=== PATIENT | female | born 1980 | race Caucasian/White ===

== ENCOUNTER 2018-08-31 19:36 | Emergency (ER) | payer SELFPAY ==
[~2018-08-31] VITALS: Ht 165.1 cm; Wt 93.9 kg
[~2018-08-31 19:36] MED LIST: DICY20TA57 PO; ESOM20CA PO; PANT20TA2 PO; SCR1T1 PO
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
--- OUTSIDE RECORDS SUMMARY | 2018-08-31 19:58 | XMS REPORT ---
Author Author BELLE JAFFE [facility] Address [address] [place] [address] Care Team Providers Care Supervisor Painting Name Role Phone BELLE JAFFE Unavailable PROBLEMS Type Condition ICD9-CM Code UMW14-NP Code Onset Dates Condition Status SNOMED Code Problem Mixed hyperlipidemia E78.2 Active 524362941 Problem Pre-diabetes R73.09 Active 326171945 Problem Other chronic pain G89.29 Active 48691324 Problem Lumbago with sciatica, right side M54.41 Active 855720556473652 Problem Spondylolisthesis of lumbosacral region M43.17 Active 692288257 Problem Seasonal allergic rhinitis due to pollen J30.1 Active 22850432 Problem Lumbago with sciatica, left side M54.42 Active 204022372 Problem Dysfunctional uterine bleeding N93.8 Active 87595389 ALLERGIES No Information ENCOUNTERS Encounter Location Date Diagnosis [place] [address] [address] Jan, Acute non-recurrent frontal sinusitis J01.10 ; Bronchitis J40 ; Tobacco use Z72.0 and Tobacco abuse counseling Z71.6 [place] [address] [place] [id number] [place] [address] 95265- 4117 Jan, [place] [address] [address] Jan, Bronchitis J40 and Viral upper respiratory tract infection J06.9 [place] [address] 91830- 5642 October, Spondylolisthesis of lumbosacral region M43.17 [place] [address] [address]- [address] October, [place] [address] [place] [id number] [place] [address] 08992- 9835 October, Acute suppurative otitis media of left ear without spontaneous rupture of tympanic membrane, recurrence not specified H66.002 ; Spondylolisthesis of lumbosacral region M43.17 ; Lumbago with sciatica, left side M54.42 ; Lumbago with sciatica, right side M54.41 ; Other chronic pain G89.29 ; Dysfunctional uterine bleeding N93.8 ; Screening for lipoid disorders Z13.220 and Pre-diabetes R73.09 [place] [address] [address]- [address] Sep, Anxiety F41.9 [place] [address] 83289- 8719 Aug, [place] [address] 75782- 7548 Aug, Dysfunction of both 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 [place] [address] [place] [id number] [place] [address] 90534- 9751 Apr, Anxiety F41.9 [place] [address] 48640- 2136 Feb, Anxiety F41.9 [facility] [address] [place] [id number] [place] [address] 24831- 2000 Feb, [facility] [address] [place] [id number] [place] [address] 54062- 8385 Feb, [facility] [address] [place] [id number] [place] [address] 67984- 5809 Feb, [facility] [address] [place] [id number] [place] [address] 22538- 1440 Jan, Anxiety F41.9 [facility] [address] [place] [id number] [place] [address] 77813- 1981 Jan, Anxiety F41.9 and Spondylolisthesis of lumbosacral region M43.17 [facility] [address] [place] [id number] [place] [address] 36568- 4514 17 Dec, 2016 Anxiety F41.9 [facility] [address] 88558- 8648 Nov, Anxiety F41.9 [facility] [address] 34948- 4411 October, Anxiety F41.9 and Seasonal allergic rhinitis due to pollen J30.1 [facility] [address] [place] [id number] [place] [address] 90227- 1537 Sep, Anxiety F41.9 [place] [address] 98865- 9477 16 Aug, 2016 Pre-diabetes R73.09 and Anxiety F41.9 [place] [address] 9[address]00- 2507 Jul, [facility] [address] 28974- 2116 Mar, [facility] [address] 75779- 0615 Mar, DUB (dysfunctional uterine bleeding) N93.8 and Menorrhagia with irregular cycle N92.1 [place] [address] [place] [id number] [place] [address] 32210- 4825 Feb, [facility] [address] [place] [id number] [place] [address] 54352- 3667 08 Feb, 2016 Encounter for dental examination Z01.20 [facility] [address] [place] [id number] [place] [address] 70825- 4918 Feb, Herniated nucleus pulposus M51.9 [facility] [address] [place] [id number] [place] [address] [id number] Feb, Dental examination Z01.20 [facility] [address] [place] [id number] [place] [address] 54847- 6844 Jan, Dental examination Z01.20 and Dental caries K02.9 [facility] [address] [address] 85[address] 10 Jan, 2016 Encounter for dental examination and cleaning without abnormal findings Z01.20 [facility] [address] [address]- 5[address] Jan, [facility] [address] [place] [id number] [place] [address] 45314- 7968 Jan, [facility] [address] [place] [address] 61201- 3690 Jan, Pre-diabetes R73.09 ; Chronic nonintractable headache, unspecified headache type R51 and Vaginal yeast infection B37.3 [facility] [address] [place] [id number] [address]- 7158 Jan, [facility] [address] [place] [id number] [place] [address] 58978- 2257 Dec, Herniated nucleus pulposus M51.9 [facility] [address] [address]- 8629 Dec, [facility] [address] [place] [id number] [place] [address] 62068- 7620 Nov, [facility] [address] [address]- 0191 Nov, [facility] [address] [place] [id number] [address]- 6847 Nov, [facility] [address], [place] [address]- 2884 Nov, [facility] [address] [place] [id number] [place] [address] 02826- 3622 Nov, Right hip pain M25.551 ; Pre-diabetes R73.09 ; Mixed hyperlipidemia E78.2 ; Chronic nonintractable headache, unspecified headache type R51 ; Right foot pain M79.671 and Right hand pain M79.641 [facility] [address] [address]- 5657 17 Nov, 2015 [facility] [address] [place] [id number] [place] [address] 14849- 3331 15 Nov, 2015 Right hip pain M25.551 ; Pre-diabetes R73.09 ; Mixed hyperlipidemia E78.2 and Chronic nonintractable headache, unspecified headache type R51 [facility] [address] [place] [id number] [place] [address] 00113- 3311 October, [facility] [address] [place] [id number] [place] [address] 53508- 5446 October, Right hip pain M25.551 ; Pre-diabetes R73.09 ; Mixed hyperlipidemia E78.2 and Frequent headaches R51 [facility] [address] [address]- 3862 October, Menorrhagia with regular cycle N92.0 [facility] [address] [address] October, [facility] [address] [place] [id number] [place] [address] 97233- 2237 October, Menorrhagia with regular cycle N92.0 [facility] [address], [place] [address]- 0909 Sep, Lump of right breast N63 ; Menorrhagia with regular cycle N92.0 and BMI 30.0-30.9,adult Z68.30 [facility] [address] [address]- 5555 Sep, [facility] [address] [place] [id number] [place] [address] 79715- 7408 Aug, [facility] [address] [place] [address] 34554- 5292 Aug, Well woman exam Z01.419 ; Encounter [...] Z87.898 and Trichomonas vaginalis (TV) infection A59.01 [place] [address] [place] [id number] [place] [address] 80567- 1922 October, Abdominal pain, unspecified site 789.00 ; GERD ( gastroesophageal reflux disease) 530.81 and Chest pain 786.50 [place] [address] [place] [id number] [place] [address] 83920- 6883 Sep, [place] [address] [place] [id number] [place] [address] 25118- 0327 Sep, [place] [address] [place] [id number] [place] [address] 45364- 6308 Jul, [place] [address] [place] [id number] [place] [address] 14379- 1025 Jul, [place] [address] [place] [id number] [place] [address] 64482- 6658 Jun, [place] [address] [place] [id number] [place] [address] 17884- 6335 Jun, [place] [address] [place] [id number] [place] [address] 97343- 5587 Jun, [place] [address] [place] [id number] [place] [address] 37647- 9846 Jun, [place] [address] [place] [id number] [place] [address] [id number]- 1890 Jun, [place] [address] [place] [id number] [place] [address] 59202- 1122 Jun, [place] [address] [facility] [id number] [place] [address]- 1818 14 Jun, 2014 [facility] [address] [id number] [place] [address]- 8342 Jun, [facility] [place] [facility] [address] [id number] [place] [address]- 3485 Jun, [facility] [place] [facility] [address] [id number] [place] [address]- 2394 Jun, [facility] [place] [facility] [address] [id number] [place] [address]- 6351 Jun, [facility] [place] [facility] [address] [id number] [place] [address]- 4160 Jun, [facility] [place] [facility] [address] [id number] [place] [address]- 0389 Jun, [facility] [place] [facility] [address] [id number] [place] [address]- 1855 Jun, [facility] [place] [facility] [address] [id number] [place] [address]- 1970 Jun, [facility] [place] [facility] [address] [id number] [place] [address]- 4395 May, [facility] [place] [facility] [address] [id number] [place] [address]- 8364 May, [facility] [place] [facility] [address] [id number] [place] [address]- 5833 30 Feb, 2014 [facility] [place] [facility] [address] [id number] [place] [address]- 2541 30 Feb, 2014 [facility] [place] [facility] [address] [id number] [place] [address]- 0379 29 Feb, 2014 [facility] [place] [facility] [address] [id number] [place] [address]- 2594 25 Feb, 2014 [facility] [place] [facility] [address] [id number] [place] [address]- 4134 Feb, [facility] [place] [facility] [address] [id number] [place] [address]- 5272 17 Feb, 2013 [facility] [place] [facility] [address] [id number] [place] [address]- 5564 17 Feb, 2013 [facility] [place] [facility] [address] [id number] [place] [address]- 5109 11 Feb, 2013 [facility] [place] [facility] [address] [id number] [place] [address]- 6585 11 Feb, 2013 [facility] [place] [facility] [address] [id number] [place] [address]- 7699 10 Feb, 2014 [facility] [place] [facility] [address] [id number] [place] [address]- 0319 10 Feb, 2014 [facility] [place] [facility] [address] [id number] [place] [address]- 6503 Feb, [facility] [place] [facility] [address] [id number] [place] [address]- 1948 09 Feb, 2014 [facility] [place] [facility] [address] [id number] [place] [address]- 0498 09 Feb, 2014 [facility] [place] [facility] [address] [id number] [place] [address]- 0377 15 Jan, 2014 [facility] [place] [facility] [address] [id number] [place] [address]- 1607 Jan, [facility] [place] [facility] [address] [id number] [address]- 0192 Dec, [facility] [place] [facility] [address] [id number] [place] [address]- 4634 Dec, [facility] [place] [facility] [address] [id number] [place] [address]- 6385 Dec, [facility] [place] [facility] [address] [id number] [place] [address]- 9445 Dec, [facility] [place] [facility] [address] [id number] [place] [address] 2546 Dec, [facility] [address] [id number] [place] [address]- 1991 Dec, [facility] [place] [facility] [address] [id number] [place] [address]- 7680 Nov, [facility] [place] [facility] [address] [id number] [place] [address]- 6546 Nov, [facility] [place] [facility] [address] [id number] [place] [address]- 2255 Sep, [facility] [place] [facility] [address] [id number] [place] [address]- 4903 May, [facility] [place] [facility] [address] [id number] [place] [address]- 2556 May, [facility] [address] [id number] [place] [address]- 3819 Nov, [facility] [place] [facility] [address] [id number] [place] [address]- 1108 Sep, [facility] [place] [facility] [address] [id number] [place] [address]- 3319 Aug, [facility] [place] [facility] [address] [facility] [id number] [place] [address]- 0276 Jun, [facility] [place] [facility] [address] [id number] [place] [address]- 7142 Jun, [facility] [place] [facility] [address] [id number] [place] [address]- 2546 Jun, [facility] [place] [facility] [address] [id number] [place] [address]- 1766 May, [facility] [place] [facility] [address] [id number] [place] [address]- 6919 May, [facility] [place] [facility] [address] [facility] [id number] [place] [address]- 9476 May, [facility] [place] [facility] [address] [facility] [id number] [address]- 1366 May, [facility] [address] [facility] [id number], [place] [address]- 2017 Apr, [facility] [address] [facility] [id number], [place] [address]- 0849 Apr, [facility] [address] [facility] [id number] [address]- 9880 Apr, [facility] [address] [facility] [id number] [address]- 1354 Apr, IMMUNIZATIONS No Known Immunizations SOCIAL HISTORY Never Assessed REASON FOR VISIT Controlled Med Refill PLAN OF CARE VITAL SIGNS MEDICATIONS Medication Instructions Dosage Frequency Start Date End Date Duration Status Tramadol HCl 50 mg Orally TID PRN 1 tablet as needed October, 14 days Active RESULTS No Results PROCEDURES No [...]
--- OUTSIDE RECORDS SUMMARY | 2018-08-31 19:59 | XMS REPORT ---
Author Author MARLENA WATERS [facility] Address [address] [place] [address] Care Team Providers Care Fire Alarm Dispatcher Name Role Phone MARLENA WATERS Unavailable PROBLEMS Type Condition ICD9-CM Code [id number] Code Onset Dates Condition Status SNOMED Code Problem Mixed hyperlipidemia E78.2 Active 703248822 Problem Pre-diabetes R73.09 Active 916773778 Problem Other chronic pain G89.29 Active 34337315 Problem Lumbago with sciatica, right side M54.41 Active 717446825294811 Problem Spondylolisthesis of lumbosacral region M43.17 Active 024149850 Problem Seasonal allergic rhinitis due to pollen J30.1 Active 99472567 Problem Lumbago with sciatica, left side M54.42 Active 593823069 Problem Dysfunctional uterine bleeding N93.8 Active 52948154 ALLERGIES No Information ENCOUNTERS Encounter Location Date Diagnosis [place] [address] [address] Jan, Acute non-recurrent frontal sinusitis J01.10 ; Bronchitis J40 ; Tobacco use Z72.0 and Tobacco abuse counseling Z71.6 [place] [address] [address] Jan, [place] [address] [address] Jan, Bronchitis J40 and Viral upper respiratory tract infection J06.9 [place] [address] [address]- [address] October, Spondylolisthesis of lumbosacral region M43.17 [place] [address] [address]- [address] October, [place] [address] [place] [id number] [place] [address]- [address] October, Acute suppurative otitis media of left ear without spontaneous rupture of tympanic membrane, recurrence not specified H66.002 ; Spondylolisthesis of lumbosacral region M43.17 ; Lumbago with sciatica, left side M54.42 ; Lumbago with sciatica, right side M54.41 ; Other chronic pain G89.29 ; Dysfunctional uterine bleeding N93.8 ; Screening for lipoid disorders Z13.220 and Pre-diabetes R73.09 [place] [address] [place] [id number] [place] [address]- 8333 Sep, Anxiety F41.9 [place] [address] [address]- [address] Aug, [place] [address] [address]- 260[address] Aug, Dysfunction of both 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 [place] [address] [place] [id number] [place] [address] 21474- 1852 Apr, Anxiety F41.9 [place] [address] [address]- 6[address] Feb, Anxiety F41.9 [place] [address] [place] [id number] [place] [address] 26186- 1670 Feb, [place] [address] [place] [id number] [place] [address] 75747- 2606 Feb, [place] [address] [place] [id number] [place] [address] 11922- 6519 Feb, [place] [address] [place] [id number] [place] [address] 87061- 4122 Jan, Anxiety F41.9 [place] [address] [place] [id number] [place] [address] 30028- 3288 Jan, Anxiety F41.9 and Spondylolisthesis of lumbosacral region M43.17 [facility] [address] [place] [id number] [place] [address] 88804- 4608 17 Dec, 2016 Anxiety F41.9 [facility] [address] [place] [id number] [place] [address] 39410- 4747 Nov, Anxiety F41.9 [facility] [address] [place] [id number] [place] [address] 17983- 7806 October, Anxiety F41.9 and Seasonal allergic rhinitis due to pollen J30.1 [facility] [address] [place] [id number] [place] [address] 66356- 1877 Sep, Anxiety F41.9 [place] [address] 14662- 4510 16 Aug, 2016 Pre-diabetes R73.09 and Anxiety F41.9 [place] [address] [place] [id number] [place] [address] 79298- 0552 Jul, [facility] [address] [place] [id number] [place] [address] 23425- 4606 Mar, [facility] [address] [address]- [address] Mar, DUB (dysfunctional uterine bleeding) N93.8 and Menorrhagia with irregular cycle N92.1 [place] [address] [place] [id number] [place] [address] 23352- 5157 Feb, [facility] [address] [place] [id number] [place] [address] 39863- 6335 08 Feb, 2016 Encounter for dental examination Z01.20 [facility] [address] [place] [id number] [place] [address] 84470- 5297 Feb, Herniated nucleus pulposus M51.9 [facility] [address] [place] [id number] [place] [address] [id number] Feb, Dental examination Z01.20 [facility] [address] [place] [id number] [place] [address] 69564- 4052 Jan, Dental examination Z01.20 and Dental caries K02.9 [facility] [address] [address] 10 Jan, 2016 Encounter for dental examination and cleaning without abnormal findings Z01.20 [facility] [address] [address] 48[address] Jan, [facility] [address] [place] [id number] [place] [address] 63162- 2711 Jan, [facility] [address] [place] [id number] [place] [address] 17287- 8814 Jan, Pre-diabetes R73.09 ; Chronic nonintractable headache, unspecified headache type R51 and Vaginal yeast infection B37.3 [place] [address] [place] [id number] [place] [address] 13627- 4456 Jan, [facility] [address] [place] [id number] [place] [address] 26112- 5354 Dec, Herniated nucleus pulposus M51.9 [facility] [address] [place] [id number] [place] [address] 92873- 6060 Dec, [facility] [address] [place] [id number] [place] [address] 03560- 3912 Nov, [facility] [address] [address]- 6519 Nov, [facility] [address] [place] [id number] [place] [address] 98185- 5648 Nov, [facility] [address] [address]- 8302 Nov, [facility] [address] [place] [id number] [place] [address] 35450- 2403 Nov, Right hip pain M25.551 ; Pre-diabetes R73.09 ; Mixed hyperlipidemia E78.2 ; Chronic nonintractable headache, unspecified headache type R51 ; Right foot pain M79.671 and Right hand pain M79.641 [facility] [address] [address]- 4021 17 Nov, 2015 [facility] [address] [place] [id number] [place] [address] 19872- 3491 15 Nov, 2015 Right hip pain M25.551 ; Pre-diabetes R73.09 ; Mixed hyperlipidemia E78.2 and Chronic nonintractable headache, unspecified headache type R51 [facility] [address] [place] [id number] [place] [address] 69246- 6592 October, [facility] [address] [place] [id number] [place] [address] 26442- 4813 October, Right hip pain M25.551 ; Pre-diabetes R73.09 ; Mixed hyperlipidemia E78.2 and Frequent headaches R51 [facility] [address] [address]- 0296 October, Menorrhagia with regular cycle N92.0 [facility] [address] [address] October, [facility] [address] [place] [id number] [place] [address] 77614- 1680 October, Menorrhagia with regular cycle N92.0 [facility] [address] [address]- 5158 Sep, Lump of right breast N63 ; Menorrhagia with regular cycle N92.0 and BMI 30.0-30.9,adult Z68.30 [facility] [address] [address]- 5250 Sep, [facility] [address] [place] [id number] [place] [address] 34090- 7020 Aug, [facility] [id number] [place] [address] 20460- 8756 Aug, Well woman exam Z01.419 ; Encounter [...] Z87.898 and Trichomonas vaginalis (TV) infection A59.01 [place] [address] [address]- 4304 October, Abdominal pain, unspecified site 789.00 ; GERD ( gastroesophageal reflux disease) 530.81 and Chest pain 786.50 [place] [address] 58[address]- 2944 Sep, [place] [address] [address]60- 5866 Sep, [place] [address] 70964- 0059 Jul, [place] [address] 02772- 7452 Jul, [facility] [address] [place] [id number] [place] [address] 87927- 2415 Jun, [place] [address] [place] [id number] [place] [address] 45719- 7024 Jun, [facility] [address] [place] [id number] [place] [address] 33820- 8513 Jun, [place] [address] 93353- 8151 Jun, [place] [address] 12079- 8092 Jun, [place] [address] [place] [id number] [place] [address] 82497- 4827 Jun, [place] [address] [id number] [place] [address]- 7686 14 Jun, 2014 [facility] [place] [facility] [address] [id number] [place] [address]- 0054 Jun, [facility] [place] [facility] [address] [id number] [place] [address]- 3115 Jun, [facility] [place] [facility] [address] [id number] [place] [address]- 0855 Jun, [facility] [place] [facility] [address] [id number] [place] [address]- 5761 Jun, [facility] [place] [facility] [address] [id number] [place] [address]- 5527 Jun, [facility] [place] [facility] [address] [id number] [place] [address]- 5595 Jun, [facility] [place] [facility] [address] [id number] [place] [address]- 7357 Jun, [facility] [place] [facility] [address] [id number] [place] [address]- 8210 Jun, [facility] [place] [facility] [address] [id number] [place] [address]- 3420 May, [facility] [place] [facility] [address] [id number] [place] [address]- 9643 May, [facility] [place] [facility] [address] [id number] [place] [address]- 6124 30 Feb, 2014 [facility] [place] [facility] [address] [id number] [place] [address]- 2548 30 Feb, 2014 [facility] [place] [facility] [address] [id number] [place] [address]- 1584 29 Feb, 2014 [facility] [place] [facility] [address] [id number] [place] [address]- 0659 25 Feb, 2014 [facility] [place] [facility] [address] [id number] [place] [address]- 0817 Feb, 2013 [facility] [place] [facility] [address] [id number] [place] [address]- 7428 17 Feb, 2013 [facility] [place] [facility] [address] [id number] [place] [address]- 7806 17 Feb, 2013 [facility] [place] [facility] [address] [id number] [place] [address]- 9365 11 Feb, 2013 [facility] [place] [facility] [address] [id number] [place] [address]- 8454 11 Feb, 2013 [facility] [place] [facility] [address] [id number] [place] [address]- 1042 10 Feb, 2014 [facility] [place] [facility] [address] [id number] [place] [address]- 4927 10 Feb, 2014 [facility] [place] [facility] [address] [id number] [place] [address]- 5333 Feb, [facility] [place] [facility] [address] [id number] [place] [address]- 1041 09 Feb, 2014 [facility] [place] [facility] [address] [id number] [place] [address]- 8867 09 Feb, 2014 [facility] [place] [facility] [address] [id number] [place] [address]- 6042 15 Jan, 2014 [facility] [place] [facility] [address] [id number] [place] [address]- 0066 Jan, [facility] [place] [facility] [address] [id number] [address]- 2956 Dec, [facility] [place] [facility] [address] [id number] [place] [address]- 1463 Dec, [facility] [place] [facility] [address] [id number] [place] [address]- 3649 Dec, [facility] [place] [facility] [address] [id number] [place] [address]- 7765 Dec, [facility] [place] [facility] [address] [id number] [place] [address] 2549 Dec, [facility] [address] [id number] [place] [address]- 4007 Dec, [facility] [place] [facility] [address] [id number] [place] [address]- 6666 Nov, [facility] [address] [id number] [place] [address]- 3364 Nov, [facility] [place] [facility] [address] [id number] [place] [address]- 6469 Sep, [facility] [address] [id number] [place] [address]- 7429 May, [facility] [place] [facility] [address] [id number] [place] [address]- 0796 May, [facility] [address] [id number] [place] [address]- 2016 Nov, [facility] [place] [facility] [address] [id number] [place] [address]- 6845 Sep, [facility] [place] [facility] [address] [id number] [place] [address]- 0390 Aug, [facility] [place] [facility] [address] [id number] [place] [address]- 6787 Jun, [facility] [place] [facility] [address] [id number] [place] [address]- 0986 Jun, [facility] [place] [facility] [address] [id number] [place] [address]- 2544 Jun, [facility] [place] [facility] [address] [id number] [place] [address]- 5905 May, [facility] [place] [facility] [address] [id number] [place] [address]- 4272 May, [facility] [place] [facility] [address] [id number] [place] [address]- 6160 May, [facility] [address] [facility] [id number] [address]- 9769 May, [facility] [address] [place] [id number] [address]- 2753 Apr, [facility] [address] [facility] [id number] [address]- 1808 Apr, [facility] [address] [facility] [id number] [address]- 8369 Apr, [facility] [address] [facility] [id number] [place] [address]- 3872 Apr, IMMUNIZATIONS No Known Immunizations SOCIAL HISTORY [...]
--- OUTSIDE RECORDS SUMMARY | 2018-08-31 19:59 | XMS REPORT ---
Author Author BELLE JAFFE Organization [facility] Address [address] [place] [address] Care Team Providers Care [employer] Dispatcher Name Role Phone BELLE JAFFE Unavailable PROBLEMS Type Condition ICD9-CM Code QGY76-CB Code Onset Dates Condition Status SNOMED Code Problem Mixed hyperlipidemia E78.2 Active 343575463 Problem Pre-diabetes R73.09 Active 412490841 Problem Other chronic pain G89.29 Active 21973466 Problem Lumbago with sciatica, right side M54.41 Active 599384981981714 Problem Spondylolisthesis of lumbosacral region M43.17 Active 620311240 Problem Seasonal allergic rhinitis due to pollen J30.1 Active 31929420 Problem Lumbago with sciatica, left side M54.42 Active 516326558 Problem Dysfunctional uterine bleeding N93.8 Active 59623226 ALLERGIES Substance Reaction Event Type Date Status Augmentin Unknown Drug Allergy Aug, Active ENCOUNTERS Encounter Location Date Diagnosis [place] [id number] [place] [address] 71065- 7513 October, Spondylolisthesis of lumbosacral region M43.17 [place] [id number] [place] [address] 36955- 6567 October, [place] [id number] [place] [address] 12835- 7653 October, Acute suppurative otitis media of left ear without spontaneous rupture of tympanic membrane, recurrence not specified H66.002 ; Spondylolisthesis of lumbosacral region M43.17 ; Lumbago with sciatica, left side M54.42 ; Lumbago with sciatica, right side M54.41 ; Other chronic pain G89.29 ; Dysfunctional uterine bleeding N93.8 ; Screening for lipoid disorders Z13.220 and Pre-diabetes R73.09 [facility] [id number] [place] [address] 27141- 9107 Sep, Anxiety F41.9 [facility] [id number] [place] [address] 80821- 4026 Aug, [facility] [id number] [place] [address] 56887- 6657 Aug, Dysfunction of both 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 [facility] [id number] [place] [address] 57169- 5453 Apr, Anxiety F41.9 [facility] [id number] [place] [address] 53180- 7936 Feb, Anxiety F41.9 [facility] [id number] [place] [address] 64440- 7400 Feb, [facility] [id number] [place] [address] 86849- 7165 Feb, [facility] [id number] [place] [address] 94891- 8610 Feb, [facility] [id number] [place] [address] 50891- 8428 Jan, Anxiety F41.9 [facility] [id number] [place] [address] 38824- 0113 Jan, Anxiety F41.9 and Spondylolisthesis of lumbosacral region M43.17 [facility] [id number] [place] [address] 24843- 4363 Dec, Anxiety F41.9 [facility] [id number] [place] [address] 44282- 3451 Nov, Anxiety F41.9 [facility] [id number] [place] [address] 99740- 0627 October, Anxiety F41.9 and Seasonal allergic rhinitis due to pollen J30.1 [facility] [id number] [place] [address] 81857- 6338 17 Sep, 2016 Anxiety F41.9 [facility] [address] 10353- 5097 Aug, Pre-diabetes R73.09 and Anxiety F41.9 [facility] [address] 90158- 0153 Jul, [facility] [address] 48368- 4338 Mar, [place] [address] 81968- 5753 Mar, DUB (dysfunctional uterine bleeding) N93.8 and Menorrhagia with irregular cycle N92.1 [place] [address] 36534- 9935 Feb, [facility] [address] 88337- 7138 Feb, Encounter for dental examination Z01.20 [facility] [address] 92782- 6526 Feb, Herniated nucleus pulposus M51.9 [facility] [id number] [place] [address] [id number] Feb, Dental examination Z01.20 [facility] [id number] [place] [address] 40939- 8585 Jan, Dental examination Z01.20 and Dental caries K02.9 [facility] [id number] [place] [address] 21526- 4844 Jan, Encounter for dental examination and cleaning without abnormal findings Z01.20 [facility] [id number] [place] [address] 40325- 5101 Jan, [facility] [id number] [place] [address] 91308- 9548 Jan, [facility] [address] [address]- 6420 Jan, Pre-diabetes R73.09 ; Chronic nonintractable headache, unspecified headache type R51 and Vaginal yeast infection B37.3 [facility] [address] [place] [address]- 8990 Jan, [facility] [id number] [place] [address] 75578- 8202 Dec, Herniated nucleus pulposus M51.9 [facility] [id number] [place] [address] 65694- 1234 Dec, [facility] [id number] [place] [address] 68608- 9941 Nov, [facility] [id number] [place] [address] 81955- 9695 Nov, [facility] [id number] [place] [address] 89516- 6743 Nov, [facility] [address] [address]- 0595 Nov, [facility] [address] [place] [address] 96522- 4521 Nov, Right hip pain M25.551 ; Pre-diabetes R73.09 ; Mixed hyperlipidemia E78.2 ; Chronic nonintractable headache, unspecified headache type R51 ; Right foot pain M79.671 and Right hand pain M79.641 [facility] [address] [address]- 8698 Nov, [facility] [id number] [place] [address] 12140- 7049 Nov, Right hip pain M25.551 ; Pre-diabetes R73.09 ; Mixed hyperlipidemia E78.2 and Chronic nonintractable headache, unspecified headache type R51 [facility] [address] [place] [address]- 7192 October, [facility] [address] [place] [address]- 5849 October, Right hip pain M25.551 ; Pre-diabetes R73.09 ; Mixed hyperlipidemia E78.2 and Frequent headaches R51 [facility] [address] [place] [address]- 0851 October, Menorrhagia with regular cycle N92.0 [facility] [address] [address] October, [facility] [id number] [place] [address] 99990- 0006 October, Menorrhagia with regular cycle N92.0 [facility] [address], [place] [address]- 4331 Sep, Lump of right breast N63 ; Menorrhagia with regular cycle N92.0 and BMI 30.0-30.9,adult Z68.30 [place] [address] [place] [address]- 9996 Sep, [place] [address] [id number] [place] [address] 52556- 5467 Aug, [facility] [address] [address]- 9683 Aug, Well woman exam Z01.419 ; Encounter [...] Z87.898 and Trichomonas vaginalis (TV) infection A59.01 [place] [address] [address]- 1454 October, Abdominal pain, unspecified site 789.00 ; GERD ( gastroesophageal reflux disease) 530.81 and Chest pain 786.50 [facility] [address] [address]- 1001 Sep, [facility] [address], [place] [address]- 9052 Sep, [facility] [id number] [place] [address] 08550- 3282 Jul, [facility] [id number] [place] [address] 62226- 8376 Jul, [facility] [id number] [address]- 9095 Jun, [facility] [id number] [place] [address] 84210- 6070 Jun, [facility] [address], [place] [address]- 4557 Jun, [facility] [address], [place] [address]- 9899 Jun, [facility] [address], [place] [address]- 3192 Jun, [facility] [address], [place] [address]- 8330 Jun, [facility] [address], [place] [address]- 4697 Jun, [facility] [address], [place] [address]- 0033 Jun, [facility] [address], [place] [address]- 3758 Jun, [facility] [address], [place] [address]- 8522 Jun, [facility] [place] [facility] [address] [id number] [place] [address]- 9220 Jun, [facility] [place] [facility] [address] [id number] [place] [address]- 0128 Jun, [facility] [place] [facility] [address] [id number] [place] [address]- 8253 Jun, [facility] [place] [facility] [address] [id number] [place] [address]- 1791 Jun, [facility] [place] [facility] [address] [id number] [place] [address]- 0209 Jun, [facility] [place] [facility] [address] [id number] [place] [address]- 9864 May, [facility] [place] [facility] [address] [id number] [place] [address]- 1411 May, [facility] [place] [facility] [address] [id number] [place] [address]- 5501 30 Feb, 2013 [facility] [place] [facility] [address] [id number] [place] [address] 2544 30 Feb, 2013 [facility] [place] [facility] [address] [id number] [place] [address]- 2543 29 Feb, 2013 [facility] [place] [facility] [address] [id number] [place] [address] 2547 25 Feb, 2013 [facility] [place] [facility] [address] [id number] [place] [address]- 2540 25 Feb, 2013 [facility] [place] [facility] [address] [id number] [place] [address] 2546 17 Feb, 2013 [facility] [place] [facility] [address] [id number] [place] [address] 2546 17 Feb, 2013 [facility] [place] [facility] [address] [id number] [place] [address] 2545 11 Feb, 2013 [facility] [place] [facility] [address] [id number] [place] [address]- 0662 11 Feb, 2014 [facility] [place] [facility] [address] [id number] [place] [address]- 1914 10 Feb, 2014 [facility] [place] [facility] [address] [id number] [place] [address]- 3273 Feb, [facility] [place] [facility] [address] [id number] [place] [address]- 5846 Feb, [facility] [place] [facility] [address] [id number] [place] [address]- 2582 Feb, [facility] [place] [facility] [address] [id number] [place] [address]- 7104 Feb, [facility] [place] [facility] [address] [id number] [place] [address]- 3702 Jan, [facility] [place] [facility] [address] [id number] [place] [address]- 2231 Jan, [facility] [place] [facility] [address] [id number] [place] [address]- 0764 Dec, [facility] [place] [facility] [address] [id number] [place] [address]- 2297 Dec, [facility] [place] [facility] [address] [id number] [place] [address]- 5078 Dec, [facility] [place] [facility] [address] [id number], [place] [address]- 8300 Dec, [facility] [place] [facility] [address] [id number], [place] [address]- 0662 Dec, [facility] [place] [facility] [address] [id number] [place] [address]- 5961 Dec, [facility] [place] [facility] [address] [id number] [place] [address]- 4688 Nov, [facility] [place] [facility] [address] [id number] [place] [address]- 8430 Nov, [facility] [place] [facility] [address] [id number] [place] [address]- 7067 05 Sep, 2012 [facility] [place] [facility] [address] [id number] [place] [address]- 8045 May, [facility] [place] [facility] [address] [id number] [place] [address]- 2136 May, [facility] [place] [facility] [address] [id number] [place] [address]- 0612 Nov, [facility] [place] [facility] [address] [id number] [place] [address] 2546 Sep, [facility] [place] [facility] [address] [id number] [place] [address]- 5545 Aug, [facility] [place] [facility] [address] [id number] [place] [address]- 6486 16 Jun, 2011 [facility] [address] [id number] [place] [address]- 4633 Jun, [facility] [place] [facility] [address] [id number] [place] [address]- 8504 Jun, [facility] [place] [facility] [address] [id number] [place] [address]- 4668 May, [facility] [address] [id number] [place] [address]- 6533 May, [facility] [place] [facility] [address] [id number] [place] [address]- 3174 May, [facility] [place] [facility] [address] [id number] [place] [address]- 2549 May, [facility] [place] [facility] [address] [id number] [place] [address]- 1143 Apr, [facility] [place] [facility] [address] [id number] [place] [address]- 2546 Apr, [facility] [place] [facility] [address] [id number] [place] [address]- 1485 Apr, [facility] [address] [facility] [id number] [place] [address]- 1578 Apr, IMMUNIZATIONS No Known Immunizations SOCIAL HISTORY Never Assessed REASON FOR VISIT Earache--tjanssenMA, --1 week ago was sick with ear infection and sinus infection. Everything but the ear pain has healed. , --ear drainage and itching , --having severe burning and pains in chest after she eats, thinks its heart burn. Prev stomach ulcers PLAN OF CARE Activity Details Follow Up if not improving with PCP or reg follow up Reason: VITAL SIGNS Height 65 in 2017-08-30 Weight 224.7 lbs 2017-08-30 Temperature 98.1 degrees Fahrenheit 2017-08-30 Heart Rate 84 bpm 2017-08-30 Respiratory Rate 20 2017-08-30 BMI 37.39 kg/m2 2017-08-30 Blood pressure systolic 118 mmHg 2017-08-30 Blood pressure diastolic 78 mmHg 2017-08-30 MEDICATIONS Medication Instructions Dosage Frequency Start Date End Date Duration Status Flonase 50 MCG/ACT Nasally Once a day 1 spray in each nostril 24h Aug, 30 day(s) Active Ortho-Cyclen (28) 0.25-35 MG-MCG TAKE ONE TABLET BY MOUTH ONCE DAILY 28 Not-Taking Paxil 20 mg Orally Once a day 1 tablet 24h 30 days Active Scglylpmyv-MMKQ-Xhsvfysn 50-325-40 MG TAKE ONE TABLET BY MOUTH EVERY 4 HOURS NEEDED FOR MIGRAINE 3 Not-Taking RESULTS No Results PROCEDURES No Known procedures [...]
--- OUTSIDE RECORDS SUMMARY | 2018-08-31 19:59 | XMS REPORT ---
Author Author BELLE JAFFE Organization [facility] Address [address] [place] [address] Care Team Providers Care Sander Machine Name Role Phone BELLE JAFFE Unavailable PROBLEMS Type Condition ICD9-CM Code [id number] Code Onset Dates Condition Status SNOMED Code Problem Mixed hyperlipidemia E78.2 Active 346336620 Problem Pre-diabetes R73.09 Active 723003698 Problem Other chronic pain G89.29 Active 80108889 Problem Lumbago with sciatica, right side M54.41 Active 283652986205212 Problem Spondylolisthesis of lumbosacral region M43.17 Active 362034698 Problem Seasonal allergic rhinitis due to pollen J30.1 Active 06579414 Problem Lumbago with sciatica, left side M54.42 Active 181388708 Problem Dysfunctional uterine bleeding N93.8 Active 48258291 ALLERGIES No Information ENCOUNTERS Encounter Location Date Diagnosis [place] [address] [address] Jan, Bronchitis J40 and Viral upper respiratory tract infection J06.9 [place] [address] [address] October, Spondylolisthesis of lumbosacral region M43.17 [place] [address] [place] [id number] [place] [address]- [address] October, [place] [address] [address] October, Acute suppurative otitis media of left ear without spontaneous rupture of tympanic membrane, recurrence not specified H66.002 ; Spondylolisthesis of lumbosacral region M43.17 ; Lumbago with sciatica, left side M54.42 ; Lumbago with sciatica, right side M54.41 ; Other chronic pain G89.29 ; Dysfunctional uterine bleeding N93.8 ; Screening for lipoid disorders Z13.220 and Pre-diabetes R73.09 [facility] [address] [address] Sep, Anxiety F41.9 [facility] [address] [address]- [address] Aug, [facility] [address] [address]- [address] Aug, Dysfunction of both 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 [facility] [address] [address]- [address] Apr, Anxiety F41.9 [facility] [address] [address]- [address] Feb, Anxiety F41.9 [facility] [address] [address]- [address] Feb, [facility] [address] [address]- [address] Feb, [facility] [address] [address]- [address] Feb, [facility] [address] [address] Jan, Anxiety F41.9 [facility] [address] [address]- 8969 Jan, Anxiety F41.9 and Spondylolisthesis of lumbosacral region M43.17 [facility] [address] [address] Dec, Anxiety F41.9 [facility] [address] [address]- [address] Nov, Anxiety F41.9 [facility] [address] [address]- [address] October, Anxiety F41.9 and Seasonal allergic rhinitis due to pollen J30.1 [place] [address] [address] Sep, Anxiety F41.9 [place] [address] [address]- [address] Aug, Pre-diabetes R73.09 and Anxiety F41.9 [place] [address] [address]- [address] Jul, [place] [address] 868367- [address] Mar, [place] [address] [address]- [address] Mar, DUB (dysfunctional uterine bleeding) N93.8 and Menorrhagia with irregular cycle N92.1 [place] [address] [address]- 9660 Feb, [place] [address] [address]- [address] Feb, Encounter for dental examination Z01.20 [place] [address] [address]- [address] Feb, Herniated nucleus pulposus M51.9 [facility] [address] [id number] Feb, Dental examination Z01.20 [place] [address] [place] [id number] [place] [address]- 2662 Jan, Dental examination Z01.20 and Dental caries K02.9 [place] [address] [address]- 0[address] Jan, Encounter for dental examination and cleaning without abnormal findings Z01.20 [place] [address] [address]- [address] Jan, [facility] [address] [address] Jan, [facility] [address] [place] [id number] [place] [address]003- 8422 Jan, Pre-diabetes R73.09 ; Chronic nonintractable headache, unspecified headache type R51 and Vaginal yeast infection B37.3 [facility] [id number] [place] [address]64- 7655 Jan, [facility] [address] [place] [id number] [place] [address] 9[address]84- 5825 Dec, Herniated nucleus pulposus M51.9 [facility] [address] [place] [id number] [place] [address] 90256- 4007 Dec, [facility] [address] [place] [id number] [address] Nov, [facility] [address] [place] [id number] [place] [address]25- [address] Nov, [facility] [address] [address] Nov, [facility] [address] [address] Nov, [facility] [address] [address] 120[address] Nov, Right hip pain M25.551 ; Pre-diabetes R73.09 ; Mixed hyperlipidemia E78.2 ; Chronic nonintractable headache, unspecified headache type R51 ; Right foot pain M79.671 and Right hand pain M79.641 [facility] [address] [address] Nov, [facility] [address] [address] Nov, Right hip pain M25.551 ; Pre-diabetes R73.09 ; Mixed hyperlipidemia E78.2 and Chronic nonintractable headache, unspecified headache type R51 [place] [address] [place] [id number] [place] [address]461- 3972 October, [place] [address] [place] [id number] [place] [address] 30377- 2949 October, Right hip pain M25.551 ; Pre-diabetes R73.09 ; Mixed hyperlipidemia E78.2 and Frequent headaches R51 [place] [address] [place] [id number] [place] [address] 38696- 7103 October, Menorrhagia with regular cycle N92.0 [facility] [address] [place] [id number] [place] [address] -7672 October, [place] [address] [place] [id number] [place] [address] 18965- 3162 October, Menorrhagia with regular cycle N92.0 [place] [address] [place] [id number] [place] [address]29- 2753 Sep, Lump of right breast N63 ; Menorrhagia with regular cycle N92.0 and BMI 30.0-30.9,adult Z68.30 [place] [address] [place] [id number] [place] [address]82- 8593 Sep, [place] [address] [place] [id number] [place] [address] 57514- 1199 Aug, [place] [address] [place] [id number] [place] [address] 04973- 3568 Aug, Well woman exam Z01.419 ; Encounter [...] Z87.898 and Trichomonas vaginalis (TV) infection A59.01 [facility] [address] [address]- [address] October, Abdominal pain, unspecified site 789.00 ; GERD ( gastroesophageal reflux disease) 530.81 and Chest pain 786.50 [facility] [address] [address]- 3[address] Sep, [facility] [address] [place] [id number] [place] [address] 96924- 9046 Sep, [facility] [address] [place] [id number] [place] [address] 70489- 2989 Jul, [facility] [address] [place] [id number] [place] [address] 66425- 1916 Jul, [facility] [address] [place] [id number] [place] [address] 89858- 8154 Jun, [facility] [id number] [place] [address] 95063- 8761 Jun, [facility] [address] [place] [id number] [place] [address] 68389- 0567 Jun, [facility] [address] [place] [id number] [address]- 5[address] Jun, [facility] [address] [address]- 4010 Jun, [facility] [address] [address]- 7340 Jun, [facility] [id number] [place] [address] 82138- 3983 Jun, [facility] [address] [place] [id number] [place] [address] 38786- 2581 Jun, [facility] [address] [address]- 8612 Jun, [facility] [place] [facility] [address] [id number] [place] [address]- 7174 Jun, [facility] [place] [facility] [address] [id number] [place] [address]- 0373 Jun, [facility] [place] [facility] [address] [id number] [place] [address]- 7565 Jun, [facility] [place] [facility] [address] [id number] [place] [address]- 9595 Jun, [facility] [place] [facility] [address] [id number] [place] [address]- 5009 Jun, [facility] [place] [facility] [address] [id number] [place] [address]- 4952 Jun, [facility] [place] [facility] [address] [id number] [place] [address]- 5958 May, [facility] [place] [facility] [address] [id number] [place] [address]- 9057 May, [facility] [place] [facility] [address] [id number] [place] [address]- 4843 30 Feb, 2014 [facility] [place] [facility] [address] [id number] [place] [address]- 7914 30 Feb, 2014 [facility] [place] [facility] [address] [id number] [place] [address]- 2547 29 Feb, 2014 [facility] [place] [facility] [address] [id number] [place] [address]- 2549 25 Feb, 2013 [facility] [place] [facility] [address] [id number] [place] [address] 2540 25 Feb, 2014 [facility] [place] [facility] [address] [id number] [place] [address] 2546 17 Feb, 2013 [facility] [place] [facility] [address] [id number] [place] [address]- 2546 17 Feb, 2013 [facility] [place] [facility] [address] [id number] [place] [address]- 5737 Feb, [facility] [place] [facility] [address] [id number] [place] [address]- 0949 11 Feb, 2014 [facility] [place] [facility] [address] [id number] [place] [address]- 1122 Feb, [facility] [place] [facility] [address] [id number] [place] [address]- 8927 Feb, [facility] [place] [facility] [address] [id number] [place] [address]- 2799 Feb, [facility] [place] [facility] [address] [id number] [place] [address]- 1025 Feb, [facility] [place] [facility] [address] [id number] [place] [address]- 3908 Feb, [facility] [place] [facility] [address] [id number] [place] [address]- 2213 Jan, [facility] [place] [facility] [address] [id number] [place] [address]- 8994 Jan, [facility] [place] [facility] [address] [id number] [place] [address]- 9255 Dec, [facility] [place] [facility] [address] [id number] [place] [address]- 1839 Dec, [facility] [place] [facility] [address] [id number] [address]- 8239 Dec, [facility] [place] [facility] [address] [id number] [address]- 8390 Dec, [facility] [place] [facility] [address] [id number] [place] [address]- 7716 Dec, [facility] [place] [facility] [address] [id number] [place] [address]- 6275 Dec, [facility] [place] [facility] [address] [id number] [place] [address]- 4952 Nov, [facility] [place] [facility] [address] [id number] [place] [address]- 4452 Nov, [facility] [address] [id number] [place] [address]- 3514 Sep, [facility] [place] [facility] [address] [id number] [place] [address]- 5966 May, [facility] [address] [id number] [place] [address]- 6166 May, [facility] [place] [facility] [address] [id number] [place] [address]- 9253 Nov, [facility] [address] [id number] [place] [address]- 0609 Sep, [facility] [place] [facility] [address] [id number] [place] [address]- 2546 Aug, [facility] [address] [id number] [place] [address]- 2453 Jun, [facility] [address] [id number] [place] [address]- 5024 Jun, [facility] [place] [facility] [address] [id number] [place] [address]- 5792 Jun, [facility] [address] [facility] [id number] [place] [address]- 7597 May, [facility] [place] [facility] [address] [id number] [place] [address]- 4796 May, [facility] [place] [facility] [address] [id number] [place] [address]- 2543 May, [facility] [place] [facility] [address] [id number] [place] [address]- 4909 May, [facility] [place] [facility] [address] [id number] [place] [address]- 5766 Apr, [facility] [place] [facility] [address] [id number] [place] [address]- 1776 Apr, [facility] [address] [facility] [id number] [place] [address]- 9263 Apr, [facility] [address] [facility] [id number] [address]- 5281 Apr, IMMUNIZATIONS No Known Immunizations SOCIAL HISTORY Never Assessed REASON FOR VISIT Requests return call PLAN OF CARE VITAL SIGNS MEDICATIONS Medication Instructions Dosage Frequency Start Date End Date Duration Status Paxil 20 mg Orally Once a day 1 tablet 24h 30 days Active RESULTS No Results PROCEDURES [...]
--- OUTSIDE RECORDS SUMMARY | 2018-08-31 19:59 | XMS REPORT ---
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 Name Role Phone MARLENA WATERS Unavailable PROBLEMS Type Condition ICD9-CM Code [id number] Code Onset Dates Condition Status SNOMED Code Problem Mixed hyperlipidemia E78.2 Active 957687634 Problem Pre-diabetes R73.09 Active 988511793 Problem Other chronic pain G89.29 Active 64412426 Problem Lumbago with sciatica, right side M54.41 Active 775647370099549 Problem Spondylolisthesis of lumbosacral region M43.17 Active 820864770 Problem Seasonal allergic rhinitis due to pollen J30.1 Active 25076114 Problem Lumbago with sciatica, left side M54.42 Active 005736058 Problem Dysfunctional uterine bleeding N93.8 Active 68356299 ALLERGIES Substance Reaction Event Type Date Status Augmentin Unknown Drug Allergy October, Active ENCOUNTERS Encounter Location Date Diagnosis [facility] [facility] [id number] [place] [address] 91626- 4584 Jan, [facility] [id number] [place] [address] 61249- 2381 Jan, [facility] [id number] [place] [address] 05705- 9839 Jan, Bronchitis J40 and Viral upper respiratory tract infection J06.9 [facility] [id number] [place] [address] 61731- 1785 October, Spondylolisthesis of lumbosacral region M43.17 [facility] [id number] [place] [address] 12084- 0078 October, [facility] [address] [address]- [address] October, Acute suppurative otitis media of left ear without spontaneous rupture of tympanic membrane, recurrence not specified H66.002 ; Spondylolisthesis of lumbosacral region M43.17 ; Lumbago with sciatica, left side M54.42 ; Lumbago with sciatica, right side M54.41 ; Other chronic pain G89.29 ; Dysfunctional uterine bleeding N93.8 ; Screening for lipoid disorders Z13.220 and Pre-diabetes R73.09 [place] [facility] [address] [address]- 1580 Sep, Anxiety F41.9 [place] [facility] [address] 25357- 3806 Aug, [place] [facility] [address] 67625- 0202 Aug, Dysfunction of both 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 [place] [facility] [address] 68714- 8136 Apr, Anxiety F41.9 [facility] [facility] [address] 94794- 7198 Feb, Anxiety F41.9 [place] [address] 69590- 7383 Feb, [place] [facility] [address] 99246- 3170 Feb, [place] [address] 18392- 5407 Feb, [place] [address] 37941- 9636 Jan, Anxiety F41.9 [place] [facility] [address] 10077- 7376 Jan, Anxiety F41.9 and Spondylolisthesis of lumbosacral region M43.17 [facility] [address] [place] [address]- 6644 17 Dec, 2016 Anxiety F41.9 [facility] [address] 49985- 4277 14 Nov, 2016 Anxiety F41.9 [facility] [id number] [place] [address] 83733- 8714 10 Oct, 2016 Anxiety F41.9 and Seasonal allergic rhinitis due to pollen J30.1 [facility] [address] 45578- 8429 17 Sep, 2016 Anxiety F41.9 [place] [address] 42860- 9477 Aug, Pre-diabetes R73.09 and Anxiety F41.9 [facility] [facility] [address] 14421- 6243 16 Jul, 2016 [place] [address] 99956- 5893 Mar, [facility] [address] 34819- 9522 13 Mar, 2016 DUB (dysfunctional uterine bleeding) N93.8 and Menorrhagia with irregular cycle N92.1 [place] [id number] [place] [address] 67003- 1007 19 Feb, 2016 [place] [facility] [address] 98724- 8957 08 Feb, 2016 Encounter for dental examination Z01.20 [facility] [id number] [place] [address] 19619- 6041 Feb, Herniated nucleus pulposus M51.9 [facility] [id number] [place] [address] [id number] Feb, Dental examination Z01.20 [facility] [id number] [place] [address] 20737- 6858 Jan, Dental examination Z01.20 and Dental caries K02.9 [facility] [address] [address] 6615 Jan, Encounter for dental examination and cleaning without abnormal findings Z01.20 [facility] [id number] [place] [address] 14927- 2247 Jan, [facility] [id number] [place] [address] 25375- 0334 Jan, [facility] [id number] [place] [address] 55744- 4123 Jan, Pre-diabetes R73.09 ; Chronic nonintractable headache, unspecified headache type R51 and Vaginal yeast infection B37.3 [place] [id number] [place] [address] 11305- 1777 Jan, [place] [id number] [place] [address] 81043- 5881 Dec, Herniated nucleus pulposus M51.9 [place] [id number] [place] [address] 01352- 0264 Dec, [place] [id number] [place] [address] 66913- 0880 Nov, [facility] [id number] [place] [address] 89631- 9597 Nov, [facility] [id number] [place] [address] 51917- 5032 Nov, [facility] [id number] [place] [address] 25117- 8676 Nov, [facility] [id number] [place] [address] 83941- 8696 Nov, Right hip pain M25.551 ; Pre-diabetes R73.09 ; Mixed hyperlipidemia E78.2 ; Chronic nonintractable headache, unspecified headache type R51 ; Right foot pain M79.671 and Right hand pain M79.641 [place] [id number] [address]- 7393 17 Nov, 2015 [facility] [id number] [place] [address] 02831- 9393 Nov, Right hip pain M25.551 ; Pre-diabetes R73.09 ; Mixed hyperlipidemia E78.2 and Chronic nonintractable headache, unspecified headache type R51 [facility] [id number] [place] [address] 93244- 9699 October, [facility] [address] [address]- 8963 October, Right hip pain M25.551 ; Pre-diabetes R73.09 ; Mixed hyperlipidemia E78.2 and Frequent headaches R51 [facility] [address], [place] [address]- 7390 October, Menorrhagia with regular cycle N92.0 [facility] [address] [address]8694 October, [facility] [address] [address]- 7414 October, Menorrhagia with regular cycle N92.0 [facility] [address] [address]- 0304 Sep, Lump of right breast N63 ; Menorrhagia with regular cycle N92.0 and BMI 30.0-30.9,adult Z68.30 [facility] [address] [address]- 1250 Sep, [facility] [id number] [address]- 6199 Aug, [facility] [address] [place] [address]- 3679 Aug, Well woman exam Z01.419 ; Encounter [...] Z87.898 and Trichomonas vaginalis (TV) infection A59.01 [facility] [address] [id number]- 3082 October, Abdominal pain, unspecified site 789.00 ; GERD ( gastroesophageal reflux disease) 530.81 and Chest pain 786.50 [place] [address] 12405- 2924 Sep, [place] [address] 85167- 3764 Sep, [facility] [address] 16944- 6657 Jul, [facility] [id number] [place] [address] 53916- 5513 Jul, [facility] [id number] [place] [address] 35585- 7869 Jun, [facility] [id number] [place] [address] 50639- 7770 Jun, [facility] [id number] [place] [address] 30112- 4709 Jun, [facility] [id number] [place] [address] 25076- 5575 Jun, [facility] [address] 82774- 8127 Jun, [facility] [id number] [place] [address] 02410- 9137 Jun, [facility] [address] 59761- 7084 14 Jun, 2014 [facility] [place] [facility] [address] [id number] [place] [address]- 6895 Jun, [facility] [place] [facility] [address] [id number] [place] [address]- 8498 Jun, [facility] [place] [facility] [address] [id number] [place] [address]- 5378 Jun, [facility] [place] [facility] [address] [id number] [place] [address]- 6670 Jun, [facility] [place] [facility] [address] [id number] [place] [address]- 3098 Jun, [facility] [place] [facility] [address] [id number] [place] [address]- 8542 Jun, [facility] [place] [facility] [address] [id number] [place] [address]- 6588 Jun, [facility] [place] [facility] [address] [id number] [place] [address]- 2799 Jun, [facility] [place] [facility] [address] [id number] [place] [address]- 0752 May, [facility] [place] [facility] [address] [id number] [place] [address]- 6829 May, [facility] [place] [facility] [address] [id number], [place] [address]- 6105 30 Feb, 2014 [facility] [place] [facility] [address] [id number] [place] [address]- 9060 30 Feb, 2014 [facility] [place] [facility] [address] [id number] [place] [address]- 3214 29 Feb, 2014 [facility] [place] [facility] [address] [id number] [place] [address]- 9224 25 Feb, 2014 [facility] [place] [facility] [address] [id number] [place] [address]- 6811 Feb, [facility] [place] [facility] [address] [id number] [place] [address]- 8602 17 Feb, 2013 [facility] [place] [facility] [address] [id number] [place] [address]- 4598 17 Feb, 2013 [facility] [place] [facility] [address] [id number] [place] [address]- 2666 11 Feb, 2013 [facility] [place] [facility] [address] [id number] [place] [address]- 9236 11 Feb, 2013 [facility] [place] [facility] [address] [id number] [place] [address]- 7488 10 Feb, 2013 [facility] [place] [facility] [address] [id number] [place] [address]- 3706 10 Feb, 2013 [facility] [place] [facility] [address] [id number] [place] [address]- 0811 10 Feb, 2013 [facility] [place] [facility] [address] [id number] [place] [address]- 9079 09 Feb, 2013 [facility] [place] [facility] [address] [id number] [place] [address]- 8937 09 Feb, 2014 [facility] [place] [facility] [address] [id number] [place] [address]- 2402 15 Jan, 2014 [facility] [place] [facility] [address] [id number] [place] [address]- 2450 15 Jan, 2014 [facility] [place] [facility] [address] [id number] [place] [address]- 8098 Dec, [facility] [place] [facility] [address] [id number] [place] [address]- 5941 Dec, [facility] [place] [facility] [address] [id number] [place] [address]- 5293 Dec, [facility] [place] [facility] [address] [id number] [place] [address]- 6179 Dec, [facility] [place] [facility] [address] [id number] [place] [address]- 0353 Dec, [facility] [address] [id number] [place] [address]- 8428 Dec, [facility] [place] [facility] [address] [id number] [place] [address]- 0319 Nov, [facility] [place] [facility] [address] [id number] [place] [address]- 7436 Nov, [facility] [place] [facility] [address] [id number] [place] [address]- 1016 Sep, [facility] [place] [facility] [address] [id number] [place] [address]- 1780 May, [facility] [place] [facility] [address] [id number] [place] [address]- 3006 May, [facility] [place] [facility] [address] [id number] [place] [address]- 3896 Nov, [facility] [place] [facility] [address] [id number] [place] [address]- 6330 Sep, [facility] [place] [facility] [address] [id number] [place] [address]- 9455 Aug, [facility] [place] [facility] [address] [id number] [place] [address]- 6326 Jun, [facility] [place] [facility] [address] [id number] [place] [address]- 5614 Jun, [facility] [place] [facility] [address] [id number], [place] [address]- 3006 Jun, [facility] [place] [facility] [address] [id number] [place] [address]- 1463 May, [facility] [place] [facility] [address] [id number] [place] [address]- 5646 May, [facility] [place] [facility] [address] [facility] [id number] [address]- 4006 May, [facility] [place] [facility] [address] [id number], [place] [address] 2546 May, [facility] [address] [facility] [address] [id number], [place] [address]- 8956 Apr, [facility] [address] [facility] [address] [id number], [place] [address] 2546 Apr, [facility] [address] [facility] [address] [id number], [place] [address]- 4726 Apr, [facility] [address] [facility] [address] [id number] [address]- 6236 Apr, IMMUNIZATIONS No Known Immunizations SOCIAL HISTORY Never Assessed REASON FOR VISIT Establish Care-----DBennettRN, headaches, low back pain PLAN OF CARE Activity Details Follow Up 2 Months, prn Reason:chronic pain Pending Test LIPID PANEL Pending Test CMP Pending Test CBC Pending Test TSH VITAL SIGNS Height 65 in 2017-10-11 Weight 224 lbs 2017-10-11 Temperature 98.8 degrees Fahrenheit 2017-10-11 Heart Rate 90 bpm 2017-10-11 Respiratory Rate 20 2017-10-11 BMI 37.27 kg/m2 2017-10-11 Blood pressure systolic 118 mmHg 2017-10-11 Blood pressure diastolic 70 mmHg 2017-10-11 MEDICATIONS Medication Instructions Dosage Frequency Start Date End Date Duration Status Tramadol HCl 50 mg Orally TID PRN 1 tablet as needed October,October 14 days Active Metaxalone 800 MG Orally Three times a day 1 tablet 8h October,October 14 days Active Flonase 50 MCG/ACT Nasally Once a day 1 spray in each nostril 24h Aug, 30 day(s) Active Doxycycline Hyclate 100 mg Orally twice a day 1 capsule 12h October, October, 10 day(s) Active Paxil 20 mg Orally Once a day 1 tablet 24h 30 days Active RESULTS No Results PROCEDURES Procedure Date Ordered Result Body Site URINALYSIS, AUTO, W/O SCOPE October 11, 2017 COMPLETE CBC W/AUTO DIFF WBC October 11, 2017 LIPID PANEL October 11, 2017 ASSAY THYROID STIM HORMONE October 11, 2017 COMPREHEN METABOLIC PANEL October 11, 2017 INSTRUCTIONS MEDICATIONS ADMINISTERED No Known Medications MEDICAL [...]
--- OUTSIDE RECORDS SUMMARY | 2018-08-31 20:00 | XMS REPORT ---
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 Name Role Phone BELLE JAFFE Unavailable PROBLEMS Type Condition ICD9-CM Code [id number] Code Onset Dates Condition Status SNOMED Code Problem Mixed hyperlipidemia E78.2 Active 265063721 Problem Pre-diabetes R73.09 Active 341869040 Problem Other chronic pain G89.29 Active 12799595 Problem Lumbago with sciatica, right side M54.41 Active 965728128575504 Problem Spondylolisthesis of lumbosacral region M43.17 Active 194216634 Problem Seasonal allergic rhinitis due to pollen J30.1 Active 45203074 Problem Lumbago with sciatica, left side M54.42 Active 279263481 Problem Dysfunctional uterine bleeding N93.8 Active 01572237 ALLERGIES No Information ENCOUNTERS Encounter Location Date Diagnosis [place] [address] [address] October, Spondylolisthesis of lumbosacral region M43.17 [place] [address] [place] [id number] [place] [address] October, [place] [address] [address] October, Acute suppurative otitis media of left ear without spontaneous rupture of tympanic membrane, recurrence not specified H66.002 ; Spondylolisthesis of lumbosacral region M43.17 ; Lumbago with sciatica, left side M54.42 ; Lumbago with sciatica, right side M54.41 ; Other chronic pain G89.29 ; Dysfunctional uterine bleeding N93.8 ; Screening for lipoid disorders Z13.220 and Pre-diabetes R73.09 [place] [address] [place] [id number] [place] [address]- [address]114 Sep, Anxiety F41.9 [facility] [address] [place] [id number] [place] [address] 11561- 9192 Aug, [facility] [address] [place] [id number] [place] [address] 41322- 3780 Aug, Dysfunction of both 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 [facility] [address] [place] [id number] [place] [address] 70915- 9683 Apr, Anxiety F41.9 [facility] [address] [place] [id number] [place] [address] 31535- 4922 Feb, Anxiety F41.9 [facility] [address] [address]- [address] Feb, [facility] [address] [place] [id number] [place] [address] 09029- 7527 08 Feb, 2017 [facility] [address] [place] [id number] [place] [address] 35705- 7647 Feb, [facility] [address] [place] [id number] [place] [address] 10528- 7018 Jan, Anxiety F41.9 [facility] [address] [place] [id number] [place] [address] 87722- 6593 Jan, Anxiety F41.9 and Spondylolisthesis of lumbosacral region M43.17 [facility] [address] [place] [id number] [place] [address] 50242- 6567 Dec, Anxiety F41.9 [facility] [address] [place] [id number] [place] [address] 73786- 9374 Nov, Anxiety F41.9 [facility] [address] [place] [id number] [place] [address] 17384- 2481 October, Anxiety F41.9 and Seasonal allergic rhinitis due to pollen J30.1 [facility] [address] [place] [id number] [place] [address] 18410- 2934 Sep, Anxiety F41.9 [facility] [address] [place] [id number] [place] [address] 62719- 4870 Aug, Pre-diabetes R73.09 and Anxiety F41.9 [facility] [address] [place] [id number] [place] [address] 68176- 9163 16 Jul, 2016 [facility] [address] [address]- [address] Mar, [facility] [address] [address]- [address] Mar, DUB (dysfunctional uterine bleeding) N93.8 and Menorrhagia with irregular cycle N92.1 [facility] [address] [place] [id number] [place] [address] 23529- 2847 Feb, [facility] [address] [address]- 42[address] Feb, Encounter for dental examination Z01.20 [facility] [address] 11594- 4752 Feb, Herniated nucleus pulposus M51.9 [facility] [address] [id number] Feb, Dental examination Z01.20 [facility] [address] [place] [id number] [place] [address] 91695- 0746 Jan, Dental examination Z01.20 and Dental caries K02.9 [facility] [address] [place] [id number] [place] [address] 67185- 7231 Jan, Encounter for dental examination and cleaning without abnormal findings Z01.20 [facility] [address] [place] [id number] [place] [address] 02987- 1241 Jan, [facility] [address] [place] [id number] [place] [address] 84301- 2699 Jan, [facility] [address] [place] [address]- 6[address] Jan, Pre-diabetes R73.09 ; Chronic nonintractable headache, unspecified headache type R51 and Vaginal yeast infection B37.3 [facility] [address] [address] Jan, [facility] [address] [place] [id number] [address] 0270 Dec, Herniated nucleus pulposus M51.9 [facility] [address] [place] [id number] [place] [address] 36450- 5344 Dec, [facility] [address] [place] [id number] [place] [address] 55042- 9864 Nov, [facility] [address] [place] [id number] [place] [address] 52286- 4272 Nov, [facility] [address] [place] [id number] [place] [address] 31569- 1164 Nov, [facility] [address] [address] 2852 Nov, [facility] [address] [place] [id number] [place] [address] 26969- 5504 Nov, Right hip pain M25.551 ; Pre-diabetes R73.09 ; Mixed hyperlipidemia E78.2 ; Chronic nonintractable headache, unspecified headache type R51 ; Right foot pain M79.671 and Right hand pain M79.641 [facility] [address], [place] [address] 37[address] Nov, [facility] [address] [place] [id number] [place] [address] 25933- 3830 Nov, Right hip pain M25.551 ; Pre-diabetes R73.09 ; Mixed hyperlipidemia E78.2 and Chronic nonintractable headache, unspecified headache type R51 [facility] [address] [place] [address] 48120- 3988 October, [facility] [address], [place] [address] 86[address] October, Right hip pain M25.551 ; Pre-diabetes R73.09 ; Mixed hyperlipidemia E78.2 and Frequent headaches R51 [place] [address] [address] 98[address] October, Menorrhagia with regular cycle N92.0 [facility] [address] [address] October, [place] [address] [place] [id number] [place] [address] 87057- 1616 October, Menorrhagia with regular cycle N92.0 [place] [address] [place] [id number] [place] [address] 70579- 0889 Sep, Lump of right breast N63 ; Menorrhagia with regular cycle N92.0 and BMI 30.0-30.9,adult Z68.30 [place] [address], [place] [address]- 8652 Sep, [place] [address] [place] [id number] [place] [address] 23074- 8455 Aug, [place] [address] [place] [address] 97363- 8301 Aug, Well woman exam Z01.419 ; Encounter [...] Z87.898 and Trichomonas vaginalis (TV) infection A59.01 [place] [address], [place] [address] October, Abdominal pain, unspecified site 789.00 ; GERD ( gastroesophageal reflux disease) 530.81 and Chest pain 786.50 [facility] [address], [place] [address]- 1252 14 Sep, 2014 [facility] [place] [address], [place] [address]- 9259 Sep, [facility] [place] [address] [place] [id number] [place] [address] 88098- 2522 Jul, [facility] [address] [place] [address] 04084- 2453 Jul, [facility] [address] [place] [id number] [place] [address] 23415- 4528 Jun, [facility] [address] [place] [id number] [place] [address] 43434- 8378 Jun, [facility] [address] [place] [address] 87744- 8935 Jun, [facility] [address], [place] [address]- 0901 Jun, [facility] [address], [place] [address]- 3499 Jun, [facility] [address], [place] [address]- 6542 Jun, [facility] [address], [place] [address]- 9951 Jun, [facility] [place] [address], [place] [address]- 6007 Jun, [facility] [address], [place] [address]- 0233 Jun, [facility] [place] [address], [place] [address]- 2362 Jun, [facility] [address], [place] [address]- 3944 Jun, [facility] [place] [facility] [address] [id number] [place] [address]- 1985 Jun, [facility] [place] [facility] [address] [id number] [place] [address]- 2224 Jun, [facility] [place] [facility] [address] [id number] [place] [address]- 4763 Jun, [facility] [place] [facility] [address] [id number] [place] [address]- 3395 Jun, [facility] [place] [facility] [address] [id number] [place] [address]- 0072 May, [facility] [place] [facility] [address] [id number] [place] [address]- 7899 May, [facility] [place] [facility] [address] [id number] [place] [address]- 3145 30 Feb, 2013 [facility] [place] [facility] [address] [id number] [place] [address]- 6614 30 Feb, 2013 [facility] [place] [facility] [address] [id number] [place] [address]- 8263 29 Feb, 2013 [facility] [place] [facility] [address] [id number] [place] [address]- 3882 25 Feb, 2013 [facility] [place] [facility] [address] [id number] [place] [address]- 2547 25 Feb, 2013 [facility] [place] [facility] [address] [id number] [place] [address]- 254 17 Feb, 2013 [facility] [place] [facility] [address] [id number] [place] [address]- 2541 17 Feb, 2013 [facility] [place] [facility] [address] [id number] [place] [address]- 2545 11 Feb, 2013 [facility] [place] [facility] [address] [id number] [place] [address]- 7676 11 Feb, 2013 [facility] [place] [facility] [address] [id number] [place] [address]- 4582 10 Feb, 2013 [facility] [place] [facility] [address] [id number] [place] [address]- 3721 Feb, [facility] [place] [facility] [address] [id number] [place] [address]- 9477 Feb, [facility] [place] [facility] [address] [id number] [place] [address]- 0045 Feb, [facility] [place] [facility] [address] [id number] [place] [address]- 1415 Feb, [facility] [place] [facility] [address] [id number] [place] [address]- 4346 Jan, [facility] [place] [facility] [address] [id number] [place] [address]- 8313 Jan, [facility] [place] [facility] [address] [id number] [place] [address]- 0389 Dec, [facility] [place] [facility] [address] [id number] [place] [address]- 2109 Dec, [facility] [place] [facility] [address] [id number] [place] [address]- 2982 Dec, [facility] [place] [facility] [address] [id number] [place] [address]- 6161 Dec, [facility] [place] [facility] [address] [id number] [place] [address]- 9802 Dec, [facility] [place] [facility] [address] [id number] [place] [address]- 3273 Dec, [facility] [place] [facility] [address] [id number] [place] [address]- 9049 Nov, [facility] [place] [facility] [address] [id number] [place] [address]- 6892 Nov, [facility] [place] [facility] [address] [id number] [place] [address]- 8254 Sep, [facility] [place] [facility] [address] [id number] [place] [address]- 8331 May, [facility] [place] [facility] [address] [id number] [place] [address]- 6104 May, [facility] [place] [facility] [address] [id number] [place] [address]- 8312 Nov, [facility] [place] [facility] [address] [id number] [place] [address]- 4891 Sep, [facility] [place] [facility] [address] [id number] [place] [address]- 1907 Aug, [facility] [place] [facility] [address] [id number] [place] [address]- 2211 Jun, [facility] [place] [facility] [address] [id number] [place] [address]- 0826 Jun, [facility] [place] [facility] [address] [id number] [place] [address]- 0456 Jun, [facility] [place] [facility] [address] [id number] [place] [address]- 4009 May, [facility] [place] [facility] [address] [id number] [place] [address]- 1455 May, [facility] [place] [facility] [address] [id number], [place] [address]- 7879 May, [facility] [place] [facility] [address] [id number], [place] [address]- 9035 May, [facility] [place] [facility] [address] [id number] [place] [address]- 6136 Apr, [facility] [place] [facility] [address] [id number], [place] [address]- 5038 Apr, [facility] [place] [facility] [address] [facility] [id number] [place] [address]- 1495 Apr, [facility] [place] [facility] [address] [facility] [id number] [place] [address]- 0785 Apr, IMMUNIZATIONS No Known Immunizations SOCIAL HISTORY Never Assessed REASON FOR VISIT Requests return call PLAN OF CARE VITAL SIGNS MEDICATIONS Unknown Medications RESULTS No Results PROCEDURES No Known [...]
--- OUTSIDE RECORDS SUMMARY | 2018-08-31 20:00 | XMS REPORT ---
Author ADRIANNA Landaverde [facility] eClinicalWorks Address Unknown Phone Unavailable Care Team Providers Care Rehabilitation Caseworker Name Role Phone ADRIANNA PACHECO CP Unavailable Allergies, Adverse Reactions, Alerts Substance Reaction Event Type Augmentin Info Not Available Drug Allergy Problems Problem Type Condition Code Onset Dates Condition Status Problem Menorrhagia with regular cycle N92.0 Active Problem Hematuria, unspecified R31.9 Active Problem BMI 30.0-30.9,adult Z68.30 Active Problem Right foot pain M79.671 Active Problem Right hand pain M79.641 Active Problem Vaginal yeast infection B37.3 Active Problem Right hip pain M25.551 Active Problem Pre-diabetes R73.09 Active Problem Chronic nonintractable headache, unspecified headache type R51 Active Problem Mixed hyperlipidemia E78.2 Active Assessment Encounter for dental examination and cleaning without abnormal findings Z01.20 Active Problem Fibrocystic breast, left N60.12 Active Problem Fibrocystic breast, right N60.11 Active Problem History of heartburn Z87.898 Active Problem Depression, unspecified depression type F32.9 Active Problem Lump of right breast N63 Active Problem Anxiety F41.9 Active Medications Medication Code System Code Instructions Start Date End Date Status Dosage Ibuprofen [facility] [address]-18 800 MG Orally Three times a day [address] [facility] [address]-52 824431 UNIT/GM Externally 4 times a day prn Jan 12, 2016 1 application to affected area Midol [facility] [address]59 200 MG Orally every 6 hrs 1 capsule as needed Albuterol Sulfate [facility] [address]-74 90 mcg/actuation December 04, 2013 inhale 2 puffs by inhalation route every 4-6 hours as needed Bactrim [facility] [address]-81 not defined Fioricet [facility] [address]-49 50-325-40 MG Orally every 4 hrs with migraine Jan 12, 2016 1 capsule as needed Ortho-Cyclen (28) [facility] [address]-47 0.25-35 MG-MCG Orally Once a day October 1 tablet Procedures Procedure Coding System Code Date PROPHYLAXIS - ADULT CPT-4 D1110 Jan 20, 2016 Results No Known Results Summary Purpose eClinicalWorks Submission
--- OUTSIDE RECORDS SUMMARY | 2018-08-31 20:00 | XMS REPORT ---
Author SURI Allen [facility] eClinicalWorks Address Unknown Phone Unavailable Care Team Providers Care Exhibit Preparator Name Role Phone SURI RUBI CP Unavailable Allergies No Known Allergies Problems Problem Type Condition Code Onset Dates [...] R51 Active Problem Mixed hyperlipidemia E78.2 Active Problem Fibrocystic breast, left N60.12 Active Problem Fibrocystic breast, right N60.11 Active Problem History of heartburn Z87.898 Active Problem Depression, unspecified depression type F32.9 Active Problem Lump of right breast N63 Active Problem Anxiety F41.9 Active Medications No Known Medications Results No Known Results Summary Purpose eClinicalWorks Submission
--- OUTSIDE RECORDS SUMMARY | 2018-08-31 20:00 | XMS REPORT ---
Author ODETTE Paz [facility] eClinicalWorks Address Unknown Phone Unavailable Care Team Providers Care Plant Attendant Or Assistant Operator Name Role Phone ODETTE REYES CP Unavailable Allergies No Known Allergies Problems Problem Type Condition Code Onset Dates Condition Status Problem Anxiety F41.9 Active Problem BMI 30.0-30.9,adult Z68.30 Active Problem Menorrhagia with regular cycle N92.0 Active Problem Right hand pain M79.641 Active Problem Chronic nonintractable headache, unspecified headache type R51 Active Problem Right foot pain M79.671 Active Problem Pre-diabetes R73.09 Active Problem Hematuria, unspecified R31.9 Active Problem Mixed hyperlipidemia E78.2 Active Problem Right hip pain M25.551 Active Problem Lump of right breast N63 Active Problem Fibrocystic breast, left N60.12 Active Assessment Herniated nucleus pulposus M51.9 Active Problem Fibrocystic breast, right N60.11 Active Problem History of heartburn Z87.898 Active Problem Depression, unspecified depression type F32.9 Active Medications No Known Medications Procedures Procedure Coding System Code Date Office Visit, Est Pt., Level 3 CPT-4 21021 January 07, 2016 Vital Signs Date/Time: January 07, 2016 Blood Pressure Diastolic 66 mmHg Blood Pressure Systolic 112 mmHg Height 65 in Results No Known Results Summary Purpose eClinicalWorks Submission
--- OUTSIDE RECORDS SUMMARY | 2018-08-31 20:00 | XMS REPORT ---
Author Author UNRULY HOGUE Organization [facility] Address [address] [place] [address] Care Team Providers Care Computer Equipment Repairer Name Role Phone UNRULY HOGUE Unavailable PROBLEMS Type Condition ICD9-CM Code [id number] Code Onset Dates Condition Status SNOMED Code Problem BMI 30.0-30.9,adult Z68.30 Active 397165047 Problem Pre-diabetes R73.09 Active 025597051 Problem Hematuria, unspecified R31.9 Active 17298801 Problem Vaginal yeast infection B37.3 Active 46064947 Problem Right foot pain M79.671 Active 92086807 Problem Mixed hyperlipidemia E78.2 Active 415558618 Problem Right hip pain M25.551 Active 38395110 Problem Right hand pain M79.641 Active 92176196 Problem Chronic nonintractable headache, unspecified headache type R51 Active 64409415 Assessment Encounter for dental examination Z01.20 08 Feb, 2016 Active 429682858 Problem History of heartburn Z87.898 Active 07720685683710 Problem Fibrocystic breast, right N60.11 Active 14311794 Problem Depression, unspecified depression type F32.9 Active 02231342 Problem Lump of right breast N63 Active 19414962 Problem Anxiety F41.9 Active 49983536 Problem Fibrocystic breast, left N60.12 Active 70453947 Problem Menorrhagia with regular cycle N92.0 Active 828038510 ALLERGIES No Known Allergies SOCIAL HISTORY No smoking Hx information available PLAN OF CARE VITAL SIGNS MEDICATIONS Medication Instructions Dosage Frequency Start Date End Date Duration Status Clindamycin HCl 150 MG Orally every 6 hrs 1 capsule 6h Feb,Feb 10 days Active RESULTS No Results PROCEDURES Procedure Date Ordered Related Diagnosis Body Site Dental no charge Feb 18, 2016 IMMUNIZATIONS No Known Immunizations
--- OUTSIDE RECORDS SUMMARY | 2018-08-31 20:00 | XMS REPORT ---
Author Author EZRA YUN [facility] Address Unknown Care Team Providers Care Department Assistant Name Role Phone EZRA YUN Unavailable PROBLEMS Type Condition ICD9-CM Code TXG34-JP Code Onset Dates Condition Status SNOMED Code Problem BMI 30.0-30.9,adult Z68.30 Active 862046436 Problem Pre-diabetes R73.09 Active 000228320 Problem Hematuria, unspecified R31.9 Active 79808106 Problem Vaginal yeast infection B37.3 Active 71631610 Problem Right foot pain M79.671 Active 00851022 Problem Mixed hyperlipidemia E78.2 Active 419004199 Problem Right hip pain M25.551 Active 93479224 Problem Right hand pain M79.641 Active 20241505 Problem Chronic nonintractable headache, unspecified headache type R51 Active 16912955 Assessment Dental examination Z01.20 Feb, Active 903707426 Problem History of heartburn Z87.898 Active 42830395207634 Problem Fibrocystic breast, right N60.11 Active 67738443 Problem Depression, unspecified depression type F32.9 Active 67482490 Problem Lump of right breast N63 Active 89560467 Problem Anxiety F41.9 Active 86421517 Problem Fibrocystic breast, left N60.12 Active 98622675 Problem Menorrhagia with regular cycle N92.0 Active 353085023 ALLERGIES No Known Allergies SOCIAL HISTORY No smoking Hx information available PLAN OF CARE VITAL SIGNS MEDICATIONS Medication Instructions Dosage Frequency Start Date End Date Duration Status Strathmere 5-325 MG Orally every 6 hrs 1 tablet as needed 6h 5 days Active RESULTS No Results PROCEDURES Procedure Date Ordered Related Diagnosis Body Site TX COMPS - UNUSUL CIRCUMSTANCES RPT Feb 11, 2016 IMMUNIZATIONS No Known Immunizations
--- OUTSIDE RECORDS SUMMARY | 2018-08-31 20:00 | XMS REPORT ---
Author BELLE Terry [facility] eClinicalWorks Address Unknown Phone Unavailable Care Team Providers Care Support Merchandiser Name Role Phone BELLE JAFFE Unavailable Allergies, Adverse Reactions, Alerts Substance Reaction [...] Active Problem Mixed hyperlipidemia E78.2 Active Assessment Chronic nonintractable headache, unspecified headache type R51 Active Assessment Pre-diabetes R73.09 Active Assessment Vaginal yeast infection B37.3 Active Problem Fibrocystic breast, left N60.12 Active Problem Fibrocystic breast, right N60.11 Active Problem History of heartburn Z87.898 Active Problem Depression, unspecified depression type F32.9 Active Problem Lump of right breast N63 Active Problem Anxiety F41.9 Active Medications Medication Code System Code Instructions Start Date End Date Status Dosage Ibuprofen [facility] [address]-00 800 MG Orally Three times a day 1 tablet Midol [facility] [address]65 200 MG Orally every 6 hrs 1 capsule as needed Bactrim [facility] [address]-90 not defined Albuterol Sulfate [facility] [address]-40 90 mcg/actuation December 04, 2013 inhale 2 puffs by inhalation route every 4-6 hours as needed Fioricet [facility] [address]-02 50-325-40 MG Orally every 4 hrs with migraine Jan 12, 2016 1 capsule as needed Ortho-Cyclen (28) [facility] [address]-64 0.25-35 MG-MCG Orally Once a day October 1 tablet Nystatin [facility] [address]-98 928628 UNIT/GM Externally 4 times a day prn Jan 12, 2016 1 application to affected area Procedures Procedure Coding System Code Date MICROALBUMIN, SEMIQUANT CPT-4 41338 Jan 12, 2016 ASSAY OF URINE CREATININE CPT-4 07815 Jan 12, 2016 GLYCATED HEMOGLOBIN TEST CPT-4 90363 Jan 12, 2016 Office Visit, Est Pt., Level 4 CPT-4 36335 Jan 12, 2016 MICROALBUMIN, QUANTITATIVE CPT-4 19570 Jan 12, 2016 Vital Signs Date/Time: Jan 12, 2016 Cardiac Monitoring Heart Rate 70 bpm Weight 192.7 lbs Height 65 in BMI 32.06 Index Blood Pressure Diastolic 74 mmHg Blood Pressure Systolic 120 mmHg Results No Known Results Summary Purpose eClinicalWorks Submission
--- OUTSIDE RECORDS SUMMARY | 2018-08-31 20:00 | XMS REPORT ---
Author Author BELLE JAFFE Organization [facility] Address [address] [place] [address] Care Team Providers Care Spindle Carver Name Role Phone BELLE JAFFE Unavailable PROBLEMS Type Condition ICD9-CM Code [id number] Code Onset Dates Condition Status SNOMED Code Problem History of heartburn Z87.898 Active 25275868786812 Problem Spondylolisthesis of lumbosacral region M43.17 Active 903974459 Problem Seasonal allergic rhinitis due to pollen J30.1 Active 02015441 Problem Right hip pain M25.551 Active 89038022 Problem Lump of right breast N63 Active 07315225 Problem Mixed hyperlipidemia E78.2 Active 299022199 Problem Pre-diabetes R73.09 Active 412425649 ALLERGIES No Information SOCIAL HISTORY Never Assessed PLAN OF CARE VITAL SIGNS MEDICATIONS Unknown Medications RESULTS No Results PROCEDURES No Known procedures IMMUNIZATIONS No Known Immunizations MEDICAL (GENERAL) HISTORY Type Description Date Medical [...]
--- OUTSIDE RECORDS SUMMARY | 2018-08-31 20:00 | XMS REPORT ---
Author Author BELLE JAFFE [facility] Address [address] [place] [address] Care Team Providers Care Veterinary Pathologist Name Role Phone BELLE JAFFE Unavailable PROBLEMS Type Condition ICD9-CM Code [id number] Code Onset Dates Condition Status SNOMED Code Problem Spondylolisthesis of lumbosacral region M43.17 Active 099062990 Problem Seasonal allergic rhinitis due to pollen J30.1 Active 83355927 Problem Mixed hyperlipidemia E78.2 Active 094595177 Problem Pre-diabetes R73.09 Active 131330104 ALLERGIES No Information ENCOUNTERS Encounter Location Date Diagnosis [place] [address] [address] Aug, [place] [address] [address] Aug, Dysfunction of both 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 [place] [address] [place] [id number] [place] [address] 73726- 6624 Apr, Anxiety F41.9 [place] [address] [place] [id number] [place] [address] 59805- 5356 Feb, Anxiety F41.9 [place] [address] [address]- 5967 Feb, [place] [address] 19[address]- 5584 Feb, [place] [address] 11468- 8330 Feb, [place] [address] [place] [id number] [place] [address] 04387- 5823 Jan, Anxiety F41.9 [place] [address] [place] [id number] [place] [address] 66619- 8461 16 Jan, 2017 Anxiety F41.9 and Spondylolisthesis of lumbosacral region M43.17 [facility] [address] [address]- [address]90 17 Dec, 2016 Anxiety F41.9 [place] [address] 90164- 1675 14 Nov, 2016 Anxiety F41.9 [place] [address] 44987- 7920 October, Anxiety F41.9 and Seasonal allergic rhinitis due to pollen J30.1 [place] [address] 05722- 5095 17 Sep, 2016 Anxiety F41.9 [place] [address] 90779- 0430 Aug, Pre-diabetes R73.09 and Anxiety F41.9 [facility] [address] 23811- 0691 16 Jul, 2016 [place] [address] 51585- 7081 Mar, [place] [address] 96[address]- 6284 Mar, DUB (dysfunctional uterine bleeding) N93.8 and Menorrhagia with irregular cycle N92.1 [place] [address] [place] [id number] [place] [address] 93213- 1011 19 Feb, 2016 [place] [address] 73491- 4427 08 Feb, 2016 Encounter for dental examination Z01.20 [facility] [address] [place] [id number] [place] [address] 47483- 8862 01 Feb, 2016 Herniated nucleus pulposus M51.9 [facility] [address] [id number] Feb, Dental examination Z01.20 [facility] [address] [address] Jan, Dental examination Z01.20 and Dental caries K02.9 [facility] [address] [place] [id number] [address] Jan, Encounter for dental examination and cleaning without abnormal findings Z01.20 [facility] [id number] [place] [address] 08531- 7099 Jan, [facility] [address] [place] [id number] [place] [address] 57500- 0742 Jan, [facility] [address] [place] [id number] [place] [address] 94319- 1526 Jan, Pre-diabetes R73.09 ; Chronic nonintractable headache, unspecified headache type R51 and Vaginal yeast infection B37.3 [facility] [address] [place] [address] 84615- 2092 Jan, [facility] [address] [place] [id number] [place] [address] 89608- 8889 Dec, Herniated nucleus pulposus M51.9 [facility] [address] [place] [address] 02097- 5523 Dec, [facility] [address] [address] 2669 Nov, [facility] [address] [place] [address] 50947- 4860 Nov, [facility] [address] [place] [id number] [place] [address] 35696- 8526 Nov, [facility] [address] [address] 8056 Nov, [facility] [address] [place] [address] 50198- 5069 Nov, Right hip pain M25.551 ; Pre-diabetes R73.09 ; Mixed hyperlipidemia E78.2 ; Chronic nonintractable headache, unspecified headache type R51 ; Right foot pain M79.671 and Right hand pain M79.641 [facility] [address] [place] [id number] [place] [address] 83394- 5853 Nov, [facility] [address] 36034- 7236 Nov, Right hip pain M25.551 ; Pre-diabetes R73.09 ; Mixed hyperlipidemia E78.2 and Chronic nonintractable headache, unspecified headache type R51 [place] [address] [place] [id number] [place] [address] 48558- 2690 October, [place] [address] [place] [id number] [place] [address] 59201- 7269 October, Right hip pain M25.551 ; Pre-diabetes R73.09 ; Mixed hyperlipidemia E78.2 and Frequent headaches R51 [place] [address] [place] [id number] [place] [address] 64925- 7619 October, Menorrhagia with regular cycle N92.0 [facility] [address] [place] [id number] [place] [address] 29346 -2501 October, [facility] [address] [place] [id number] [place] [address] 62042- 3961 October, Menorrhagia with regular cycle N92.0 [facility] [address] [place] [id number] [place] [address] 11102- 4128 Sep, Lump of right breast N63 ; Menorrhagia with regular cycle N92.0 and BMI 30.0-30.9,adult Z68.30 [facility] [address] [place] [id number] [place] [address] 20437- 8100 Sep, [facility] [address] [place] [id number] [place] [address] 07608- 1006 Aug, [facility] [address] [place] [id number] [place] [address] 08725- 2145 22 Aug, 2016 Well woman exam Z01.419 ; Encounter for [...] Z87.898 and Trichomonas vaginalis (TV) infection A59.01 [place] [address] 33197- 1673 October, Abdominal pain, unspecified site 789.00 ; GERD ( gastroesophageal reflux disease) 530.81 and Chest pain 786.50 [place] [address] 55894- 4355 Sep, [place] [address] 22330- 6852 Sep, [place] [address] [place] [id number] [place] [address] 87107- 2362 Jul, [place] [address] [place] [id number] [place] [address] 67501- 9405 Jul, [place] [address] [place] [id number] [place] [address] 78418- 5542 Jun, [place] [address] [place] [id number] [place] [address] 82143- 3995 Jun, [place] [address] 18342- 9855 Jun, [place] [address] [place] [id number] [place] [address] 62308- 2580 Jun, [place] [address] 80748- 0926 16 Jun, 2014 [facility] [place] [facility] [address] [id number] [place] [address]- 8770 14 Jun, 2014 [facility] [place] [facility] [address] [id number] [place] [address]- 6021 Jun, [facility] [place] [facility] [address] [id number] [place] [address]- 3062 Jun, [facility] [place] [facility] [address] [id number] [place] [address]- 8815 Jun, [facility] [place] [facility] [address] [id number] [place] [address]- 0754 Jun, [facility] [place] [facility] [address] [id number] [place] [address]- 3936 Jun, [facility] [place] [facility] [address] [id number] [place] [address]- 4479 Jun, [facility] [place] [facility] [address] [id number] [place] [address]- 6280 Jun, [facility] [place] [facility] [address] [id number] [place] [address]- 4599 Jun, [facility] [place] [facility] [address] [id number] [place] [address]- 3412 Jun, [facility] [place] [facility] [address] [id number], [place] [address]- 7185 May, [facility] [place] [facility] [address] [id number] [place] [address]- 3842 May, [facility] [place] [facility] [address] [id number] [place] [address]- 2827 30 Feb, 2014 [facility] [place] [facility] [address] [id number] [place] [address]- 4565 30 Feb, 2014 [facility] [place] [facility] [address] [id number] [place] [address]- 6622 29 Feb, 2014 [facility] [place] [facility] [address] [id number] [place] [address]- 3823 25 Feb, 2013 [facility] [place] [facility] [address] [id number] [place] [address] 2546 25 Feb, 2013 [facility] [place] [facility] [address] [id number] [place] [address] 2546 17 Feb, 2013 [facility] [place] [facility] [address] [id number] [place] [address]- 6246 17 Feb, 2013 [facility] [place] [facility] [address] [id number] [place] [address] 2542 11 Feb, 2013 [facility] [place] [facility] [address] [id number] [place] [address]- 0446 11 Feb, 2013 [facility] [place] [facility] [address] [id number] [place] [address]- 1102 10 Feb, 2013 [facility] [place] [facility] [address] [id number] [place] [address]- 9322 10 Feb, 2013 [facility] [place] [facility] [address] [id number] [place] [address]- 3203 10 Feb, 2014 [facility] [place] [facility] [address] [id number] [place] [address]- 3000 09 Feb, 2014 [facility] [place] [facility] [address] [id number] [place] [address]- 3846 09 Feb, 2014 [facility] [place] [facility] [address] [id number] [place] [address]- 2403 15 Jan, 2014 [facility] [place] [facility] [address] [id number] [place] [address]- 9791 Jan, [facility] [place] [facility] [address] [id number] [place] [address]- 1052 14 Dec, 2013 [facility] [place] [facility] [address] [id number] [place] [address]- 4994 14 Dec, 2013 [facility] [place] [facility] [address] [id number] [place] [address]- 1398 Dec, [facility] [address] [id number] [place] [address]- 6872 Dec, [facility] [place] [facility] [address] [id number] [place] [address]- 7306 Dec, [facility] [place] [facility] [address] [id number] [place] [address]- 6401 Dec, [facility] [place] [facility] [address] [id number] [place] [address]- 3457 Nov, [facility] [place] [facility] [address] [id number] [place] [address]- 1678 Nov, [facility] [place] [facility] [address] [id number] [place] [address]- 0076 Sep, [facility] [place] [facility] [address] [id number] [place] [address]- 9368 May, [facility] [place] [facility] [address] [id number] [place] [address]- 0374 May, [facility] [place] [facility] [address] [id number] [place] [address]- 9588 Nov, [facility] [place] [facility] [address] [id number] [place] [address]- 2176 Sep, [facility] [place] [facility] [address] [id number] [place] [address]- 5226 Aug, [facility] [place] [facility] [address] [id number], [place] [address]- 5546 Jun, [facility] [place] [facility] [address] [id number] [place] [address]- 8918 Jun, [facility] [place] [facility] [address] [id number] [place] [address]- 3206 Jun, [facility] [place] [facility] [address] [id number], [place] [address]- 1266 May, [facility] [place] [facility] [address] [id number], [place] [address]- 4843 May, [facility] [address] [place] [id number] [address]- 6775 May, [facility] [address] [place] [id number] [address]- 5024 May, [facility] [address] [facility] [id number] 3446 Apr, [facility] [address] [place] [id number] [address]- 7221 Apr, [facility] [address] [place] [id number] [address]- 3386 Apr, [facility] [address] [place] [id number] [address]- 8396 Apr, IMMUNIZATIONS No Known Immunizations SOCIAL HISTORY Never Assessed REASON FOR VISIT Refill request PLAN OF CARE VITAL SIGNS MEDICATIONS Medication Instructions Dosage Frequency Start Date End Date Duration Status Paxil 10 mg Orally twice a day 1 tablet 12h 30 days Active RESULTS No Results PROCEDURES [...]
--- OUTSIDE RECORDS SUMMARY | 2018-08-31 20:00 | XMS REPORT ---
Author Author BELLE JAFFE Organization [employer] Address Unknown Phone Unavailable Care Team Providers Care Physician General Practice Name Role Phone BELLE JAFFE CP Unavailable Allergies No Known Allergies Problems [...] type F32.9 Active Medications No Known Medications Results No Known Results Summary Purpose [employer] Submission
--- OUTSIDE RECORDS SUMMARY | 2018-08-31 20:01 | XMS REPORT ---
Author Author BELLE JAFFE [facility] Address [address] [place] [address] Care Team Providers Care Practical Nurse Name Role Phone BELLE JAFFE Unavailable PROBLEMS Type Condition ICD9-CM Code AWY67-AT Code Onset Dates Condition Status SNOMED Code Problem Spondylolisthesis of lumbosacral region M43.17 Active 155086987 Problem Seasonal allergic rhinitis due to pollen J30.1 Active 62754264 Problem Mixed hyperlipidemia E78.2 Active 989410675 Problem Pre-diabetes R73.09 Active 047989478 ALLERGIES No Information ENCOUNTERS Encounter Location Date Diagnosis [place] [address] [address] Sep, [facility] [address] [place] [id number] [place] [address]341- 7501 Aug, [place] [address] 18[address]- 3091 Aug, Dysfunction of both 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 [place] [address] [place] [id number] [place] [address] 24617- 0751 Apr, Anxiety F41.9 [facility] [address] [id number] [place] [address] 56258- 5428 Feb, Anxiety F41.9 [facility] [address] [id number] [place] [address] 65010- 3923 Feb, [facility] [address] 478[address]- 3227 Feb, [facility] [address] [id number] [place] [address] 27278- 1251 Feb, [place] [address] [id number] [place] [address] 55564- 0001 Jan, Anxiety F41.9 [place] [address] 24800- 8428 Jan, Anxiety F41.9 and Spondylolisthesis of lumbosacral region M43.17 [place] [address] 89012- 9937 Dec, Anxiety F41.9 [place] [address] 17250- 9592 Nov, Anxiety F41.9 [place] [address] 18164- 5993 October, Anxiety F41.9 and Seasonal allergic rhinitis due to pollen J30.1 [place] [address] 39513- 2792 Sep, Anxiety F41.9 [place] [address] 05116- 9036 Aug, Pre-diabetes R73.09 and Anxiety F41.9 [place] [address] 95904- 4580 Jul, [place] [address] [place] [id number] [place] [address] 15390- 1048 Mar, [place] [address] 98786- 8547 13 Mar, 2016 DUB (dysfunctional uterine bleeding) N93.8 and Menorrhagia with irregular cycle N92.1 [place] [address] 62093- 2225 Feb, [place] [address] 97306- 6656 08 Feb, 2016 Encounter for dental examination Z01.20 [place] [address] 19772- 7470 Feb, Herniated nucleus pulposus M51.9 [facility] [address] [facility] [id number] [id number] Feb, Dental examination Z01.20 [facility] [address] [place] [id number], [place] [address] Jan, Dental examination Z01.20 and Dental caries K02.9 [facility] [address] [place] [address] 88560- 8199 Jan, Encounter for dental examination and cleaning without abnormal findings Z01.20 [facility] [address], [place] [address] 6153 Jan, [facility] [id number] [place] [address] 14999- 2383 Jan, [facility] [address] [place] [address] 17970- 3467 Jan, Pre-diabetes R73.09 ; Chronic nonintractable headache, unspecified headache type R51 and Vaginal yeast infection B37.3 [facility] [address], [place] [address]- 7065 Jan, [facility] [address], [place] [address]- 6400 Dec, Herniated nucleus pulposus M51.9 [facility] [address], [place] [address] 2140 Dec, [facility] [address], [place] [address]- 7234 Nov, [facility] [address] [place] [address] 74987- 5834 Nov, [facility] [address], [place] [address] Nov, [facility] [address], [place] [address]- 6037 Nov, [place] [address] [place] [id number] [place] [address] 72560- 8545 Nov, Right hip pain M25.551 ; Pre-diabetes R73.09 ; Mixed hyperlipidemia E78.2 ; Chronic nonintractable headache, unspecified headache type R51 ; Right foot pain M79.671 and Right hand pain M79.641 [place] [address] [place] [id number] [place] [address] 95693- 2325 Nov, [facility] [address] [address] [id number] [place] [address] 95114- 4897 Nov, Right hip pain M25.551 ; Pre-diabetes R73.09 ; Mixed hyperlipidemia E78.2 and Chronic nonintractable headache, unspecified headache type R51 [place] [address] [place] [id number] [place] [address] 97920- 2852 October, [place] [address] 44565- 7267 October, Right hip pain M25.551 ; Pre-diabetes R73.09 ; Mixed hyperlipidemia E78.2 and Frequent headaches R51 [place] [address] [place] [id number] [place] [address] 97188- 5077 October, Menorrhagia with regular cycle N92.0 [facility] [id number] [place] [address] 50251 -0103 October, [place] [address] [place] [id number] [place] [address] 72388- 8022 October, Menorrhagia with regular cycle N92.0 [place] [address] [place] [id number] [place] [address] 77829- 5259 Sep, Lump of right breast N63 ; Menorrhagia with regular cycle N92.0 and BMI 30.0-30.9,adult Z68.30 [place] [address] [place] [id number] [place] [address] 94837- 2197 Sep, [facility] [address] [place] [id number] [place] [address] 78613- 1266 Aug, [place] [address] 40950- 5524 Aug, Well woman exam Z01.419 ; Encounter [...] Z87.898 and Trichomonas vaginalis (TV) infection A59.01 [place] [address] 96677- 0102 October, Abdominal pain, unspecified site 789.00 ; GERD ( gastroesophageal reflux disease) 530.81 and Chest pain 786.50 [place] [address] [place] [id number] [place] [address] 61750- 6022 Sep, [place] [address] 52618- 5607 Sep, [place] [address] [place] [id number] [place] [address] 95256- 8930 Jul, [place] [address] [place] [id number] [place] [address] 71092- 7140 Jul, [place] [address] [place] [id number] [place] [address] 53035- 4293 Jun, [place] [address] 12769- 5349 Jun, [place] [address] [place] [id number] [place] [address] 16882- 7810 Jun, [place] [address] 33075- 6506 16 Jun, 2014 [facility] [place] [facility] [address] [id number] [place] [address]- 6252 16 Jun, 2014 [facility] [place] [facility] [address] [id number] [place] [address]- 7832 Jun, [facility] [place] [facility] [address] [id number] [place] [address]- 5450 Jun, [facility] [place] [facility] [address] [id number] [place] [address]- 0042 Jun, [facility] [place] [facility] [address] [id number] [place] [address]- 6191 Jun, [facility] [place] [facility] [address] [id number] [place] [address]- 1479 Jun, [facility] [place] [facility] [address] [id number] [place] [address]- 5293 Jun, [facility] [place] [facility] [address] [id number] [place] [address]- 0479 Jun, [facility] [place] [facility] [address] [id number] [place] [address]- 6078 Jun, [facility] [place] [facility] [address] [id number] [place] [address]- 6225 Jun, [facility] [place] [facility] [address] [id number], [place] [address]- 2974 Jun, [facility] [place] [facility] [address] [id number], [place] [address]- 0642 May, [facility] [place] [facility] [address] [id number] [place] [address]- 8858 May, [facility] [place] [facility] [address] [id number] [place] [address]- 1565 Feb, [facility] [place] [facility] [address] [id number] [place] [address]- 7679 Feb, [facility] [place] [facility] [address] [id number] [place] [address]- 2547 29 Feb, 2013 [facility] [place] [facility] [address] [id number] [place] [address] 2546 25 Feb, 2013 [facility] [place] [facility] [address] [id number] [place] [address] 2546 25 Feb, 2013 [facility] [place] [facility] [address] [id number] [place] [address] 2546 17 Feb, 2013 [facility] [place] [facility] [address] [id number] [place] [address] 2549 17 Feb, 2013 [facility] [place] [facility] [address] [id number] [place] [address]- 4624 11 Feb, 2013 [facility] [place] [facility] [address] [id number] [place] [address]- 5091 11 Feb, 2013 [facility] [place] [facility] [address] [id number] [place] [address]- 2549 10 Feb, 2013 [facility] [place] [facility] [address] [id number] [place] [address]- 2543 10 Feb, 2013 [facility] [place] [facility] [address] [id number] [place] [address]- 2540 10 Feb, 2013 [facility] [place] [facility] [address] [id number] [place] [address]- 2544 09 Feb, 2013 [facility] [place] [facility] [address] [id number] [place] [address]- 2544 09 Feb, 2013 [facility] [place] [facility] [address] [id number] [place] [address]- 2547 15 Jan, 2014 [facility] [place] [facility] [address] [id number] [place] [address]- 2787 15 Jan, 2014 [facility] [place] [facility] [address] [id number] [place] [address]- 8317 14 Dec, 2013 [facility] [place] [facility] [address] [id number] [place] [address]- 7186 Dec, [facility] [place] [facility] [address] [id number] [place] [address]- 7496 Dec, [facility] [place] [facility] [address] [id number] [place] [address]- 0366 Dec, [facility] [place] [facility] [address] [id number] [place] [address]- 8386 Dec, [facility] [place] [facility] [address] [id number] [place] [address]- 8046 Dec, [facility] [place] [facility] [address] [id number] [place] [address]- 6384 Nov, [facility] [place] [facility] [address] [id number] [place] [address]- 8896 Nov, [facility] [place] [facility] [address] [id number] [place] [address]- 6656 Sep, [facility] [place] [facility] [address] [id number] [place] [address]- 2549 May, [facility] [place] [facility] [address] [id number] [place] [address]- 2965 May, [facility] [place] [facility] [address] [id number], [place] [address]- 5736 Nov, [facility] [place] [facility] [address] [id number] [place] [address]- 4376 Sep, [facility] [place] [facility] [address] [id number], [place] [address]- 1466 Aug, [facility] [place] [facility] [address] [id number] [place] [address]- 4326 Jun, [facility] [place] [facility] [address] [id number] [place] [address]- 8836 Jun, [facility] [place] [facility] [address] [id number], [place] [address]- 8876 Jun, [facility] [place] [facility] [address] [id number], [place] [address]- 7868 May, [facility] [id number], [place] [address]- 4917 May, [facility] [id number], [place] [address]- 5546 May, [facility] [id number], [place] [address]- 3687 May, [facility] [id number], [place] [address]- 3926 Apr, [facility] [id number], [place] [address]- 5837 Apr, [facility] [id number], [place] [address]- 6368 Apr, [facility] [id number], [place] [address]- 7528 Apr, IMMUNIZATIONS No Known Immunizations SOCIAL HISTORY Never Assessed REASON FOR VISIT triage PLAN OF CARE VITAL SIGNS MEDICATIONS Unknown [...]
--- OUTSIDE RECORDS SUMMARY | 2018-08-31 20:01 | XMS REPORT ---
Author Author BELLE JAFFE [facility] Address [address] [place] [address] Care Team Providers Care Mortuary Operations Manager Name Role Phone BELLE JAFFE Unavailable PROBLEMS Type Condition ICD9-CM Code RIH32-HK Code Onset Dates Condition Status SNOMED Code Problem BMI 30.0-30.9,adult Z68.30 Active 323117660 Problem Pre-diabetes R73.09 Active 709888330 Problem Hematuria, unspecified R31.9 Active 24469726 Problem Vaginal yeast infection B37.3 Active 08260516 Problem Right foot pain M79.671 Active 17530649 Problem Mixed hyperlipidemia E78.2 Active 476929063 Problem Right hip pain M25.551 Active 42780503 Problem Right hand pain M79.641 Active 04058691 Problem Chronic nonintractable headache, unspecified headache type R51 Active 83802615 Problem History of heartburn Z87.898 Active 64102835696865 Problem Fibrocystic breast, right N60.11 Active 26495446 Problem Depression, unspecified depression type F32.9 Active 01996035 Problem Lump of right breast N63 Active 06947294 Problem Anxiety F41.9 Active 85035916 Problem Fibrocystic breast, left N60.12 Active 37874538 Problem Menorrhagia with regular cycle N92.0 Active 104400543 ALLERGIES No Known Allergies SOCIAL HISTORY No smoking Hx information available PLAN OF CARE VITAL SIGNS MEDICATIONS No Known Medications RESULTS No Results PROCEDURES No Known procedures IMMUNIZATIONS No Known Immunizations
--- OUTSIDE RECORDS SUMMARY | 2018-08-31 20:01 | XMS REPORT ---
Author Author JYOTSNA GARIBAY [employer] Address Unknown Phone Unavailable Care Team Providers Care Roller Staker Name Role Phone JYOTSNA GARIBAY CP Unavailable Allergies, Adverse Reactions, Alerts Substance Reaction Event Type Augmentin Info Not Available Drug Allergy Problems Problem Type Condition Code Onset Dates Condition Status Assessment Lump of right breast N63 Active Problem Lump of right breast N63 Active Problem History of heartburn Z87.898 Active Assessment BMI 30.0-30.9,adult Z68.30 Active Assessment Menorrhagia with regular cycle N92.0 Active Problem BMI 30.0-30.9,adult Z68.30 Active Problem Menorrhagia with regular cycle N92.0 Active Problem Hematuria, unspecified R31.9 Active Problem Fibrocystic breast, right N60.11 Active Problem Fibrocystic breast, left N60.12 Active Problem Anxiety F41.9 Active Problem Depression, unspecified depression type F32.9 Active Medications Medication Code System Code Instructions Start Date End Date Status Dosage Aleve [facility] [address]-22 220 MG Orally not defined Midol [facility] 285[address]-28153 200 MG Orally every 6 hrs 1 capsule as needed Procedures Procedure Coding System Code Date GLYCATED HEMOGLOBIN TEST CPT-4 41012 October 02, 2015 COMPLETE CBC W/AUTO DIFF WBC CPT-4 60115 October 02, 2015 Office Visit, Est Pt., Level 3 CPT-4 46219 October 02, 2015 COMPREHEN METABOLIC PANEL CPT-4 90132 October 02, 2015 LIPID PANEL CPT-4 20008 October 02, 2015 VENIPUNCT, ROUTINE* CPT-4 25491 October 02, 2015 Vital Signs Date/Time: October 02, 2015 Temperature 97.4 F Weight 185.3 lbs Height 65 in BMI 30.83 Index Blood Pressure Diastolic 78 mmHg Blood Pressure Systolic 112 mmHg Cardiac Monitoring Heart Rate 80 bpm Results Name Result Date Reference Range Unit Abnormality Flag ROUTINE VENIPUNCTURE Summary Purpose [employer] Submission
--- OUTSIDE RECORDS SUMMARY | 2018-08-31 20:01 | XMS REPORT ---
Author Author BELLE JAFFE Organization [facility] Address [address] [place] [address] Care Team Providers Care Exchange Underwriting Consultant Name Role Phone BELLE JAFFE Unavailable PROBLEMS Type Condition ICD9-CM Code VBB91-MN Code Onset Dates Condition Status SNOMED Code Problem History of heartburn Z87.898 Active 07642879444118 Problem Spondylolisthesis of lumbosacral region M43.17 Active 244711323 Problem Seasonal allergic rhinitis due to pollen J30.1 Active 84041143 Problem Right hip pain M25.551 Active 46775375 Problem Lump of right breast N63 Active 62661903 Problem Mixed hyperlipidemia E78.2 Active 646649191 Problem Pre-diabetes R73.09 Active 778483305 ALLERGIES Substance Reaction Event Type Date Status Augmentin Unknown Drug Allergy October, Active SOCIAL HISTORY Never Assessed PLAN OF CARE Activity Details Follow Up 2 Months Reason: Med VITAL SIGNS Height 65 in 2016-10-19 Weight 213 lbs 2016-10-19 Temperature 99.2 degrees Fahrenheit 2016-10-19 Heart Rate 90 bpm 2016-10-19 Respiratory Rate 20 2016-10-19 BMI 35.44 kg/m2 2016-10-19 Blood pressure systolic 130 mmHg 2016-10-19 Blood pressure diastolic 82 mmHg 2016-10-19 MEDICATIONS Medication Instructions Dosage Frequency Start Date End Date Duration Status Claritin 5 MG/5ML Orally Once a day 1-2 tsp daily 24h October, Nov, 30 day(s) Active Paxil 10 mg Orally twice a day [...]
--- OUTSIDE RECORDS SUMMARY | 2018-08-31 20:01 | XMS REPORT ---
Author Author BELLE JAFFE [facility] Address [address] [place] [address] Care Team Providers Care Multiskill Operator Name Role Phone BELLE JAFFE Unavailable PROBLEMS Type Condition ICD9-CM Code [id number] Code Onset Dates Condition Status SNOMED Code Problem Spondylolisthesis of lumbosacral region M43.17 Active 622002822 Problem Seasonal allergic rhinitis due to pollen J30.1 Active 73424111 Problem Mixed hyperlipidemia E78.2 Active 163923131 Problem Pre-diabetes R73.09 Active [id number] ALLERGIES No Information ENCOUNTERS Encounter Location Date Diagnosis [place] [id number] [address]- [address] Sep, [facility] [address] [id number] [place] [address]50- 1753 Aug, [facility] [address] [address]- 9002 Aug, Dysfunction of both 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 [place] [address] [id number] [place] [address] 71012- 5947 Apr, Anxiety F41.9 [facility] [address] [id number] [place] [address] 65640- 2527 Feb, Anxiety F41.9 [facility] [address] [id number] [place] [address] 44122- 4664 Feb, [facility] [address] [place] [id number] [place] [address] 07748- 0955 Feb, [facility] [address] [address] [id number] [place] [address] 21952- 5671 Feb, [place] [address] [place] [id number] [place] [address] 66588- 6748 Jan, Anxiety F41.9 [place] [address] 38001- 8563 Jan, Anxiety F41.9 and Spondylolisthesis of lumbosacral region M43.17 [place] [address] 04345- 1554 Dec, Anxiety F41.9 [place] [address] 16601- 6833 Nov, Anxiety F41.9 [place] [address] 15905- 8906 October, Anxiety F41.9 and Seasonal allergic rhinitis due to pollen J30.1 [place] [address] 38150- 1769 Sep, Anxiety F41.9 [place] [address] 81327- 5098 Aug, Pre-diabetes R73.09 and Anxiety F41.9 [place] [address] 19958- 2843 Jul, [place] [address] [id number] [place] [address] 19376- 7890 Mar, [place] [address] 85031- 5824 13 Mar, 2016 DUB (dysfunctional uterine bleeding) N93.8 and Menorrhagia with irregular cycle N92.1 [place] [address] 05131- 6705 Feb, [place] [address] 53786- 5960 08 Feb, 2016 Encounter for dental examination Z01.20 [place] [address] 11808- 8508 Feb, Herniated nucleus pulposus M51.9 [facility] [address] [facility] [id number] [id number] Feb, Dental examination Z01.20 [facility] [address] [place] [address] [id number] [address] 7026 Jan, Dental examination Z01.20 and Dental caries K02.9 [facility] [id number] [place] [address] 63738- 2963 Jan, Encounter for dental examination and cleaning without abnormal findings Z01.20 [facility] [address] [address] 3857 Jan, [facility] [address] [id number] [place] [address] 61471- 8673 Jan, [facility] [address] [place] [address] 47929- 7596 Jan, Pre-diabetes R73.09 ; Chronic nonintractable headache, unspecified headache type R51 and Vaginal yeast infection B37.3 [facility] [address] [address] 2851 Jan, [facility] [address] [address] 8117 Dec, Herniated nucleus pulposus M51.9 [facility] [address] [address] 1339 Dec, [facility] [address] [address]- 2558 Nov, [facility] [address] [place] [address] 33292- 4260 Nov, [facility] [address] [address] 5720 Nov, [facility] [address] [address] 9231 Nov, [place] [address] [id number] [place] [address] 44482- 7532 Nov, Right hip pain M25.551 ; Pre-diabetes R73.09 ; Mixed hyperlipidemia E78.2 ; Chronic nonintractable headache, unspecified headache type R51 ; Right foot pain M79.671 and Right hand pain M79.641 [place] [address] [place] [id number] [place] [address] 34280- 9390 Nov, [facility] [address] [address] [id number] [place] [address] 65135- 7131 Nov, Right hip pain M25.551 ; Pre-diabetes R73.09 ; Mixed hyperlipidemia E78.2 and Chronic nonintractable headache, unspecified headache type R51 [place] [address] [id number] [place] [address] 87682- 3414 October, [place] [address] 20357- 7620 October, Right hip pain M25.551 ; Pre-diabetes R73.09 ; Mixed hyperlipidemia E78.2 and Frequent headaches R51 [place] [address] [address] [id number] [place] [address] 30266- 0429 October, Menorrhagia with regular cycle N92.0 [facility] [address] [id number] [place] [address] 54825 -8517 October, [place] [address] [place] [address] [id number] [place] [address] 19556- 9262 October, Menorrhagia with regular cycle N92.0 [place] [address] [id number] [place] [address] 05634- 3719 Sep, Lump of right breast N63 ; Menorrhagia with regular cycle N92.0 and BMI 30.0-30.9,adult Z68.30 [place] [address] [address] [id number] [place] [address] 61037- 1821 Sep, [facility] [address] [id number] [place] [address] 17280- 6639 Aug, [place] [address] 15724- 0064 Aug, Well woman exam Z01.419 ; Encounter [...] Z87.898 and Trichomonas vaginalis (TV) infection A59.01 [place] [address] 99854- 2502 October, Abdominal pain, unspecified site 789.00 ; GERD ( gastroesophageal reflux disease) 530.81 and Chest pain 786.50 [place] [address] [place] [id number] [place] [address] 85562- 2045 Sep, [place] [address] 57095- 1573 Sep, [place] [address] [place] [id number] [place] [address] 37008- 8374 Jul, [place] [address] [id number] [place] [address] 69782- 6347 Jul, [place] [address] [place] [id number] [place] [address] 36531- 7925 Jun, [place] [address] 59106- 1293 Jun, [place] [address] [place] [id number] [place] [address] 81799- 0494 Jun, [place] [address] 93917- 1186 16 Jun, 2014 [facility] [place] [facility] [address] [id number] [place] [address]- 8427 16 Jun, 2014 [facility] [place] [facility] [address] [id number] [place] [address]- 4100 Jun, [facility] [place] [facility] [address] [id number] [place] [address]- 7170 Jun, [facility] [place] [facility] [address] [id number] [place] [address]- 7738 Jun, [facility] [place] [facility] [address] [id number] [place] [address]- 3097 Jun, [facility] [place] [facility] [address] [id number] [place] [address]- 3716 Jun, [facility] [place] [facility] [address] [id number] [place] [address]- 9816 Jun, [facility] [place] [facility] [address] [id number] [place] [address]- 9681 Jun, [facility] [place] [facility] [address] [id number] [place] [address]- 6838 Jun, [facility] [place] [facility] [address] [id number] [place] [address]- 1444 Jun, [facility] [place] [facility] [address] [id number], [place] [address]- 0883 Jun, [facility] [place] [facility] [address] [id number], [place] [address]- 2299 May, [facility] [place] [facility] [address] [id number] [place] [address]- 5863 May, [facility] [place] [facility] [address] [id number] [place] [address]- 2641 Feb, [facility] [place] [facility] [address] [id number] [place] [address]- 8638 Feb, [facility] [place] [facility] [address] [id number] [place] [address]- 2541 29 Feb, 2013 [facility] [place] [facility] [address] [id number] [place] [address] 2546 25 Feb, 2013 [facility] [place] [facility] [address] [id number] [place] [address] 2546 25 Feb, 2013 [facility] [place] [facility] [address] [id number] [place] [address] 2546 17 Feb, 2013 [facility] [place] [facility] [address] [id number] [place] [address] 2542 17 Feb, 2013 [facility] [place] [facility] [address] [id number] [place] [address]- 0458 11 Feb, 2013 [facility] [place] [facility] [address] [id number] [place] [address]- 7043 11 Feb, 2013 [facility] [place] [facility] [address] [id number] [place] [address]- 2543 10 Feb, 2013 [facility] [place] [facility] [address] [id number] [place] [address]- 2541 10 Feb, 2013 [facility] [place] [facility] [address] [id number] [place] [address]- 254 10 Feb, 2013 [facility] [place] [facility] [address] [id number] [place] [address]- 2543 09 Feb, 2013 [facility] [place] [facility] [address] [id number] [place] [address]- 2547 09 Feb, 2013 [facility] [place] [facility] [address] [id number] [place] [address]- 2545 15 Jan, 2014 [facility] [place] [facility] [address] [id number] [place] [address]- 0147 15 Jan, 2014 [facility] [place] [facility] [address] [id number] [place] [address]- 8937 14 Dec, 2013 [facility] [place] [facility] [address] [id number] [place] [address]- 6347 Dec, [facility] [place] [facility] [address] [id number] [place] [address]- 6044 Dec, [facility] [place] [facility] [address] [id number] [place] [address]- 1156 Dec, [facility] [place] [facility] [address] [id number] [place] [address]- 6116 Dec, [facility] [place] [facility] [address] [id number] [place] [address]- 0356 Dec, [facility] [place] [facility] [address] [id number] [place] [address]- 5221 Nov, [facility] [place] [facility] [address] [id number] [place] [address]- 3686 Nov, [facility] [place] [facility] [address] [id number] [place] [address]- 4686 Sep, [facility] [place] [facility] [address] [id number] [place] [address]- 6789 May, [facility] [place] [facility] [address] [id number] [place] [address]- 9967 May, [facility] [place] [facility] [address] [id number], [place] [address]- 5516 Nov, [facility] [place] [facility] [address] [id number] [place] [address]- 8496 Sep, [facility] [place] [facility] [address] [id number], [place] [address]- 9486 Aug, [facility] [place] [facility] [address] [id number] [place] [address]- 2326 Jun, [facility] [place] [facility] [address] [id number] [place] [address]- 2646 Jun, [facility] [place] [facility] [address] [id number], [place] [address]- 9466 Jun, [facility] [place] [facility] [address] [id number], [place] [address]- 3407 May, [facility] [address] [id number] [address]- 7375 May, [facility] [id number] [address]- 3222 May, [facility] [id number] [address]- 3002 May, [facility] [id number] [address]- 3290 Apr, [facility] [id number] [address]- 6472 Apr, [facility] [id number] [address]- 1590 Apr, [facility] [id number], [place] [address]- 7033 Apr, IMMUNIZATIONS No Known Immunizations SOCIAL HISTORY Never Assessed REASON FOR VISIT Requests return call PLAN OF CARE VITAL SIGNS MEDICATIONS Medication Instructions Dosage Frequency Start Date End Date Duration Status Paxil 20 MG Orally Once a day 1 tablet 24h [...]
--- OUTSIDE RECORDS SUMMARY | 2018-08-31 20:01 | XMS REPORT ---
Author Author BELLE JAFFE [facility] Address [address] [place] [address] Care Team Providers Care Assembler Camper Name Role Phone BELLE JAFFE Unavailable PROBLEMS Type Condition ICD9-CM Code BAF32-SK Code Onset Dates Condition Status SNOMED Code Problem Spondylolisthesis of lumbosacral region M43.17 Active 136442127 Problem Seasonal allergic rhinitis due to pollen J30.1 Active 80009050 Problem Mixed hyperlipidemia E78.2 Active 089561965 Problem Pre-diabetes R73.09 Active [id number] ALLERGIES No Information ENCOUNTERS Encounter Location Date Diagnosis [place] [address] [address] October, [place] [address] [place] [id number] [place] [address] 85942- 3826 Sep, Anxiety F41.9 [place] [address] [place] [id number] [place] [address] 86586- 7163 Aug, [place] [address] [place] [id number] [place] [address] 05132- 8392 Aug, Dysfunction of both 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 [place] [address] [place] [id number] [place] [address] 53915- 3143 Apr, Anxiety F41.9 [place] [address] [place] [id number] [place] [address] 39771- 7793 Feb, Anxiety F41.9 [place] [address] [place] [id number] [place] [address] 34900- 2551 Feb, [place] [address] [place] [id number] [place] [address] 00949- 9178 Feb, [place] [address] [place] [id number] [place] [address] 55715- 6054 Feb, [place] [address] [place] [id number] [place] [address] 09116- 4127 Jan, Anxiety F41.9 [place] [address] [place] [id number] [place] [address] 90641- 8643 Jan, Anxiety F41.9 and Spondylolisthesis of lumbosacral region M43.17 [place] [address] [place] [id number] [place] [address] 75255- 3700 17 Dec, 2016 Anxiety F41.9 [place] [address] [address]- 4935 Nov, Anxiety F41.9 [place] [address] [place] [id number] [place] [address] 72801- 0139 October, Anxiety F41.9 and Seasonal allergic rhinitis due to pollen J30.1 [place] [address] [place] [id number] [place] [address] 08958- 1637 Sep, Anxiety F41.9 [place] [address] [place] [id number] [place] [address] 91269- 4763 Aug, Pre-diabetes R73.09 and Anxiety F41.9 [place] [address] [place] [id number] [place] [address] 97306- 9394 16 Jul, 2016 [place] [address] [place] [id number] [place] [address] 29138- 3284 Mar, [place] [address] [place] [id number] [place] [address] 81474- 8551 13 Mar, 2016 DUB (dysfunctional uterine bleeding) N93.8 and Menorrhagia with irregular cycle N92.1 [place] [address] [place] [id number] [place] [address] 04240- 8866 19 Feb, 2016 [place] [address] [address]- 2359 Feb, Encounter for dental examination Z01.20 [facility] [address] [facility] [id number] [address] Feb, Herniated nucleus pulposus M51.9 [facility] [address] [id number] [id number] Feb, Dental examination Z01.20 [facility] [id number], [place] [address] Jan, Dental examination Z01.20 and Dental caries K02.9 [facility] [address] [place] [address] 97342- 6382 Jan, Encounter for dental examination and cleaning without abnormal findings Z01.20 [facility] [id number], [place] [address] 6076 Jan, [facility] [address] [place] [id number] [place] [address] 31861- 1682 Jan, [facility] [address] [place] [address] 72868- 8883 Jan, Pre-diabetes R73.09 ; Chronic nonintractable headache, unspecified headache type R51 and Vaginal yeast infection B37.3 [facility] [id number], [place] [address] 487[address] Jan, [facility] [id number], [place] [address] 3960 Dec, Herniated nucleus pulposus M51.9 [facility] [id number], [place] [address] 7719 Dec, [facility] [address] [place] [id number] [place] [address] 12046- 5247 Nov, [facility] [id number] [address] 2781 Nov, [facility] [address] [place] [id number] [place] [address] 22421- 5632 Nov, [facility] [id number] [address] 8258 Nov, [facility] [address] [place] [id number] [place] [address] 12378- 8214 Nov, Right hip pain M25.551 ; Pre-diabetes R73.09 ; Mixed hyperlipidemia E78.2 ; Chronic nonintractable headache, unspecified headache type R51 ; Right foot pain M79.671 and Right hand pain M79.641 [place] [address] [place] [id number] [place] [address] 79729- 4180 17 Nov, 2015 [place] [address] [place] [id number] [place] [address] 52091- 6742 Nov, Right hip pain M25.551 ; Pre-diabetes R73.09 ; Mixed hyperlipidemia E78.2 and Chronic nonintractable headache, unspecified headache type R51 [place] [address] [place] [id number] [place] [address] 99371- 4711 October, [facility] [address] [place] [id number] [place] [address] 51164- 1823 October, Right hip pain M25.551 ; Pre-diabetes R73.09 ; Mixed hyperlipidemia E78.2 and Frequent headaches R51 [facility] [address] [place] [address] 45167- 3888 October, Menorrhagia with regular cycle N92.0 [facility] [address] [address] October, [facility] [address] [place] [id number] [place] [address] 67255- 4383 October, Menorrhagia with regular cycle N92.0 [facility] [address] [place] [address] 00611- 2452 Sep, Lump of right breast N63 ; Menorrhagia with regular cycle N92.0 and BMI 30.0-30.9,adult Z68.30 [place] [address] [address]- 5510 05 Sep, 2015 [place] [address] [place] [id number] [place] [address] 66667- 0452 Aug, [place] [address] [place] [id number] [place] [address] 81839- 7434 Aug, Well woman exam Z01.419 ; Encounter [...] Z87.898 and Trichomonas vaginalis (TV) infection A59.01 [place] [address] [place] [id number] [place] [address] 13196- 0206 October, Abdominal pain, unspecified site 789.00 ; GERD ( gastroesophageal reflux disease) 530.81 and Chest pain 786.50 [place] [address] [place] [address] 17701- 9968 Sep, [place] [address] [place] [id number] [place] [address] 16609- 4839 Sep, [place] [address] [place] [id number] [place] [address] 97500- 4198 Jul, [place] [address] [place] [id number] [place] [address] 95415- 1387 Jul, [place] [address] [place] [id number] [place] [address] 75092- 0930 Jun, [place] [address] [place] [address] 37994- 1128 Jun, [place] [address] [place] [id number] [place] [address] 34397- 0184 Jun, [facility] [address] [id number] [place] [address]- 2283 Jun, [facility] [place] [facility] [address] [id number] [place] [address]- 0573 Jun, [facility] [place] [facility] [address] [id number] [place] [address]- 5854 Jun, [facility] [place] [facility] [address] [id number] [place] [address]- 4641 Jun, [facility] [place] [facility] [address] [id number] [place] [address]- 5492 Jun, [facility] [place] [facility] [address] [id number] [place] [address]- 5985 Jun, [facility] [address] [id number] [place] [address]- 1081 Jun, [facility] [place] [facility] [address] [id number] [place] [address]- 2845 Jun, [facility] [place] [facility] [address] [id number] [place] [address]- 8367 Jun, [facility] [place] [facility] [address] [id number] [place] [address]- 0963 Jun, [facility] [place] [facility] [address] [id number] [place] [address]- 3588 Jun, [facility] [place] [facility] [address] [id number], [place] [address]- 4214 Jun, [facility] [place] [facility] [address] [id number] [place] [address]- 0532 May, [facility] [place] [facility] [address] [id number] [place] [address]- 2668 May, [facility] [place] [facility] [address] [id number] [place] [address]- 9758 Feb, [facility] [place] [facility] [address] [id number] [place] [address]- 3511 30 Sep, 2013 [facility] [place] [facility] [address] [id number] [place] [address] 2546 29 Sep, 2013 [facility] [place] [facility] [address] [id number] [place] [address] 2546 25 Feb, 2013 [facility] [place] [facility] [address] [id number] [place] [address] 2546 25 Feb, 2013 [facility] [place] [facility] [address] [id number] [place] [address] 2542 17 Feb, 2013 [facility] [place] [facility] [address] [id number] [place] [address] 254 17 Feb, 2013 [facility] [place] [facility] [address] [id number] [place] [address]- 2428 11 Feb, 2013 [facility] [place] [facility] [address] [id number] [place] [address]- 1255 11 Feb, 2013 [facility] [place] [facility] [address] [id number] [place] [address] 2542 10 Feb, 2013 [facility] [place] [facility] [address] [id number] [place] [address] 2543 10 Feb, 2013 [facility] [place] [facility] [address] [id number] [place] [address] 2548 10 Feb, 2013 [facility] [place] [facility] [address] [id number] [place] [address] 254 09 Feb, 2013 [facility] [place] [facility] [address] [id number] [place] [address] 2549 09 Feb, 2013 [facility] [place] [facility] [address] [id number] [place] [address]- 2545 15 Jan, 2014 [facility] [place] [facility] [address] [id number] [place] [address]- 2542 15 Jan, 2014 [facility] [place] [facility] [address] [id number] [place] [address]- 2549 Dec, [facility] [place] [facility] [address] [id number] [place] [address]- 0468 Dec, [facility] [place] [facility] [address] [id number] [place] [address]- 8493 Dec, [facility] [place] [facility] [address] [id number] [place] [address]- 6315 Dec, [facility] [place] [facility] [address] [id number] [place] [address]- 2301 Dec, [facility] [place] [facility] [address] [id number] [place] [address]- 8282 Dec, [facility] [place] [facility] [address] [id number] [place] [address]- 3027 Nov, [facility] [place] [facility] [address] [id number] [place] [address]- 6499 Nov, [facility] [place] [facility] [address] [id number] [place] [address]- 2957 Sep, [facility] [place] [facility] [address] [id number] [place] [address]- 5559 May, [facility] [place] [facility] [address] [id number] [place] [address]- 9064 May, [facility] [place] [facility] [address] [id number], [place] [address]- 4482 Nov, [facility] [place] [facility] [address] [id number], [place] [address]- 2771 Sep, [facility] [place] [facility] [address] [id number] [place] [address]- 8968 Aug, [facility] [place] [facility] [address] [id number] [place] [address]- 3206 16 Jun, 2011 [facility] [place] [facility] [address] [id number] [place] [address]- 2546 Jun, [facility] [place] [facility] [address] [facility] [id number], [place] [address]- 3376 Jun, [facility] [id number], [place] [address]- 8564 May, [facility] [address] [id number], [place] [address]- 2461 May, [facility] [id number], [place] [address]- 3483 May, [facility] [id number], [place] [address]- 7224 May, [facility] [id number], [place] [address]- 1207 Apr, [facility] [id number], [place] [address]- 6173 Apr, [facility] [id number], [place] [address]- 2227 Apr, [facility] [address] [id number] [address]- 2011 Apr, IMMUNIZATIONS No Known Immunizations SOCIAL HISTORY Never Assessed REASON FOR VISIT 6 mo DM ed f/u PLAN OF CARE VITAL SIGNS MEDICATIONS Unknown [...]
--- OUTSIDE RECORDS SUMMARY | 2018-08-31 20:02 | XMS REPORT ---
Author Author BELLE JAFFE [facility] Address [address] [place] [address] Care Team Providers Care Economic Geographer Name Role Phone BELLE JAFFE Unavailable PROBLEMS Type Condition ICD9-CM Code NKF11-TV Code Onset Dates Condition Status SNOMED Code Problem Spondylolisthesis of lumbosacral region M43.17 Active 124333744 Problem Seasonal allergic rhinitis due to pollen J30.1 Active 39812533 Problem Mixed hyperlipidemia E78.2 Active 619827774 Problem Pre-diabetes R73.09 Active 948692683 ALLERGIES No Information ENCOUNTERS Encounter Location Date Diagnosis [place] [id number] [address]- [address] Sep, [facility] [address] [place] [id number] [place] [address] 00625- 2974 Aug, [place] [address] [address]15- 1175 Aug, Dysfunction of both 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 [place] [address] [place] [id number] [place] [address] 65816- 8476 Apr, Anxiety F41.9 [facility] [address] [id number] [place] [address] 53580- 3499 Feb, Anxiety F41.9 [facility] [address] [id number] [place] [address] 78780- 7816 Feb, [facility] [address] 83570- 1026 Feb, [facility] [address] [id number] [place] [address] 46653- 3655 Feb, [place] [address] [place] [id number] [place] [address] 65934- 1194 Jan, Anxiety F41.9 [place] [address] 82390- 2812 Jan, Anxiety F41.9 and Spondylolisthesis of lumbosacral region M43.17 [place] [address] 78522- 6246 Dec, Anxiety F41.9 [place] [address] 74943- 8270 Nov, Anxiety F41.9 [place] [address] 02052- 6899 October, Anxiety F41.9 and Seasonal allergic rhinitis due to pollen J30.1 [place] [address] 59027- 0288 Sep, Anxiety F41.9 [place] [address] 66832- 5920 Aug, Pre-diabetes R73.09 and Anxiety F41.9 [place] [address] 31306- 8069 Jul, [place] [address] [place] [id number] [place] [address] 52697- 1672 Mar, [place] [address] 19258- 0620 13 Mar, 2016 DUB (dysfunctional uterine bleeding) N93.8 and Menorrhagia with irregular cycle N92.1 [place] [address] 57363- 5186 Feb, [place] [address] 08874- 8059 08 Feb, 2016 Encounter for dental examination Z01.20 [place] [address] 78124- 8672 Feb, Herniated nucleus pulposus M51.9 [facility] [address] [facility] [id number] [id number] Feb, Dental examination Z01.20 [facility] [address] [id number] [address] 3212 Jan, Dental examination Z01.20 and Dental caries K02.9 [facility] [id number] [place] [address] 59499- 6273 Jan, Encounter for dental examination and cleaning without abnormal findings Z01.20 [facility] [address] [address]- 6612 Jan, [facility] [id number] [place] [address] 74906- 3801 Jan, [facility] [id number] [place] [address] 92939- 2067 Jan, Pre-diabetes R73.09 ; Chronic nonintractable headache, unspecified headache type R51 and Vaginal yeast infection B37.3 [facility] [address] [address]- 6[address] Jan, [facility] [address] [address]- 6715 Dec, Herniated nucleus pulposus M51.9 [facility] [address] [address]- 9608 Dec, [facility] [address] [address]- 2932 Nov, [facility] [id number] [place] [address] 87264- 9104 Nov, [facility] [address] [address]- 5878 Nov, [facility] [address] [address]- 6838 Nov, [place] [address] [place] [id number] [place] [address] 76119- 5018 Nov, Right hip pain M25.551 ; Pre-diabetes R73.09 ; Mixed hyperlipidemia E78.2 ; Chronic nonintractable headache, unspecified headache type R51 ; Right foot pain M79.671 and Right hand pain M79.641 [place] [address] [place] [id number] [place] [address] 76598- 5418 Nov, [facility] [address] [place] [id number] [place] [address] 63897- 4553 Nov, Right hip pain M25.551 ; Pre-diabetes R73.09 ; Mixed hyperlipidemia E78.2 and Chronic nonintractable headache, unspecified headache type R51 [place] [address] [place] [id number] [place] [address] 77422- 2344 October, [place] [address] 48089- 7189 October, Right hip pain M25.551 ; Pre-diabetes R73.09 ; Mixed hyperlipidemia E78.2 and Frequent headaches R51 [place] [address] [place] [id number] [place] [address] 70501- 2470 October, Menorrhagia with regular cycle N92.0 [facility] [address] [id number] [place] [address] 71756 -2192 October, [place] [address] [place] [id number] [place] [address] 67635- 1524 October, Menorrhagia with regular cycle N92.0 [place] [address] [place] [id number] [place] [address] 56275- 0729 Sep, Lump of right breast N63 ; Menorrhagia with regular cycle N92.0 and BMI 30.0-30.9,adult Z68.30 [place] [address] [place] [id number] [place] [address] 36555- 0242 Sep, [facility] [address] [place] [id number] [place] [address] 30593- 2993 Aug, [place] [address] 84709- 7547 Aug, Well woman exam Z01.419 ; Encounter [...] Z87.898 and Trichomonas vaginalis (TV) infection A59.01 [place] [address] 97445- 1678 October, Abdominal pain, unspecified site 789.00 ; GERD ( gastroesophageal reflux disease) 530.81 and Chest pain 786.50 [place] [address] [place] [id number] [place] [address] 84501- 7305 Sep, [place] [address] 90683- 2804 Sep, [place] [address] [place] [id number] [place] [address] 91499- 3448 Jul, [place] [address] [place] [id number] [place] [address] 40049- 4895 Jul, [place] [address] [place] [id number] [place] [address] 06164- 8835 Jun, [place] [address] 36921- 5639 Jun, [place] [address] [place] [id number] [place] [address] 96578- 6235 Jun, [place] [address] 38355- 5106 16 Jun, 2014 [facility] [place] [facility] [address] [id number] [place] [address]- 4958 16 Jun, 2014 [facility] [place] [facility] [address] [id number] [place] [address]- 2327 Jun, [facility] [place] [facility] [address] [id number] [place] [address]- 2852 Jun, [facility] [place] [facility] [address] [id number] [place] [address]- 0644 Jun, [facility] [place] [facility] [address] [id number] [place] [address]- 3559 Jun, [facility] [place] [facility] [address] [id number] [place] [address]- 8680 Jun, [facility] [place] [facility] [address] [id number] [place] [address]- 1383 Jun, [facility] [place] [facility] [address] [id number] [place] [address]- 9076 Jun, [facility] [place] [facility] [address] [id number] [place] [address]- 4150 Jun, [facility] [place] [facility] [address] [id number] [place] [address]- 6722 Jun, [facility] [place] [facility] [address] [id number], [place] [address]- 7456 Jun, [facility] [place] [facility] [address] [id number], [place] [address]- 5151 May, [facility] [place] [facility] [address] [id number] [place] [address]- 0775 May, [facility] [place] [facility] [address] [id number] [place] [address]- 4362 Feb, [facility] [place] [facility] [address] [id number] [place] [address]- 2903 Feb, [facility] [place] [facility] [address] [id number] [place] [address]- 2544 29 Feb, 2013 [facility] [place] [facility] [address] [id number] [place] [address] 2546 25 Feb, 2013 [facility] [place] [facility] [address] [id number] [place] [address] 2546 25 Feb, 2013 [facility] [place] [facility] [address] [id number] [place] [address] 2546 17 Feb, 2013 [facility] [place] [facility] [address] [id number] [place] [address] 2540 17 Feb, 2013 [facility] [place] [facility] [address] [id number] [place] [address]- 7223 11 Feb, 2013 [facility] [place] [facility] [address] [id number] [place] [address]- 9724 11 Feb, 2013 [facility] [place] [facility] [address] [id number] [place] [address]- 2548 10 Feb, 2013 [facility] [place] [facility] [address] [id number] [place] [address]- 2545 10 Feb, 2013 [facility] [place] [facility] [address] [id number] [place] [address]- 2548 10 Feb, 2013 [facility] [place] [facility] [address] [id number] [place] [address]- 2542 09 Feb, 2013 [facility] [place] [facility] [address] [id number] [place] [address]- 2540 09 Feb, 2013 [facility] [place] [facility] [address] [id number] [place] [address]- 2548 15 Jan, 2014 [facility] [place] [facility] [address] [id number] [place] [address]- 5968 15 Jan, 2014 [facility] [place] [facility] [address] [id number] [place] [address]- 0947 14 Dec, 2013 [facility] [place] [facility] [address] [id number] [place] [address]- 0103 Dec, [facility] [place] [facility] [address] [id number] [place] [address]- 1569 Dec, [facility] [place] [facility] [address] [id number] [place] [address]- 6646 Dec, [facility] [place] [facility] [address] [id number] [place] [address]- 4186 Dec, [facility] [place] [facility] [address] [id number] [place] [address]- 7176 Dec, [facility] [place] [facility] [address] [id number] [place] [address]- 0435 Nov, [facility] [place] [facility] [address] [id number] [place] [address]- 6446 Nov, [facility] [place] [facility] [address] [id number] [place] [address]- 6376 Sep, [facility] [place] [facility] [address] [id number] [place] [address]- 6121 May, [facility] [place] [facility] [address] [id number] [place] [address]- 6177 May, [facility] [place] [facility] [address] [id number] [address]- 8036 Nov, [facility] [place] [facility] [address] [id number] [place] [address]- 3726 Sep, [facility] [place] [facility] [address] [id number], [place] [address]- 9376 Aug, [facility] [place] [facility] [address] [id number] [place] [address]- 9276 Jun, [facility] [place] [facility] [address] [id number] [place] [address]- 0036 Jun, [facility] [place] [facility] [address] [id number], [place] [address]- 9516 Jun, [facility] [place] [facility] [address] [id number], [place] [address]- 2134 May, [facility] [id number] [address]- 1048 May, [facility] [id number] [address]- 4253 May, [facility] [id number] [address]- 8283 May, [facility] [id number] [address]- 7139 Apr, [facility] [id number] [address]- 6299 Apr, [facility] [id number] [address]- 7007 Apr, [facility] [id number] [address]- 7160 Apr, IMMUNIZATIONS No Known Immunizations SOCIAL HISTORY Never Assessed REASON FOR VISIT Triage PLAN OF CARE VITAL SIGNS MEDICATIONS Unknown [...]
--- OUTSIDE RECORDS SUMMARY | 2018-08-31 20:02 | XMS REPORT | Continuity of Care Document ---
Author Author Formerly [facility] Address Unknown Phone Unavailable Allergies Active Description Code Type Severity Reaction Onset Reported/Identified Relationship to Patient Clinical Status Yes Augmentin Drug Allergy N/A N/A 06/17/2014 Yes No Allergy Information Available [id number] Drug Allergy Unknown N/A 2014 Medications There is no data. Problems Date Dx Coded Attending Type Code Diagnosis Diagnosed By 04/12/2011 DOINY MEDEL MD 382.9 Unspecified Otitis Media 04/12/2011 DIONY MEDEL MD 461.9 Sinusitis Acute 04/12/2011 DIONY MEDEL MD 620.2 OTHER AND UNSPECIFIED OVARIAN CYST 04/12/2011 DIONY MEDEL MD 787.02 Nausea Alone 04/12/2011 DIONY MEDEL MD 789.00 Abdominal Pain Unspecified Site 04/12/2011 SAMIR LEADLIGHTER, MANNY R 382.9 Unspecified Otitis Media 04/12/2011 SAMIR MURILLO, MANNY R 461.9 Sinusitis Acute 04/12/2011 ALLISON DAWSON APRNINA R 620.2 OTHER AND UNSPECIFIED OVARIAN CYST 04/12/2011 SAMIR LEADLIGHTER, MANNY R 787.02 Nausea Alone 04/12/2011 SAMIR MURILLO, MANNY R 789.00 Abdominal Pain Unspecified Site 04/12/2011 SAMIR LEADLIGHTER, MANNY R 382.9 Unspecified Otitis Media 04/12/2011 SAMIR LEADLIGHTER, MANNY R 461.9 Sinusitis Acute 04/12/2011 SAMIR MURILLO MANNY R 620.2 OTHER AND UNSPECIFIED OVARIAN CYST 04/12/2011 SAMIR LEADLIGHTER, MANNY R 787.02 Nausea Alone 04/12/2011 SAMIR ELIN, MANNY R 789.00 Abdominal Pain Unspecified Site 04/12/2011 GUILLERMOChaitanya MURILLO LON A 382.9 Unspecified Otitis Media 04/12/2011 GUILLERMOChaitanya MURILLO LON A 461.9 Sinusitis Acute 04/12/2011 GUILLERMO LEADLIGHTER, LON A 620.2 OTHER AND UNSPECIFIED OVARIAN CYST 04/12/2011 GUILLERMO LEADLIGHTER, LON A 787.02 Nausea Alone 04/12/2011 GUILLERMO LEADLIGHTER, LON A 789.00 Abdominal Pain Unspecified Site 04/12/2011 RUBI DO, SURI K 382.9 Unspecified Otitis Media 04/12/2011 RUBI DO, SURI K 461.9 Sinusitis Acute 04/12/2011 RUBI DO, SURI K 620.2 OTHER AND UNSPECIFIED OVARIAN CYST 04/12/2011 RUBI DO, SURI K 787.02 Nausea Alone 04/12/2011 RUBI DO, SURI K 789.00 Abdominal Pain Unspecified Site 04/12/2011 AMBER SCHAEFFER MD 382.9 Unspecified Otitis Media 04/12/2011 AMBER SCHAEFFER MD 461.9 Sinusitis Acute 04/12/2011 AMBER SCHAEFFER MD 620.2 OTHER AND UNSPECIFIED OVARIAN CYST 04/12/2011 AMBER SCHAEFFER MD 787.02 Nausea Alone 04/12/2011 AMBER SCHAEFFER MD 789.00 Abdominal Pain Unspecified Site 04/12/2011 AMBER SCHAEFFER MD 382.9 Unspecified Otitis Media 04/12/2011 AMBER SCHAEFFER MD 461.9 Sinusitis Acute 04/12/2011 AMBER SCHAEFFER MD 620.2 OTHER AND UNSPECIFIED OVARIAN CYST 04/12/2011 AMBER SCHAEFFER MD 787.02 Nausea Alone 04/12/2011 AMBER SCHAEFFER MD 789.00 Abdominal Pain Unspecified Site 04/12/2011 SAMIR LEADLIGHTER, MANNY R 382.9 Unspecified Otitis Media 04/12/2011 SAMIR LEADLIGHTER, MANNY R 461.9 Sinusitis Acute 04/12/2011 SAMIR LEADLIGHTER, MANNY R 620.2 OTHER AND UNSPECIFIED OVARIAN CYST 04/12/2011 SAMIR LEADLIGHTER, MANNY R 787.02 Nausea Alone 04/12/2011 SAMIR LEADLIGHTER, MANNY R 789.00 Abdominal Pain Unspecified Site 04/20/2011 GIANFRANCO GIBSON, DIONY 296.90 MOOD DISORDER 04/20/2011 GIANFRANCO GIBSON, DIONY 625.0 Dyspareunia 04/20/2011 BRUEGGEDIONY HOWARD MD 799.81 DECREASED LIBIDO 04/20/2011 DIONY MEDEL MD V76.2 CERVICAL CANCER SCREENING (PAP SMEAR) 04/20/2011 SAMIR LEADLIGHTER, MANNY R 296.90 MOOD DISORDER 04/20/2011 SAMIR LEADLIGHTER, MANNY R 625.0 Dyspareunia 04/20/2011 SAMIR LEADLIGHTER, MANNY R 799.81 DECREASED LIBIDO 04/20/2011 SAMIR LEADLIGHTER, MANNY R V76.2 CERVICAL CANCER SCREENING (PAP SMEAR) 04/20/2011 SAMIR LEADLIGHTER, MANNY R 296.90 MOOD DISORDER 04/20/2011 SAMIR LEADLIGHTER, MANNY R 625.0 Dyspareunia 04/20/2011 SAMIR LEADLIGHTER, MANNY R 799.81 DECREASED LIBIDO 04/20/2011 SAMIR LEADLIGHTER, MANNY R V76.2 CERVICAL CANCER SCREENING (PAP SMEAR) 04/20/2011 GUILLERMO LEADLIGHTER, LON A 296.90 MOOD DISORDER 04/20/2011 GUILLERMO LEADLIGHTER, LON A 625.0 Dyspareunia 04/20/2011 GUILLERMO LEADLIGHTER, LON A 799.81 DECREASED LIBIDO 04/20/2011 GUILLERMO LEADLIGHTER, LON A V76.2 CERVICAL CANCER SCREENING (PAP SMEAR) 04/20/2011 RUBI DO, SURI K 296.90 MOOD DISORDER 04/20/2011 RUBI DO, SURI K 625.0 Dyspareunia 04/20/2011 RUBI DO SURI K 799.81 DECREASED LIBIDO 04/20/2011 RUBI DO SURI K V76.2 CERVICAL CANCER SCREENING (PAP SMEAR) 04/20/2011 AMBER SCHAEFFER MD 296.90 MOOD DISORDER 04/20/2011 AMBER SCHAEFFER MD 625.0 Dyspareunia 04/20/2011 AMBER SCHAEFFER MD 799.81 DECREASED LIBIDO 04/20/2011 AMBER SCHAEFFER MD V76.2 CERVICAL CANCER SCREENING (PAP SMEAR) 04/20/2011 AMBER SCHAEFFER MD 296.90 MOOD DISORDER 04/20/2011 AMBER SCHAEFFER MD 625.0 Dyspareunia 04/20/2011 AMBER SCHAEFFER MD 799.81 DECREASED LIBIDO 04/20/2011 AMBER SCHAEFFER MD V76.2 CERVICAL CANCER SCREENING (PAP SMEAR) 04/20/2011 MANNY DAWSON APRN 296.90 MOOD DISORDER 04/20/2011 MANNY DAWSON APRN R 625.0 Dyspareunia 04/20/2011 MANNY DAWSON APRN R 799.81 DECREASED LIBIDO 04/20/2011 MANNY DAWSON APRN V76.2 CERVICAL CANCER SCREENING (PAP SMEAR) 05/24/2011 DIONY MEDEL MD V58.69 LONG-TERM (CURRENT) USE OF OTHER MEDICATIONS 05/24/2011 MANNY DAWSON APRN V58.69 LONG-TERM (CURRENT) USE OF OTHER MEDICATIONS 05/24/2011 MANNY DAWSON APRN V58.69 LONG-TERM (CURRENT) USE OF OTHER MEDICATIONS 05/24/2011 LON LI APRN V58.69 LONG-TERM (CURRENT) USE OF OTHER MEDICATIONS 05/24/2011 SURI RUBI DO V58.69 LONG-TERM (CURRENT) USE OF OTHER MEDICATIONS 05/24/2011 AMBER SCHAEFFER MD V58.69 LONG-TERM (CURRENT) USE OF OTHER MEDICATIONS 05/24/2011 AMBER SCHAEFFER MD V58.69 LONG-TERM (CURRENT) USE OF OTHER MEDICATIONS 05/24/2011 MANNY DAWSON APRN V58.69 LONG-TERM (CURRENT) USE OF OTHER MEDICATIONS 12/04/2013 MANNY DAWSON APRN 724.2 LUMBAGO 12/04/2013 MANNY DAWSON APRN 724.2 LUMBAGO 12/04/2013 LON LI APRN 724.2 LUMBAGO 12/04/2013 SURI RUBI DO 724.2 LUMBAGO 12/04/2013 AMBER SCHAEFFER MD 724.2 LUMBAGO 12/04/2013 AMBER SCHAEFFER MD 724.2 LUMBAGO 12/04/2013 MANNY DAWSON APRN 724.2 LUMBAGO 02/06/2014 MANNY DAWSON APRN Ot 724.2 02/06/2014 MANNY DAWSON APRN Ot V57.1 02/18/2014 MANNY DAWSON APRN 599.70 HEMATURIA 02/18/2014 MANNY DAWSON APRN [facility] MEDICAL RECORDS 02/18/2014 LON LI APRN 599.70 HEMATURIA 02/18/2014 LON LI APRN [facility] MEDICAL RECORDS 02/18/2014 SURI RUBI DO 599.70 HEMATURIA 02/18/2014 SURI RUBI DO K [facility] MEDICAL RECORDS 02/18/2014 AMBER SCHAEFFER MD 599.70 HEMATURIA 02/18/2014 AMBER SCHAEFFER MD [facility] MEDICAL RECORDS 02/18/2014 AMBER SCHAEFFER MD 599.70 HEMATURIA 02/18/2014 AMBER SCHAEFFER MD [facility] MEDICAL RECORDS 02/18/2014 MANNY DAWSON APRN 599.70 HEMATURIA 02/18/2014 SAMIR MURILLO MANNY R [facility] MEDICAL RECORDS 03/06/2014 LON LI APRN 625.3 DYSMENORRHEA 03/06/2014 LON LI APRN V65.42 COUNSELING - SMOKING CESSATION 03/06/2014 LON LI APRN V72.31 AUTOMOTIVE TIRE TECHNICIAN EXAM, ROUTINE 03/06/2014 LON LI APRN V73.81 HPV SCREENING 03/06/2014 LON LI APRN V76.10 BREAST CANCER SCREENING 03/06/2014 SURI RUBI DO 625.3 DYSMENORRHEA 03/06/2014 SURI RUBI DO V65.42 COUNSELING - SMOKING CESSATION 03/06/2014 SURI RUBI DO V72.31 AUTOMOTIVE TIRE TECHNICIAN EXAM, ROUTINE 03/06/2014 SURI RUBI DO V73.81 HPV SCREENING 03/06/2014 SURI RUBI DO V76.10 BREAST CANCER SCREENING 03/06/2014 AMBER SCHAEFFER MD 625.3 DYSMENORRHEA 03/06/2014 AMBER SCHAEFFER MD V65.42 COUNSELING - SMOKING CESSATION 03/06/2014 AMBER SCHAEFFER MD V72.31 AUTOMOTIVE TIRE TECHNICIAN EXAM, ROUTINE 03/06/2014 AMBER SCHAEFFER MD V73.81 HPV SCREENING 03/06/2014 AMBER SCHAEFFER MD V76.10 BREAST CANCER SCREENING 03/06/2014 AMBER SCHAEFFER MD 625.3 DYSMENORRHEA 03/06/2014 AMBER SCHAEFFER MD V65.42 COUNSELING - SMOKING CESSATION 03/06/2014 AMBER SCHAEFFER MD V72.31 AUTOMOTIVE TIRE TECHNICIAN EXAM, ROUTINE 03/06/2014 AMBER SCHAEFFER MD V73.81 HPV SCREENING 03/06/2014 MAKSIM GIBSON, AMBER V76.10 BREAST CANCER SCREENING 03/06/2014 SAMIR MURILLO, MANNY R 625.3 DYSMENORRHEA 03/06/2014 SAMIR MURILLO, MANNY Lewis V65.42 COUNSELING - SMOKING CESSATION 03/06/2014 SAMIR MURILLO, MANNY Lewis V72.31 AUTOMOTIVE TIRE TECHNICIAN EXAM, ROUTINE 03/06/2014 SAMIR MURILLO, MANNY Lewis V73.81 HPV SCREENING 03/06/2014 SAMIR MURILLO, MANNY Lewis V76.10 BREAST CANCER SCREENING 06/02/2014 RUBI DO, SURI Neetu 461.9 SINUSITIS ACUTE 06/02/2014 RUBI DO, SURI K 564.00 UNSPECIFIED CONSTIPATION 06/02/2014 AMBER SCHAEFFER MD 461.9 SINUSITIS ACUTE 06/02/2014 MAKSIM GIBSON, AMBER 564.00 UNSPECIFIED CONSTIPATION 06/02/2014 AMBER SCHAEFFER MD 461.9 SINUSITIS ACUTE 06/02/2014 AMBER SCHAEFFER MD 564.00 UNSPECIFIED CONSTIPATION 06/02/2014 SAMIR MURILLO, MANNY R 461.9 SINUSITIS ACUTE 06/02/2014 SAMIR MURILLO, MANNY R 564.00 UNSPECIFIED CONSTIPATION 06/17/2014 MAKSIM GIBSON, AMBER 789.00 ABDOMINAL PAIN UNSPECIFIED SITE 06/17/2014 AMBER SCHAEFFER MD 789.00 ABDOMINAL PAIN UNSPECIFIED SITE 06/17/2014 MANNY DAWSON APRN 789.00 ABDOMINAL PAIN UNSPECIFIED SITE 06/20/2014 Ot 625.9 06/20/2014 ALLISON DAWSONINA R LEADLIGHTER Ot 789.09 06/20/2014 ALLISON DAWSONINA R LEADLIGHTER Ot 790.99 06/23/2014 Ot 625.9 06/23/2014 ALLISON DAWSONINA R LEADLIGHTER Ot 789.09 06/23/2014 ALLISON DAWSONINA R LEADLIGHTER Ot 790.99 09/17/2014 MANNY DAWSON APRN R 530.81 GERD 11/10/2014 Ot 625.9 11/10/2014 SAMIR MANNY R LEADLIGHTER Ot 789.09 11/10/2014 SAMIR MANNY R LEADLIGHTER Ot 790.99 11/10/2014 AMBER SCHAEFFER MD Ot 789.09 11/10/2014 AMBER SCHAEFFER MD Ot 787.02 11/10/2014 MAKSIM GIBSON, AMBER F Ot 789.01 11/12/2014 Ot 625.9 11/12/2014 SAMIR, MANNY R LEADLIGHTER Ot 789.09 11/12/2014 SAMIR, MANNY R LEADLIGHTER Ot 790.99 11/12/2014 MAKSIM GIBSON, AMBER Guillen Ot 789.09 11/12/2014 MAKSIM GIBSON, AMBER Guillen Ot 787.02 11/12/2014 MAKSIM GIBSON, AMBER F Ot 789.01 12/02/2014 Ot 625.9 12/02/2014 SAMIR, MANNY R LEADLIGHTER Ot 789.09 12/02/2014 SAMIR, MANNY R LEADLIGHTER Ot 790.99 12/02/2014 MAKSIM GIBSON, AMBER Guillen Ot 789.09 12/02/2014 MAKSIM GIBSON, AMBER Guillen Ot 787.02 12/02/2014 MAKSIM GIBSON, MABER Guillen Ot 789.01 12/02/2014 [facility] Ot V72.84 12/02/2014 [facility] 530.81 12/02/2014 [facility] Ot 531.90 12/02/2014 [facility] Ot 553.3 01/06/2015 Ot 625.9 01/06/2015 SAMIR, MANNY R LEADLIGHTER Ot 789.09 01/06/2015 SAMIR, MANNY R LEADLIGHTER Ot 790.99 01/06/2015 MAKSIM GIBSON, AMBER Guillen Ot 789.09 01/06/2015 MAKSIM GIBSON, AMBER Guillen Ot 787.02 01/06/2015 MAKSIM GIBSON, AMBER Guillen Ot 789.01 01/06/2015 [facility] Ot V72.84 01/06/2015 MAKSIM GIBSON, AMBER Guillen Ot 789.09 01/06/2015 MAKSIM GIBSON, AMBER Guillen Ot 787.02 01/06/2015 MAKSIM GIBSON, AMBER Guillen Ot 789.01 01/06/2015 SAMIR, MANNY R LEADLIGHTER Ot 789.09 01/06/2015 SAMIR, MANNY R LEADLIGHTER Ot 790.99 01/09/2015 SAMIR, MANNY R LEADLIGHTER Ot 789.09 01/09/2015 SAMIR, MANNY R LEADLIGHTER Ot 790.99 01/09/2015 MAKSIM GIBSON, AMBER Guillen Ot 789.09 01/09/2015 MAKSIM GIBSON, AMBER Guillen Ot 787.02 01/09/2015 MAKSIM GIBSON, AMBER Guillen Ot 789.01 10/09/2015 LANI GIBSON, JYOTSNA Tavares Ot N63 UNSPECIFIED LUMP IN BREAST 01/21/2016 ODETTE REYES JOB RECRUITER Ot M47.896 OTHER SPONDYLOSIS, LUMBAR REGION 01/21/2016 ODETTE REYES JOB RECRUITER Ot M51.86 OTHER INTERVERTEBRAL DISC DISORDERS, LUM 01/26/2016 ODETTE REYES JOB RECRUITER Ot M47.896 OTHER SPONDYLOSIS, LUMBAR REGION 01/26/2016 ODETTE REYES JOB RECRUITER Ot M51.86 OTHER INTERVERTEBRAL DISC DISORDERS, LUM 03/31/2016 BELLE JAFFE JOB RECRUITER Ot N92.1 EXCESSIVE AND FREQUENT MENSTRUATION WITH 03/31/2016 BELLE JAFFE JOB RECRUITER Ot N93.8 OTHER SPECIFIED ABNORMAL UTERINE AND VAG Procedures Code Description [place] [address] XRAY LUMBAR SPINE 2 OR 3 VIEWS 12/04/2013 96004 [employer] 12/04/2013 Physical Physical Therapy 12/04/2013 28826 ROUTINE VENIPUNCTURE 02/18/2014 50849 US RENAL ULTRASOUND, COMP 02/18/2014 65711 UA W/ CULTURE IF INDICATED 02/18/2014 51384 CBC 02/19/2014 4795733 GFR CALC (RESULT ONLY) 02/19/2014 88854 CMP 02/19/2014 Q0091 PAP SMEAR OBTAIN SMEAR 03/06/2014 82237 PAP SMEAR 03/10/2014 48524 ROUTINE VENIPUNCTURE 06/17/[address] ABDOMEN & PELVIS W/ & W/ O CONTRAST 06/17/2014 69805 US GALLBLADDER ULTRASOUND 06/17/2014 16342 UA LONG DIP 06/17/2014 80342 CBC 06/17/2014 [id number] GFR CALC (RESULT ONLY) 06/17/2014 41852 CMP 06/17/2014 44518 H PYLORI (IN-HOUSE) 09/17/2014 Results Test Result Range Genital Culture, Routine - 03/24/16 12:15 Genital Culture, Routine Note Encounters ACCT No. Visit Date/Time Discharge Status Pt. Type Provider Facility Loc./Unit Complaint [id number] 09/17/2014 13:45:00 09/17/2014 23:59:59 CLS Outpatient MANNY DAWSON APRN R [id number] 06/27/2014 09:45:00 06/27/2014 23:59:59 CLS Outpatient AMBER SCHAEFFER MD [id number] 06/17/2014 09:54:00 06/17/2014 23:59:59 CLS Outpatient AMBER SCHAEFFER MD [id number] 06/02/2014 17:39:00 06/02/2014 23:59:59 CLS Outpatient SURI RUBI DO [id number] 03/06/2014 14:05:00 03/06/2014 23:59:59 CLS Outpatient GUILLERMOLON SAAB APRN [id number] 02/18/2014 15:25:00 02/18/2014 23:59:59 CLS Outpatient MANNY DAWSON APRN [id number] 12/04/2013 14:18:00 12/04/2013 23:59:59 CLS Outpatient MANNY DAWSON APRN [id number] 05/24/2011 09:24:00 05/24/2011 23:59:59 CLS Outpatient GIANFRANCO GIBSON, DIONY [id number] 08/28/2018 10:00:00 08/28/2018 23:59:59 CLS Outpatient MARLENA WATERS [facility] [id number] 03/27/2016 13:05:00 Document Registration [id number] 03/29/2016 12:06:00 03/29/2016 23:59:59 CLS Outpatient BELLE JAFFE JOB RECRUITER [facility] RAD N93.8,N92.1 [id number] 01/20/2016 10:56:00 01/20/2016 23:59:59 CLS Outpatient ODETTE REYES JOB RECRUITER [facility] RAD HERNIATED NUCLEUS PULOSUS [id number] 10/08/2015 10:32:00 10/08/2015 23:59:59 CLS Outpatient JYOTSNA GARIBAY MD [facility] RAD [id number] 12/02/2014 14:36:00 12/02/2014 16:35:00 DIS Outpatient NAREN HORVATH DO [facility] [id number] 11/27/2014 06:04:00 11/27/2014 23:59:59 CLS Outpatient NAREN HORVATH DO [facility] PREOP [id number] 06/27/2014 08:58:00 06/27/2014 23:59:59 CLS Outpatient AMBER SCHAEFFER MD [facility] RAD [id number] 06/23/2014 13:37:00 06/23/2014 23:59:59 CLS Outpatient AMBER SCHAEFFER MD [facility] RAD [id number] 02/24/2014 15:35:00 02/24/2014 23:59:59 CLS Outpatient MANNY DAWSON APRN [facility] RAD [id number] 02/06/2014 13:00:00 02/06/2014 14:04:00 DIS Outpatient MANNY DAWSON APRN [facility] REHAB [id number] 04/25/2011 10:05:00 Document Registration
--- OUTSIDE RECORDS SUMMARY | 2018-08-31 20:02 | XMS REPORT ---
Author Author BELLE JAFFE [facility] Address [address] [place] [address] Care Team Providers Care Hand Button Splitter Name Role Phone BELLE JAFFE Unavailable PROBLEMS Type Condition ICD9-CM Code [id number] Code Onset Dates Condition Status SNOMED Code Problem History of heartburn Z87.898 Active 48335058457792 Problem Spondylolisthesis of lumbosacral region M43.17 Active 775304395 Problem Seasonal allergic rhinitis due to pollen J30.1 Active 54012962 Problem Right hip pain M25.551 Active 49870887 Problem Lump of right breast N63 Active 79235628 Problem Mixed hyperlipidemia E78.2 Active 149822061 Problem Pre-diabetes R73.09 Active 026974989 ALLERGIES Substance Reaction Event Type Date Status Augmentin Unknown Drug Allergy Aug, Active SOCIAL HISTORY Never Assessed PLAN OF CARE Activity Details Follow Up 4 WEEKS Reason:BH VITAL SIGNS Height 65 in 2016-08-25 Weight 209.8 lbs 2016-08-25 Temperature 98.5 degrees Fahrenheit 2016-08-25 Heart Rate 80 bpm 2016-08-25 Respiratory Rate 18 2016-08-25 BMI 34.91 kg/m2 2016-08-25 Blood pressure systolic 116 mmHg 2016-08-25 Blood pressure diastolic 83 mmHg 2016-08-25 MEDICATIONS Medication Instructions Dosage Frequency Start Date End Date Duration Status Paxil 10 mg Orally Once a day 1 tablet in the morning 24h Aug, 30 day(s) Active RESULTS Name Result Date Reference Range A1C (IN HOUSE) 2016-08-25 A1C IN HOUSE 5.4 4.3 - 5.6 % Previous A1c 5.2 Lot [id number] Exp date MICROALBUMIN, URINE (IN HOUSE) 2016-08-25 MICROALBUMIN Normal Lot # [id number] Exp date Clarity Clear Color Dark Yellow ALB 10mg/L CRE 200mg/dL A:C (IN HOUSE) <30mg/g Control Control Lot # Exp date PROCEDURES Procedure Date Ordered Result Body Site GLYCATED HEMOGLOBIN TEST August 25, 2016 MICROALBUMIN, SEMIQUANT August 25, 2016 IMMUNIZATIONS No Known Immunizations MEDICAL (GENERAL) HISTORY [...]
--- OUTSIDE RECORDS SUMMARY | 2018-08-31 20:02 | XMS REPORT ---
Author Author BELLE JAFFE Organization [employer] Address Unknown Phone Unavailable Care Team Providers Care Recreation Therapy Aide Name Role Phone BELLE JAFFE CP Unavailable Allergies No Known Allergies Problems Problem Type Condition Code Onset Dates Condition Status Problem Hematuria, unspecified R31.9 Active Problem Right hip pain M25.551 Active Problem Pre-diabetes R73.09 Active Problem Menorrhagia with irregular cycle N92.1 Active Problem Vaginal yeast infection B37.3 Active Problem DUB (dysfunctional uterine bleeding) N93.8 Active Problem Chronic nonintractable headache, unspecified headache type R51 Active Problem Mixed hyperlipidemia E78.2 Active Problem Right foot pain M79.671 Active Problem Right hand pain M79.641 Active Problem History of heartburn Z87.898 Active Problem Lump of right breast N63 Active Problem Depression, unspecified depression type F32.9 Active Problem Anxiety F41.9 Active Problem Fibrocystic breast, left N60.12 Active Problem Menorrhagia with regular cycle N92.0 Active Problem Fibrocystic breast, right N60.11 Active Problem BMI 30.0-30.9,adult Z68.30 Active Medications Medication Code System Code Instructions Start Date End Date Status Dosage Keflex [facility] [address]-81 500 MG Orally 3 times a day Mar 31, 2016 Apr 07, 2016 1 capsule Results No Known Results Summary Purpose [employer] Submission
--- OUTSIDE RECORDS SUMMARY | 2018-08-31 20:02 | XMS REPORT ---
Author Author UNRULY HOGUE Organization [facility] Address [address] [place] [address] Care Team Providers Care Casing Operator Name Role Phone UNRULY HOGUE Unavailable PROBLEMS Type Condition ICD9-CM Code [id number] Code Onset Dates Condition Status SNOMED Code Problem BMI 30.0-30.9,adult Z68.30 Active 787298940 Problem Pre-diabetes R73.09 Active 323458608 Problem Hematuria, unspecified R31.9 Active 00463739 Problem Vaginal yeast infection B37.3 Active 65658520 Problem Right foot pain M79.671 Active 87086471 Problem Mixed hyperlipidemia E78.2 Active 147451385 Problem Right hip pain M25.551 Active 85196258 Problem Right hand pain M79.641 Active 97032551 Problem Chronic nonintractable headache, unspecified headache type R51 Active 48357216 Assessment Dental examination Z01.20 Jan, Active 02663625 Problem History of heartburn Z87.898 Active 14384934592311 Assessment Dental caries K02.9 Jan, Active 71404830 Problem Fibrocystic breast, right N60.11 Active 41348141 Problem Depression, unspecified depression type F32.9 Active 74290756 Problem Lump of right breast N63 Active 17568771 Problem Anxiety F41.9 Active 54297066 Problem Fibrocystic breast, left N60.12 Active 12903795 Problem Menorrhagia with regular cycle N92.0 Active 735707182 ALLERGIES Substance Reaction Event Type Date Status Augmentin Unknown Drug Allergy Jan, Active SOCIAL HISTORY No smoking Hx information available PLAN OF CARE VITAL SIGNS Height 65 in 2016-02-04 Blood pressure systolic 112 mmHg 2016-02-04 Blood pressure diastolic 67 mmHg 2016-02-04 MEDICATIONS Medication Instructions Dosage Frequency Start Date End Date Duration Status Nystatin 335159 UNIT/GM Externally 4 times a day prn 1 application to affected area Jan, Active Fioricet 50-325-40 MG Orally every 4 hrs with migraine 1 capsule as needed Jan, Active Jesup 5-325 MG Orally every 6 hrs 1 tablet as needed 6h Jan, Jan, 4 days Active Ibuprofen 800 MG Orally Three times a day 1 tablet 8h Active Ortho-Cyclen (28) 0.25-35 MG-MCG Orally Once a day 1 tablet 24h October, 28 day(s) Active Albuterol Sulfate 90 mcg/actuation inhale 2 puffs by inhalation route every 4-6 hours as needed Nov, Active Bactrim Active Midol 200 MG Orally every 6 hrs 1 capsule as needed 6h Active RESULTS No Results PROCEDURES Procedure Date Ordered Related Diagnosis Body Site COMP ORAL EVALUATION - NEW/EST PT Feb 04, 2016 SURG REMOVAL ERUPTED TOOTH Feb 04, 2016 IMMUNIZATIONS No Known Immunizations
--- OUTSIDE RECORDS SUMMARY | 2018-08-31 20:02 | XMS REPORT ---
Author Author ODETTE REYES [facility] Address [address] [place] [address] Care Team Providers Care Outside Deliverer Name Role Phone ODETTE REYES Unavailable PROBLEMS Type Condition ICD9-CM Code ALP68-ME Code Onset Dates Condition Status SNOMED Code Problem BMI 30.0-30.9,adult Z68.30 Active 578105617 Problem Pre-diabetes R73.09 Active 591023660 Problem Hematuria, unspecified R31.9 Active 39009656 Problem Vaginal yeast infection B37.3 Active 05005984 Problem Right foot pain M79.671 Active 21944925 Problem Mixed hyperlipidemia E78.2 Active 593678492 Problem Right hip pain M25.551 Active 28172046 Problem Right hand pain M79.641 Active 70627508 Problem Chronic nonintractable headache, unspecified headache type R51 Active 47039484 Assessment Herniated nucleus pulposus M51.9 Feb, Active 82527005 Problem History of heartburn Z87.898 Active 69115341666801 Problem Fibrocystic breast, right N60.11 Active 37892174 Problem Depression, unspecified depression type F32.9 Active 94669729 Problem Lump of right breast N63 Active 87037187 Problem Anxiety F41.9 Active 39787444 Problem Fibrocystic breast, left N60.12 Active 58707746 Problem Menorrhagia with regular cycle N92.0 Active 812680767 ALLERGIES No Known Allergies SOCIAL HISTORY No smoking Hx information available PLAN OF CARE VITAL SIGNS Height 65 in 2016-02-11 Blood pressure systolic 124 mmHg 2016-02-11 Blood pressure diastolic 74 mmHg 2016-02-11 MEDICATIONS No Known Medications RESULTS No Results PROCEDURES Procedure Date Ordered Related Diagnosis Body Site Office Visit, Est Pt., Level 3 Feb 11, 2016 IMMUNIZATIONS No Known Immunizations
--- NOTE | 2018-08-31 22:15 | NUR ---
PT. REPDORTED SHE TOOK 2 TYLENOL ES AT 1830. SHE HAS BEEN LIGHT HEADED HER HANDS AND FACE TINGLING CANT STAND UP WITH OUT FEELING LIGHT HEADED SEEING SPOTS.
--- NOTE | 2018-08-31 23:49 | ED Headache ---
General Chief Complaint: Head/Cervical Problems Stated Complaint: LIGHT HEADED, BODY GOING NUMB, MIGRAINE Nursing Sepsis Screen: No Definite Risk Source: patient History of Present Illness Date Seen by Provider: Aug 31, 2018 Time Seen by Provider: 23:22 Initial Comments 38 yo F presenting with headache and light headed sensation since around 1830. She reports having similar symptoms in the past with migraine headaches. She tried taking 2 Extra Strength Tylenol but it was not helping. She was concerned about the headache not improving despite treatment at home. She was worried after taking her chronic pain medicine for her back and did not want to take a lot of extra medicine and overdose or cause an interaction between medicines. She has had some numbness in her arms and legs as well as her face with this migraine. She has had similar symptoms before that again was worried because the medicines weren't helping. Normally she would take naproxen or Aleve then that would help with her headache as well as drinking a lot of fluids. But again she was concerned about possibly overdosing or causing interaction with her medicine since she had already taken her chronic pain medicines. Allergies and Home Medications Allergies Coded Allergies: amoxicillin (Verified Allergy, Unknown, 08/31/18) Home Medications Dicyclomine Hcl 20 Mg Tablet, 1 EACH PO QID, (Reported) Pantoprazole Sodium 20 Mg Tablet.dr, 40 MG PO DAILY Prescribed by: NAREN HORVATH on 12/02/14 152 Sucralfate 1 Gm Tab, 1 GM PO ACHS Prescribed by: NAREN HORVATH on 12/02/14 1529 Patient Home Medication List Home Medication List Reviewed: Yes Review of Systems Review of Systems Constitutional: see HPI, dizziness, malaise Eyes: Blurred Vision (right eye), Photophobia Ears, Nose, Mouth, Throat: denies ear pain, denies ear discharge, denies nose discharge, denies epistaxis Respiratory: No cough, No short of breath Cardiovascular: No chest pain Gastrointestinal: No nausea, No vomiting Genitourinary: No decreased output, No dysuria, No frequency Musculoskeletal: No back pain Skin: No rash Psychiatric/Neurological: Headache, Numbness (intermittent numbness in her arms and legs and face with this headache) Past Ekvopci-Gyznhk-Qbsjkb Hx Past Med/Social Hx: Reviewed Nursing Past Med/Soc Hx Patient Social History Recent Foreign Travel: No Contact w/Someone Who Travel: No Recent Infectious Disease Expo: No Physical Abuse: No Sexual Abuse: No Mistreated: No Fear: No Physical Exam Vital Signs Vital Signs - First Documented 08/31/18 22:15 Temp 98.6 Pulse 59 Resp 12 B/P (MAP) 122/73 (89) Pulse Ox 100 O2 Delivery Room Air Capillary Refill : Less Than 3 Seconds Height, Weight, BMI Height: 5'5.00" Weight: 207lbs. oz. 93.282999za; BMI Method:Stated General Appearance: WD/WN, no apparent distress HEENT: PERRL/EOMI, normal ENT inspection, TMs normal, pharynx normal Neck: non-tender, full range of motion, supple, normal inspection Cardiovascular: normal peripheral pulses, regular rate, rhythm, no edema Respiratory: chest non-tender, lungs clear, normal breath sounds, no respiratory distress, no accessory muscle use Gastrointestinal: normal bowel sounds, non tender, soft, no pulsatile mass Extremities: normal range of motion, non-tender, normal inspection, no pedal edema Psychiatric: alert, oriented x 3 Crainal Nerves: normal speech, PERRL Motor/Sensory: no motor deficit, no sensory deficit Skin: normal color, warm/dry; No rash Progress/Results/Core Measures Results/Orders Vital Signs/I&O 08/31/18 08/31/18 22:15 23:57 Temp 98.6 97.1 Pulse 59 60 Resp 12 12 B/P (MAP) 122/73 (89) 120/76 (91) Pulse Ox 100 100 O2 Delivery Room Air Room Air Blood Pressure Mean: 89 Progress Progress Note : Progress Note No focal deficit on her physical exam and neurologic exam. Reassured patient and offered to place an IV and give IV fluids as well as the typical cocktail of medicines to treat for her migraine. However the patient refused stating that she would rather try taking oral fluids at home and use oral medications. She was reassured that no significant abnormality was seen on exam. I did advise her that I could do a CT scan that it also may not find any acute findings right now. She again was sent agreement with holding off on deferring until she could follow up with clinic if symptoms persisted. Counseled that if she had worsening symptoms over the weekend she could certainly return for further testing. Departure Impression Primary Impression: Migraine Qualified Codes: G43.109 - Migraine with aura, not intractable, without status migrainosus Disposition: HOME, SELF-CARE Condition: Stable Departure-Patient Inst. Decision time for Depature: 23:52 Referrals: NO,LOCAL PHYSICIAN (PCP/Family) Primary Care Physician Patient Instructions: Migraine Headache (DC) Add. Discharge Instructions: Stay well hydrated and drink more fluids. Check with clinic for continued problems/concerns Take Aleve (Naproxen) when you get home and try resting in a cool dark room All discharge instructions reviewed with patient and/or family. Voiced understanding. YENY RICHEY MD Aug 31, 2018 23:49
[2018-08-31 23:57] VITALS: BP 120/76
== END 2018-08-31 23:57 | disposition home or self-care (01) ==
LOC: EDUNIT# 19:36 → ER FS 19:39
DX: G43.909 Migraine, unspecified, not intractable, without status migrainosus (principal); Z88.0 Allergy status to penicillin
CPT/HCPCS: 99282

== ENCOUNTER 2019-03-04 17:27 | Emergency (ER) | payer OTHER ==
[~2019-03-04] VITALS: Ht 165 cm; Wt 91.8 kg
[2019-03-04] MEDS ORDERED: KETOROLAC 60 MG/2 ML VIAL IM ONE (18:15)
[2019-03-04] MEDS ORDERED: ORPHENADRINE 60 MG/2 ML (NORFLEX) AMP IM ONE (18:15)
[2019-03-04] MEDS ORDERED: ACETAMINOPHEN 500 MG TAB (TYLENOL) PO ONE (18:15)
[2019-03-04] MEDS ORDERED: NAPR-1071 PO (18:29)
--- NOTE | 2019-03-04 18:30 | ED Back Pain ---
General Chief Complaint: Back Problems Stated Complaint: BACK INJ, LIGHT HEADED Nursing Triage Note: PT REPORTS AROUND 1645 SHE LIFTED A RESIDENT AND TURNED FROM THE COMMODE TO WHEELCHAIR AND ABOUT 20 MIN LATER SHE BECAME LIGHTHEADED AND LOW BACK PAIN. PT WORKS AT [employer] AND THIS OCCURED WHILE AT WORK. Nursing Sepsis Screen: No Definite Risk Source of Information: Patient, Spouse Exam Limitations: No Limitations History of Present Illness Date Seen by Provider: Mar 04, 2019 Time Seen by Provider: 17:55 Initial Comments Patient presents to ER by private conveyance from work with chief complaint that she was lifting a large lady and had to twist while lifting her because she became weight and almost fell. She immediately felt pain across her low back. She has not had a chance to take any Tylenol ibuprofen topical creams. She does not own a back brace. She has not had a history of other trauma to her back. She's having no saddle anesthesia, incontinence of bowel or bladder, numbness tingling or weakness but is having moderate pain in her low back radiating down to both buttocks. Allergies and Home Medications Allergies Coded Allergies: amoxicillin (Verified Allergy, Unknown, 08/31/18) Home Medications Dicyclomine Hcl 20 Mg Tablet, 1 EACH PO QID, (Reported) Naproxen 500 Mg Tablet, 500 MG PO BID Prescribed by: RANGEL WINSTON on 03/04/191828 Pantoprazole Sodium 20 Mg Tablet.dr, 40 MG PO DAILY Prescribed by: NAREN HORVATH on 12/02/14 152 Sucralfate 1 Gm Tab, 1 GM PO ACHS Prescribed by: NAREN HORVATH on 12/02/14 1529 Patient Home Medication List Home Medication List Reviewed: Yes Review of Systems Constitutional: No chills, No diaphoresis EENTM: No hearing loss, No ear pain Respiratory: No cough, No short of breath, No wheezing Cardiovascular: No chest pain, No edema, No Hx of Intervention Gastrointestinal: No abdominal pain, No nausea Genitourinary: No discharge, No dysuria : No Control/STD Prophylaxis: Other (tubal ligation) Past Iawevgr-Kwewgk-Jltikw Hx Patient Social History Alcohol Use: Denies Use Recreational Drug Use: No Smoking Status: Current Everyday Smoker Type Used: Cigarettes 2nd Hand Smoke Exposure: No Recent Foreign Travel: No Contact w/Someone Who Travel: No Recent Infectious Disease Expo: No Recent Hopitalizations: No Physical Abuse: No Sexual Abuse: No Mistreated: No Fear: No Seasonal Allergies Seasonal Allergies: No Past Medical History Surgeries: Yes Section, Tonsillectomy, Tubal Ligation Respiratory: Yes Asthma Cardiac: No Neurological: No Genitourinary: No Gastrointestinal: Yes Gastroesophageal Reflux Musculoskeletal: Yes Chronic Back Pain Endocrine: No HEENT: No Cancer: No Psychosocial: Yes Anxiety, Depression Integumentary: No Blood Disorders: No Physical Exam Vital Signs Vital Signs - First Documented 03/04/19 03/04/19 18:04 18:40 Temp 36.9 Pulse 74 Resp 18 B/P (MAP) 137/82 (100) Pulse Ox 100 O2 Delivery Room Air Capillary Refill : Less Than 3 Seconds Height, Weight, BMI Height: 5'5.00" Weight: 207lbs. oz. 93.996445ug; 33.00 BMI Method:Stated General Appearance: WD/WN, Mild Distress HEENT: Pharynx Normal, Moist Mucous Membranes Neck: Full Range of Motion, Normal Inspection, Non Tender, Supple Cardiovascular: Regular Rate, Rhythm, No Edema, Normal Peripheral Pulses Respiratory: No Accessory Muscle Use, No Respiratory Distress Back: Normal Inspection, Vertebral Tenderness (lumbar and bilateral paraspinous muscle tenderness and spasm) Extremity: Normal Capillary Refill, Normal Inspection, No Pedal Edema Neurologic/Psychiatric: Alert, Oriented x3, No Motor/Sensory Deficits, Normal Mood/Affect, Other (deep tendon patellar reflexes bilateral symmetric 2 out of 4 ) Skin: Normal Color, Warm/Dry Progress/Results/Core Measures Results/Orders My Orders Orders - RAGNEL WINSTON Ketorolac Injection (Toradol Injection) (03/04/19 18:15) Acetaminophen Tablet (Tylenol Tablet) (03/04/19 18:15) Orphenadrine Injection (Norflex Injectio (03/04/19 18:15) Vital Signs/I&O 03/04/19 03/04/19 18:04 18:40 Temp 36.9 36.3 Pulse 74 82 Resp 18 18 B/P (MAP) 137/82 (100) 122/68 Pulse Ox 100 O2 Delivery Room Air Blood Pressure Mean: 100 Progress Progress Note : Time: 18:30 Progress Note Toradol, Norflex. She has tizanidine at home as well as tramadol. We'll put her on a course of naproxen and follow-up in 2 weeks with primary care. Weight restrictions, back brace topicals ice and heat. Departure Impression Primary Impression: Lumbar sprain Qualified Codes: S33.5XXA - Sprain of ligaments of lumbar spine, initial encounter Disposition: 01 HOME, SELF-CARE Condition: Stable Departure-Patient Inst. Decision time for Depature: 18:27 Referrals: NO,LOCAL PHYSICIAN (PCP/Family) Primary Care Physician Patient Instructions: Lumbar Muscle Strain (DC) Add. Discharge Instructions: Expect some significant improvement over the next 2-4 weeks. Start taking the naproxen [id number] 2 tablets or prescription strength 500 mg 1 tablet twice daily on schedule for the next 2 weeks. You can use Tylenol 1000 g every 8 hours as necessary for breakthrough pain. Use your tizanidine and tramadol as prescribed. Ice your back down for the next couple days. Heating pads and topical creams such as icy hot or Biofreeze. Do not lift push or pull more than 40 pounds for the next 2 weeks. Wear a back brace on the days that helps. Follow-up with your primary care doctor in the next 2 weeks if not seeing significant improvement. All discharge instructions reviewed with patient and/or family. Voiced understanding. Scripts Naproxen (Naprosyn) 500 Mg Tablet 500 MG PO BID, #30 TAB 0 Refills Prov: RANGEL WINSTON 03/04/19 Work/School Note: Work Release Form Date Seen in the Emergency Department: Mar 04, 2019 Return to Work: Mar 06, 2019 Restrictions: Need Release from Doctor Other Restrictions Listed Below: No lift, push or dust puller 40# until 03/18/19. RANGEL WINSTON Mar 04, 2019 18:30
[2019-03-04 18:40] VITALS: BP 122/68
== END 2019-03-04 18:40 | disposition home or self-care (01) ==
LOC: EDUNIT# 17:27 → ER FS 17:28
DX: S33.5XXA Sprain of ligaments of lumbar spine, initial encounter (principal); J45.909 Unspecified asthma, uncomplicated; F41.9 Anxiety disorder, unspecified; F32.9 Major depressive disorder, single episode, unspecified; K21.9 Gastro-esophageal reflux disease without esophagitis; F17.210 Nicotine dependence, cigarettes, uncomplicated; Z90.89 Acquired absence of other organs; Z98.51 Tubal ligation status; Z88.0 Allergy status to penicillin; X50.0XXA Overexertion from strenuous movement or load, initial encounter; Y92.59 Other trade areas as the place of occurrence of the external cause; Y99.0 Civilian activity done for income or pay

== ENCOUNTER 2019-12-03 20:43 | Emergency (ER) | payer OTHER ==
[~2019-12-03] VITALS: Ht 165.1 cm; Wt 94.0 kg
[~2019-12-03 20:43] MED LIST changes: +NAPR-1071 PO
[2019-12-03 20:50] VITALS: BP 133/79
--- NOTE | 2019-12-03 20:54 | ED General ---
General Stated Complaint: NAUSEA,DIARRHEA,LIGHTHEADED Source of Information: Patient, RN/MD, RN Notes Reviewed Exam Limitations: No Limitations History of Present Illness Date Seen by Provider: Dec 03, 2019 Time Seen by Provider: 20:50 Initial Comments This patient is a 39-year-old female presents to the emerge department complaining of lower abdominal cramping and diarrhea for the past 2-3 days. Patient states usually passes after day or so but still seemed to be watery stool day. Patient decided to come to the emergency department because she has to work tomorrow thought she might need a work note. Patient does not appear to be acutely sick. Timing/Duration: 2-3 Days Severity: Mild Allergies and Home Medications Allergies Coded Allergies: amoxicillin (Verified Allergy, Unknown, 08/31/18) Home Medications Dicyclomine Hcl 20 Mg Tablet, 1 EACH PO QID, (Reported) Naproxen 500 Mg Tablet, 500 MG PO BID Prescribed by: RANGEL WINSTON on 03/04/191828 Pantoprazole Sodium 20 Mg Tablet.dr, 40 MG PO DAILY Prescribed by: NAREN HORVATH on 12/02/14 152 Sucralfate 1 Gm Tab, 1 GM PO ACHS Prescribed by: NAREN HORVATH on 12/02/14 1529 Patient Home Medication List Home Medication List Reviewed: Yes Review of Systems Review of Systems Constitutional: No no symptoms reported, No see HPI, No chills, No diaphoresis, No dizziness, No fever, No malaise, No weakness, No weight gain, No weight loss, No other EENTM: No see HPI, No no symptoms reported, No ear discharge, No hearing loss, No ear pain, No blurred vision, No double vision, No eye pain, No tearing, No vision loss, No dental problems, No hoarseness, No mouth pain, No mouth swelling, No epistaxis, No nose congestion, No nose pain, No throat pain, No throat swelling, No other Respiratory: No no symptoms reported, No see HPI, No cough, No dyspnea on exertion, No hemoptysis, No orthopnea, No phlegm, No short of breath, No stridor, No wheezing, No other Cardiovascular: No no symptoms reported, No see HPI, No chest pain, No edema, No Hx of Intervention, No palpitations, No syncope, No vascular heart diseas, No other Gastrointestinal: No RUQ, No LUQ, No RLQ, No LLQ, No no symptoms reported; see HPI, abdominal pain; No constipation; diarrhea; No dysphagia, No hematemesis, No heartburn, No jaundice, No loss of appetite, No melena, No nausea, No vomiting, No other All Other Systems Reviewed Negative Unless Noted: Yes Past Giymyrb-Hlimqi-Ybzisi Hx Patient Social History Type Used: Cigarettes 2nd Hand Smoke Exposure: No Recent Foreign Travel: No Contact w/Someone Who Travel: No Recent Hopitalizations: No Seasonal Allergies Seasonal Allergies: No Past Medical History Surgeries: Yes Section, Tonsillectomy, Tubal Ligation Respiratory: Yes Asthma Cardiac: No Neurological: No Genitourinary: No Gastrointestinal: Yes Gastroesophageal Reflux Musculoskeletal: Yes Chronic Back Pain Endocrine: No HEENT: No Cancer: No Psychosocial: Yes Anxiety, Depression Integumentary: No Blood Disorders: No Physical Exam Vital Signs Vital Signs - First Documented 12/03/19 20:50 Temp 36.4 Pulse 88 Resp 16 B/P (MAP) 133/79 (97) Pulse Ox 98 O2 Delivery Room Air Capillary Refill : Height, Weight, BMI Height: 5'5.00" Weight: 207lbs. oz. 93.174845qr; 33.00 BMI Method:Stated General Appearance: No Apparent Distress, WD/WN Respiratory: Chest Non Tender, Lungs Clear, Normal Breath Sounds, No Accessory Muscle Use, No Respiratory Distress Cardiovascular: Regular Rate, Rhythm, No Edema, No Gallop, No JVD, No Murmur, Normal Peripheral Pulses Gastrointestinal: Normal Bowel Sounds, No Organomegaly, No Pulsatile Mass, Non Tender, Soft Progress/Results/Core Measures Suspected Sepsis SIRS Temperature: Pulse: Respiratory Rate: Blood Pressure / Mean: Results/Orders Lab Results Laboratory Tests Test 12/03/19 20:58 Range/Units Urine Color YELLOW Urine Clarity SLT CLOUDY Urine pH 6.0 5-9 Urine Specific [place] 1.025 H 1.016-1.022 Urine Protein NEGATIVE NEGATIVE Urine Glucose (UA) NEGATIVE NEGATIVE Urine Ketones NEGATIVE NEGATIVE Urine Nitrite NEGATIVE NEGATIVE Urine Bilirubin NEGATIVE NEGATIVE Urine Urobilinogen 0.2 < = 1.0 MG/DL Urine Leukocyte Esterase NEGATIVE NEGATIVE Urine RBC (Auto) NEGATIVE NEGATIVE Urine RBC NONE /HPF Urine WBC 0-2 /HPF Urine Squamous Epithelial Cells 5-10 /HPF Urine Crystals NONE /LPF Urine Bacteria MODERATE H /HPF Urine Casts NONE /LPF Urine Mucus LARGE H /LPF Urine Culture Indicated YES My Orders Orders - LA GAMBLE MD Abdomen Flat & Upright/Decub (12/03/19 20:52) Urinalysis (12/03/19 20:52) Urine Culture (12/03/19 20:58) Vital Signs/I&O 12/03/19 20:50 Temp 36.4 Pulse 88 Resp 16 B/P (MAP) 133/79 (97) Pulse Ox 98 O2 Delivery Room Air Capillary Refill : Progress Note : Time: 21:22 Progress Note Negative evaluation in the emergency department. Patient is an encourage by mouth fluids and advance diet as tolerated. Bentyl as prescribed to help with abdominal cramping. Nothing stronger than Pepto-Bismol to help with diarrhea. Follow-up with PCP in 2-3 days. Departure Impression Primary Impression: Diarrhea Disposition: HOME, SELF-CARE Condition: Stable Departure-Patient Inst. Decision time for Depature: 21:23 Referrals: LATONIA GREGORY MD NO,LOCAL PHYSICIAN (PCP) Primary Care Physician Patient Instructions: Diarrhea in Adolescents and Adults, Gas and Bloating Add. Discharge Instructions: Patient is an encourage by mouth fluids and advance diet as tolerated. Bentyl as prescribed to help with abdominal cramping. Nothing stronger than Pepto-Bismol to help with diarrhea. Follow-up with PCP in 2-3 days. Scripts Dicyclomine HCl (Dicyclomine HCl) 20 Mg Tablet 20 MG PO TID, #20 TAB 0 Refills Prov: LA GAMBLE MD 12/03/19 LA GAMBLE MD Dec 03, 2019 20:54
[2019-12-03 21:11] LABS: CLARITY,URINE SLT CLOUDY; COLOR,URINE YELLOW; GLUCOSE, URINE (UA) NEGATIVE (NEGATIVE); PROTEIN,URINE NEGATIVE (NEGATIVE)
[2019-12-03 21:12] LABS: BACTERIA,URINE MODERATE /HPF; BILIRUBIN,URINE NEGATIVE (NEGATIVE); KETONES,URINE NEGATIVE (NEGATIVE); LEUKOCYTE ESTERASE ,URINE NEGATIVE (NEGATIVE); NITRITE,URINE NEGATIVE (NEGATIVE); WBC,URINE 0-2 /HPF
[2019-12-03] MEDS ORDERED: DICY20TA10 PO (21:25)
--- NOTE | 2019-12-03 21:38 | Diagnostic Imaging Report ---
INDICATION: Diarrhea for 4 days. Abdominal pain. EXAMINATION: Abdomen dated 12/03/2019 FINDINGS: Two views of the abdomen Scattered air and stool seen throughout the colon to the rectosigmoid with no dilated loops of bowel. No free air. IMPRESSION: 1. Nonobstructive bowel gas pattern. Dictated by: Dictated on workstation # [id number]
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
--- OUTSIDE RECORDS SUMMARY | 2019-12-03 22:21 | XMS REPORT ---
Author Author Chikka energy economist [facility] Address [address] [address] Care Team Providers Care [place] Supervisor Name Role Phone ADRIANNA PACHECO Unavailable Unavailable SURI RUBI Unavailable Unavailable MADL, BELLE Unavailable Unavailable ODETTE REYES Unavailable Unavailable UNRULY HOGUE Unavailable EZRA YUN Unavailable MADL, BELLE Unavailable JYOTSNA GARIBAY Unavailable Unavailable MANNY DAWSON APRN Unavailable SURI RUBI Unavailable MADL, BELLE Unavailable MADL, BELLE Unavailable MADL, BELLE Unavailable MADL, BELLE Unavailable MADL, BELLE Unavailable MADL, BELLE Unavailable MADL, BELLE Unavailable MADL, BELLE Unavailable MADL, BELLE Unavailable MARLENA WATERS Unavailable JT, MARLENA Unavailable MADL, BELLE Unavailable JT, MARLENA Unavailable JT, MARLENA Unavailable NO, LOCAL PHYSICIAN PCP Unavailable Migration, Doctor Unavailable Unavailable Migration, Doctor Unavailable Unavailable MARLENA WATERS Unavailable Unavailable Migration, Doctor Unavailable Unavailable Migration, Doctor Unavailable Unavailable Migration, Doctor Unavailable Unavailable RACHEL FITCH Unavailable Unavailable Migration, Doctor Unavailable Unavailable AMBER SCHAEFFER Unavailable AMBER SCHAEFFER Unavailable AMBER SCHAEFFER Unavailable AMBER SCHAEFFER Unavailable AMBER SCHAEFFER Unavailable zzSANCHEZ, MANNY Unavailable zzSANCHEZ, MANNY Unavailable Migration, Doctor Unavailable Unavailable zzSANCHEZ, MANNY Unavailable zzSANCHEZ, MANNY Unavailable zzHEIMAN, LON Unavailable braxtonzMAXAN, LON Unavailable AMBER SCHAEFFER Unavailable BELLE JAFFE CAT OPERATOR Unavailable Unavailable NAREN HORVATH DO Unavailable Unavailable NO, LOCAL PHYSICIAN PCP Unavailable AMBER SCHAEFFER MD Unavailable Unavailable LANI GIBSON, JYOTSNA Tavares Unavailable Unavailable zzSANCHEZ, MANNY Unavailable ODETTE REYES CAT OPERATOR Unavailable Unavailable YENY RICHEY MD Unavailable Unavailable RANGEL WINSTON Unavailable Unavailable MEDHAT GIBSON, EUGENE Alexis Unavailable Unavailable zzSANCHEZ, MANNY Unavailable MANNY DAWSON METAL FABRICATING SUPERVISOR Unavailable Unavailable zzSANCHEZ, MANNY Unavailable zzSANCHEZ, MANNY Unavailable AMBER SCHAEFFER Unavailable Unavailable Unavailable Unavailable Unavailable Unavailable Unavailable Unavailable Unavailable Allergies Normalized Allergy Reported Date of Reaction(s) Care Provider Facility Allergy Type classification allergen Allergy Onset Drug Allergy Penicillins Amoxicillin 08-31-2018 - catrachito DAWSON Not Available (21 sources.) (antibiotic) Translations: ([id number]) (77824 ) [ amoxicillin] DA (1 source.) Unclassified No Allergy 06-23-2014 - no informati on YENY RICHEY , Not Available Information (95914) Available Medications Medication Ingredient Drug Dose Dates Status Sig Sig Care Class(es) (Normalized) (Original) Provid er amoxicillin Amoxicillin Penicillin- 06-02-20 Active take 1 Aug ntin no 875 mg / / class 14 tablet by 875-125 mg 1 name clavulanate Clavulanate Antibacteri mouth twice tablet by 125 mg oral Translation al daily Oral route 2 tablet (1 s: [ times per source.) Augmentin day for 7 875-125 mg] day(s) May, Active omeprazole Omeprazole Proton Pump 20 mg 06-24-19 Active take 1 Prilosec 20 no 20 mg oral Inhibitor 15 capsule by mg 1 capsule name tablet (1 mouth once by Oral source.) daily route 1 time per day Jun, Active predniSONE predniSONE Corticoster 40 mg 01-11-20 Active no PredniSONE no 20 mg oral Translation oid 18 - information 20 mg Orall y name tablet (1 s: [ 01-16-20 Once a day 2 source.) PredniSONE 18 tablet 24h 20 mg] Jan, Jan, 05 days Active Problems Active Problems Problem Normalized Date Last Normalized Normalized Provider Fa cility Classification Problem(s) Recorded Problem Problem Sta tus Duration Other female Abnormal Chronic Active MANNY Community genital uterine [facility] disorders (3 bleeding 18092 of [facility] sources.) Translations: [place] (99967) [ Dysfunctional uterine bleeding] Residual Chronic pain Episodic Active [facility] codes; Translations: [facility] unclassified [ Other [address] of [facility] (3 sources.) chronic pain] [place] (21084) Abdominal Diaphragmatic Episodic Active NAREN HORVATH , [facility] Via hernia (3 hernia without DO [place] sources.) mention of Hospital - obstruction or [place] gangrene (86144) Gastroduodenal Gastric ulcer, Chronic Active NAREN HORVATH , [facility] Via ulcer (except unspecified as DO [place] hemorrhage) (3 acute or Hospital - sources.) chronic, [place] without (90323) mention of hemorrhage or perforation, without mention of obstruction Headache; Migraine, Chronic Active YENY ENMYKE , [facility] Via including unspecified, MD [place] migraine (4 not Hospital - sources.) intractable, [place] without status (24369) migrainosus Substance-rela Nicotine Chronic Active RANGEL CATRACHITO [facility] V ia sandro disorders dependenceCarolin (3 sources.) cigarettes, Hospital - uncomplicated [place] (70097) Past or Other Problems Problem Normalized Date Last Normalized Normalized Provider Fa cility Classification Problem(s) Recorded Problem Problem Sta tus Duration Residual Acquired Episodic Completed RANGEL CATRACHITO [facility] Via codes; absence of [place] unclassified other organs Hospital - (3 sources.) [place] () Allergic Allergy status Episodic Completed YENY ENYART , [facility] Via reactions (6 to penicillin [place] sources.) Hospital [facility] (06960) Other Care involving Episodic Completed MANNY SAMIR [facility] Via aftercare (3 other physical [place] sources.) therapy [facility] () External cause Civilian no information no information RANGEL WEL LER [facility] Via codes: activity done [place] Unspecified (1 for income or Hospital - source.) pay [place] () External cause Civilian Episodic Completed RANGEL CATRACHITO [facility] V ia codes: activity done [place] Unspecified (2 for income or Hospital - sources.) pay [place] (12793) Conditions Dizziness and Episodic Completed YENY ENYART , [facility] Via associated giddiness [facility] [place] with dizziness Hospital - or vertigo (3 [place] sources.) (05913) Sprains and Lumbar sprain Episodic Completed RANGEL CATRACHITO [facility] Via strains (4 Translations: [place] sources.) [ SPRAIN OF Hospital - LIGAMENTS [facility] LUMBAR SPINE, (11324) INI] Nausea and Nausea alone Episodic Completed AMBER SCHAEFFER [facility] Via vomiting (3 , [place] sources.) [facility] () External cause Other trade Episodic Completed RANGEL CATRACHITO [facility] Via codes: Place areas as the [place] of occurrence place of Hospital - (2 sources.) occurrence of [place] the external (63834) cause External cause Other trade no information no information RANGEL CATRACHITO [facility] Via codes: Place areas as the [place] of occurrence place of Hospital - (1 source.) occurrence of [place] the external (47807) cause External cause Overexertion Episodic Completed RANGEL CATRACHITO [facility] Via codes: from strenuous [place] Natural/enviro movement or Hospital - nment (2 load, initial [place] sources.) encounter (58284) External cause Overexertion no information no information RANGEL CATRACHITO [facility] Via codes: from strenuous [place] Natural/enviro movement or Hospital - nment (1 load, initial [place] source.) encounter (26299) Contraceptive Tubal ligation Episodic Completed RANGEL CATRACHITO [facility] Via and status [place] procreative Hospital - management (3 [facility]) (65933) Procedures Procedure Normalized Procedure Procedure Result Performer Facility Date 06-27-2014 Blood count complete no information no name [facility] auto&auto difrntl wbc [facility] (41884) 02-18-2014 Blood count complete no information no name [facility] auto&auto difrntl wbc [facility] (20258) 06-27-2014 Collection venous no information no name [facility] blood venipuncture [facility] (25662) 02-18-2014 Collection venous no information no name [facility] blood venipuncture [facility] (09811) 02-18-2014 Comprehensive no information no name [facility] metabolic panel [facility] (31043) 06-19-2014 Ct abdomen & pelvis no information no name [facility] w/o contrst 1/> body [facility] (00366) 03-06-2014 Cytp c/v auto thin lyr no information no name [facility] prepj scr mnl rescr [facility] (66066) 03-06-2014 Obtaining screen pap no information no name [facility] smear [facility] (42785) 12-04-2013 Radex spine no information no name [facility] ealth lumbosacral 2/3 views [facility] (16580) 02-18-2014 Urnls dip stick/tablet no information no name [facility] rgnt auto w/o [facility] (75859) 06-24-2014 Us abdominal real time no information no name [facility] w/image limited [facility] (84838) Immunizations Normalized Immunization Date Notes Care Provider Facili ty Immunization vaccine no information LOCAL NO [facility] Via Translations: [ [facility] vaccine] (28583) Results Test Name Value Interpretation Reference Range Date Time Fa cility (Normalized) (Normalized) (Medline Reference) other on null BLO trace-lysed (no code) [facility] (18839) Control neg~valid (no code) [facility] (28553) Exp date 09/10/19 (no code) [facility] (58855) Exp date Neg~valid~B2415~ (no code) [facility] lt 03/2019 [facility] (21005) KET 03/11/19~slightly (no code) [facility] He[facility] lt cloudy~yellow~ye [facility] s~neg~neg~neg [facility] (82395) JASON neg~0.2 (no code) [facility] E.U./dL~neg~neg [facility] (04070) Lot # [id number] (no code) [facility] (72148) Lot # [id number] (no code) [facility] (08417) SG 1.015 (no code) [facility] (49673) hematology on null pH (Bld) 5.5 [pH] (no code) 7.38 - 7.42 [pH] [facility] (98111) not yet categorized on 2019-11-20 COMMENT no information (no code) [facility] (69686) Prescribed Drug Tramadol (no code) [facility] (31495) laboratory on 2019-11-20 Albumin 3.8 g/dL (N) 3.4 - 5.4 g/dL [facility] [Mass/Vol] [facility] (95699) Albumin/Globulin 1.6 {ratio} (N) 1 - 2.5 {ratio} [facility] [Mass ratio] [facility] (83021) ALP [Catalytic 70 U/L (N) 44 - 147 U/L [facility] activity/Vol] [facility] (24997) ALT [Catalytic 18 U/L (N) 4 - 40 U/L Community ealth activity/Vol] [facility] (72209) Amphetamines Ql Negative (N) [facility] (U) [facility] (62612) AST [Catalytic 14 U/L (N) 10 - 34 U/L [facility] Health activity/Vol] [facility] (06693) Barbiturates Ql Negative (N) [facility] (U) [facility] (12734) Benzodiazepines Negative (N) [facility] Ql (U) [facility] (87938) Benzoylecgonine Negative (N) [facility] Ql (U) [facility] (50602) Bilirubin 0.3 mg/dL (N) 0.1 - 1.2 mg/dL [facility] [Mass/Vol] [facility] (95000) Calcium 8.9 mg/dL (N) 8.5 - 10.2 mg/dL [facility] [Mass/Vol] [facility] (14311) Chloride 107 mmol/L (N) 95 - 106 mmol/L [facility] [Moles/Vol] [facility] () Cholesterol 194 mg/dL (N) 180 - 200 mg/dL [facility] [Mass/Vol] [facility] () Cholesterol in 32 mg/dL (L) [facility] HDL [Mass/Vol] [facility] () Cholesterol in 117 mg/dL (H) 0 - 100 mg/dL [facility] LDL [Mass/Vol] [facility] (10906) Cholesterol non 162 mg/dL (H) [facility] HDL [Mass/Vol] [facility] (83844) Cholesterol.tota 6.1 {ratio} (H) [facility] l/Cholesterol in [facility] HDL [Mass ratio] [facility] () CO2 [Moles/Vol] 23 mmol/L (N) 23 - 29 mmol/L [facility] (66398) Creatinine (U) 131.5 mg/dL (N) [facility] [Mass/Vol] [facility] () Creatinine 0.90 mg/dL (N) [facility] [Mass/Vol] [facility] (63163) Drug screen CONSISTENT (N) [facility] comment (U) [facility] [Interp] [facility] () GFR/1.73 sq M 93 (N) 90 - 120 [facility] alth predicted among mL/min/{1.73_m2} mL/min/{1.73_m2} Center o f [facility] blacks MDRD [facility] (S/P/Bld) [Vol (30480) rate/Area] GFR/1.73 sq 80 (N) 90 - 120 [facility] M.predicted MDRD mL/min/{1.73_m2} mL/min/{1.73_m2} [facility] (S/P/Bld) [Vol [facility] rate/Area] (99760) Globulin (S) 2.4 g/dL (N) 2 - 3.5 g/dL [facility] [Mass/Vol] [facility] (66034) Glucose 87 mg/dL (N) 60 - 125 mg/dL [facility] [Mass/Vol] [facility] (98444) HbA1c (Bld) 5.7 (H) [facility] [Mass fraction] [facility] (21391) Methadone Ql (U) Negative (N) [facility] (44250) Nortramadol (U) 146 (H) [facility] [Mass/Vol] [facility] (40344) Opiates Ql (U) Negative (N) [facility] (66295) Oxidants Ql (U) Negative (N) [facility] (77653) Oxycodone Ql (U) Negative (N) [facility] (28706) pH (U) 6.0 [pH] (N) 4.6 - 8 [pH] [facility] (51902) Phencyclidine Ql Negative (N) [facility] (U) [facility] (39873) Potassium 4.2 mmol/L (N) 3.7 - 5.2 mmol/L [facility] [Moles/Vol] [facility] (95292) Protein 6.2 g/dL (N) 6.4 - 8.3 g/dL [facility] [Mass/Vol] [facility] (92165) Sodium 139 mmol/L (N) 135 - 145 mmol/L [facility] [Moles/Vol] [facility] (48053) Tetrahydrocannab Negative (N) [facility] inol Ql (U) [facility] (18888) Tramadol (U) 197 (H) [facility] [Mass/Vol] [facility] (83551) Triglyceride 314 mg/dL (H) 0 - 150 mg/dL [facility] [Mass/Vol] [facility] (66945) Urea nitrogen 16 mg/dL (N) 7 - 20 mg/dL [facility] [Mass/Vol] [facility] (98440) Urea NOT APPLICABLE (no code) [facility] nitrogen/Creatin [facility] [Mass ratio] [facility] (69181) not yet categorized on 2019-02-06 COMMENT no information (no code) [facility] (50084) Prescribed Drug Tramadol (no code) [facility] (43582) laboratory on 2019-02-06 Amphetamines Ql Negative (no code) [facility] (U) [facility] (73389) Barbiturates Ql Negative (no code) [facility] (U) [facility] (66931) Benzodiazepines Negative (no code) [facility] Ql (U) [facility] (42640) Benzoylecgonine Negative (no code) [facility] Ql (U) [facility] (88964) Creatinine (U) 117.8 mg/dL (no code) [facility] [Mass/Vol] [facility] (70889) Drug screen CONSISTENT (no code) [facility] comment (U) [facility] [Interp] [facility] (24901) Methadone Ql (U) Negative (no code) [facility] (59695) Opiates Ql (U) Negative (no code) [facility] (50490) Oxidants Ql (U) Negative (no code) [facility] (55247) Oxycodone Ql (U) Negative (no code) [facility] (44015) pH (U) 7.06 [pH] (no code) 4.6 - 8 [pH] [facility] (82096) Phencyclidine Ql Negative (no code) [facility] l[facility] (U) [facility] (78902) Tetrahydrocannab Negative (no code) [facility] inol Ql (U) [facility] (86216) other on 2018-09-26 Albumin/Globulin 1.6 (N) [facility] [Mass ratio] [facility] (65765) Cholesterol in 167 (H) [facility] LDL [Mass/Vol] [facility] (95056) Cholesterol non 199 (H) [facility] HDL [Mass/Vol] [facility] (35967) Cholesterol.tota 6.5 (H) [facility] l/Cholesterol in [facility] HDL [Mass ratio] [facility] (08756) COMMENT no information (no code) [facility] (92019) GFR/1.73 sq 78 (N) 90 - 120 [facility] M.predicted MDRD mL/min/{1.73_m2} mL/min/{1.73_m2} [facility] (S/P/Bld) [Vol [facility] rate/Area] (69244) Globulin (S) 2.6 (N) [facility] [Mass/Vol] [facility] (72226) metabolic panel on 2018-09-26 Albumin 4.2 g/dL (N) 3.4 - 5.4 g/dL [facility] [Mass/Vol] [facility] (72413) ALP [Catalytic 66 U/L (N) 44 - 147 U/L [facility] Health activity/Vol] [facility] (71870) ALT [Catalytic 16 U/L (N) 4 - 40 U/L Community [facility] activity/Vol] [facility] (03431) AST [Catalytic 14 U/L (N) 10 - 34 U/L [facility] activity/Vol] [facility] (42376) Bilirubin 0.6 mg/dL (N) 0.1 - 1.2 mg/dL [facility] [Mass/Vol] [facility] (79064) Calcium 9.4 mg/dL (N) 8.5 - 10.2 mg/dL [facility] [Mass/Vol] [facility] (07751) Chloride 105 mmol/L (N) 95 - 106 mmol/L [facility] [Moles/Vol] [facility] (05518) CO2 [Moles/Vol] 27 mmol/L (N) 23 - 29 mmol/L [facility] (27064) Creatinine 0.92 mg/dL (N) [facility] [Mass/Vol] [facility] (58565) GFR/1.73 sq M 91 (N) 90 - 120 Community alth predicted among mL/min/{1.73_m2} mL/min/{1.73_m2} [facility] [place] MDRD [facility] (S/P/Bld) [Vol (86300) rate/Area] Glucose 89 mg/dL (N) 60 - 125 mg/dL [facility] [Mass/Vol] [facility] (84655) HbA1c (Bld) 5.4 (N) [facility] [Mass fraction] [facility] () Potassium 4.4 mmol/L (N) 3.7 - 5.2 mmol/L [facility] [Moles/Vol] [facility] (18581) Protein 6.8 g/dL (N) 6.4 - 8.3 g/dL [facility] [Mass/Vol] [facility] (78289) Sodium 139 mmol/L (N) 135 - 145 mmol/L [facility] [Moles/Vol] [facility] (83036) Urea nitrogen 15 mg/dL (N) 7 - 20 mg/dL [facility] [Mass/Vol] [facility] (54232) Urea NOT APPLICABLE (no code) [facility] h nitrogen/Creatin [facility] [Mass ratio] [facility] (97642) imm/path on 2018-09-26 C. trachomatis NOT DETECTED (N) [facility] h rRNA SHO+probe [facility] (Unsp spec) [facility] (54600) N. gonorrhoeae NOT DETECTED (N) [facility] h rRNA SHO+probe [facility] (Unsp spec) [facility] (72640) cardiac on 2018-09-26 Cholesterol 235 mg/dL (H) 180 - 200 mg/dL [facility] [Mass/Vol] [facility] (87500) Cholesterol in 36 mg/dL (L) [facility] Healt h HDL [Mass/Vol] [facility] (55042) Triglyceride 175 mg/dL (H) 0 - 150 mg/dL [facility] [Mass/Vol] [facility] (69597) Vital Signs Vital Sign Value Interpretation Reference Date Time Care Prov ider Facility (Normalized) (Normalized) Range BMI (Body Mass 35.27 kg/m2 (no code) 15 - 25 kg/m2 01-10-2018 EL CHRISTOFER Community Index) 14:40-[address] ([address]99) Body height 165.1 cm (no code) cm 12-04-2013 MANNY Com munity 16:18-[facility] [address] ([address]) Body 98 [degF] (no code) 97.8 - 99.0 01-10-2018 MARLENA Wilcox [facility] Temperature [degF] 14:40-[address] (79216) Body 98 [degF] (no code) 97.8 - 99.0 07-25-2014 AMBER Lewis Community Temperature [degF] 14:44-[address] [place] [address] (05419) Body 98.8 [degF] (no code) 97.8 - 99.0 06-02-2014 Doctor Community Temperature [degF] 17:39-0500 [facility] (18989) Body 97.5 [degF] (no code) 97.8 - 99.0 03-06-2014 LON SAAB Community Temperature [degF] 15:05-[address] [place] [address] (87076) Body 97.6 [degF] (no code) 97.8 - 99.0 02-18-2014 MANNY Community Temperature [degF] 16:[address] (64553) Body 97.5 [degF] (no code) 97.8 - 99.0 12-04-2013 MANNY Community temperature [degF] 16:[address] (26064) Body weight 98.88 kg (no code) kg 07-25-2014 AMBER SCHAEFFER [facility] 14:44-[address] [place] [address] (86990) Body weight 99.29 kg (no code) kg 06-02-2014 Doctor Com munity 17:390500 [facility] (43901) Body weight 98.48 kg (no code) kg 03-06-2014 LON [facility] 15:[address] [place] [address] (35283) Body weight 99.25 kg (no code) kg 02-18-2014 MANNY Com munity 16:[address] (74731) Body weight 97.71 kg (no code) kg 12-04-2013 MNANY Com munity 16:180400 [address] (13550) Height 165.1 cm (no code) cm 01-10-2018 MARLENA lazar 14:400400 [address] (20851) Height 165.1 cm (no code) cm 07-25-2014 AMBER Wilcox [facility] 14:44-[address] [place] [address] (71530) Height 165.1 cm (no code) cm 06-02-2014 Doctor Commun ity 17:390500 Migration [facility] (11489) Height 165.1 cm (no code) cm 03-06-2014 LON [facility] 15:050400 37448 [facility] (81982) Height 165.1 cm (no code) cm 02-18-2014 MANNY Noriega ity 16:250400 [address] (72905) Weight 96.16 kg (no code) kg 01-10-2018 MARLENA Faulkner nitterese 14:40-[address] [place] [address] (52007) Interventions No Information Plan of Treatment Normalized Care Care Detail Care Activity Date Care Provider F acility Activity Bacteria identified no information no information LOCAL NO [facility] Via Cx Nom (U) [facility] (16098) Patient Education no information no information LOCAL NO As cension Via [facility] (47492) Patient referral no information no information LOCAL NO Asc ension Via [facility] (90362) Goals Patient Goal Desired Goal no information no information Social History Normalized Code Original Code Date Value Tobacco smoking status Tobacco smoking status 03-04-2019 - Smokes tobacco daily NHIS NHIS (finding) no information no information 03-04-2019 Denies Use no information no information 12-02-2014 No no information no information 03-04-2019 Denies no information no information 03-04-2019 Current [facility] y Smoker no information no information 03-04-2019 Cigarettes Sex Assigned At Sex Assigned At 1980 - 01-10 Female Functional Status The data below is from unstructured sources Query Response Date Clinton rded Comprehension Ability Understands Co ncepts August 31, 2018 10:15pm No Functional Status information available Mental Status The data below is from unstructured sourcesNo Mental Status Information AvailableNo Mental Status Information AvailableNo Mental Status Information Available Encounters Encounter Normalized Encounter Encounter Diagnosis Care Provi mauricio Organization Date Type 07-09-2019 [facility] Acute upper RACHEL LITTLE (n o [facility] respiratory infection, phone) (no phone) unspecified 05-28-2019 [facility] Dysmenorrhea, [facility] (n o phone) [facility] unspecified (no phone) 05-20-2019 [facility] Acute maxillary RACHEL KENZIE S (no [facility] sinusitis, unspecified phone) (no phone) 05-01-2019 [facility] Lumbago with sciatica, PANKA J GUGNANI (no [facility] right side phone) (no phone[facility] 04-30-2019 [facility] Pelvic and perineal [facility] (no phone) [facility] pain (no phone) 04-19-2019 [facility] Irregular [facility] (no phone) [facility] menstruation, (no phone) unspecified 04[facility]16-2019 [facility] Irregular [facility] (no phone) [facility] menstruation, (no phone) unspecified 12-03-2019 Emergency department no information (no phone) [facility] patient visit [facility] (no phone) 12-04-2019 03-04-2019 Emergency department no information (no phone) [facility] (no phone) 03-04-2019 03-04-2019 Emergency department no information RANGEL WINSTON Work no organization name - patient visit Phone: 03-04-2019 03-04-2019 Emergency department no information no name no organization name - patient visit 03-04-2019 08-31-2018 Emergency department no information YENY villegas no organization name - patient visit Phone: 09-01-2018 08-31-2018 Emergency department no information no name no organization name - patient visit 08-31-2018 01-17-2018 Patient encounter no information no name no or ganization name 01-10-2018 Patient encounter no information no name no or ganization name 10-11-2017 Patient encounter no information no name no or ganization name 08-30-2017 Patient encounter no information no name no or ganization name 11-20-2019 Patient encounter no information (no phone) [facility] (no phone) 07-09-2019 Patient encounter no information no name no or ganization name procedure 05-28-2019 Patient encounter no information no name no or ganization name procedure 05-20-2019 Patient encounter no information no name no or ganization name procedure 04-30-2019 Patient encounter no information no name no or ganization name procedure 04-19-2019 Patient encounter no information no name no or ganization name procedure 03-18-2019 Patient encounter no information no name no or ganization name procedure 03-04-2019 Patient encounter no information no name no or ganization name procedure 03-04-2019 Patient encounter no information no name no or ganization name procedure 02-06-2019 Patient encounter no information no name no or ganization name procedure 12-04-2018 Patient encounter no information no name no or ganization name procedure 11-15-2018 Patient encounter no information no name no or ganization name procedure 11-15-2018 Patient encounter no information no name no or ganization name procedure 11-12-2018 Patient encounter no information no name no or ganization name procedure 11-12-2018 Patient encounter no information no name no or ganization name procedure 10-16-2018 Patient encounter no information no name no or ganization name procedure 09-26-2018 Patient encounter no information no name no or ganization name procedure 08-28-2018 Patient encounter no information no name no or ganization name procedure 07-31-2018 Patient encounter no information no name no or ganization name procedure 07-05-2018 Patient encounter no information no name no or ganization name procedure 03-29-2016 Patient encounter no information no name no or ganization name procedure 03-29-2016 Patient encounter no information no name no or ganization name procedure 01-20-2016 Patient encounter no information no name no or ganization name procedure 01-20-2016 Patient encounter no information no name no or ganization name procedure 10-08-2015 Patient encounter no information no name no or ganization name procedure 10-08-2015 Patient encounter no information no name no or ganization name procedure 12-02-2014 Patient encounter no information no name no or ganization name - procedure 12-02-2014 12-02-2014 Patient encounter no information no name no or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
--- OUTSIDE RECORDS SUMMARY | 2019-12-03 22:21 | XMS REPORT ---
Author Author Imani Peres Organization [facility] Address [address] [place] [address] Care Team Providers Care Brewery Representative Name Role Phone MANNY Peres Unavailable PROBLEMS Type Condition ICD9-CM Code JTN05-HY Code Onset Dates Condition S tatus SNOMED Code Problem Mixed hyperlipidemia E78.2 Active 157150776 Problem Pre-diabetes R73.09 Active 8484827 02 Problem Spondylolisthesis of lumbosacral region M43.17 Active 131880835 Problem Seasonal allergic rhinitis due to pollen J30.1 Active 46096427 Problem Lumbago with sciatica, right side M54.41 Active 193997523004171 Problem Lumbago with sciatica, left side M54.42 Active 578434778 Problem Moderate persistent asthma with exacerbation J45.4 1 Active 922037413 Problem Dysmenorrhea N94.6 Active 3505608 00 Problem Cervical motion tenderness N94.9 Act venice 649403502 Problem Irregular menses N92.6 Active 801 87617 Problem Dysfunctional uterine bleeding N93.8 Active 45688295707706 Problem Menorrhagia with irregular cycle N92.1 Active 585783006 Problem Other chronic pain G89.29 Active 8 1235074 Problem Allergic rhinitis, unspecified seasonality, unspecifie d trigger J30.9 Active 69244760 Problem Current moderate episode of major depressive disorder, unspecified whether recurrent F32.1 Active 87327413 Problem Menometrorrhagia N92.1 Active 314 723194 Problem Irregular menstrual cycle N92.6 Acti ve 55281433 ALLERGIES No Information ENCOUNTERS Encounter Location Date Diagnosis [address] [place] [address] Jun, Lumbago with sciatica, left side M54.42 [facility] [address] [id number] [place] [address] Jun, [facility] [address] [id number] [place] [address] Jun, [address] [place] [address] May, Lumbago with sciatica, left side M54.[address] [place] [address] May, Dysmenorrhea N94.6 ; Pelvic pain R10.2 and Menometrorrhagia N92.[address] [place] [address] May, [address] [place] [address] May, Acute non-recurrent maxillar y sinusitis J01.[address] [place] [address] Apr, Lumbago with sciatica, left side M54.[address] [place] [address] Apr, [address] [place] [address] Apr, Lumbago with sciatica, right side M54.41 [facility] [address] [id number] [place] [address] Apr, Current moderate episode of major depres sive disorder, unspecified whether recurrent F32.1 and Lumbago with sciatica, right side M54.[address] [place] [address] Apr, Pelvic pain R10.2 ; Dysmenor jeremias N94.6 ; Menometrorrhagia N92.1 and Irregular menses N92.[address] [place] [address] Apr, Irregular menstrual cycle N9 2.6 and Pelvic pain R10.[address] [place] [address] Apr, Irregular menstrual cycle N9 2.6 ; Pelvic pain R10.2 and Menometrorrhagia N92.1 [address] [place] [address] Mar, Lumbago with sciatica, left side M54.42 [address] [address] Mar, Acute bilateral low back blossom n without sciatica M54.5 and Current moderate episode of major depressive disorder, unspecified whether recurrent F32.1 [address] [address] Mar, Lumbago with sciatica, left side M54.42 [address] [place] [address] Mar, Lumbago with sciatica, left side M54.42 [address] [address] Feb, Acute bilateral low back blossom n without sciatica M54.5 [address] [place] [address] Feb, Lumbago with sciatica, left side M54.42 [address] [place] [address] Jan, High risk medications (not a nticoagulants) long-term use Z79.899 ; Lumbago with sciatica, right side M54.41 ; Lumbago with sciatica, left side M54.42 and Dyspepsia R10.13 [address] [place] [address] Jan, Lumbago with sciatica, left side M54.42 [address] [place] [address] Dec, Lumbago with sciatica, left side M54.42 [address] [place] [address] Nov, Allergic rhinitis, unspecifi ed seasonality, unspecified trigger J30.[address] [place] [address] Nov, Lumbago with sciatica, left side M54.42 [address] [place] [address] Nov, Dysfunctional uterine bleedi ng N93.8 [address] [place] [address] Nov, [address] [place] [address] Nov, Other chronic pain G89.29 an d Low back pain M54.5 [place] [address] [address] October, [place] [address] [address] October, Lumbago with sciatica, left side M54.42 [place] [address] [address] October, [address] [place] [address] October, [address] [place] [address] October, Lumbago with sciatica, left side M54.42 ; Mixed hyperlipidemia E78.2 ; Pre-diabetes R73.09 ; Lumbago with sciatica, right side M54.41 and Current moderate episode of major depressive disorder, unspecified whether recurrent F32.1 [address] [place] [address] Sep, Dysuria R30.0 ; Lumbago with sciatica, left side M54.42 ; Open wound of finger of left hand, initial encounter S61.209A ; Cervical motion tenderness N94.9 ; Dysmenorrhea N94.6 ; Allergic rhinitis, unspecified seasonality, unspecified trigger J30.9 and Mixed hyperlipidemia E78.2 [address] [place] [address] Aug, Moderate persistent asthma w ith exacerbation J45.41 and Other chronic pain G89.29 [address] [address] Aug, Moderate persistent asthma w ith exacerbation J45.41 ; Mixed hyperlipidemia E78.2 ; Other chronic pain G89.29 ; Major depressive disorder in remission, unspecified whether recurrent F32.5 and Spondylolisthesis of lumbosacral region M43.[address] [address] Jul, Dental examination Z01.20 and Caries K02.[address] [address] Jun, Dental examination Z01.20 and Caries K02.[address] [address] Jan, Acute non-recurrent frontal sinusitis J0 1.10 ; Bronchitis J40 ; Tobacco use Z72.0 and Tobacco abuse counseling Z71.[address] [address] Jan, [address] [address] Jan, Bronchitis J40 and Viral upper respirato ry tract infection J06.[address] [address] October, Spondylolisthesis of lumbosacral region M43.[address] [address] October, [address] [address] October, Acute suppurative otitis media of left e ar without spontaneous rupture of tympanic membrane, recurrence not specified H66.002 ; Spondylolisthesis of lumbosacral region M43.17 ; Lumbago with sciatica, left side M54.42 ; Lumbago with sciatica, right side M54.41 ; Other chronic pain G89.29 ; Dysfunctional uterine bleeding N93.8 ; Screening for lipoid disorders Z13.220 and Pre-diabetes R73.09 [place] [address] [address] Sep, Anxiety F41.9 [place] [address] [address] Aug, [place] [address] [address] Aug, Dysfunction of both eustachian tubes H69 .83 [place] [address] [address] Apr, Anxiety F41.9 [place] [address] [address] Feb, Anxiety F41.9 [place] [address] [address] Feb, [place] [address] [address] Feb, [place] [address] [address] Feb, [place] [address] [address] Jan, Anxiety F41.9 [place] [address] [address] Jan, Anxiety F41.9 and Spondylolisthesis of l umbosacral region M43.17 [place] [address] [address] Dec, Anxiety F41.9 [facility] [address] [address] Nov, Anxiety F41.9 [place] [address] [address] October, Anxiety F41.9 and Seasonal allergic rhin itis due to pollen J30.1 [place] [address] [address] Sep, Anxiety F41.9 [place] [address] [address] Aug, Pre-diabetes R73.09 and Anxiety F41.9 [place] [address] [address] Jul, [place] [address] [address] Mar, [place] [address] [address] Mar, DUB (dysfunctional uterine bleeding) N93 .8 and Menorrhagia with irregular cycle N92.1 [place] [address] [address] Feb, [place] [address] [address] 08 Feb, 2016 Encounter for dental examination Z01.20 [facility] [address] [address] Feb, Herniated nucleus pulposus M51.9 [facility] [id number] [place] [address] Feb, Dental examination Z01.20 [place] [address] [address] Jan, Dental examination Z01.20 and Dental car ies K02.9 [place] [address] [address] Jan, Encounter for dental examination and juice aning without abnormal findings Z01.20 [facility] [address] [address] Jan, [facility] [address] [address] Jan, [facility] [address] [address] Jan, Pre-diabetes R73.09 ; Chronic nonintract able headache, unspecified headache type R51 and Vaginal yeast infection B37.3 [facility] [address] [address] Jan, [facility] [address] [address] Dec, Herniated nucleus pulposus M51.9 [facility] [address] [address] Dec, [facility] [address] [address] Nov, [facility] [address] [address] Nov, [facility] [address] [address] Nov, [facility] [address] [address] Nov, [facility] [address] [address] Nov, Right hip pain M25.551 ; Pre-diabetes R7 3.09 ; Mixed hyperlipidemia E78.2 ; Chronic nonintractable headache, unspecified headache type R51 ; Right foot pain M79.671 and Right hand pain M79.641 [facility] [address] [address] Nov, [facility] [address] [address] Nov, Right hip pain M25.551 ; Pre-diabetes R7 3.09 ; Mixed hyperlipidemia E78.2 and Chronic nonintractable headache, unspecified headache type R51 [place] [address] [address] October, [facility] [address] [address] October, Right hip pain M25.551 ; Pre-diabetes R7 3.09 ; Mixed hyperlipidemia E78.2 and Frequent headaches R51 [place] [address] [address] October, Menorrhagia with regular cycle N92.0 [facility] [address] [facility] [id number] [place] [address] October, [place] [address] [address] October, Menorrhagia with regular cycle N92.0 [place] [address] [address] Sep, Lump of right breast N63 ; Menorrhagia w ith regular cycle N92.0 and BMI 30.0-30.9,adult Z68.30 [place] [address] [address] Sep, [place] [address] [address] Aug, [place] [address] [address] Aug, Well woman exam Z01.419 ; Encounter [...] Z87.898 and Trichomonas vaginalis (TV) infection A59.01 [facility] [id number] [place] [address] October, Abdominal pain, unspecified site 789.00 ; GERD (gastroesophageal reflux disease) 530.81 and Chest pain 786.50 [facility] [id number] [place] [address] Sep, [facility] [address] [address] Sep, [facility] [address] [address] Jul, [facility] [address] [address] Jul, [facility] [address] [address] Jun, [facility] [address] [address] Jun, [facility] [address] [address] Jun, [facility] [address] [address] Jun, [facility] [address] [address] Jun, [facility] [address] [address] Jun, [facility] [address] [address] Jun, [facility] [address] [address] Jun, [facility] [address] [address] Jun, [facility] [address] [address] Jun, [facility] [address] [id number] [place] [address] Jun, [facility] [address] [id number] [place] [address] Jun, [facility] [address] [id number] [place] [address] Jun, [facility] [address] [id number] [place] [address] Jun, [facility] [address] [id number] [place] [address] Jun, [facility] [address] [id number] [place] [address] May, [facility] [address] [id number] [place] [address] May, [facility] [address] [id number] [place] [address] 30 Feb, 2013 [facility] [address] [id number] [place] [address] 30 Sep, 2013 [facility] [address] [id number] [place] [address] 29 Sep, 2013 [facility] [address] [id number] [place] [address] 25 Sep, 2013 [facility] [address] [id number] [place] [address] 25 Sep, 2013 [facility] [address] [id number] [place] [address] 17 Sep, 2013 [facility] [address] [id number] [place] [address] 17 Sep, 2013 [facility] [address] [id number] [place] [address] 11 Feb, 2013 [facility] [address] [id number] [place] [address] 11 Feb, 2013 [facility] [address] [id number] [place] [address] 10 Feb, 2013 [facility] [address] [facility] [id number] [place] [address] Feb, 2013 [facility] [address] [facility] [id number] [facility] [address] Feb, [facility] [address] [id number] [place] [address] Feb, [facility] [address] [facility] [id number] [place] [address] Feb, [facility] [address] [facility] [id number] [place] [address] Jan, [facility] [address] [id number] [place] [address] Jan, [facility] [address] [id number] [place] [address] Dec, [facility] [address] [id number] [place] [address] Dec, [facility] [address] [id number] [place] [address] Dec, [facility] [address] [id number] [place] [address] Dec, [facility] [address] [id number] [place] [address] Dec, [facility] [address] [id number] [place] [address] Dec, [facility] [address] [id number] [place] [address] Nov, [facility] [address] [id number] [place] [address] Nov, [facility] [address] [id number] [place] [address] Sep, [facility] [address] [id number] [place] [address] May, [facility] [address] [id number] [place] [address] May, [facility] [id number] [place] [address] Nov, [facility] [id number] [place] [address] Sep, [facility] [id number] [place] [address] Aug, [facility] [id number] [place] [address] Jun, [facility] [id number] [place] [address] Jun, [facility] [id number] [place] [address] Jun, [facility] [id number] [place] [address] May, [facility] [id number] [place] [address] May, [facility] [id number] [place] [address] May, [facility] [id number] [place] [address] May, [facility] [id number] [place] [address] Apr, [facility] [id number] [place] [address] Apr, [facility] [id number] [place] [address] Apr, [facility] [id number] [place] [address] Apr, IMMUNIZATIONS No Known Immunizations SOCIAL HISTORY Never Assessed REASON FOR VISIT PLAN OF CARE VITAL SIGNS Height 65 in 2013-12-04 Weight 215.4 lbs 2013-12-04 Temperature 97.5 degrees Fahrenheit 2013-12-04 Heart Rate 80 bpm 2013-12-04 Respiratory Rate 18 2013-12-04 Blood pressure systolic 118 mmHg 2013-12-04 Blood pressure diastolic 80 mmHg 2013-12-04 MEDICATIONS Unknown Medications RESULTS No Results PROCEDURES Procedure Date Ordered Result Body Site X-RAY EXAM OF LOWER SPINE December 04, 2013 VISIT December 04, 2013 INSTRUCTIONS MEDICATIONS ADMINISTERED No Known Medications MEDICAL [...]
--- OUTSIDE RECORDS SUMMARY | 2019-12-03 22:22 | XMS REPORT ---
Author Author Imani Peres Organization [facility] Address [address] [place] [address] Care Team Providers Care Mail Order Clerk Name Role Phone MANNY Peres Unavailable PROBLEMS Type Condition ICD9-CM Code [id number] Code Onset Dates Condition S tatus SNOMED Code Problem Pre-diabetes R73.09 Active 1676401 02 Problem Mixed hyperlipidemia E78.2 Active 468231805 Problem Lumbago with sciatica, left side M54.42 Active 792722511 Problem Lumbago with sciatica, right side M54.41 Active 683961315051533 Problem Other chronic pain G89.29 Active 8 5122235 Problem Allergic rhinitis, unspecified seasonality, unspecifie d trigger J30.9 Active 03038189 Problem Spondylolisthesis of lumbosacral region M43.17 Active 751156263 Problem Current moderate episode of major depressive disorder, unspecified whether recurrent F32.1 Active 39789290 Problem Seasonal allergic rhinitis due to pollen J30.1 Active 47628408 Problem Dysfunctional uterine bleeding N93.8 Active 19701573 Problem Moderate persistent asthma with exacerbation J45.4 1 Active 679127520 Problem Cervical motion tenderness N94.9 Act [place] 437585939 Problem Dysmenorrhea N94.6 Active 1564672 00 ALLERGIES No Information ENCOUNTERS Encounter Location Date Diagnosis [address] [address] Mar, Lumbago with sciatica, left side M54.[address] [address] Feb, Acute bilateral low back pain without sc iatica M54.[address] [address] Feb, Lumbago with sciatica, left side M54.[address] [place] [address] Jan, High risk medications (not anticoagulant s) long-term use Z79.899 ; Lumbago with sciatica, right side M54.41 ; Lumbago with sciatica, left side M54.42 and Dyspepsia R10.13 [facility] [address] [address] Jan, Lumbago with sciatica, left side M54.[address] [address] Dec, Lumbago with sciatica, left side M54.[address] [address] Nov, Allergic rhinitis, unspecified seasonali ty, unspecified trigger J30.[address] [address] Nov, Lumbago with sciatica, left side M54.[address] [address] Nov, Dysfunctional uterine bleeding N93.[address] [address] Nov, [address] [address] Nov, Other chronic pain G89.29 and Low back p ain M54.5 [place] [address] [address] [place] [id number] [address] [place] [address] October, [place] [address] [address] [facility] [id number] [address] [place] [address] October, Lumbago with sciatica, left side M54.42 [place] [address] [address] [facility] [id number] [address] [place] [address] October, [address] [address] October, [address] [address] October, Lumbago with sciatica, left side M54.42 ; Mixed hyperlipidemia E78.2 ; Pre-diabetes R73.09 ; Lumbago with sciatica, right side M54.41 and Current moderate episode of major depressive disorder, unspecified whether recurrent F32.[address] [address] Sep, Dysuria R30.0 ; Lumbago with sciatica, l eft side M54.42 ; Open wound of finger of left hand, initial encounter S61.209A ; Cervical motion tenderness N94.9 ; Dysmenorrhea N94.6 ; Allergic rhinitis, unspecified seasonality, unspecified trigger J30.9 and Mixed hyperlipidemia E78.[address] [address] Aug, Moderate persistent asthma with exacerba tion J45.41 and Other chronic pain G89.[address] [address] Aug, Moderate persistent asthma with exacerba tion J45.41 ; Mixed hyperlipidemia E78.2 ; Other chronic pain G89.29 ; Major depressive disorder in remission, unspecified whether recurrent F32.5 and Spondylolisthesis of lumbosacral region M43.17 [facility] [address] [place] [address] Jul, 19 Dental examination Z01.20 and Caries K02.9 [facility] [address] [place] [address] Jun, Dental examination Z01.20 and Caries K02.[address] [address] Jan, Acute non-recurrent frontal sinusitis J01.10 ; Bronchitis J40 ; Tobacco use Z72.0 and Tobacco abuse counseling Z71.[address] [address] Jan, [address] [address] Jan, Bronchitis J40 and Viral upp er respiratory tract infection J06.9 [facility] [address] [id number] [address] [place] [address] October, Spondylolisthesis of lumbosa cral region M43.17 [facility] [address] [facility] [id number] [address] [place] [address] October, [facility] [address] [place] [id number] [address] [place] [address] October, Acute suppurative otitis med ia of left ear without spontaneous rupture of tympanic membrane, recurrence not specified H66.002 ; Spondylolisthesis of lumbosacral region M43.17 ; Lumbago with sciatica, left side M54.42 ; Lumbago with sciatica, right side M54.41 ; Other chronic pain G89.29 ; Dysfunctional uterine bleeding N93.8 ; Screening for lipoid disorders Z13.220 and Pre-diabetes R73.09 [facility] [address] [place] [id number] [address] [place] [address] Sep, Anxiety F41.9 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 [address] [facility] [id number] [address] [place] [address] Feb, Anxiety F41.9 [facility] [address] [facility] [id number] [address] [place] [address] Feb, [facility] [address] [facility] [id number] [address] [place] [address] Feb, [facility] [address] [place] [id number] [address] [place] [address] Feb, [place] [address] [place] [id number] [address] [place] [address] Jan, Anxiety F41.9 [place] [address] [address] Jan, Anxiety F41.9 and Spondyloli sthesis of lumbosacral region M43.17 [place] [address] [address] Dec, Anxiety F41.9 [place] [address] [address] Nov, Anxiety F41.9 [place] [address] [address] October, Anxiety F41.9 and Seasonal a llergic rhinitis due to pollen J30.1 [place] [address] [address] Sep, Anxiety F41.9 [place] [address] [address] Aug, Pre-diabetes R73.09 and Anxi ety F41.9 [place] [address] [address] 16 Jul, 2016 [place] [address] [address] Mar, [place] [address] [address] 13 Mar, 2016 DUB (dysfunctional uterine b leeding) N93.8 and Menorrhagia with irregular cycle N92.1 [place] [address] [address] 19 Feb, 2016 [place] [address] [address] 08 Feb, 2016 Encounter for dental examina tion Z01.20 [place] [address] [place] [id number] [address] [place] [address] Feb, Herniated nucleus pulposus M 51.9 [facility] [address] [id number] [address] [place] [id number] Feb, Dental examination Z01.20 [facility] [address] [id number] [address] [place] [address] Jan, Dental examination Z01.20 an d Dental caries K02.9 [facility] [address] [id number] [address] [place] [address] Jan, Encounter for dental examina tion and cleaning without abnormal findings Z01.20 [facility] [address] [id number] [address] [place] [address] Jan, [facility] [address] [id number] [address] [place] [address] Jan, [facility] [address] [id number] [address] [place] [address] Jan, Pre-diabetes R73.09 ; Chroni c nonintractable headache, unspecified headache type R51 and Vaginal yeast infection B37.3 [facility] [address] [id number] [address] [place] [phone] Jan, [facility] [address] [id number] [address] [place] [address] Dec, Herniated nucleus pulposus M 51.9 [facility] [address] [id number] [address] [place] [id number] Dec, [facility] [address] [id number] [address] [place] [phone] Nov, [facility] [address] [id number] [address] [place] [phone] Nov, [facility] [address] [id number] [address] [place] [address] Nov, [facility] [address] [address] Nov, [place] [address] [address] Nov, Right hip pain M25.551 ; Pre -diabetes R73.09 ; Mixed hyperlipidemia E78.2 ; Chronic nonintractable headache, unspecified headache type R51 ; Right foot pain M79.671 and Right hand pain M79.641 [place] [address] [address] 17 Nov, 2015 [place] [address] [address] 15 Nov, 2015 Right hip pain M25.551 ; Pre -diabetes R73.09 ; Mixed hyperlipidemia E78.2 and Chronic nonintractable headache, unspecified headache type R51 [place] [address] [address] October, [place] [address] [address] October, Right hip pain M25.551 ; Pre -diabetes R73.09 ; Mixed hyperlipidemia E78.2 and Frequent headaches R51 [place] [address] [address] [place] [id number] [address] [place] [address] October, Menorrhagia with regular cyc le N92.0 [facility] [address] [place] [id number] [address] [place] [address] October, [facility] [address] [place] [id number] [address] [place] [address] October, Menorrhagia with regular cyc le N92.0 [facility] [address] [address] Sep, Lump of right breast N63 ; M enorrhagia with regular cycle N92.0 and BMI 30.0-30.9,adult Z68.30 [place] [address] [place] [address] [place] [address] Sep, [facility] [address] [place] [id number] [address] [place] [address] Aug, [facility] [address] [place] [id number] [address] [place] [address] Aug, Well woman exam Z01.419 ; En [...] Z87.898 and Trichomonas vaginalis (TV) infection A59.01 [place] [address] [place] [address] October, Abdominal pain, unspecified site 789.00 ; GERD (gastroesophageal reflux disease) 530.81 and Chest pain 786.50 [place] [address] [place] [address] Sep, [place] [address] [place] [id number] [address] [place] [address] Sep, [place] [address] [place] [id number] [address] [place] [address] Jul, [place] [address] [place] [id number] [address] [place] [address] Jul, [place] [address] [place] [address] Jun, [place] [address] [place] [id number] [address] [place] [address] Jun, [place] [address] [place] [id number] [address] [place] [address] Jun, [facility] [address] [id number] [address] [place] [address], [place] [address] Jun, [facility] [address] [id number] [address] [place] [address], [place] [address] Jun, [facility] [address] [id number] [address] [place] [address], [place] [address] Jun, [facility] [address] [id number] [address] [place] [address], [place] [address] Jun, [facility] [address] [id number] [address] [place] [address], [place] [address] Jun, [facility] [address] [id number] [address] [place] [address], [place] [address] Jun, [facility] [address] [id number] [address] [place] [address], [place] [address] Jun, [facility] [address] [id number] [address] [place] [address], [place] [address] Jun, [facility] [address] [id number] [address] [place] [address], [place] [address] Jun, [facility] [address] [id number] [address] [place] [address], [place] [address] Jun, [facility] [address] [id number] [address] [place] [address], [place] [address] Jun, [facility] [address] [id number] [address] [place] [address], [place] [address] Jun, [facility] [address] [id number] [address] [place] [address], [place] [address] May, [facility] [address] [id number] [address] [place] [address], [place] [address] May, [facility] [address] [id number] [address] [place] [address], [place] [address] Feb, [facility] [address] [id number] [facility] [place] [address] 30 Sep, 2013 [facility] [address] [id number] [address] [place] [address], [place] [address] 29 Sep, 2013 [facility] [address] [id number] [address] [place] [address], [place] [address] 25 Sep, 2013 [facility] [address] [id number] [address] [place] [address], [place] [address] 25 Sep, 2013 [facility] [address] [id number] [address] [place] [address], [place] [address] 17 Sep, 2013 [facility] [address] [id number] [address] [place] [address], [place] [address] 17 Feb, 2013 [facility] [address] [id number] [address] [place] [address], [place] [address] 11 Feb, 2013 [facility] [address] [id number] [address] [place] [address], [place] [address] 11 Feb, 2013 [facility] [address] [id number] [address] [place] [address], [place] [address] 10 Feb, 2013 [facility] [address] [id number] [address] [place] [address], [place] [address] 10 Feb, 2013 [facility] [address] [id number] [address] [place] [address], [place] [address] 10 Feb, 2013 [facility] [address] [id number] [address] [place] [address], [place] [address] 09 Feb, 2013 [facility] [address] [id number] [address] [place] [address], [place] [address] 09 Feb, 2013 [facility] [address] [id number] [address] [place] [address], [place] [address] 15 Jan, 2014 [facility] [address] [id number] [address] [place] [address], [place] [address] 15 Jan, 2014 [facility] [address] [id number] [address] [place] [address], [place] [address] Dec, [facility] [address] [id number] [address] [place] [address], [place] [address] Dec, [facility] [address] [id number] [address] [place] [address], [place] [address] Dec, [facility] [address] [id number] [address] [place] [address], [place] [address] Dec, [facility] [address] [id number] [address] [place] [address], [place] [address] Dec, [facility] [address] [id number] [address] [place] [address], [place] [address] Dec, [facility] [address] [id number] [address] [place] [address], [place] [address] Nov, [facility] [address] [id number] [address] [place] [address], [place] [address] Nov, [facility] [address] [id number] [address] [place] [address], [place] [address] Sep, [facility] [address] [id number] [address] [place] [address], [place] [address] May, [facility] [address] [id number] [address] [place] [address], [place] [address] May, [facility] [address] [id number] [address] [place] [address], [place] [address] Nov, [facility] [address] [id number] [address] [place] [address], [place] [address] Sep, [facility] [address] [id number] [address] [place] [address], [place] [address] Aug, [facility] [address] [id number] [address] [place] [address], [place] [address] 16 Jun, 2011 [facility] [address] [id number] [address] [place] [address], [place] [address] Jun, [facility] [address] [id number] [address] [place] [id number] Jun, [facility] [address] [id number] [address] [place] [address] May, [facility] [address] [id number] [address] [place] [phone] May, [facility] [address] [id number] [address] [place] [phone] May, [facility] [address] [id number] [address] [place] [phone] May, [facility] [address] [id number] [address] [place] [phone] Apr, [facility] [address] [id number] [address] [place] [address] Apr, [facility] [address] [facility] [id number] [address] [place] [address] Apr, [facility] [address] [id number] [address] [place] [address] Apr, IMMUNIZATIONS No Known Immunizations SOCIAL HISTORY [...]
--- OUTSIDE RECORDS SUMMARY | 2019-12-03 22:22 | XMS REPORT ---
Author Author Imani Peres Organization [facility] Address [address] [place] [address] Care Team Providers Care Back Up Scan Coordinator Name Role Phone MANNY Peres Unavailable PROBLEMS Type Condition ICD9-CM Code TMA57-DE Code Onset Dates Condition S tatus SNOMED Code Problem Mixed hyperlipidemia E78.2 Active 630475515 Problem Pre-diabetes R73.09 Active 2934812 02 Problem Spondylolisthesis of lumbosacral region M43.17 Active 808953977 Problem Seasonal allergic rhinitis due to pollen J30.1 Active 24869103 Problem Lumbago with sciatica, right side M54.41 Active 437352708819156 Problem Lumbago with sciatica, left side M54.42 Active 613512130 Problem Moderate persistent asthma with exacerbation J45.4 1 Active 887479708 Problem Dysmenorrhea N94.6 Active 4043680 00 Problem Cervical motion tenderness N94.9 Act venice 434069581 Problem Irregular menses N92.6 Active 801 54927 Problem Dysfunctional uterine bleeding N93.8 Active 73553007443236 Problem Menorrhagia with irregular cycle N92.1 Active 169981051 Problem Other chronic pain G89.29 Active 8 8147370 Problem Allergic rhinitis, unspecified seasonality, unspecifie d trigger J30.9 Active 38474894 Problem Current moderate episode of major depressive disorder, unspecified whether recurrent F32.1 Active 90735002 Problem Menometrorrhagia N92.1 Active 314 142881 Problem Irregular menstrual cycle N92.6 Acti ve 13060429 ALLERGIES No Information ENCOUNTERS Encounter Location Date Diagnosis [address] [place] [address] May, Lumbago with sciatica, left side M54.42 [address] [place] [address] May, Dysmenorrhea N94.6 ; Pelvic pain R10.2 and Menometrorrhagia N92.[address] [place] [address] May, [address] [place] [address] May, Acute non-recurrent maxillar y sinusitis J01.[address] [place] [address] Apr, Lumbago with sciatica, left side M54.[address] [place] [address] Apr, [address] [place] [address] Apr, Lumbago with sciatica, right side M54.41 [facility] [address] [place] [id number] [place] [address] Apr, Current moderate episode of major depres sive disorder, unspecified whether recurrent F32.1 and Lumbago with sciatica, right side M54.[address] [place] [address] Apr, Pelvic pain R10.2 ; Dysmenor jeremias N94.6 ; Menometrorrhagia N92.1 and Irregular menses N92.[address] [place] [address] Apr, Irregular menstrual cycle N9 2.6 and Pelvic pain R10.[address] [place] [address] Apr, Irregular menstrual cycle N9 2.6 ; Pelvic pain R10.2 and Menometrorrhagia N92.[address] [place] [address] Mar, Lumbago with sciatica, left side M54.[address] [place] [address] Mar, Acute bilateral low back blossom n without sciatica M54.5 and Current moderate episode of major depressive disorder, unspecified whether recurrent F32.1 [address] [place] [address] Mar, Lumbago with sciatica, left side M54.42 [address] [address] Mar, Lumbago with sciatica, left side M54.42 [address] [place] [address] Feb, Acute bilateral low back blossom n without sciatica M54.5 [address] [place] [address] Feb, Lumbago with sciatica, left side M54.42 [address] [place] [address] Jan, High risk medications (not a nticoagulants) long-term use Z79.899 ; Lumbago with sciatica, right side M54.41 ; Lumbago with sciatica, left side M54.42 and Dyspepsia R10.13 [address] [place] [address] Jan, Lumbago with sciatica, left side M54.42 [address] [place] [address] Dec, Lumbago with sciatica, left side M54.42 [address] [place] [address] Nov, Allergic rhinitis, unspecifi ed seasonality, unspecified trigger J30.9 [address] [place] [address] Nov, Lumbago with sciatica, left side M54.42 [address] [place] [address] Nov, Dysfunctional uterine bleedi ng N93.8 [address] [place] [address] Nov, [address] [place] [address] Nov, Other chronic pain G89.29 an d Low back pain M54.5 [address] [address] October, [address] [address] October, Lumbago with sciatica, left side M54.42 [address] [address] October, [address] [place] [address] October, [address] [place] [address] October, Lumbago with sciatica, left side M54.42 ; Mixed hyperlipidemia E78.2 ; Pre-diabetes R73.09 ; Lumbago with sciatica, right side M54.41 and Current moderate episode of major depressive disorder, unspecified whether recurrent F32.1 [address] [place] [address] Sep, Dysuria R30.0 ; Lumbago with sciatica, left side M54.42 ; Open wound of finger of left hand, initial encounter S61.209A ; Cervical motion tenderness N94.9 ; Dysmenorrhea N94.6 ; Allergic rhinitis, unspecified seasonality, unspecified trigger J30.9 and Mixed hyperlipidemia E78.2 [address] [place] [address] Aug, Moderate persistent asthma w ith exacerbation J45.41 and Other chronic pain G89.[address] [place] [address] Aug, Moderate persistent asthma w ith exacerbation J45.41 ; Mixed hyperlipidemia E78.2 ; Other chronic pain G89.29 ; Major depressive disorder in remission, unspecified whether recurrent F32.5 and Spondylolisthesis of lumbosacral region M43.17 [facility] [address] [place] [id number] [place] [address] Jul, Dental examination Z01.[address] [facility] [address] [place] [id number] [address] Jun, Dental examination Z01.20 and Caries K02.9 [id number] [place] [address] Jan, Acute non-recurrent frontal sinusitis J0 1.10 ; Bronchitis J40 ; Tobacco use Z72.0 and Tobacco abuse counseling Z71.6 [id number] [place] [address] Jan, [address] [address] Jan, Bronchitis J40 and Viral upper respirato ry tract infection J06.9 [id number] [place] [address] October, Spondylolisthesis of lumbosacral region M43.[address] [address] October, [address] [address] October, Acute suppurative otitis media of left e ar without spontaneous rupture of tympanic membrane, recurrence not specified H66.002 ; Spondylolisthesis of lumbosacral region M43.17 ; Lumbago with sciatica, left side M54.42 ; Lumbago with sciatica, right side M54.41 ; Other chronic pain G89.29 ; Dysfunctional uterine bleeding N93.8 ; Screening for lipoid disorders Z13.220 and Pre-diabetes R73.09 [facility] [address] [address] Sep, Anxiety F41.9 [facility] [address] [address] Aug, [facility] [address] [address] Aug, Dysfunction of both eustachian tubes H69 .83 [address] [address] Apr, Anxiety F41.9 [address] [address] Feb, Anxiety F41.9 [address] [address] Feb, [address] [address] 08 Feb, 2017 [address] [address] Feb, [address] [address] Jan, Anxiety F41.9 [address] [address] Jan, Anxiety F41.9 and Spondylolisthesis of l umbosacral region M43.17 [address] [address] Dec, Anxiety F41.9 [address] [address] Nov, Anxiety F41.9 [address] [address] October, Anxiety F41.9 and Seasonal allergic rhin itis due to pollen J30.1 [address] [address] Sep, Anxiety F41.9 [facility] [address] [address] Aug, Pre-diabetes R73.[address] [facility] [address] [address] 16 Jul, 2016 [facility] [address] [address] Mar, [facility] [address] [address] 13 Mar, 2016 DUB (dysfunctional uterine bleeding) N93 .8 and Menorrhagia with irregular cycle N92.1 [address] [address] 19 Feb, 2016 [address] [address] 08 Feb, 2016 Encounter for dental examination Z01.20 [facility] [address] [address] Feb, Herniated nucleus pulposus M51.9 [facility] [address] [id number] Feb, Dental examination Z01.20 [facility] [address] [address] Jan, Dental examination Z01.20 and Dental car ies K02.9 [facility] [address] [address] Jan, Encounter for dental examination and juice aning without abnormal findings Z01.20 [facility] [address] [address] Jan, [facility] [address] [address] Jan, [facility] [address] [address] Jan, Pre-diabetes R73.09 ; Chronic nonintract able headache, unspecified headache type R51 and Vaginal yeast infection B37.3 [address] [address] Jan, [facility] [address] [address] Dec, Herniated nucleus pulposus M51.9 [address] [address] Dec, [facility] [address] [address] Nov, [address] [address] Nov, [address] [address] Nov, [address] [address] Nov, [address] [address] Nov, Right hip pain M25.551 ; Pre-diabetes R7 3.09 ; Mixed hyperlipidemia E78.2 ; Chronic nonintractable headache, unspecified headache type R51 ; Right foot pain M79.671 and Right hand pain M79.641 [address] [address] Nov, [address] [address] Nov, Right hip pain M25.551 ; Pre-diabetes R7 3.09 ; Mixed hyperlipidemia E78.2 and Chronic nonintractable headache, unspecified headache type R51 [address] [address] October, [address] [address] October, Right hip pain M25.551 ; Pre-diabetes R7 3.09 ; Mixed hyperlipidemia E78.2 [address] Frequent headaches R51 [facility] [address] [address] October, Menorrhagia with regular cycle N92.0 [facility] [address] [facility] [id number] [place] [address] October, [facility] [address] [address] October, Menorrhagia with regular cycle N92.0 [address] [address] Sep, Lump of right breast N63 ; Menorrhagia w ith regular cycle N92.0 and BMI 30.0-30.9,adult Z68.30 [address] [address] Sep, [address] [address] Aug, [address] [address] Aug, Well woman exam Z01.419 ; Encounter [...] Z87.898 and Trichomonas vaginalis (TV) infection A59.01 [address] [address] October, Abdominal pain, unspecified site 789.00 ; GERD (gastroesophageal reflux disease) 530.81 and Chest pain 786.50 [address] [address] Sep, [facility] [address] [id number] [place] [address] Sep, [facility] [address] [id number] [place] [address] Jul, [facility] [address] [id number] [place] [address] Jul, [facility] [address] [id number] [place] [address] Jun, [facility] [address] [facility] [id number] [place] [address] Jun, [facility] [address] [id number] [place] [address] Jun, [facility] [address] [id number] [place] [address] Jun, [facility] [address] [id number] [place] [address] Jun, [facility] [address] [id number] [place] [address] Jun, [facility] [address] [id number] [place] [address] Jun, [facility] [address] [id number] [place] [address] Jun, [facility] [address] [id number] [place] [address] Jun, [facility] [address] [id number] [place] [address] Jun, [facility] [address] [id number] [place] [address] Jun, [facility] [address] [id number] [place] [address] 08 Jun, 2014 [facility] [address] [id number] [place] [address] Jun, [facility] [address] [id number] [place] [address] Jun, [facility] [address] [facility] [id number] [facility] [place] [address] Jun, [facility] [address] [facility] [id number] [place] [address] May, [facility] [address] [id number] [place] [address] May, [facility] [address] [id number] [place] [address] 30 Feb, 2013 [facility] [address] [id number] [place] [address] 30 Feb, 2013 [facility] [address] [id number] [place] [address] 29 Feb, 2013 [facility] [address] [id number] [place] [address] 25 Feb, 2013 [facility] [address] [id number] [place] [address] 25 Feb, 2013 [facility] [address] [id number] [place] [address] 17 Feb, 2013 [facility] [address] [id number] [place] [address] 17 Feb, 2013 [facility] [address] [id number] [place] [address] 11 Feb, 2013 [facility] [address] [id number] [place] [address] 11 Feb, 2013 [facility] [address] [id number] [place] [address] 10 Sep, 2013 [facility] [address] [id number] [place] [address] 10 Feb, 2013 [facility] [address] [id number] [place] [address] 10 Feb, 2013 [facility] [address] [id number] [place] [address] 09 Sep, 2013 [facility] [address] [id number] [place] [address] Feb, [facility] [address] [id number] [place] [address] Jan, [facility] [address] [id number] [place] [address] Jan, [facility] [address] [id number] [place] [address] Dec, [facility] [address] [id number] [place] [address] Dec, [facility] [address] [id number] [place] [address] Dec, [facility] [address] [id number] [place] [address] Dec, [facility] [address] [id number] [place] [address] Dec, [facility] [address] [id number] [place] [address] Dec, [facility] [address] [id number] [place] [address] Nov, [facility] [address] [id number] [place] [address] Nov, [facility] [address] [id number] [place] [address] Sep, [facility] [address] [id number] [place] [address] May, [facility] [address] [id number] [place] [address] May, [facility] [address] [id number] [place] [address] Nov, [facility] [address] [id number] [place] [address] Sep, [facility] [address] [id number] [place] [address] Aug, [facility] [address] [id number] [place] [address] Jun, [facility] [address] [id number] [place] [address] Jun, [facility] [address] [id number] [place] [address] Jun, [facility] [id number] [place] [address] May, [facility] [address] [id number] [place] [address] May, [facility] [id number] [place] [address] May, [facility] [address] [id number] [place] [address] May, [facility] [id number] [place] [address] Apr, [facility] [address] [id number] [place] [address] Apr, [facility] [address] [id number] [place] [address] Apr, [facility] [address] [id number] [place] [address] Apr, IMMUNIZATIONS No Known Immunizations SOCIAL HISTORY [...]
--- OUTSIDE RECORDS SUMMARY | 2019-12-03 22:22 | XMS REPORT ---
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 Name Role Phone LON Ramírez Unavailable PROBLEMS Type Condition ICD9-CM Code BUH80-DE Code Onset Dates Condition S tatus SNOMED Code Problem Pre-diabetes R73.09 Active 8929108 02 Problem Mixed hyperlipidemia E78.2 Active 363971486 Problem Lumbago with sciatica, left side M54.42 Active 305994815 Problem Lumbago with sciatica, right side M54.41 Active [id number] Problem Other chronic pain G89.29 Active 8 3623633 Problem Allergic rhinitis, unspecified seasonality, unspecifie d trigger J30.9 Active 13905345 Problem Spondylolisthesis of lumbosacral region M43.17 Active 353937535 Problem Current moderate episode of major depressive disorder, unspecified whether recurrent F32.1 Active 05249681 Problem Seasonal allergic rhinitis due to pollen J30.1 Active 62396975 Problem Dysfunctional uterine bleeding 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.8 Active 63263596 Problem Moderate persistent asthma with exacerbation J45.4 1 Active 239005554 Problem Cervical motion tenderness N94.9 Act venice 147944160 Problem Dysmenorrhea N94.6 Active 2275692 00 ALLERGIES No Information ENCOUNTERS Encounter Location Date Diagnosis [address] [address] Feb, Lumbago with sciatica, left side M54.[address] [address] Jan, High risk medications (not anticoagulant s) long-term use Z79.899 ; Lumbago with sciatica, right side M54.41 ; Lumbago with sciatica, left side M54.42 and Dyspepsia R10.[address] [address] Jan, Lumbago with sciatica, left side M54.[address] [address] Dec, Lumbago with sciatica, left side M54.[address] [address] Nov, Allergic rhinitis, unspecified seasonali ty, unspecified trigger J30.[address] [address] Nov, Lumbago with sciatica, left side M54.[address] [address] Nov, Dysfunctional uterine bleeding N93.[address] [address] Nov, [address] [address] Nov, Other chronic pain G89.29 and Low back p ain M54.5 [facility] [address] [facility] [id number] [address] [place] [address] October, [facility] [address] [facility] [id number] [address] [place] [address] October, Lumbago with sciatica, left side M54.42 [facility] [address] [facility] [id number] [address] [place] [address] October, [address] [address] October, [address] [address] October, Lumbago with sciatica, left side M54.42 ; Mixed hyperlipidemia E78.2 ; Pre-diabetes R73.09 ; Lumbago with sciatica, right side M54.41 and Current moderate episode of major depressive disorder, unspecified whether recurrent F32.[address] [address] Sep, Dysuria R30.0 ; Lumbago with sciatica, l eft side M54.42 ; Open wound of finger of left hand, initial encounter S61.209A ; Cervical motion tenderness N94.9 ; Dysmenorrhea N94.6 ; Allergic rhinitis, unspecified seasonality, unspecified trigger J30.9 and Mixed hyperlipidemia E78.[address] [address] Aug, Moderate persistent asthma with exacerba tion J45.41 and Other chronic pain G89.[address] [address] Aug, Moderate persistent asthma with exacerba tion J45.41 ; Mixed hyperlipidemia E78.2 ; Other chronic pain G89.29 ; Major depressive disorder in remission, unspecified whether recurrent F32.5 and Spondylolisthesis of lumbosacral region M43.[address] [place] [id number] Jul, 9 Dental examination Z01.20 and Caries K02.[address] [place] [id number] Jun, 9 Dental examination Z01.20 and Caries K02.[address] [address] Jan, Acute non-recurrent frontal sinusitis J01.10 ; Bronchitis J40 ; Tobacco use Z72.0 and Tobacco abuse counseling Z71.6 [place] [id number] [address] [place] [address] Jan, [place] [id number] [address] [place] [address] Jan, Bronchitis J40 and Viral upp er respiratory tract infection J06.9 [place] [id number] [address] [place] [address] October, Spondylolisthesis of lumbosa cral region M43.17 [place] [id number] [address] [place] [address] October, [place] [address] [id number] [address] [place] [address] October, Acute suppurative otitis med ia of left ear without spontaneous rupture of tympanic membrane, recurrence not specified H66.002 ; Spondylolisthesis of lumbosacral region M43.17 ; Lumbago with sciatica, left side M54.42 ; Lumbago with sciatica, right side M54.41 ; Other chronic pain G89.29 ; Dysfunctional uterine bleeding N93.8 ; Screening for lipoid disorders Z13.220 and Pre-diabetes R73.09 [facility] [address] [id number] [address] [place] [address] Sep, Anxiety F41.9 [place] [address] [facility] [id number] [address] [place] [address] Aug, [place] [address] [facility] [id number] [address] [place] [address] Aug, 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 [place] [address] [facility] [id number] [address] [place] [address] Apr, Anxiety F41.9 [place] [address] [facility] [id number] [address] [place] [address] Feb, Anxiety F41.9 [place] [address] [facility] [id number] [address] [place] [address] Feb, [facility] [address] [facility] [id number] [address] [place] [address] 08 Feb, 2017 [facility] [address] [facility] [id number] [address] [place] [address] Feb, [facility] [address] [facility] [id number] [address] [place] [address] Jan, Anxiety F41.9 [place] [address] [facility] [id number] [address] [place] [address] Jan, Anxiety F41.9 and Spondyloli sthesis of lumbosacral region M43.17 [facility] [address] [place] [id number] [address] [place] [address] 17 Dec, 2016 Anxiety F41.9 [facility] [address] [place] [id number] [address] [place] [address] 14 Nov, 2016 Anxiety F41.9 [facility] [address] [place] [id number] [place] [address] 10 Oct, 2016 Anxiety F41.9 and Seasonal a llergic rhinitis due to pollen J30.1 [facility] [address] [place] [id number] [place] [address] Sep, Anxiety F41.9 [place] [address] [place] [id number] [place] [address] 16 Aug, 2016 Pre-diabetes R73.09 and Anxi ety F41.9 [place] [address] [address] 16 Jul, 2016 [facility] [address] [address] Mar, [facility] [address] [address] 13 Mar, 2016 DUB (dysfunctional uterine b leeding) N93.8 and Menorrhagia with irregular cycle N92.1 [place] [address] [address] Feb, [facility] [address] [address] 08 Feb, 2016 Encounter for dental examina tion Z01.20 [facility] [address] [address] 01 Feb, 2016 Herniated nucleus pulposus M 51.9 [facility] [address] [id number] [address] [place] [address] [id number] Feb, Dental examination Z01.20 [facility] [address] [place] [id number] [address] [place] [address] 25 Jan, 2016 Dental examination Z01.20 an d Dental caries K02.9 [facility] [address] [id number] [address] [place] [address] Jan, Encounter for dental examina tion and cleaning without abnormal findings Z01.20 [facility] [address] [id number] [address] [place] [address] Jan, [facility] [address] [id number] [address] [place] [address] Jan, [facility] [address] [id number] [address] [place] [address] Jan, Pre-diabetes R73.09 ; Chroni c nonintractable headache, unspecified headache type R51 and Vaginal yeast infection B37.3 [facility] [address] [id number] [address] [place] [address] Jan, [facility] [address] [id number] [address] [place] [address] Dec, Herniated nucleus pulposus M 51.9 [facility] [address] [id number] [address] [place] [address] Dec, [facility] [address] [id number] [address] [place] [address] Nov, [facility] [address] [id number] [address] [place] [address] Nov, [facility] [address] [id number] [address] [place] [address] Nov, [facility] [address] [id number] [address] [place] [address] Nov, [facility] [address] [id number] [address] [place] [address] Nov, Right hip pain M25.551 ; Pre -diabetes R73.09 ; Mixed hyperlipidemia E78.2 ; Chronic nonintractable headache, unspecified headache type R51 ; Right foot pain M79.671 and Right hand pain M79.641 [facility] [address] [facility] [id number] [address] [place] [address] Nov, [facility] [address] [facility] [id number] [address] [place] [address] Nov, Right hip pain M25.551 ; Pre -diabetes R73.09 ; Mixed hyperlipidemia E78.2 and Chronic nonintractable headache, unspecified headache type R51 [facility] [address] [facility] [id number] [address] [place] [address] October, [facility] [address] [place] [id number] [place] [address] October, Right hip pain M25.551 ; Pre -diabetes R73.09 ; Mixed hyperlipidemia E78.2 and Frequent headaches R51 [facility] [address] [place] [id number] [address] [place] [address] October, Menorrhagia with regular cyc le N92.0 [facility] [address] [facility] [id number] [address] [place] [address] October, [facility] [address] [place] [id number] [place] [address] October, Menorrhagia with regular cyc le N92.0 [facility] [address] [facility] [id number] [address] [place] [address] Sep, Lump of right breast N63 ; M enorrhagia with regular cycle N92.0 and BMI 30.0-30.9,adult Z68.30 [facility] [address] [facility] [id number] [address] [place] [address] Sep, [facility] [address] [facility] [id number] [address] [place] [address] Aug, [facility] [address] [place] [id number] [place] [address] Aug, Well woman exam Z01.419 ; En [...] Z87.898 and Trichomonas vaginalis (TV) infection A59.01 [facility] [address] [id number] [address] [place] [address] October, Abdominal pain, unspecified site 789.00 ; GERD (gastroesophageal reflux disease) 530.81 and Chest pain 786.50 [place] [address] [id number] [address] [place] [address] 14 Sep, 2014 [facility] [address] [id number] [address] [place] [address] Sep, [facility] [address] [id number] [address] [place] [address] Jul, [facility] [address] [id number] [address] [place] [address] Jul, [facility] [address] [id number] [address] [place] [address] Jun, [facility] [address] [id number] [address] [place] [address] Jun, [facility] [address] [id number] [address] [place] [address] Jun, [facility] [address] [id number] [address] [place] [address] Jun, [facility] [address] [id number] [address] [place] [address] Jun, [facility] [address] [id number] [address] [place] [address], [place] [address] 14 Jun, 2014 [facility] [address] [id number] [address] [place] [address], [place] [address] 14 Jun, 2014 [facility] [address] [id number] [address] [place] [address], [place] [address] Jun, [facility] [address] [id number] [address] [place] [address], [place] [address] Jun, [facility] [address] [id number] [address] [place] [address], [place] [address] Jun, [facility] [address] [id number] [address] [place] [address], [place] [address] Jun, [facility] [address] [id number] [address] [place] [address], [place] [address] Jun, [facility] [address] [id number] [address] [place] [address], [place] [address] Jun, [facility] [address] [id number] [address] [place] [address], [place] [address] Jun, [facility] [address] [id number] [address] [place] [address], [place] [address] Jun, [facility] [address] [id number] [address] [place] [address], [place] [address] May, [facility] [address] [id number] [address] [place] [address], [place] [address] May, [facility] [address] [id number] [address] [place] [address], [place] [address] 30 Feb, 2014 [facility] [address] [id number] [address] [place] [address], [place] [address] 30 Feb, 2014 [facility] [address] [id number] [address] [place] [address], [place] [address] 29 Feb, 2014 [facility] [address] [id number] [address] [place] [address], [place] [address] 25 Feb, 2014 [facility] [address] [id number] [facility] [place] [address] 25 Feb, 2013 [facility] [address] [id number] [facility] [place] [address] 17 Feb, 2013 [facility] [address] [id number] [facility] [place] [address] 17 Feb, 2013 [facility] [address] [id number] [address] [place] [address], [place] [address] 11 Feb, 2013 [facility] [address] [id number] [address] [place] [address], [place] [address] 11 Feb, 2013 [facility] [address] [id number] [address] [place] [address], [place] [address] 10 Feb, 2013 [facility] [address] [id number] [address] [place] [address], [place] [address] 10 Feb, 2013 [facility] [address] [id number] [address] [place] [address], [place] [address] 10 Feb, 2013 [facility] [address] [id number] [address] [place] [address], [place] [address] 09 Feb, 2014 [facility] [address] [id number] [address] [place] [address], [place] [address] 09 Feb, 2014 [facility] [address] [id number] [address] [place] [address], [place] [address] 15 Jan, 2014 [facility] [address] [id number] [address] [place] [address], [place] [address] Jan, [facility] [address] [id number] [address] [place] [address], [place] [address] 14 Dec, 2013 [facility] [address] [id number] [address] [place] [address], [place] [address] 14 Dec, 2013 [facility] [address] [id number] [address] [place] [address], [place] [address] 09 Dec, 2013 [facility] [address] [id number] [address] [place] [address], [place] [address] Dec, [facility] [address] [id number] [address] [place] [address], [place] [address] Dec, [facility] [address] [id number] [address] [place] [address], [place] [address] Dec, [facility] [address] [id number] [address] [place] [address], [place] [address] Nov, [facility] [address] [id number] [address] [place] [address], [place] [address] Nov, [facility] [address] [id number] [address] [place] [address], [place] [address] Sep, [facility] [address] [id number] [address] [place] [address], [place] [address] May, [facility] [address] [id number] [address] [place] [address], [place] [address] May, [facility] [address] [id number] [address] [place] [address], [place] [address] Nov, [facility] [address] [id number] [address] [place] [address], [place] [address] Sep, [facility] [address] [id number] [address] [place] [address], [place] [address] Aug, [facility] [address] [id number] [address] [place] [address], [place] [address] Jun, [facility] [address] [id number] [address] [place] [address], [place] [address] Jun, [facility] [address] [id number] [address] [place] [address], [place] [address] Jun, [facility] [address] [id number] [address] [place] [address], [place] [address] May, [facility] [address] [id number] [address] [place] [address], [place] [address] May, [facility] [address] [id number] [address] [place] [address] May, [facility] [address] [facility] [id number] [address] [place] [address] May, [facility] [address] [facility] [id number] [address] [place] [address] Apr, [facility] [address] [facility] [id number] [address] [place] [address] Apr, [facility] [address] [facility] [id number] [address] [place] [address] Apr, [facility] [address] [facility] [id number] [address] [place] [address] Apr, IMMUNIZATIONS No Known Immunizations SOCIAL HISTORY Never Assessed REASON FOR VISIT PLAN OF CARE VITAL SIGNS Height 65 in 2014-03-06 Weight 217.11 lbs 2014-03-06 Temperature 97.5 degrees Fahrenheit 2014-03-06 Heart Rate 80 bpm 2014-03-06 Respiratory Rate 20 2014-03-06 Blood pressure systolic 118 mmHg 2014-03-06 Blood pressure diastolic 76 mmHg 2014-03-06 MEDICATIONS Unknown Medications RESULTS No Results PROCEDURES Procedure Date Ordered Result Body Site SCR PAP SMER;NEW PT OBTAIN PREP&CONVY-LAB Mar 06, 2014 CYTOPATH C/V AUTO FLUID REDO Mar 06, 2014 INSTRUCTIONS MEDICATIONS ADMINISTERED No Known Medications MEDICAL [...]
--- OUTSIDE RECORDS SUMMARY | 2019-12-03 22:22 | XMS REPORT ---
Author Author Imani SCHAEFFER Organization [facility] Address [address] [place] [address] Care Team Providers Care Power Bender Operator Name Role Phone AMBER SCHAEFFER Unavailable PROBLEMS Type Condition ICD9-CM Code [id number] Code Onset Dates Condition S tatus SNOMED Code Problem Pre-diabetes R73.09 Active 7617084 02 Problem Mixed hyperlipidemia E78.2 Active 134025039 Problem Lumbago with sciatica, left side M54.42 Active 579744759 Problem Lumbago with sciatica, right side M54.41 Active 953897096988929 Problem Other chronic pain G89.29 Active 8 0860601 Problem Allergic rhinitis, unspecified seasonality, unspecifie d trigger J30.9 Active 28847883 Problem Spondylolisthesis of lumbosacral region M43.17 Active 320862350 Problem Current moderate episode of major depressive disorder, unspecified whether recurrent F32.1 Active 04675439 Problem Seasonal allergic rhinitis due to pollen J30.1 Active 63542899 Problem Dysfunctional uterine bleeding N93.8 Active 93254296 Problem Moderate persistent asthma with exacerbation J45.4 1 Active 857813525 Problem Cervical motion tenderness N94.9 Act venice 301937513 Problem Dysmenorrhea N94.6 Active 3235643 00 ALLERGIES No Information ENCOUNTERS Encounter Location Date Diagnosis [address] [address] Feb, Acute bilateral low back pain without sc iatica M54.[address] [address] Feb, Lumbago with sciatica, left side M54.[address] [address] Jan, High risk medications (not anticoagulant s) long-term use Z79.899 ; Lumbago with sciatica, right side M54.41 ; Lumbago with sciatica, left side M54.42 and Dyspepsia R10.[address] [address] Jan, Lumbago with sciatica, left side M54.[address] [address] Dec, Lumbago with sciatica, left side M54.[address] [address] Nov, Allergic rhinitis, unspecified seasonali ty, unspecified trigger J30.[address] [address] Nov, Lumbago with sciatica, left side M54.[address] [address] Nov, Dysfunctional uterine bleeding N93.[address] [address] Nov, [address] [address] Nov, Other chronic pain G89.29 and Low back p ain M54.5 [place] [address] [id number] [address] [place] [address] October, [place] [address] [id number] [address] [place] [address] October, Lumbago with sciatica, left side M54.42 [facility] [address] [id number] [address] [place] [address] October, [address] [address] October, [address] [address] October, Lumbago with sciatica, left side M54.42 ; Mixed hyperlipidemia E78.2 ; Pre-diabetes R73.09 ; Lumbago with sciatica, right side M54.41 and Current moderate episode of major depressive disorder, unspecified whether recurrent F32.[address] [address] Sep, Dysuria R30.0 ; Lumbago with sciatica, l eft side M54.42 ; Open wound of finger of left hand, initial encounter S61.209A ; Cervical motion tenderness N94.9 ; Dysmenorrhea N94.6 ; Allergic rhinitis, unspecified seasonality, unspecified trigger J30.9 and Mixed hyperlipidemia E78.[address] [address] Aug, Moderate persistent asthma with exacerba tion J45.41 and Other chronic pain G89.[address] [address] Aug, Moderate persistent asthma with exacerba tion J45.41 ; Mixed hyperlipidemia E78.2 ; Other chronic pain G89.29 ; Major depressive disorder in remission, unspecified whether recurrent F32.5 and Spondylolisthesis of lumbosacral region M43.[address] [place] [address] Jul, 19 Dental examination Z01.20 and Caries K02.[address] [place] [address] Jun, 19 Dental examination Z01.20 and Caries K02.9 [place] [id number] [address] [place] [address] Jan, Acute non-recurrent frontal sinusitis J01.10 ; Bronchitis J40 ; Tobacco use Z72.0 and Tobacco abuse counseling Z71.[address] [id number] [address] [place] [address] Jan, [place] [id number] [address] [place] [address] Jan, Bronchitis J40 and Viral upp er respiratory tract infection J06.9 [place] [id number] [address] [place] [address] October, Spondylolisthesis of lumbosa cral region M43.17 [facility] [address] [id number] [address] [place] [address] October, [facility] [address] [place] [id number] [address] [place] [address] October, Acute suppurative otitis med ia of left ear without spontaneous rupture of tympanic membrane, recurrence not specified H66.002 ; Spondylolisthesis of lumbosacral region M43.17 ; Lumbago with sciatica, left side M54.42 ; Lumbago with sciatica, right side M54.41 ; Other chronic pain G89.29 ; Dysfunctional uterine bleeding N93.8 ; Screening for lipoid disorders Z13.220 and Pre-diabetes R73.09 [place] [address] [place] [id number] [address] [place] [address] Sep, Anxiety F41.9 [place] [address] [place] [id number] [address] [place] [address] Aug, [facility] [address] [place] [id number] [address] [place] [address] Aug, 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 [place] [address] [place] [id number] [address] [place] [address] Apr, Anxiety F41.9 [place] [address] [place] [id number] [address] [place] [address] Feb, Anxiety F41.9 [place] [address] [place] [id number] [address] [place] [address] Feb, [facility] [address] [id number] [address] [place] [address] Feb, [place] [address] [place] [id number] [address] [place] [address] Feb, [place] [address] [place] [id number] [address] [place] [address] Jan, Anxiety F41.9 [place] [address] [place] [id number] [place] [address] 16 Jan, 2017 Anxiety F41.9 and Spondyloli sthesis of lumbosacral region M43.17 [place] [address] [place] [id number] [address] [place] [address] 17 Dec, 2016 Anxiety F41.9 [place] [address] [place] [id number] [place] [address] 14 Nov, 2016 Anxiety F41.9 [place] [address] [place] [id number] [place] [address] 10 Oct, 2016 Anxiety F41.9 and Seasonal a llergic rhinitis due to pollen J30.1 [place] [address] [place] [id number] [place] [address] Sep, Anxiety F41.9 [place] [address] [address] Aug, Pre-diabetes R73.09 and Anxi ety F41.9 [place] [address] [address] 16 Jul, 2016 [place] [address] [address] Mar, [place] [address] [address] Mar, DUB (dysfunctional uterine b leeding) N93.8 and Menorrhagia with irregular cycle N92.1 [place] [address] [place] [id number] [address] [place] [address] Feb, [place] [address] [address] 08 Feb, 2016 Encounter for dental examina tion Z01.20 [facility] [address] [place] [id number] [address] [place] [address] 01 Feb, 2016 Herniated nucleus pulposus M 51.9 [facility] [address] [id number] [address] [place] [id number] Feb, Dental examination Z01.20 [facility] [address] [id number] [address] [place] [address] Jan, Dental examination Z01.20 an d Dental caries K02.9 [facility] [address] [id number] [address] [place] [address] Jan, Encounter for dental examina tion and cleaning without abnormal findings Z01.20 [facility] [address] [id number] [address] [place] [address] Jan, [facility] [address] [id number] [address] [place] [address] Jan, [facility] [address] [id number] [address] [place] [address] Jan, Pre-diabetes R73.09 ; Chroni c nonintractable headache, unspecified headache type R51 and Vaginal yeast infection B37.3 [facility] [address] [id number] [address] [place] [address] Jan, [facility] [address] [id number] [address] [place] [address] Dec, Herniated nucleus pulposus M 51.9 [facility] [address] [id number] [address] [place] [address] Dec, [facility] [address] [id number] [address] [place] [address] Nov, [facility] [address] [id number] [address] [place] [address] Nov, [facility] [address] [id number] [address] [place] [address] Nov, [facility] [address] [id number] [address] [place] [address] Nov, [facility] [address] [id number] [address] [place] [address] Nov, Right hip pain M25.551 ; Pre -diabetes R73.09 ; Mixed hyperlipidemia E78.2 ; Chronic nonintractable headache, unspecified headache type R51 ; Right foot pain M79.671 and Right hand pain M79.641 [facility] [address] [id number] [address] [place] [address] Nov, [facility] [address] [place] [id number] [place] [address] Nov, Right hip pain M25.551 ; Pre -diabetes R73.09 ; Mixed hyperlipidemia E78.2 and Chronic nonintractable headache, unspecified headache type R51 [place] [address] [id number] [address] [place] [address] October, [place] [address] [place] [id number] [place] [address] October, Right hip pain M25.551 ; Pre -diabetes R73.09 ; Mixed hyperlipidemia E78.2 and Frequent headaches R51 [facility] [address] [id number] [address] [place] [address] October, Menorrhagia with regular cyc le N92.0 [facility] [address] [id number] [address] [place] [address] October, [facility] [address] [id number] [address] [place] [address] October, Menorrhagia with regular cyc le N92.0 [facility] [address] [id number] [address] [place] [address] Sep, Lump of right breast N63 ; M enorrhagia with regular cycle N92.0 and BMI 30.0-30.9,adult Z68.30 [facility] [address] [id number] [address] [place] [address] Sep, [facility] [address] [place] [id number] [address] [place] [address] Aug, [facility] [address] [id number] [address] [place] [address] Aug, Well woman exam Z01.419 ; En [...] Z87.898 and Trichomonas vaginalis (TV) infection A59.01 [place] [address] [id number] [address] [place] [address] October, Abdominal pain, unspecified site 789.00 ; GERD (gastroesophageal reflux disease) 530.81 and Chest pain 786.50 [place] [address] [id number] [address] [place] [address] Sep, [facility] [address] [id number] [address] [place] [address] Sep, [place] [address] [id number] [address] [place] [address] Jul, [facility] [address] [id number] [address] [place] [address] Jul, [facility] [address] [id number] [address] [place] [address] Jun, [facility] [address] [id number] [address] [place] [address] Jun, [place] [address] [id number] [address] [place] [address] Jun, [facility] [address] [id number] [address] [place] [address] Jun, [facility] [address] [id number] [address] [place] [address], [place] [address] 16 Jun, 2014 [facility] [address] [id number] [address] [place] [address], [place] [address] Jun, [facility] [address] [id number] [address] [place] [address], [place] [address] Jun, [facility] [address] [id number] [address] [place] [address], [place] [address] Jun, [facility] [address] [id number] [address] [place] [address], [place] [address] Jun, [facility] [address] [id number] [address] [place] [address], [place] [address] Jun, [facility] [address] [id number] [address] [place] [address], [place] [address] Jun, [facility] [address] [id number] [address] [place] [address], [place] [address] Jun, [facility] [address] [id number] [address] [place] [address], [place] [address] Jun, [facility] [address] [id number] [address] [place] [address], [place] [address] Jun, [facility] [address] [id number] [address] [place] [address], [place] [address] Jun, [facility] [address] [id number] [address] [place] [address], [place] [address] May, [facility] [address] [id number] [address] [place] [address], [place] [address] May, [facility] [address] [id number] [address] [place] [address], [place] [address] 30 Feb, 2014 [facility] [address] [id number] [address] [place] [address], [place] [address] 30 Feb, 2014 [facility] [address] [id number] [address] [place] [address], [place] [address] 29 Feb, 2014 [facility] [address] [id number] [facility] [place] [address] 25 Feb, 2013 [facility] [address] [id number] [facility] [place] [address] 25 Feb, 2013 [facility] [address] [id number] [facility] [place] [address] 17 Feb, 2013 [facility] [address] [id number] [address] [place] [address], [place] [address] 17 Feb, 2013 [facility] [address] [id number] [address] [place] [address], [place] [address] 11 Feb, 2013 [facility] [address] [id number] [address] [place] [address], [place] [address] 11 Feb, 2013 [facility] [address] [id number] [address] [place] [address], [place] [address] 10 Feb, 2013 [facility] [address] [id number] [address] [place] [address], [place] [address] 10 Feb, 2013 [facility] [address] [id number] [address] [place] [address], [place] [address] 10 Feb, 2013 [facility] [address] [id number] [address] [place] [address], [place] [address] 09 Feb, 2014 [facility] [address] [id number] [address] [place] [address], [place] [address] 09 Feb, 2014 [facility] [address] [id number] [address] [place] [address], [place] [address] 15 Jan, 2014 [facility] [address] [id number] [address] [place] [address], [place] [address] Jan, [facility] [address] [id number] [address] [place] [address], [place] [address] 14 Dec, 2013 [facility] [address] [id number] [address] [place] [address], [place] [address] 14 Dec, 2013 [facility] [address] [id number] [address] [place] [address], [place] [address] Dec, [facility] [address] [id number] [address] [place] [address], [place] [address] Dec, [facility] [address] [id number] [address] [place] [address], [place] [address] Dec, [facility] [address] [id number] [address] [place] [address], [place] [address] Dec, [facility] [address] [id number] [address] [place] [address], [place] [address] Nov, [facility] [address] [id number] [address] [place] [address], [place] [address] Nov, [facility] [address] [id number] [address] [place] [address], [place] [address] Sep, [facility] [address] [id number] [address] [place] [address], [place] [address] May, [facility] [address] [id number] [address] [place] [address], [place] [address] May, [facility] [address] [id number] [address] [place] [address], [place] [address] Nov, [facility] [address] [id number] [address] [place] [address], [place] [address] Sep, [facility] [address] [id number] [address] [place] [address], [place] [address] Aug, [facility] [address] [id number] [address] [place] [address], [place] [address] Jun, [facility] [address] [id number] [address] [place] [address], [place] [address] Jun, [facility] [address] [id number] [address] [place] [address], [place] [address] Jun, [facility] [address] [id number] [address] [place] [address], [place] [address] May, [facility] [address] [id number] [address] [place] [address] May, [facility] [address] [id number] [address] [place] [address] May, [facility] [address] [id number] [address] [place] [address] May, [facility] [address] [id number] [address] [place] [address] Apr, [facility] [address] [id number] [address] [place] [address] Apr, [facility] [address] [id number] [address] [place] [address] Apr, [facility] [address] [id number] [address] [place] [address] Apr, IMMUNIZATIONS No Known Immunizations SOCIAL HISTORY Never Assessed REASON FOR VISIT PLAN OF CARE VITAL SIGNS Height 65 in 2014-06-17 Weight 217 lbs 2014-06-17 Temperature 97.1 degrees Fahrenheit 2014-06-17 Heart Rate 90 bpm 2014-06-17 Respiratory Rate 18 2014-06-17 Blood pressure systolic 124 mmHg 2014-06-17 Blood pressure diastolic 80 mmHg 2014-06-17 MEDICATIONS No Known Medications RESULTS No Results PROCEDURES Procedure Date Ordered Result Body Site COMPLETE CBC W/AUTO DIFF WBC Jun 17, 2014 COMPREHEN METABOLIC PANEL Jun 17, 2014 URINALYSIS, AUTO, W/O SCOPE Jun 17, 2014 VENIPUNCT, ROUTINE* Jun 17, 2014 INSTRUCTIONS MEDICATIONS ADMINISTERED No Known Medications [...]
--- OUTSIDE RECORDS SUMMARY | 2019-12-03 22:22 | XMS REPORT ---
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 Name Role Phone MANNY Peres Unavailable PROBLEMS Type Condition ICD9-CM Code [id number] Code Onset Dates Condition S tatus SNOMED Code Problem Pre-diabetes R73.09 Active 4271876 02 Problem Mixed hyperlipidemia E78.2 Active 514971937 Problem Lumbago with sciatica, left side M54.42 Active 511579684 Problem Lumbago with sciatica, right side M54.41 Active 134869639770014 Problem Other chronic pain G89.29 Active 8 8594828 Problem Allergic rhinitis, unspecified seasonality, unspecifie d trigger J30.9 Active 07260410 Problem Spondylolisthesis of lumbosacral region M43.17 Active 294022320 Problem Current moderate episode of major depressive disorder, unspecified whether recurrent F32.1 Active 70736865 Problem Seasonal allergic rhinitis due to pollen J30.1 Active 75381156 Problem Dysfunctional uterine bleeding N93.8 Active 68583260 Problem Moderate persistent asthma with exacerbation J45.4 1 Active 239101665 Problem Cervical motion tenderness N94.9 Act venice 902417489 Problem Dysmenorrhea N94.6 Active 9820890 00 ALLERGIES No Information ENCOUNTERS Encounter Location Date Diagnosis [address] [address] Mar, [address] [address] Mar, [address] [address] Mar, Lumbago with sciatica, left side M54.[address] [address] Feb, Acute bilateral low back pain without sc iatica M54.[address] [address] Feb, Lumbago with sciatica, left side M54.[address] [address] Jan, High risk medications (not anticoagulant s) long-term use Z79.899 ; Lumbago with sciatica, right side M54.41 ; Lumbago with sciatica, left side M54.42 and Dyspepsia R10.[address] [address] Jan, Lumbago with sciatica, left side M54.[address] [address] Dec, Lumbago with sciatica, left side M54.[address] [address] Nov, Allergic rhinitis, unspecified seasonali ty, unspecified trigger J30.[address] [address] Nov, Lumbago with sciatica, left side M54.[address] [address] Nov, Dysfunctional uterine bleeding N93.[address] [address] Nov, [address] [address] Nov, Other chronic pain G89.29 and Low back p ain M54.5 [facility] [address] [facility] [id number] [address] [place] [address] October, [facility] [address] [facility] [id number] [address] [place] [address] October, Lumbago with sciatica, left side M54.42 [facility] [address] [facility] [id number] [address] [place] [address] October, [facility] [address] [address] October, [address] [address] October, Lumbago with sciatica, left side M54.42 ; Mixed hyperlipidemia E78.2 ; Pre-diabetes R73.09 ; Lumbago with sciatica, right side M54.41 and Current moderate episode of major depressive disorder, unspecified whether recurrent F32.[address] [address] Sep, Dysuria R30.0 ; Lumbago with sciatica, l eft side M54.42 ; Open wound of finger of left hand, initial encounter S61.209A ; Cervical motion tenderness N94.9 ; Dysmenorrhea N94.6 ; Allergic rhinitis, unspecified seasonality, unspecified trigger J30.9 and Mixed hyperlipidemia E78.[address] [address] Aug, Moderate persistent asthma with exacerba tion J45.41 and Other chronic pain G89.[address] [address] Aug, Moderate persistent asthma with exacerba tion J45.41 ; Mixed hyperlipidemia E78.2 ; Other chronic pain G89.29 ; Major depressive disorder in remission, unspecified whether recurrent F32.5 and Spondylolisthesis of lumbosacral region M43.17 [facility] [address] [place] [address] Jul, 19 Dental examination Z01.20 and Caries K02.9 [facility] [address] [place] [address] Jun, 19 Dental examination Z01.20 and Caries K02.9 [place] [id number] [address] [place] [address] 08 Jan, 2018 Acute non-recurrent frontal sinusitis J01.10 ; Bronchitis J40 ; Tobacco use Z72.0 and Tobacco abuse counseling Z71.6 [place] [id number] [address] [place] [address] Jan, [facility] [address] [facility] [id number] [address] [place] [address] Jan, Bronchitis J40 and Viral upp er respiratory tract infection J06.9 [facility] [address] [id number] [address] [place] [address] October, Spondylolisthesis of lumbosa cral region M43.17 [facility] [address] [facility] [id number] [address] [place] [address] October, [place] [address] [place] [id number] [address] [place] [address] October, Acute suppurative otitis med ia of left ear without spontaneous rupture of tympanic membrane, recurrence not specified H66.002 ; Spondylolisthesis of lumbosacral region M43.17 ; Lumbago with sciatica, left side M54.42 ; Lumbago with sciatica, right side M54.41 ; Other chronic pain G89.29 ; Dysfunctional uterine bleeding N93.8 ; Screening for lipoid disorders Z13.220 and Pre-diabetes R73.09 [place] [address] [facility] [id number] [address] [place] [address] Sep, Anxiety F41.9 [place] [address] [facility] [id number] [address] [place] [address] Aug, [place] [address] [facility] [id number] [address] [place] [address] Aug, 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 [facility] [address] [id number] [address] [place] [address] Apr, Anxiety F41.9 [place] [address] [facility] [id number] [address] [place] [address] Feb, Anxiety F41.9 [facility] [address] [facility] [id number] [address] [place] [address] Feb, [place] [address] [place] [id number] [address] [place] [address] 08 Feb, 2017 [facility] [address] [address] 06 Feb, 2017 [facility] [address] [place] [id number] [place] [address] Jan, Anxiety F41.9 [place] [address] [address] Jan, Anxiety F41.9 and Spondyloli sthesis of lumbosacral region M43.17 [place] [address] [place] [id number] [place] [address] 17 Dec, 2016 Anxiety F41.9 [place] [address] [place] [id number] [place] [address] 14 Nov, 2016 Anxiety F41.9 [place] [address] [address] October, Anxiety F41.9 and Seasonal a llergic rhinitis due to pollen J30.1 [place] [address] [address] Sep, Anxiety F41.9 [place] [address] [address] 16 Aug, 2016 Pre-diabetes R73.09 and Anxi ety F41.9 [place] [address] [place] [id number] [address] [place] [address] 16 Jul, 2016 [place] [address] [address] Mar, [place] [address] [address] 13 Mar, 2016 DUB (dysfunctional uterine b leeding) N93.8 and Menorrhagia with irregular cycle N92.1 [place] [address] [address] Feb, [facility] [address] [id number] [address] [place] [address] 08 Feb, 2016 Encounter for dental examina tion Z01.20 [facility] [address] [id number] [address] [place] [address] Feb, Herniated nucleus pulposus M 51.9 [facility] [address] [id number] [address] [place] [id number] Feb, Dental examination Z01.20 [facility] [address] [id number] [address] [place] [address] Jan, Dental examination Z01.20 an d Dental caries K02.9 [facility] [address] [id number] [address] [place] [address] Jan, Encounter for dental examina tion and cleaning without abnormal findings Z01.20 [facility] [address] [id number] [address] [place] [address] Jan, [facility] [address] [id number] [address] [place] [address] Jan, [facility] [address] [id number] [address] [place] [address] Jan, Pre-diabetes R73.09 ; Chroni c nonintractable headache, unspecified headache type R51 and Vaginal yeast infection B37.3 [facility] [address] [id number] [address] [place] [address] Jan, [facility] [address] [id number] [address] [place] [address] Dec, Herniated nucleus pulposus M 51.9 [facility] [address] [id number] [address] [place] [address] Dec, [facility] [address] [id number] [address] [place] [address] Nov, [facility] [address] [id number] [address] [place] [address] Nov, [facility] [address] [id number] [address] [place] [address] Nov, [facility] [address] [id number] [address] [place] [address] Nov, [facility] [address] [facility] [id number] [address] [place] [address] Nov, Right hip pain M25.551 ; Pre -diabetes R73.09 ; Mixed hyperlipidemia E78.2 ; Chronic nonintractable headache, unspecified headache type R51 ; Right foot pain M79.671 and Right hand pain M79.641 [facility] [address] [id number] [address] [place] [address] 17 Nov, 2015 [facility] [address] [facility] [id number] [address] [place] [address] Nov, Right hip pain M25.551 ; Pre -diabetes R73.09 ; Mixed hyperlipidemia E78.2 and Chronic nonintractable headache, unspecified headache type R51 [facility] [address] [id number] [address] [place] [address] October, [facility] [address] [facility] [id number] [address] [place] [address] October, Right hip pain M25.551 ; Pre -diabetes R73.09 ; Mixed hyperlipidemia E78.2 and Frequent headaches R51 [facility] [address] [id number] [address] [place] [address] October, Menorrhagia with regular cyc le N92.0 [facility] [address] [id number] [address] [place] [address] October, [facility] [address] [facility] [id number] [address] [place] [address] October, Menorrhagia with regular cyc le N92.0 [facility] [address] [facility] [id number] [address] [place] [address] Sep, Lump of right breast N63 ; M enorrhagia with regular cycle N92.0 and BMI 30.0-30.9,adult Z68.30 [place] [address] [place] [id number] [address] [place] [address] Sep, [place] [address] [place] [id number] [address] [place] [address] Aug, [place] [address] [place] [id number] [address] [place] [address] Aug, Well woman exam Z01.419 ; En [...] Z87.898 and Trichomonas vaginalis (TV) infection A59.01 [place] [address] [place] [id number] [address] [place] [address] October, Abdominal pain, unspecified site 789.00 ; GERD (gastroesophageal reflux disease) 530.81 and Chest pain 786.50 [place] [address] [place] [id number] [address] [place] [address] Sep, [place] [address] [place] [id number] [address] [place] [address] Sep, [place] [address] [place] [id number] [address] [place] [address] Jul, [place] [address] [place] [id number] [address] [place] [address] Jul, [place] [address] [place] [id number] [address] [place] [address] Jun, [facility] [address] [id number] [address] [place] [address], [place] [address] Jun, [facility] [address] [id number] [address] [place] [address], [place] [address] Jun, [facility] [address] [id number] [address] [place] [address], [place] [address] Jun, [facility] [address] [id number] [address] [place] [address], [place] [address] Jun, [facility] [address] [id number] [address] [place] [address], [place] [address] Jun, [facility] [address] [id number] [address] [place] [address], [place] [address] Jun, [facility] [address] [id number] [address] [place] [address], [place] [address] Jun, [facility] [address] [id number] [address] [place] [address], [place] [address] Jun, [facility] [address] [id number] [address] [place] [address], [place] [address] Jun, [facility] [address] [id number] [address] [place] [address], [place] [address] Jun, [facility] [address] [id number] [address] [place] [address], [place] [address] Jun, [facility] [address] [id number] [address] [place] [address], [place] [address] Jun, [facility] [address] [id number] [address] [place] [address], [place] [address] Jun, [facility] [address] [id number] [address] [place] [address], [place] [address] Jun, [facility] [address] [id number] [address] [place] [address], [place] [address] May, [facility] [address] [id number] [address] [place] [address] [address] 22 May, 2014 [facility] [address] [id number] [facility] [address] 30 Sep, 2013 [facility] [address] [id number] [address] [place] [address], [place] [address] 30 Feb, 2013 [facility] [address] [id number] [address] [place] [address], [place] [address] 29 Feb, 2013 [facility] [address] [id number] [address] [place] [address], [place] [address] 25 Feb, 2013 [facility] [address] [id number] [address] [place] [address], [place] [address] 25 Feb, 2013 [facility] [address] [id number] [address] [place] [address], [place] [address] 17 Feb, 2013 [facility] [address] [id number] [address] [place] [address], [place] [address] 17 Feb, 2013 [facility] [address] [id number] [address] [place] [address], [place] [address] 11 Feb, 2013 [facility] [address] [id number] [address] [place] [address], [place] [address] 11 Feb, 2013 [facility] [address] [id number] [address] [place] [address], [place] [address] 10 Feb, 2013 [facility] [address] [id number] [address] [place] [address], [place] [address] 10 Feb, 2013 [facility] [address] [id number] [address] [place] [address], [place] [address] 10 Feb, 2013 [facility] [address] [id number] [address] [place] [address], [place] [address] 09 Feb, 2013 [facility] [address] [id number] [address] [place] [address], [place] [address] 09 Feb, 2013 [facility] [address] [id number] [address] [place] [address], [place] [address] 15 Jan, 2014 [facility] [address] [id number] [address] [place] [address], [place] [address] Jan, [facility] [address] [id number] [address] [place] [address], [place] [address] Dec, [facility] [address] [id number] [address] [place] [address], [place] [address] Dec, [facility] [address] [id number] [address] [place] [address], [place] [address] Dec, [facility] [address] [id number] [address] [place] [address], [place] [address] Dec, [facility] [address] [id number] [address] [place] [address], [place] [address] Dec, [facility] [address] [id number] [address] [place] [address], [place] [address] Dec, [facility] [address] [id number] [address] [place] [address], [place] [address] Nov, [facility] [address] [id number] [address] [place] [address], [place] [address] Nov, [facility] [address] [id number] [address] [place] [address], [place] [address] Sep, [facility] [address] [id number] [address] [place] [address], [place] [address] May, [facility] [address] [id number] [address] [place] [address], [place] [address] May, [facility] [address] [id number] [address] [place] [address], [place] [address] Nov, [facility] [address] [id number] [address] [place] [address], [place] [address] Sep, [facility] [address] [id number] [address] [place] [address], [place] [address] Aug, [facility] [address] [id number] [address] [place] [address], [place] [address] Jun, [facility] [address] [id number] [address] [place] [address] Jun, [facility] [address] [id number] [address] [place] [address] Jun, [facility] [address] [id number] [address] [place] [address] May, [facility] [address] [id number] [address] [place] [address] May, [facility] [address] [id number] [address] [place] [address] May, [facility] [address] [id number] [address] [place] [address] May, [facility] [address] [id number] [address] [place] [address] Apr, [facility] [address] [id number] [address] [place] [address] Apr, [facility] [address] [id number] [address] [place] [address] Apr, [facility] [address] [id number] [address] [place] [address] Apr, IMMUNIZATIONS No Known Immunizations SOCIAL HISTORY [...]
--- OUTSIDE RECORDS SUMMARY | 2019-12-03 22:22 | XMS REPORT ---
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 Name Role Phone AMBER SCHAEFFER Unavailable PROBLEMS Type Condition ICD9-CM Code VCV56-AD Code Onset Dates Condition S tatus SNOMED Code Problem Pre-diabetes R73.09 Active 7215383 02 Problem Mixed hyperlipidemia E78.2 Active 021191869 Problem Lumbago with sciatica, left side M54.42 Active 839370058 Problem Lumbago with sciatica, right side M54.41 Active [id number] Problem Other chronic pain G89.29 Active 8 1915092 Problem Allergic rhinitis, unspecified seasonality, unspecifie d trigger J30.9 Active 15596343 Problem Spondylolisthesis of lumbosacral region M43.17 Active 536828216 Problem Current moderate episode of major depressive disorder, unspecified whether recurrent F32.1 Active 02140126 Problem Seasonal allergic rhinitis due to pollen J30.1 Active 34627772 Problem Dysfunctional uterine bleeding N93.8 Active 03776653 Problem Moderate persistent asthma with exacerbation J45.4 1 Active 883309770 Problem Cervical motion tenderness N94.9 Act [place] 006643432 Problem Dysmenorrhea N94.6 Active 8119800 00 ALLERGIES No Information ENCOUNTERS Encounter Location Date Diagnosis [address] [address] Feb, Lumbago with sciatica, left side M54.[address] [address] Jan, High risk medications (not anticoagulant s) long-term use Z79.899 ; Lumbago with sciatica, right side M54.41 ; Lumbago with sciatica, left side M54.42 and Dyspepsia R10.[address] [address] Jan, Lumbago with sciatica, left side M54.[address] [address] Dec, Lumbago with sciatica, left side M54.[address] [address] Nov, Allergic rhinitis, unspecified seasonali ty, unspecified trigger J30.[address] [address] Nov, Lumbago with sciatica, left side M54.[address] [address] Nov, Dysfunctional uterine bleeding N93.[address] [address] Nov, [address] [address] Nov, Other chronic pain G89.29 and Low back p ain M54.5 [facility] [address] [facility] [id number] [address] [place] [address] October, [place] [address] [facility] [id number] [address] [place] [address] October, Lumbago with sciatica, left side M54.42 [place] [address] [facility] [id number] [address] [place] [address] October, [address] [address] October, [address] [address] October, Lumbago with sciatica, left side M54.42 ; Mixed hyperlipidemia E78.2 ; Pre-diabetes R73.09 ; Lumbago with sciatica, right side M54.41 and Current moderate episode of major depressive disorder, unspecified whether recurrent F32.[address] [address] Sep, Dysuria R30.0 ; Lumbago with sciatica, l eft side M54.42 ; Open wound of finger of left hand, initial encounter S61.209A ; Cervical motion tenderness N94.9 ; Dysmenorrhea N94.6 ; Allergic rhinitis, unspecified seasonality, unspecified trigger J30.9 and Mixed hyperlipidemia E78.[address] [address] Aug, Moderate persistent asthma with exacerba tion J45.41 and Other chronic pain G89.[address] [address] Aug, Moderate persistent asthma with exacerba tion J45.41 ; Mixed hyperlipidemia E78.2 ; Other chronic pain G89.29 ; Major depressive disorder in remission, unspecified whether recurrent F32.5 and Spondylolisthesis of lumbosacral region M43.17 [facility] [address] [place] [id number] Jul, 9 Dental examination Z01.20 and Caries K02.[address] [place] [id number] Jun, 9 Dental examination Z01.20 and Caries K02.[address] [address] Jan, Acute non-recurrent frontal sinusitis J01.10 ; Bronchitis J40 ; Tobacco use Z72.0 and Tobacco abuse counseling Z71.6 [place] [id number] [address] [place] [address] Jan, [place] [id number] [address] [place] [address] Jan, Bronchitis J40 and Viral upp er respiratory tract infection J06.9 [place] [id number] [address] [place] [address] October, Spondylolisthesis of lumbosa cral region M43.17 [place] [id number] [address] [place] [address] October, [place] [id number] [address] [place] [address] October, Acute suppurative otitis med ia of left ear without spontaneous rupture of tympanic membrane, recurrence not specified H66.002 ; Spondylolisthesis of lumbosacral region M43.17 ; Lumbago with sciatica, left side M54.42 ; Lumbago with sciatica, right side M54.41 ; Other chronic pain G89.29 ; Dysfunctional uterine bleeding N93.8 ; Screening for lipoid disorders Z13.220 and Pre-diabetes R73.09 [facility] [address] [id number] [address] [place] [address] Sep, Anxiety F41.9 [place] [address] [facility] [id number] [address] [place] [address] Aug, [place] [address] [address] [place] [id number] [address] [place] [address] Aug, 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 [place] [address] [id number] [address] [place] [address] Apr, Anxiety F41.9 [place] [address] [facility] [id number] [address] [place] [address] Feb, Anxiety F41.9 [facility] [address] [facility] [id number] [address] [place] [address] Feb, [facility] [address] [facility] [id number] [address] [place] [id number] 08 Feb, 2017 [facility] [address] [id number] [address] [place] [address] Feb, [facility] [address] [facility] [id number] [address] [place] [address] Jan, Anxiety F41.9 [facility] [address] [facility] [id number] [address] [place] [address] Jan, Anxiety F41.9 and Spondyloli sthesis of lumbosacral region M43.17 [facility] [address] [facility] [id number] [address] [place] [address] 17 Dec, 2016 Anxiety F41.9 [facility] [address] [place] [id number] [place] [address] 14 Nov, 2016 Anxiety F41.9 [facility] [address] [address] October, Anxiety F41.9 and Seasonal a llergic rhinitis due to pollen J30.1 [facility] [address] [facility] [id number] [address] [place] [address] Sep, Anxiety F41.9 [place] [address] [address] 16 Aug, 2016 Pre-diabetes R73.09 and Anxi ety F41.9 [place] [address] [address] Jul, [place] [address] [place] [id number] [address] [place] [address] Mar, [place] [address] [address] 13 Mar, 2016 DUB (dysfunctional uterine b leeding) N93.8 and Menorrhagia with irregular cycle N92.1 [place] [address] [address] 19 Feb, 2016 [facility] [address] [place] [id number] [address] [place] [id number] 08 Feb, 2016 Encounter for dental examina tion Z01.20 [facility] [address] [place] [id number] [address] [place] [address] 01 Feb, 2016 Herniated nucleus pulposus M 51.9 [facility] [address] [id number] [address] [place] [id number] Feb, Dental examination Z01.20 [facility] [address] [place] [id number] [address] [place] [id number] 25 Jan, 2016 Dental examination Z01.20 an d Dental caries K02.9 [facility] [address] [id number] [address] [place] [address] Jan, Encounter for dental examina tion and cleaning without abnormal findings Z01.20 [facility] [address] [id number] [address] [place] [id number] Jan, [facility] [address] [id number] [address] [place] [address] Jan, [facility] [address] [id number] [address] [place] [address] Jan, Pre-diabetes R73.09 ; Chroni c nonintractable headache, unspecified headache type R51 and Vaginal yeast infection B37.3 [facility] [address] [id number] [address] [place] [address] Jan, [facility] [address] [id number] [address] [place] [address] Dec, Herniated nucleus pulposus M 51.9 [facility] [address] [id number] [address] [place] [address] Dec, [facility] [address] [id number] [address] [place] [id number] Nov, [facility] [address] [id number] [address] [place] [address] Nov, [facility] [address] [id number] [address] [place] [id number] Nov, [facility] [address] [id number] [address] [place] [address] Nov, [facility] [address] [id number] [address] [place] [address] Nov, Right hip pain M25.551 ; Pre -diabetes R73.09 ; Mixed hyperlipidemia E78.2 ; Chronic nonintractable headache, unspecified headache type R51 ; Right foot pain M79.671 and Right hand pain M79.641 [facility] [address] [facility] [id number] [address] [place] [address] Nov, [facility] [address] [facility] [id number] [address] [place] [address] 15 Nov, 2015 Right hip pain M25.551 ; Pre -diabetes R73.09 ; Mixed hyperlipidemia E78.2 and Chronic nonintractable headache, unspecified headache type R51 [facility] [address] [facility] [id number] [address] [place] [address] October, [place] [address] [facility] [id number] [address] [place] [address] October, Right hip pain M25.551 ; Pre -diabetes R73.09 ; Mixed hyperlipidemia E78.2 and Frequent headaches R51 [place] [address] [facility] [id number] [address] [place] [address] October, Menorrhagia with regular cyc le N92.0 [facility] [address] [facility] [id number] [address] [place] [address] October, [facility] [address] [facility] [id number] [address] [place] [address] October, Menorrhagia with regular cyc le N92.0 [facility] [address] [facility] [id number] [address] [place] [address] Sep, Lump of right breast N63 ; M enorrhagia with regular cycle N92.0 and BMI 30.0-30.9,adult Z68.30 [facility] [address] [facility] [id number] [address] [place] [address] Sep, [facility] [address] [facility] [id number] [address] [place] [address] Aug, [facility] [address] [facility] [id number] [address] [place] [address] Aug, Well woman exam Z01.419 ; En [...] Z87.898 and Trichomonas vaginalis (TV) infection A59.01 [facility] [address] [id number] [address] [place] [address] October, Abdominal pain, unspecified site 789.00 ; GERD (gastroesophageal reflux disease) 530.81 and Chest pain 786.50 [place] [address] [id number] [address] [place] [address] Sep, [facility] [address] [id number] [address] [place] [address] Sep, [facility] [address] [id number] [address] [place] [address] Jul, [facility] [address] [id number] [address] [place] [address] Jul, [facility] [address] [id number] [address] [place] [address] Jun, [facility] [address] [id number] [address] [place] [address] Jun, [facility] [address] [id number] [address] [place] [address] Jun, [facility] [address] [id number] [address] [place] [phone] Jun, [facility] [address] [id number] [address] [place] [address] Jun, [facility] [address] [id number] [address] [place] [address] Jun, [facility] [address] [id number] [address] [place] [address], [place] [address] Jun, [facility] [address] [id number] [address] [place] [address], [place] [address] Jun, [facility] [address] [id number] [address] [place] [address], [place] [address] Jun, [facility] [address] [id number] [address] [place] [address], [place] [address] Jun, [facility] [address] [id number] [address] [place] [address], [place] [address] Jun, [facility] [address] [id number] [address] [place] [address], [place] [address] Jun, [facility] [address] [id number] [address] [place] [address], [place] [address] Jun, [facility] [address] [id number] [address] [place] [address], [place] [address] Jun, [facility] [address] [id number] [address] [place] [address], [place] [address] Jun, [facility] [address] [id number] [address] [place] [address], [place] [address] May, [facility] [address] [id number] [address] [place] [address], [place] [address] May, [facility] [address] [id number] [address] [place] [address], [place] [address] 30 Feb, 2014 [facility] [address] [id number] [address] [place] [address], [place] [address] 30 Feb, 2014 [facility] [address] [id number] [address] [place] [address], [place] [address] 29 Feb, 2014 [facility] [address] [id number] [address] [place] [address], [place] [address] 25 Feb, 2014 [facility] [address] [id number] [facility] [place] [address] 25 Feb, 2013 [facility] [address] [id number] [facility] [place] [address] 17 Feb, 2013 [facility] [address] [id number] [facility] [place] [address] 17 Feb, 2013 [facility] [address] [id number] [facility] [place] [address] 11 Feb, 2013 [facility] [address] [id number] [facility] [place] [address] 11 Feb, 2013 [facility] [address] [id number] [address] [place] [address], [place] [address] 10 Feb, 2013 [facility] [address] [id number] [address] [place] [address], [place] [address] 10 Feb, 2013 [facility] [address] [id number] [address] [place] [address], [place] [address] 10 Feb, 2013 [facility] [address] [id number] [address] [place] [address], [place] [address] 09 Feb, 2014 [facility] [address] [id number] [address] [place] [address], [place] [address] 09 Feb, 2014 [facility] [address] [id number] [address] [place] [address], [place] [address] 15 Jan, 2014 [facility] [address] [id number] [address] [place] [address], [place] [address] Jan, [facility] [address] [id number] [address] [place] [address], [place] [address] Dec, [facility] [address] [id number] [address] [place] [address], [place] [address] Dec, [facility] [address] [id number] [address] [place] [address], [place] [address] Dec, [facility] [address] [id number] [address] [place] [address], [place] [address] Dec, [facility] [address] [id number] [address] [place] [address], [place] [address] Dec, [facility] [address] [id number] [address] [place] [address], [place] [address] Dec, [facility] [address] [id number] [address] [place] [address], [place] [address] Nov, [facility] [address] [id number] [address] [place] [address], [place] [address] Nov, [facility] [address] [id number] [address] [place] [address], [place] [address] Sep, [facility] [address] [id number] [address] [place] [address], [place] [address] May, [facility] [address] [id number] [address] [place] [address], [place] [address] May, [facility] [address] [id number] [address] [place] [address], [place] [address] Nov, [facility] [address] [id number] [address] [place] [address], [place] [address] Sep, [facility] [address] [id number] [address] [place] [address], [place] [address] Aug, [facility] [address] [id number] [address] [place] [address], [place] [address] Jun, [facility] [address] [id number] [address] [place] [address], [place] [address] Jun, [facility] [address] [id number] [address] [place] [address], [place] [address] Jun, [facility] [address] [id number] [address] [place] [address], [place] [address] May, [facility] [address] [id number] [address] [place] [address], [place] [address] May, [facility] [address] [id number] [address] [place] [address] May, [facility] [address] [facility] [id number] [address] [place] [address] May, [facility] [address] [facility] [id number] [address] [place] [address] Apr, [facility] [address] [facility] [id number] [address] [place] [address] Apr, [facility] [address] [facility] [id number] [address] [place] [address] Apr, [facility] [address] [facility] [id number] [address] [place] [address] Apr, IMMUNIZATIONS No Known Immunizations SOCIAL HISTORY Never Assessed REASON FOR VISIT PLAN OF CARE VITAL SIGNS MEDICATIONS Unknown Medications RESULTS No Results PROCEDURES Procedure Date Ordered Result Body Site CT ABD&PELV 1+ SECTION/REGNS Jun 19, 2014 INSTRUCTIONS MEDICATIONS ADMINISTERED No Known Medications [...]
--- OUTSIDE RECORDS SUMMARY | 2019-12-03 22:23 | XMS REPORT ---
Author Author Imani Peres Organization [facility] Address [address] [place] [address] Care Team Providers Care C Python Developer Name Role Phone MANNY Peres Unavailable PROBLEMS Type Condition ICD9-CM Code USV26-EP Code Onset Dates Condition S tatus SNOMED Code Problem Pre-diabetes R73.09 Active 9047594 02 Problem Mixed hyperlipidemia E78.2 Active 993119232 Problem Lumbago with sciatica, left side M54.42 Active 151709298 Problem Lumbago with sciatica, right side M54.41 Active 357476322581747 Problem Other chronic pain G89.29 Active 8 6822386 Problem Allergic rhinitis, unspecified seasonality, unspecifie d trigger J30.9 Active 31884611 Problem Spondylolisthesis of lumbosacral region M43.17 Active 744625604 Problem Current moderate episode of major depressive disorder, unspecified whether recurrent F32.1 Active 89447759 Problem Seasonal allergic rhinitis due to pollen J30.1 Active 92310520 Problem Dysfunctional uterine bleeding N93.8 Active 73607279 Problem Moderate persistent asthma with exacerbation J45.4 1 Active 008705720 Problem Cervical motion tenderness N94.9 Act venice 442974941 Problem Dysmenorrhea N94.6 Active 3388984 00 ALLERGIES No Information ENCOUNTERS Encounter Location Date Diagnosis [address] [address] Jan, Lumbago with sciatica, left side M54.[address] [address] Dec, Lumbago with sciatica, left side M54.[address] [address] Nov, Allergic rhinitis, unspecified seasonali ty, unspecified trigger J30.[address] [address] Nov, Lumbago with sciatica, left side M54.[address] [address] Nov, Dysfunctional uterine bleeding N93.[address] [address] Nov, [address] [address] Nov, Other chronic pain G89.29 and Low back p ain M54.5 [facility] [address] [facility] [id number] [address] [place] [address] October, [facility] [address] [facility] [id number] [address] [place] [address] October, Lumbago with sciatica, left side M54.42 [facility] [address] [facility] [id number] [address] [place] [address] October, [address] [address] October, [address] [address] October, Lumbago with sciatica, left side M54.42 ; Mixed hyperlipidemia E78.2 ; Pre-diabetes R73.09 ; Lumbago with sciatica, right side M54.41 and Current moderate episode of major depressive disorder, unspecified whether recurrent F32.[address] [address] Sep, Dysuria R30.0 ; Lumbago with sciatica, l eft side M54.42 ; Open wound of finger of left hand, initial encounter S61.209A ; Cervical motion tenderness N94.9 ; Dysmenorrhea N94.6 ; Allergic rhinitis, unspecified seasonality, unspecified trigger J30.9 and Mixed hyperlipidemia E78.[address] [address] Aug, Moderate persistent asthma with exacerba tion J45.41 and Other chronic pain G89.[address] [address] Aug, Moderate persistent asthma with exacerba tion J45.41 ; Mixed hyperlipidemia E78.2 ; Other chronic pain G89.29 ; Major depressive disorder in remission, unspecified whether recurrent F32.5 and Spondylolisthesis of lumbosacral region M43.17 [facility] [address] [place] [address] Jul, Dental examination Z01.20 and Caries K02.9 [facility] [address] [place] [address] Jun, Dental examination Z01.20 and Caries K02.9 [place] [address] [place] [id number] [place] [address] Jan, Acute non-recurrent frontal sinusitis J01.10 ; Bronchitis J40 ; Tobacco use Z72.0 and Tobacco abuse counseling Z71.6 [place] [address] [place] [id number] [address] [place] [address] Jan, [place] [address] [place] [id number] [address] [place] [address] Jan, Bronchitis J40 and Viral upp er respiratory tract infection J06.9 [place] [address] [place] [id number] [address] [place] [address] October, Spondylolisthesis of lumbosa cral region M43.17 [place] [address] [place] [id number] [address] [place] [address] October, [place] [address] [place] [id number] [address] [place] [address] October, Acute suppurative otitis med ia of left ear without spontaneous rupture of tympanic membrane, recurrence not specified H66.002 ; Spondylolisthesis of lumbosacral region M43.17 ; Lumbago with sciatica, left side M54.42 ; Lumbago with sciatica, right side M54.41 ; Other chronic pain G89.29 ; Dysfunctional uterine bleeding N93.8 ; Screening for lipoid disorders Z13.220 and Pre-diabetes R73.09 [facility] [address] [id number] [address] [place] [address] Sep, Anxiety F41.9 [facility] [address] [id number] [address] [place] [address] Aug, [facility] [address] [place] [id number] [address] [place] [address] Aug, 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 [id number] [address] [place] [address] Apr, Anxiety F41.9 [facility] [address] [facility] [id number] [address] [place] [address] Feb, Anxiety F41.9 [facility] [address] [facility] [id number] [address] [place] [address] Feb, [facility] [address] [id number] [address] [place] [address] Feb, [facility] [address] [place] [id number] [address] [place] [address] Feb, [facility] [address] [facility] [id number] [address] [place] [address] Jan, Anxiety F41.9 [facility] [address] [facility] [id number] [address] [place] [address] Jan, Anxiety F41.9 and Spondyloli sthesis of lumbosacral region M43.17 [facility] [address] [id number] [address] [place] [address] Dec, Anxiety F41.9 [facility] [address] [facility] [id number] [address] [place] [address] Nov, Anxiety F41.9 [facility] [address] [facility] [id number] [address] [place] [address] October, Anxiety F41.9 and Seasonal a llergic rhinitis due to pollen J30.1 [facility] [address] [facility] [id number] [address] [place] [address] Sep, Anxiety F41.9 [place] [address] [facility] [id number] [address] [place] [address] Aug, Pre-diabetes R73.09 and Anxi ety F41.9 [place] [address] [id number] [address] [place] [address] Jul, [place] [address] [facility] [id number] [address] [place] [address] Mar, [place] [address] [place] [id number] [place] [address] Mar, DUB (dysfunctional uterine b leeding) N93.8 and Menorrhagia with irregular cycle N92.1 [place] [address] [facility] [id number] [address] [place] [address] Feb, [place] [address] [place] [id number] [address] [place] [address] 08 Feb, 2016 Encounter for dental examina tion Z01.20 [place] [address] [place] [id number] [address] [place] [address] Feb, Herniated nucleus pulposus M 51.9 [facility] [address] [id number] [address] [place] [id number] Feb, Dental examination Z01.20 [place] [address] [id number] [address] [place] [address] Jan, Dental examination Z01.20 an d Dental caries K02.9 [place] [address] [facility] [id number] [address] [place] [address] Jan, Encounter for dental examina tion and cleaning without abnormal findings Z01.20 [place] [address] [facility] [id number] [address] [place] [address] Jan, [facility] [address] [id number] [address] [place] [address] Jan, [facility] [address] [id number] [address] [place] [address] Jan, Pre-diabetes R73.09 ; Chroni c nonintractable headache, unspecified headache type R51 and Vaginal yeast infection B37.3 [facility] [address] [id number] [address] [place] [address] Jan, [facility] [address] [id number] [address] [place] [address] Dec, Herniated nucleus pulposus M 51.9 [facility] [address] [id number] [address] [place] [address] Dec, [facility] [address] [id number] [address] [place] [address] Nov, [facility] [address] [id number] [address] [place] [address] Nov, [facility] [address] [id number] [address] [place] [address] Nov, [facility] [address] [id number] [address] [place] [address] Nov, [facility] [address] [id number] [address] [place] [address] Nov, Right hip pain M25.551 ; Pre -diabetes R73.09 ; Mixed hyperlipidemia E78.2 ; Chronic nonintractable headache, unspecified headache type R51 ; Right foot pain M79.671 and Right hand pain M79.641 [facility] [address] [id number] [address] [place] [address] Nov, [facility] [address] [id number] [address] [place] [address] 15 Nov, 2015 Right hip pain M25.551 ; Pre -diabetes R73.09 ; Mixed hyperlipidemia E78.2 and Chronic nonintractable headache, unspecified headache type R51 [place] [address] [address] October, [place] [address] [address] October, Right hip pain M25.551 ; Pre -diabetes R73.09 ; Mixed hyperlipidemia E78.2 and Frequent headaches R51 [place] [address] [address] October, Menorrhagia with regular cyc le N92.0 [facility] [address] [address] October, [place] [address] [address] October, Menorrhagia with regular cyc le N92.0 [place] [address] [address] Sep, Lump of right breast N63 ; M enorrhagia with regular cycle N92.0 and BMI 30.0-30.9,adult Z68.30 [place] [address] [place] [id number] [address] [place] [address] Sep, [place] [address] [address] Aug, [place] [address] [address] Aug, Well woman exam Z01.419 ; En [...] Z87.898 and Trichomonas vaginalis (TV) infection A59.01 [facility] [address] [id number] [address] [place] [address] October, Abdominal pain, unspecified site 789.00 ; GERD (gastroesophageal reflux disease) 530.81 and Chest pain 786.50 [facility] [address] [id number] [address] [place] [address] Sep, [facility] [address] [id number] [address] [place] [address] Sep, [facility] [address] [id number] [address] [place] [address] Jul, [facility] [address] [id number] [address] [place] [address] Jul, [facility] [address] [id number] [address] [place] [address] Jun, [facility] [address] [id number] [address] [place] [address] Jun, [facility] [address] [id number] [address] [place] [address] Jun, [facility] [address] [id number] [address] [place] [address] Jun, [facility] [address] [id number] [address] [place] [address] Jun, [facility] [address] [id number] [address] [place] [address] Jun, [facility] [address] [id number] [address] [place] [address] Jun, [facility] [address] [id number] [address] [place] [address] Jun, [facility] [address] [id number] [address] [place] [address] Jun, [facility] [address] [id number] [address] [place] [address], [place] [address] Jun, [facility] [address] [id number] [address] [place] [address], [place] [address] Jun, [facility] [address] [id number] [address] [place] [address], [place] [address] Jun, [facility] [address] [id number] [address] [place] [address], [place] [address] Jun, [facility] [address] [id number] [address] [place] [address], [place] [address] Jun, [facility] [address] [id number] [address] [place] [address], [place] [address] Jun, [facility] [address] [id number] [address] [place] [address], [place] [address] May, [facility] [address] [id number] [address] [place] [address], [place] [address] May, [facility] [address] [id number] [address] [place] [address], [place] [address] 30 Feb, 2014 [facility] [address] [id number] [address] [place] [address], [place] [address] 30 Feb, 2014 [facility] [address] [id number] [address] [place] [address], [place] [address] 29 Feb, 2014 [facility] [address] [id number] [address] [place] [address], [place] [address] 25 Feb, 2013 [facility] [address] [id number] [address] [place] [address], [place] [address] 25 Feb, 2014 [facility] [address] [id number] [address] [place] [address], [place] [address] 17 Feb, 2014 [facility] [address] [id number] [address] [place] [address], [place] [address] 17 Feb, 2014 [facility] [address] [id number] [address] [place] [address] 11 Feb, 2013 [facility] [address] [id number] [address] [place] [address], [place] [address] 11 Feb, 2013 [facility] [address] [id number] [address] [place] [address], [place] [address] 10 Feb, 2013 [facility] [address] [id number] [address] [place] [address], [place] [address] 10 Feb, 2013 [facility] [address] [id number] [address] [place] [address], [place] [address] 10 Feb, 2013 [facility] [address] [id number] [address] [place] [address], [place] [address] 09 Feb, 2014 [facility] [address] [id number] [address] [place] [address], [place] [address] Feb, [facility] [address] [id number] [address] [place] [address], [place] [address] Jan, [facility] [address] [id number] [address] [place] [address], [place] [address] Jan, [facility] [address] [id number] [address] [place] [address], [place] [address] Dec, [facility] [address] [id number] [address] [place] [address], [place] [address] Dec, [facility] [address] [id number] [address] [place] [address], [place] [address] Dec, [facility] [address] [id number] [address] [place] [address], [place] [address] Dec, [facility] [address] [id number] [address] [place] [address], [place] [address] Dec, [facility] [address] [id number] [address] [place] [address], [place] [address] Dec, [facility] [address] [id number] [address] [place] [address], [place] [address] Nov, [facility] [address] [id number] [address] [place] [address], [place] [address] Nov, [facility] [address] [id number] [address] [place] [address], [place] [address] Sep, [facility] [address] [id number] [address] [place] [address], [place] [address] May, [facility] [address] [id number] [address] [place] [address], [place] [address] May, [facility] [address] [id number] [address] [place] [address], [place] [address] Nov, [facility] [address] [id number] [address] [place] [address], [place] [address] Sep, [facility] [address] [id number] [address] [place] [address], [place] [address] Aug, [facility] [address] [id number] [address] [place] [address], [place] [address] Jun, [facility] [address] [id number] [address] [place] [address], [place] [address] Jun, [facility] [address] [id number] [address] [place] [address], [place] [address] Jun, [facility] [address] [id number] [address] [place] [address], [place] [address] May, [facility] [address] [id number] [address] [place] [address], [place] [address] May, [facility] [address] [id number] [address] [place] [address], [place] [address] May, [facility] [address] [id number] [address] [place] [address], [place] [address] May, [facility] [address] [id number] [address] [place] [address], [place] [address] Apr, [facility] [address] [id number] [address] [place] [address] [address] Apr, [facility] [address] [facility] [id number] [address] [place] [address] Apr, [facility] [address] [facility] [id number] [address] [place] [address] Apr, IMMUNIZATIONS No Known Immunizations SOCIAL HISTORY Never Assessed REASON FOR VISIT PLAN OF CARE VITAL SIGNS Height 65 in 2014-02-18 Weight 218.8 lbs 2014-02-18 Temperature 97.6 degrees Fahrenheit 2014-02-18 Heart Rate 80 bpm 2014-02-18 Respiratory Rate 20 2014-02-18 Blood pressure systolic 116 mmHg 2014-02-18 Blood pressure diastolic 78 mmHg 2014-02-18 MEDICATIONS Unknown Medications RESULTS No Results PROCEDURES Procedure Date Ordered Result Body Site COMPLETE CBC W/AUTO DIFF WBC Feb 18, 2014 COMPREHEN METABOLIC PANEL Feb 18, 2014 URINALYSIS, AUTO, W/O SCOPE Feb 18, 2014 VENIPUNCT, ROUTINE* Feb 18, 2014 INSTRUCTIONS MEDICATIONS ADMINISTERED No Known Medications [...]
--- OUTSIDE RECORDS SUMMARY | 2019-12-03 22:23 | XMS REPORT ---
Author Author Imani Peres Organization [facility] Address [address] [place] [address] Care Team Providers Care Watch Repairer Apprentice Name Role Phone MANNY Peres Unavailable PROBLEMS Type Condition ICD9-CM Code [id number] Code Onset Dates Condition S tatus SNOMED Code Problem Pre-diabetes R73.09 Active 2434073 02 Problem Mixed hyperlipidemia E78.2 Active 736024764 Problem Lumbago with sciatica, left side M54.42 Active 120321942 Problem Lumbago with sciatica, right side M54.41 Active 315051429380171 Problem Other chronic pain G89.29 Active 8 1585058 Problem Allergic rhinitis, unspecified seasonality, unspecifie d trigger J30.9 Active 69604949 Problem Spondylolisthesis of lumbosacral region M43.17 Active 219033581 Problem Current moderate episode of major depressive disorder, unspecified whether recurrent F32.1 Active 74562016 Problem Seasonal allergic rhinitis due to pollen J30.1 Active 12625546 Problem Dysfunctional uterine bleeding N93.8 Active 39565028 Problem Moderate persistent asthma with exacerbation J45.4 1 Active 030591465 Problem Cervical motion tenderness N94.9 Act [place] 625723281 Problem Dysmenorrhea N94.6 Active 1112830 00 ALLERGIES No Information ENCOUNTERS Encounter Location Date Diagnosis [address] [address] Jan, Lumbago with sciatica, left side M54.[address] [address] Dec, Lumbago with sciatica, left side M54.[address] [address] Nov, Allergic rhinitis, unspecified seasonali ty, unspecified trigger J30.[address] [address] Nov, Lumbago with sciatica, left side M54.[address] [address] Nov, Dysfunctional uterine bleeding N93.[address] [address] Nov, [address] [address] Nov, Other chronic pain G89.29 and Low back p ain M54.5 [facility] [address] [facility] [id number] [address] [place] [address] October, [facility] [address] [id number] [address] [place] [address] October, Lumbago with sciatica, left side M54.42 [facility] [address] [facility] [id number] [address] [place] [address] October, [address] [address] October, [address] [address] October, Lumbago with sciatica, left side M54.42 ; Mixed hyperlipidemia E78.2 ; Pre-diabetes R73.09 ; Lumbago with sciatica, right side M54.41 and Current moderate episode of major depressive disorder, unspecified whether recurrent F32.[address] [address] Sep, Dysuria R30.0 ; Lumbago with sciatica, l eft side M54.42 ; Open wound of finger of left hand, initial encounter S61.209A ; Cervical motion tenderness N94.9 ; Dysmenorrhea N94.6 ; Allergic rhinitis, unspecified seasonality, unspecified trigger J30.9 and Mixed hyperlipidemia E78.[address] [address] Aug, Moderate persistent asthma with exacerba tion J45.41 and Other chronic pain G89.[address] [address] Aug, Moderate persistent asthma with exacerba tion J45.41 ; Mixed hyperlipidemia E78.2 ; Other chronic pain G89.29 ; Major depressive disorder in remission, unspecified whether recurrent F32.5 and Spondylolisthesis of lumbosacral region M43.17 [facility] [address] [place] [address] Jul, Dental examination Z01.20 and Caries K02.9 [facility] [address] [place] [address] Jun, Dental examination Z01.20 and Caries K02.9 [facility] [address] [place] [id number] [place] [address] Jan, Acute non-recurrent frontal sinusitis J01.10 ; Bronchitis J40 ; Tobacco use Z72.0 and Tobacco abuse counseling Z71.6 [facility] [place] [address] [place] [id number] [address] [place] [address] Jan, [facility] [address] [place] [id number] [address] [place] [address] Jan, Bronchitis J40 and Viral upp er respiratory tract infection J06.9 [facility] [address] [place] [id number] [address] [place] [address] October, Spondylolisthesis of lumbosa cral region M43.17 [facility] [place] [address] [place] [id number] [address] [place] [address] October, [facility] [place] [address] [place] [id number] [address] [place] [address] October, Acute suppurative otitis med ia of left ear without spontaneous rupture of tympanic membrane, recurrence not specified H66.002 ; Spondylolisthesis of lumbosacral region M43.17 ; Lumbago with sciatica, left side M54.42 ; Lumbago with sciatica, right side M54.41 ; Other chronic pain G89.29 ; Dysfunctional uterine bleeding N93.8 ; Screening for lipoid disorders Z13.220 and Pre-diabetes R73.09 [facility] [address] [id number] [address] [place] [address] Sep, Anxiety F41.9 [facility] [address] [id number] [address] [place] [address] Aug, [facility] [address] [place] [id number] [address] [place] [address] Aug, 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 [facility] [address] [facility] [id number] [address] [place] [address] Apr, Anxiety F41.9 [facility] [address] [facility] [id number] [address] [place] [address] Feb, Anxiety F41.9 [facility] [address] [facility] [id number] [address] [place] [address] Feb, [facility] [address] [id number] [address] [place] [address] Feb, [facility] [address] [place] [id number] [address] [place] [address] Feb, [facility] [address] [facility] [id number] [address] [place] [address] Jan, Anxiety F41.9 [facility] [address] [facility] [facility] [id number] [address] [place] [address] Jan, Anxiety F41.9 and Spondyloli sthesis of lumbosacral region M43.17 [facility] [address] [id number] [address] [place] [address] Dec, Anxiety F41.9 [facility] [address] [facility] [id number] [address] [place] [address] Nov, Anxiety F41.9 [facility] [address] [facility] [id number] [address] [place] [address] October, Anxiety F41.9 and Seasonal a llergic rhinitis due to pollen J30.1 [facility] [address] [facility] [facility] [id number] [address] [place] [address] Sep, Anxiety F41.9 [facility] [address] [facility] [id number] [address] [place] [address] Aug, Pre-diabetes R73.09 and Anxi ety F41.9 [facility] [address] [id number] [address] [place] [address] Jul, [facility] [address] [facility] [id number] [address] [place] [address] Mar, [facility] [place] [address] [place] [id number] [place] [address] Mar, DUB (dysfunctional uterine b leeding) N93.8 and Menorrhagia with irregular cycle N92.1 [facility] [address] [facility] [id number] [address] [place] [address] Feb, [facility] [address] [place] [id number] [address] [place] [address] 08 Feb, 2016 Encounter for dental examina tion Z01.20 [facility] [place] [address] [place] [id number] [address] [place] [address] Feb, Herniated nucleus pulposus M 51.9 [facility] [address] [id number] [address] [place] [id number] Feb, Dental examination Z01.20 [place] [facility] [address] [id number] [address] [place] [address] Jan, Dental examination Z01.20 an d Dental caries K02.9 [facility] [address] [facility] [id number] [address] [place] [address] Jan, Encounter for dental examina tion and cleaning without abnormal findings Z01.20 [facility] [address] [facility] [id number] [address] [place] [address] Jan, [facility] [address] [id number] [address] [place] [address] Jan, [facility] [address] [id number] [address] [place] [address] Jan, Pre-diabetes R73.09 ; Chroni c nonintractable headache, unspecified headache type R51 and Vaginal yeast infection B37.3 [facility] [address] [id number] [address] [place] [address] Jan, [facility] [address] [id number] [address] [place] [address] Dec, Herniated nucleus pulposus M 51.9 [facility] [address] [id number] [address] [place] [address] Dec, [facility] [address] [id number] [address] [place] [address] Nov, [facility] [address] [id number] [address] [place] [address] Nov, [facility] [address] [id number] [address] [place] [address] Nov, [facility] [address] [id number] [address] [place] [address] Nov, [facility] [address] [id number] [address] [place] [address] Nov, Right hip pain M25.551 ; Pre -diabetes R73.09 ; Mixed hyperlipidemia E78.2 ; Chronic nonintractable headache, unspecified headache type R51 ; Right foot pain M79.671 and Right hand pain M79.641 [facility] [address] [id number] [address] [place] [address] Nov, [facility] [address] [id number] [address] [place] [address] 15 Nov, 2015 Right hip pain M25.551 ; Pre -diabetes R73.09 ; Mixed hyperlipidemia E78.2 and Chronic nonintractable headache, unspecified headache type R51 [facility] [address] [address] October, [place] [address] [address] October, Right hip pain M25.551 ; Pre -diabetes R73.09 ; Mixed hyperlipidemia E78.2 and Frequent headaches R51 [facility] [address] [address] October, Menorrhagia with regular cyc le N92.0 [facility] [address] [address] October, [place] [address] [address] October, Menorrhagia with regular cyc le N92.0 [place] [address] [address] Sep, Lump of right breast N63 ; M enorrhagia with regular cycle N92.0 and BMI 30.0-30.9,adult Z68.30 [place] [address] [place] [id number] [address] [place] [address] Sep, [place] [address] [address] Aug, [place] [address] [address] Aug, Well woman exam Z01.419 ; En [...] Z87.898 and Trichomonas vaginalis (TV) infection A59.01 [facility] [address] [id number] [address] [place] [address] October, Abdominal pain, unspecified site 789.00 ; GERD (gastroesophageal reflux disease) 530.81 and Chest pain 786.50 [facility] [address] [id number] [address] [place] [address] Sep, [facility] [address] [id number] [address] [place] [address] Sep, [facility] [address] [id number] [address] [place] [address] Jul, [facility] [address] [id number] [address] [place] [address] Jul, [facility] [address] [id number] [address] [place] [phone] Jun, [facility] [address] [id number] [address] [place] [phone] Jun, [facility] [address] [id number] [address] [place] [address] Jun, [facility] [address] [id number] [address] [place] [phone] Jun, [facility] [address] [id number] [address] [place] [phone] Jun, [facility] [address] [id number] [address] [place] [phone] Jun, [facility] [address] [id number] [address] [place] [phone] Jun, [facility] [address] [id number] [address] [place] [address] Jun, [facility] [address] [id number] [address] [place] [address] Jun, [facility] [address] [id number] [address] [place] [address], [place] [address] Jun, [facility] [address] [id number] [address] [place] [address], [place] [address] Jun, [facility] [address] [id number] [address] [place] [address], [place] [address] Jun, [facility] [address] [id number] [address] [place] [address], [place] [address] Jun, [facility] [address] [id number] [address] [place] [address], [place] [address] Jun, [facility] [address] [id number] [address] [place] [address], [place] [address] Jun, [facility] [address] [id number] [address] [place] [address], [place] [address] May, [facility] [address] [id number] [address] [place] [address], [place] [address] May, [facility] [address] [id number] [address] [place] [address], [place] [address] 30 Feb, 2014 [facility] [address] [id number] [address] [place] [address], [place] [address] 30 Feb, 2014 [facility] [address] [id number] [address] [place] [address], [place] [address] 29 Feb, 2014 [facility] [address] [id number] [address] [place] [address], [place] [address] 25 Feb, 2013 [facility] [address] [id number] [address] [place] [address], [place] [address] 25 Feb, 2014 [facility] [address] [id number] [address] [place] [address], [place] [address] 17 Feb, 2014 [facility] [address] [id number] [address] [place] [address], [place] [address] 17 Feb, 2014 [facility] [address] [id number] [address] [place] [address] 11 Feb, 2013 [facility] [address] [id number] [address] [place] [address], [place] [address] 11 Feb, 2013 [facility] [address] [id number] [address] [place] [address], [place] [address] 10 Feb, 2013 [facility] [address] [id number] [address] [place] [address], [place] [address] 10 Feb, 2013 [facility] [address] [id number] [address] [place] [address], [place] [address] 10 Feb, 2013 [facility] [address] [id number] [address] [place] [address], [place] [address] 09 Feb, 2014 [facility] [address] [id number] [address] [place] [address], [place] [address] Feb, [facility] [address] [id number] [address] [place] [address], [place] [address] Jan, [facility] [address] [id number] [address] [place] [address], [place] [address] Jan, [facility] [address] [id number] [address] [place] [address], [place] [address] Dec, [facility] [address] [id number] [address] [place] [address], [place] [address] Dec, [facility] [address] [id number] [address] [place] [address], [place] [address] Dec, [facility] [address] [id number] [address] [place] [address], [place] [address] Dec, [facility] [address] [id number] [address] [place] [address], [place] [address] Dec, [facility] [address] [id number] [address] [place] [address], [place] [address] Dec, [facility] [address] [id number] [address] [place] [address], [place] [address] Nov, [facility] [address] [id number] [address] [place] [address], [place] [address] Nov, [facility] [address] [id number] [address] [place] [address], [place] [address] Sep, [facility] [address] [id number] [address] [place] [address], [place] [address] May, [facility] [address] [id number] [address] [place] [address], [place] [address] May, [facility] [address] [id number] [address] [place] [address], [place] [address] Nov, [facility] [address] [id number] [address] [place] [address], [place] [address] Sep, [facility] [address] [id number] [address] [place] [address], [place] [address] Aug, [facility] [address] [id number] [address] [place] [address], [place] [address] Jun, [facility] [address] [id number] [address] [place] [address], [place] [address] Jun, [facility] [address] [id number] [address] [place] [address], [place] [address] Jun, [facility] [address] [id number] [address] [place] [address], [place] [address] May, [facility] [address] [id number] [address] [place] [address], [place] [address] May, [facility] [address] [id number] [address] [place] [address], [place] [address] May, [facility] [address] [id number] [address] [place] [address], [place] [address] May, [facility] [address] [id number] [address] [place] [address], [place] [address] Apr, [facility] [address] [id number] [address] [place] [address] [address] Apr, [facility] [address] [facility] [id number] [address] [place] [address] Apr, [facility] [address] [id number] [address] [place] [address] Apr, IMMUNIZATIONS No Known Immunizations SOCIAL HISTORY [...]
--- OUTSIDE RECORDS SUMMARY | 2019-12-03 22:23 | XMS REPORT ---
Author Author Imani Watt Doctor Organization [facility] Address Unknown Phone Unavailable Care Team Providers Care Case Management Manager Name Role Phone Migration, Doctor Unavailable Unavailable PROBLEMS Type Condition ICD9-CM Code IVA11-FO Code Onset Dates Condition S tatus SNOMED Code Problem Pre-diabetes R73.09 Active 6965727 02 Problem Mixed hyperlipidemia E78.2 Active 733141428 Problem Lumbago with sciatica, left side M54.42 Active 178858671 Problem Lumbago with sciatica, right side M54.41 Active 785332331951175 Problem Other chronic pain G89.29 Active 8 9343876 Problem Allergic rhinitis, unspecified seasonality, unspecifie d trigger J30.9 Active 62070386 Problem Spondylolisthesis of lumbosacral region M43.17 Active 763705571 Problem Current moderate episode of major depressive disorder, unspecified whether recurrent F32.1 Active 47775260 Problem Seasonal allergic rhinitis due to pollen J30.1 Active 71487944 Problem Dysfunctional uterine bleeding N93.8 Active 89696252 Problem Moderate persistent asthma with exacerbation J45.4 1 Active 203233559 Problem Cervical motion tenderness N94.9 Act venice 564644510 Problem Dysmenorrhea N94.6 Active 5412362 00 ALLERGIES No Information ENCOUNTERS Encounter Location Date Diagnosis [address] [address] Jan, Lumbago with sciatica, left side M54.[address] [address] Dec, Lumbago with sciatica, left side M54.[address] [address] Nov, Allergic rhinitis, unspecified seasonali ty, unspecified trigger J30.[address] [address] Nov, Lumbago with sciatica, left side M54.[address] [address] Nov, Dysfunctional uterine bleeding N93.[address] [address] Nov, [address] [address] Nov, Other chronic pain G89.29 and Low back p ain M54.5 [facility] [address] [facility] [id number] [address] [place] [address] October, [facility] [address] [facility] [id number] [address] [place] [address] October, Lumbago with sciatica, left side M54.42 [place] [address] [facility] [id number] [address] [place] [address] October, [address] [address] October, [address] [address] October, Lumbago with sciatica, left side M54.42 ; Mixed hyperlipidemia E78.2 ; Pre-diabetes R73.09 ; Lumbago with sciatica, right side M54.41 and Current moderate episode of major depressive disorder, unspecified whether recurrent F32.[address] [address] Sep, Dysuria R30.0 ; Lumbago with sciatica, l eft side M54.42 ; Open wound of finger of left hand, initial encounter S61.209A ; Cervical motion tenderness N94.9 ; Dysmenorrhea N94.6 ; Allergic rhinitis, unspecified seasonality, unspecified trigger J30.9 and Mixed hyperlipidemia E78.[address] [address] Aug, Moderate persistent asthma with exacerba tion J45.41 and Other chronic pain G89.[address] [address] Aug, Moderate persistent asthma with exacerba tion J45.41 ; Mixed hyperlipidemia E78.2 ; Other chronic pain G89.29 ; Major depressive disorder in remission, unspecified whether recurrent F32.5 and Spondylolisthesis of lumbosacral region M43.17 [facility] [address] [place] [address] Jul, Dental examination Z01.20 and Caries K02.9 [facility] [address] [place] [address] Jun, Dental examination Z01.20 and Caries K02.[address] [address] Jan, Acute non-recurrent frontal sinusitis J01.10 ; Bronchitis J40 ; Tobacco use Z72.0 and Tobacco abuse counseling Z71.[address] [address] Jan, [address] [address] Jan, Bronchitis J40 and Viral upp er respiratory tract infection J06.[address] [address] October, Spondylolisthesis of lumbosa cral region M43.[address] [address] October, [address] [address] October, Acute suppurative otitis med ia of left ear without spontaneous rupture of tympanic membrane, recurrence not specified H66.002 ; Spondylolisthesis of lumbosacral region M43.17 ; Lumbago with sciatica, left side M54.42 ; Lumbago with sciatica, right side M54.41 ; Other chronic pain G89.29 ; Dysfunctional uterine bleeding N93.8 ; Screening for lipoid disorders Z13.220 and Pre-diabetes R73.[address] [place] [address] Sep, Anxiety F41.9 [facility] [address] [place] [id number] [address] [place] [address] Aug, [facility] [address] [place] [id number] [address] [place] [address] Aug, 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 [facility] [address] [place] [id number] [address] [place] [address] Apr, Anxiety F41.9 [facility] [address] [place] [id number] [place] [address] Feb, Anxiety F41.9 [facility] [address] [place] [id number] [place] [address] Feb, [facility] [address] [address] Feb, [facility] [address] [place] [id number] [address] [place] [address] Feb, [facility] [address] [address] Jan, Anxiety F41.9 [facility] [address] [place] [id number] [place] [address] Jan, Anxiety F41.9 and Spondyloli sthesis of lumbosacral region M43.17 [facility] [address] [place] [id number] [address] [place] [address] Dec, Anxiety F41.9 [facility] [address] [place] [id number] [address] [place] [address] Nov, Anxiety F41.9 [facility] [address] [address] October, Anxiety F41.9 and Seasonal a llergic rhinitis due to pollen J30.1 [facility] [address] [place] [id number] [address] [place] [address] Sep, Anxiety F41.9 [facility] [address] [id number] [address] [place] [address] Aug, Pre-diabetes R73.09 and Anxi ety F41.9 [facility] [address] [id number] [address] [place] [address] 16 Jul, 2016 [facility] [address] [id number] [address] [place] [address] Mar, [facility] [address] [id number] [address] [place] [address] Mar, DUB (dysfunctional uterine b leeding) N93.8 and Menorrhagia with irregular cycle N92.1 [place] [address] [id number] [address] [place] [address] Feb, [facility] [address] [id number] [address] [place] [address] 08 Feb, 2016 Encounter for dental examina tion Z01.20 [facility] [address] [id number] [address] [place] [address] Feb, Herniated nucleus pulposus M 51.9 [facility] [address] [id number] [address] [place] [id number] Feb, Dental examination Z01.20 [facility] [address] [id number] [address] [place] [address] Jan, Dental examination Z01.20 an d Dental caries K02.9 [facility] [address] [id number] [address] [place] [address] Jan, Encounter for dental examina tion and cleaning without abnormal findings Z01.20 [facility] [address] [id number] [address] [place] [address] Jan, [facility] [address] [id number] [address] [place] [address] Jan, [facility] [address] [id number] [address] [place] [address] Jan, Pre-diabetes R73.09 ; Chroni c nonintractable headache, unspecified headache type R51 and Vaginal yeast infection B37.3 [facility] [address] [id number] [address] [place] [address] Jan, [facility] [address] [id number] [address] [place] [address] Dec, Herniated nucleus pulposus M 51.9 [facility] [address] [id number] [address] [place] [address] Dec, [facility] [address] [id number] [address] [place] [address] Nov, [facility] [address] [id number] [address] [place] [address] Nov, [facility] [address] [id number] [address] [place] [address] Nov, [facility] [address] [id number] [address] [place] [address] Nov, [facility] [address] [id number] [address] [place] [address] Nov, Right hip pain M25.551 ; Pre -diabetes R73.09 ; Mixed hyperlipidemia E78.2 ; Chronic nonintractable headache, unspecified headache type R51 ; Right foot pain M79.671 and Right hand pain M79.641 [facility] [address] [id number] [address] [place] [address] Nov, [facility] [address] [facility] [id number] [address] [place] [address] 15 Nov, 2015 Right hip pain M25.551 ; Pre -diabetes R73.09 ; Mixed hyperlipidemia E78.2 and Chronic nonintractable headache, unspecified headache type R51 [facility] [address] [id number] [address] [place] [address] October, [facility] [address] [facility] [id number] [address] [place] [address] October, Right hip pain M25.551 ; Pre -diabetes R73.09 ; Mixed hyperlipidemia E78.2 and Frequent headaches R51 [facility] [address] [place] [id number] [address] [place] [address] October, Menorrhagia with regular cyc le N92.0 [facility] [address] [facility] [id number] [address] [place] [phone] October, [facility] [address] [place] [id number] [address] [place] [address] October, Menorrhagia with regular cyc le N92.0 [facility] [address] [place] [id number] [address] [place] [address] Sep, Lump of right breast N63 ; M enorrhagia with regular cycle N92.0 and BMI 30.0-30.9,adult Z68.30 [place] [address] [facility] [id number] [address] [place] [address] Sep, [place] [address] [place] [id number] [address] [place] [address] Aug, [facility] [address] [place] [id number] [address] [place] [address] Aug, Well woman exam Z01.419 ; En [...] Z87.898 and Trichomonas vaginalis (TV) infection A59.01 [facility] [address] [id number] [address] [place] [address] October, Abdominal pain, unspecified site 789.00 ; GERD (gastroesophageal reflux disease) 530.81 and Chest pain 786.50 [facility] [address] [id number] [address] [place] [address] Sep, [facility] [address] [id number] [address] [place] [phone] Sep, [facility] [address] [id number] [address] [place] [phone] Jul, [facility] [address] [id number] [address] [place] [phone] Jul, [facility] [address] [id number] [address] [place] [phone] Jun, [facility] [address] [id number] [address] [place] [phone] Jun, [facility] [address] [id number] [address] [place] [phone] Jun, [facility] [address] [id number] [address] [place] [phone] Jun, [facility] [address] [id number] [address] [place] [phone] Jun, [facility] [address] [id number] [address] [place] [phone] Jun, [facility] [address] [id number] [address] [place] [phone] Jun, [facility] [address] [id number] [address] [place] [phone] Jun, [facility] [address] [id number] [address] [place] [phone] Jun, [facility] [address] [id number] [address] [place] [id number] Jun, [facility] [address] [id number] [address] [place] [address], [place] [address] Jun, [facility] [address] [id number] [address] [place] [address], [place] [address] Jun, [facility] [address] [id number] [address] [place] [address], [place] [address] Jun, [facility] [address] [id number] [address] [place] [address], [place] [address] Jun, [facility] [address] [id number] [address] [place] [address], [place] [address] Jun, [facility] [address] [id number] [address] [place] [address], [place] [address] May, [facility] [address] [id number] [address] [place] [address], [place] [address] May, [facility] [address] [id number] [address] [place] [address], [place] [address] 30 Feb, 2013 [facility] [address] [id number] [address] [place] [address], [place] [address] 30 Feb, 2013 [facility] [address] [id number] [address] [place] [address], [place] [address] 29 Feb, 2013 [facility] [address] [id number] [address] [place] [address], [place] [address] 25 Feb, 2013 [facility] [address] [id number] [address] [place] [address], [place] [address] 25 Sep, 2013 [facility] [address] [id number] [address] [place] [address], [place] [address] 17 Feb, 2013 [facility] [address] [id number] [address] [place] [address], [place] [address] 17 Feb, 2013 [facility] [address] [id number] [address] [place] [address], [place] [address] 11 Feb, 2013 [facility] [address] [id number] [address] [place] [address], [place] [address] 11 Feb, 2014 [facility] [address] [id number] [address] [place] [address], [place] [address] 10 Feb, 2014 [facility] [address] [id number] [address] [place] [address], [place] [address] Feb, [facility] [address] [id number] [address] [place] [address], [place] [address] Feb, [facility] [address] [id number] [address] [place] [address], [place] [address] Feb, [facility] [address] [id number] [address] [place] [address], [place] [address] Feb, [facility] [address] [id number] [address] [place] [address], [place] [address] Jan, [facility] [address] [id number] [address] [place] [address], [place] [address] Jan, [facility] [address] [id number] [address] [place] [address], [place] [address] Dec, [facility] [address] [id number] [address] [place] [address], [place] [address] Dec, [facility] [address] [id number] [address] [place] [address], [place] [address] Dec, [facility] [address] [id number] [address] [place] [address], [place] [address] Dec, [facility] [address] [id number] [address] [place] [address], [place] [address] Dec, [facility] [address] [id number] [address] [place] [address], [place] [address] Dec, [facility] [address] [id number] [address] [place] [address], [place] [address] Nov, [facility] [address] [id number] [address] [place] [address], [place] [address] Nov, [facility] [address] [id number] [address] [place] [address], [place] [address] 05 Sep, 2012 [facility] [address] [id number] [address] [place] [address], [place] [address] May, [facility] [address] [id number] [address] [place] [address], [place] [address] May, [facility] [address] [id number] [address] [place] [address], [place] [address] Nov, [facility] [address] [id number] [address] [place] [address], [place] [address] Sep, [facility] [address] [id number] [address] [place] [address], [place] [address] Aug, [facility] [address] [id number] [address] [place] [address], [place] [address] Jun, [facility] [address] [id number] [address] [place] [address], [place] [address] Jun, [facility] [address] [id number] [address] [place] [address], [place] [address] Jun, [facility] [address] [id number] [address] [place] [address], [place] [address] May, [facility] [address] [id number] [address] [place] [address], [place] [address] May, [facility] [address] [id number] [address] [place] [address], [place] [address] May, [facility] [address] [id number] [address] [place] [address], [place] [address] May, [facility] [address] [id number] [address] [place] [address], [place] [address] Apr, [facility] [address] [id number] [address] [place] [address], [place] [address] Apr, [facility] [address] [id number] [address] [place] [address], [place] [address] Apr, [facility] [address] [facility] [id number] [address] [place] [address] Apr, IMMUNIZATIONS No Known Immunizations SOCIAL HISTORY Never Assessed REASON FOR VISIT PLAN OF CARE VITAL SIGNS Height 65 in 2014-06-02 Weight 218.89 lbs 2014-06-02 Temperature 98.8 degrees Fahrenheit 2014-06-02 Heart Rate 80 bpm 2014-06-02 Respiratory Rate 18 2014-06-02 Blood pressure systolic 120 mmHg 2014-06-02 Blood pressure diastolic 78 mmHg 2014-06-02 MEDICATIONS Unknown Medications RESULTS No Results PROCEDURES [...]
--- OUTSIDE RECORDS SUMMARY | 2019-12-03 22:23 | XMS REPORT ---
Author Author Imani Peres Organization [facility] Address [address] [place] [address] Care Team Providers Care Solderer Assembly Repair Name Role Phone MANNY Peres Unavailable PROBLEMS Type Condition ICD9-CM Code WID44-SQ Code Onset Dates Condition S tatus SNOMED Code Problem Pre-diabetes R73.09 Active 5393862 02 Problem Mixed hyperlipidemia E78.2 Active 691772865 Problem Lumbago with sciatica, left side M54.42 Active 382183133 Problem Lumbago with sciatica, right side M54.41 Active 027708351467050 Problem Other chronic pain G89.29 Active 8 2421633 Problem Allergic rhinitis, unspecified seasonality, unspecifie d trigger J30.9 Active 53695748 Problem Spondylolisthesis of lumbosacral region M43.17 Active 294165593 Problem Current moderate episode of major depressive disorder, unspecified whether recurrent F32.1 Active 39258179 Problem Seasonal allergic rhinitis due to pollen J30.1 Active 33554543 Problem Dysfunctional uterine bleeding N93.8 Active 38749556 Problem Moderate persistent asthma with exacerbation J45.4 1 Active 185051273 Problem Cervical motion tenderness N94.9 Act veince 060360552 Problem Dysmenorrhea N94.6 Active 7505169 00 ALLERGIES No Information ENCOUNTERS Encounter Location Date Diagnosis [address] [address] Jan, Lumbago with sciatica, left side M54.[address] [address] Dec, Lumbago with sciatica, left side M54.[address] [address] Nov, Allergic rhinitis, unspecified seasonali ty, unspecified trigger J30.[address] [address] Nov, Lumbago with sciatica, left side M54.[address] [address] Nov, Dysfunctional uterine bleeding N93.[address] [address] Nov, [address] [address] Nov, Other chronic pain G89.29 and Low back p ain M54.5 [facility] [address] [facility] [id number] [address] [place] [id number] October, [facility] [address] [facility] [id number] [address] [place] [address] October, Lumbago with sciatica, left side M54.42 [facility] [address] [facility] [id number] [address] [place] [address] October, [address] [address] October, [address] [address] October, Lumbago with sciatica, left side M54.42 ; Mixed hyperlipidemia E78.2 ; Pre-diabetes R73.09 ; Lumbago with sciatica, right side M54.41 and Current moderate episode of major depressive disorder, unspecified whether recurrent F32.[address] [address] Sep, Dysuria R30.0 ; Lumbago with sciatica, l eft side M54.42 ; Open wound of finger of left hand, initial encounter S61.209A ; Cervical motion tenderness N94.9 ; Dysmenorrhea N94.6 ; Allergic rhinitis, unspecified seasonality, unspecified trigger J30.9 and Mixed hyperlipidemia E78.[address] [address] Aug, Moderate persistent asthma with exacerba tion J45.41 and Other chronic pain G89.[address] [address] Aug, Moderate persistent asthma with exacerba tion J45.41 ; Mixed hyperlipidemia E78.2 ; Other chronic pain G89.29 ; Major depressive disorder in remission, unspecified whether recurrent F32.5 and Spondylolisthesis of lumbosacral region M43.17 [facility] [address] [place] [address] Jul, Dental examination Z01.20 and Caries K02.9 [facility] [address] [place] [address] Jun, Dental examination Z01.20 and Caries K02.9 [facility] [address] [place] [id number] [place] [address] Jan, Acute non-recurrent frontal sinusitis J01.10 ; Bronchitis J40 ; Tobacco use Z72.0 and Tobacco abuse counseling Z71.6 [facility] [address] [place] [id number] [address] [place] [address] Jan, [facility] [address] [place] [id number] [address] [place] [address] Jan, Bronchitis J40 and Viral upp er respiratory tract infection J06.9 [facility] [address] [place] [id number] [address] [place] [address] October, Spondylolisthesis of lumbosa cral region M43.17 [facility] [address] [place] [id number] [address] [place] [address] October, [facility] [address] [place] [id number] [address] [place] [address] October, Acute suppurative otitis med ia of left ear without spontaneous rupture of tympanic membrane, recurrence not specified H66.002 ; Spondylolisthesis of lumbosacral region M43.17 ; Lumbago with sciatica, left side M54.42 ; Lumbago with sciatica, right side M54.41 ; Other chronic pain G89.29 ; Dysfunctional uterine bleeding N93.8 ; Screening for lipoid disorders Z13.220 and Pre-diabetes R73.09 [facility] [address] [id number] [address] [place] [address] Sep, Anxiety F41.9 [facility] [address] [id number] [address] [place] [id number] Aug, [facility] [address] [place] [id number] [address] [place] [address] Aug, 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 [facility] [address] [facility] [id number] [address] [place] [address] Apr, Anxiety F41.9 [facility] [address] [facility] [id number] [address] [place] [address] Feb, Anxiety F41.9 [facility] [address] [facility] [id number] [address] [place] [address] Feb, [facility] [address] [id number] [address] [place] [phone] Feb, [facility] [address] [place] [id number] [address] [place] [id number] Feb, [facility] [address] [facility] [id number] [address] [place] [address] Jan, Anxiety F41.9 [facility] [address] [facility] [id number] [address] [place] [address] Jan, Anxiety F41.9 and Spondyloli sthesis of lumbosacral region M43.17 [facility] [address] [id number] [address] [place] [phone] Dec, Anxiety F41.9 [facility] [address] [facility] [id number] [address] [place] [address] Nov, Anxiety F41.9 [facility] [address] [facility] [id number] [address] [place] [phone] October, Anxiety F41.9 and Seasonal a llergic rhinitis due to pollen J30.1 [facility] [address] [facility] [id number] [address] [place] [address] Sep, Anxiety F41.9 [facility] [address] [facility] [id number] [address] [place] [address] Aug, Pre-diabetes R73.09 and Anxi ety F41.9 [facility] [address] [id number] [address] [place] [id number] Jul, [facility] [address] [facility] [id number] [address] [place] [address] Mar, [facility] [address] [place] [id number] [place] [address] Mar, DUB (dysfunctional uterine b leeding) N93.8 and Menorrhagia with irregular cycle N92.1 [facility] [address] [facility] [id number] [address] [place] [phone] Feb, [facility] [address] [place] [id number] [address] [place] [id number] 08 Feb, 2016 Encounter for dental examina tion Z01.20 [facility] [address] [place] [id number] [address] [place] [phone] Feb, Herniated nucleus pulposus M 51.9 [facility] [address] [id number] [address] [place] [id number] Feb, Dental examination Z01.20 [facility] [id number] [id number] [address] [place] [phone] Jan, Dental examination Z01.20 an d Dental caries K02.9 [facility] [address] [facility] [id number] [address] [place] [address] Jan, Encounter for dental examina tion and cleaning without abnormal findings Z01.20 [facility] [address] [facility] [id number] [address] [place] [address] Jan, [facility] [address] [id number] [address] [place] [address] Jan, [facility] [address] [id number] [address] [place] [address] Jan, Pre-diabetes R73.09 ; Chroni c nonintractable headache, unspecified headache type R51 and Vaginal yeast infection B37.3 [facility] [address] [id number] [address] [place] [phone] Jan, [facility] [address] [id number] [address] [place] [address] Dec, Herniated nucleus pulposus M 51.9 [facility] [address] [id number] [address] [place] [phone] Dec, [facility] [address] [id number] [address] [place] [phone] Nov, [facility] [address] [id number] [address] [place] [phone] Nov, [facility] [address] [id number] [address] [place] [phone] Nov, [facility] [address] [id number] [address] [place] [phone] Nov, [facility] [address] [id number] [address] [place] [address] Nov, Right hip pain M25.551 ; Pre -diabetes R73.09 ; Mixed hyperlipidemia E78.2 ; Chronic nonintractable headache, unspecified headache type R51 ; Right foot pain M79.671 and Right hand pain M79.641 [facility] [address] [id number] [address] [place] [address] Nov, [facility] [address] [id number] [address] [place] [address] 15 Nov, 2015 Right hip pain M25.551 ; Pre -diabetes R73.09 ; Mixed hyperlipidemia E78.2 and Chronic nonintractable headache, unspecified headache type R51 [facility] [address] [address] October, [facility] [address] [address] October, Right hip pain M25.551 ; Pre -diabetes R73.09 ; Mixed hyperlipidemia E78.2 and Frequent headaches R51 [facility] [address] [address] October, Menorrhagia with regular cyc le N92.0 [facility] [address] [address] October, [facility] [address] [address] October, Menorrhagia with regular cyc le N92.0 [facility] [address] [address] Sep, Lump of right breast N63 ; M enorrhagia with regular cycle N92.0 and BMI 30.0-30.9,adult Z68.30 [facility] [address] [place] [id number] [address] [place] [address] Sep, [facility] [address] [address] Aug, [facility] [address] [address] Aug, Well woman exam Z01.419 ; En [...] Z87.898 and Trichomonas vaginalis (TV) infection A59.01 [facility] [address] [id number] [address] [place] [phone] October, Abdominal pain, unspecified site 789.00 ; GERD (gastroesophageal reflux disease) 530.81 and Chest pain 786.50 [facility] [address] [id number] [address] [place] [phone] Sep, [facility] [address] [id number] [address] [place] [phone] Sep, [facility] [address] [id number] [address] [place] [phone] Jul, [facility] [address] [id number] [address] [place] [address] Jul, [facility] [address] [id number] [address] [place] [id number] Jun, [facility] [address] [id number] [address] [place] [id number] Jun, [facility] [address] [id number] [address] [place] [phone] Jun, [facility] [address] [id number] [address] [place] [phone] Jun, [facility] [address] [id number] [address] [place] [phone] Jun, [facility] [address] [id number] [address] [place] [phone] Jun, [facility] [address] [id number] [address] [place] [phone] Jun, [facility] [address] [id number] [address] [place] [phone] Jun, [facility] [address] [id number] [address] [place] [phone] Jun, [facility] [address] [id number] [address] [place] [address], [place] [address] Jun, [facility] [address] [id number] [address] [place] [address], [place] [address] Jun, [facility] [address] [id number] [address] [place] [address], [place] [address] Jun, [facility] [address] [id number] [address] [place] [address], [place] [address] Jun, [facility] [address] [id number] [address] [place] [address], [place] [address] Jun, [facility] [address] [id number] [address] [place] [address], [place] [address] Jun, [facility] [address] [id number] [address] [place] [address], [place] [address] May, [facility] [address] [id number] [address] [place] [address], [place] [address] May, [facility] [address] [id number] [address] [place] [address], [place] [address] 30 Feb, 2014 [facility] [address] [id number] [address] [place] [address], [place] [address] 30 Feb, 2014 [facility] [address] [id number] [address] [place] [address], [place] [address] 29 Feb, 2014 [facility] [address] [id number] [address] [place] [address], [place] [address] 25 Feb, 2013 [facility] [address] [id number] [address] [place] [address], [place] [address] 25 Feb, 2014 [facility] [address] [id number] [address] [place] [address], [place] [address] 17 Feb, 2014 [facility] [address] [id number] [address] [place] [address], [place] [address] 17 Feb, 2014 [facility] [address] [id number] [address] [place] [phone] 11 Feb, 2013 [facility] [address] [id number] [address] [place] [address], [place] [address] 11 Feb, 2013 [facility] [address] [id number] [address] [place] [address], [place] [address] 10 Feb, 2013 [facility] [address] [id number] [address] [place] [address], [place] [address] 10 Feb, 2013 [facility] [address] [id number] [address] [place] [address], [place] [address] 10 Feb, 2013 [facility] [address] [id number] [address] [place] [address], [place] [address] 09 Feb, 2014 [facility] [address] [id number] [address] [place] [address], [place] [address] Feb, [facility] [address] [id number] [address] [place] [address], [place] [address] Jan, [facility] [address] [id number] [address] [place] [address], [place] [address] Jan, [facility] [address] [id number] [address] [place] [address], [place] [address] Dec, [facility] [address] [id number] [address] [place] [address], [place] [address] Dec, [facility] [address] [id number] [address] [place] [address], [place] [address] Dec, [facility] [address] [id number] [address] [place] [address], [place] [address] Dec, [facility] [address] [id number] [address] [place] [address], [place] [address] Dec, [facility] [address] [id number] [address] [place] [address], [place] [address] Dec, [facility] [address] [id number] [address] [place] [address], [place] [address] Nov, [facility] [address] [id number] [address] [place] [address], [place] [address] Nov, [facility] [address] [id number] [address] [place] [address], [place] [address] Sep, [facility] [address] [id number] [address] [place] [address], [place] [address] May, [facility] [address] [id number] [address] [place] [address], [place] [address] May, [facility] [address] [id number] [address] [place] [address], [place] [address] Nov, [facility] [address] [id number] [address] [place] [address], [place] [address] Sep, [facility] [address] [id number] [address] [place] [address], [place] [address] Aug, [facility] [address] [id number] [address] [place] [address], [place] [address] Jun, [facility] [address] [id number] [address] [place] [address], [place] [address] Jun, [facility] [address] [id number] [address] [place] [address], [place] [address] Jun, [facility] [address] [id number] [address] [place] [address], [place] [address] May, [facility] [address] [id number] [address] [place] [address], [place] [address] May, [facility] [address] [id number] [address] [place] [address], [place] [address] May, [facility] [address] [id number] [address] [place] [address], [place] [address] May, [facility] [address] [id number] [address] [place] [address], [place] [address] Apr, [facility] [address] [id number] [address] [place] [address] [address] Apr, [facility] [address] [facility] [id number] [address] [place] [id number] Apr, [facility] [address] [facility] [id number] [address] [place] [id number] Apr, IMMUNIZATIONS No Known Immunizations SOCIAL HISTORY [...]
--- OUTSIDE RECORDS SUMMARY | 2019-12-03 22:23 | XMS REPORT ---
Author Author Imani Peres Organization 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 Name Role Phone MANNY Peres Unavailable PROBLEMS Type Condition ICD9-CM Code [id number] Code Onset Dates Condition S tatus SNOMED Code Problem Pre-diabetes R73.09 Active 3576374 02 Problem Mixed hyperlipidemia E78.2 Active 495280073 Problem Lumbago with sciatica, left side M54.42 Active 468554748 Problem Lumbago with sciatica, right side M54.41 Active 136152570459042 Problem Other chronic pain G89.29 Active 8 4371950 Problem Allergic rhinitis, unspecified seasonality, unspecifie d trigger J30.9 Active 81091528 Problem Spondylolisthesis of lumbosacral region M43.17 Active 505251382 Problem Current moderate episode of major depressive disorder, unspecified whether recurrent F32.1 Active 80129754 Problem Seasonal allergic rhinitis due to pollen J30.1 Active 94029710 Problem Dysfunctional uterine bleeding 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 Active 78595641 Problem Moderate persistent asthma with exacerbation J45.4 1 Active 843517104 Problem Cervical motion tenderness N94.9 Act [place] 745793791 Problem Dysmenorrhea N94.6 Active 8437998 00 ALLERGIES No Information ENCOUNTERS Encounter Location Date Diagnosis [address] [address] Feb, Lumbago with sciatica, left side M54.[address] [address] Jan, High risk medications (not anticoagulant s) long-term use Z79.899 ; Lumbago with sciatica, right side M54.41 ; Lumbago with sciatica, left side M54.42 and Dyspepsia R10.[address] [facility] [address] [address] Jan, Lumbago with sciatica, left side M54.[address] [address] Dec, Lumbago with sciatica, left side M54.[address] [address] Nov, Allergic rhinitis, unspecified seasonali ty, unspecified trigger J30.[address] [address] Nov, Lumbago with sciatica, left side M54.[address] [address] Nov, Dysfunctional uterine bleeding N93.[address] [address] Nov, [address] [address] Nov, Other chronic pain G89.29 and Low back p ain M54.5 [facility] [address] [facility] [id number] [address] [place] [address] October, [facility] [address] [facility] [id number] [address] [place] [address] October, Lumbago with sciatica, left side M54.42 [facility] [address] [facility] [id number] [address] [place] [address] October, [address] [address] October, [address] [address] October, Lumbago with sciatica, left side M54.42 ; Mixed hyperlipidemia E78.2 ; Pre-diabetes R73.09 ; Lumbago with sciatica, right side M54.41 and Current moderate episode of major depressive disorder, unspecified whether recurrent F32.[address] [address] Sep, Dysuria R30.0 ; Lumbago with sciatica, l eft side M54.42 ; Open wound of finger of left hand, initial encounter S61.209A ; Cervical motion tenderness N94.9 ; Dysmenorrhea N94.6 ; Allergic rhinitis, unspecified seasonality, unspecified trigger J30.9 and Mixed hyperlipidemia E78.[address] [address] Aug, Moderate persistent asthma with exacerba tion J45.41 and Other chronic pain G89.[address] [address] Aug, Moderate persistent asthma with exacerba tion J45.41 ; Mixed hyperlipidemia E78.2 ; Other chronic pain G89.29 ; Major depressive disorder in remission, unspecified whether recurrent F32.5 and Spondylolisthesis of lumbosacral region M43.[address] [place] [id number] Jul, 9 Dental examination Z01.20 and Caries K02.[address] [id number] Jun, 9 Dental examination Z01.20 and Caries K02.9 [place] [id number] [address] [place] [address] Jan, Acute non-recurrent frontal sinusitis J01.10 ; Bronchitis J40 ; Tobacco use Z72.0 and Tobacco abuse counseling Z71.[address] [place] [address] Jan, [place] [id number] [address] [place] [address] Jan, Bronchitis J40 and Viral upp er respiratory tract infection J06.9 [place] [id number] [address] [place] [address] October, Spondylolisthesis of lumbosa cral region M43.17 [place] [id number] [address] [place] [address] October, [facility] [address] [id number] [address] [place] [address] October, Acute suppurative otitis med ia of left ear without spontaneous rupture of tympanic membrane, recurrence not specified H66.002 ; Spondylolisthesis of lumbosacral region M43.17 ; Lumbago with sciatica, left side M54.42 ; Lumbago with sciatica, right side M54.41 ; Other chronic pain G89.29 ; Dysfunctional uterine bleeding N93.8 ; Screening for lipoid disorders Z13.220 and Pre-diabetes R73.09 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 [address] [id number] [address] [place] [address] Apr, Anxiety F41.9 [place] [address] [id number] [address] [place] [address] Feb, Anxiety F41.9 [facility] [address] [id number] [address] [place] [address] Feb, [place] [address] [id number] [address] [place] [address] 08 Feb, 2017 [facility] [address] [id number] [address] [place] [address] Feb, [facility] [address] [id number] [address] [place] [address] Jan, Anxiety F41.9 [facility] [address] [facility] [id number] [address] [place] [address] Jan, Anxiety F41.9 and Spondyloli sthesis of lumbosacral region M43.17 [facility] [address] [facility] [id number] [address] [place] [address] 17 Dec, [address] [facility] [address] [facility] [id number] [address] [place] [address] 14 Nov, [address] [facility] [address] [facility] [id number] [address] [place] [address] October, Anxiety F41.9 and Seasonal a llergic rhinitis due to pollen J30.1 [facility] [address] [facility] [id number] [address] [place] [address] 17 Sep, [address] [facility] [address] [facility] [id number] [address] [place] [address] 16 Aug, 2016 Pre-diabetes R73.09 [address] F[address].9 [facility] [id number] [place] [address] 16 Jul, 2016 [facility] [address] [place] [id number] [address] [place] [address] Mar, [facility] [address] [address] 13 Mar, 2016 DUB (dysfunctional uterine b leeding) N93.8 and Menorrhagia with irregular cycle N92.1 [place] [address] [place] [address] 19 Feb, 2016 [facility] [address] [place] [id number] [address] [place] [address] 08 Feb, 2016 Encounter for dental examina tion Z01.20 [facility] [address] [place] [id number] [address] [place] [address] 01 Feb, 2016 Herniated nucleus pulposus M 51.9 [facility] [address] [id number] [address] [place] [id number] Feb, Dental examination Z01.20 [facility] [address] [place] [id number] [address] [place] [address] 25 Jan, 2016 Dental examination Z01.20 an d Dental caries K02.9 [facility] [address] [id number] [address] [place] [address] Jan, Encounter for dental examina tion and cleaning without abnormal findings Z01.20 [facility] [address] [id number] [address] [place] [address] Jan, [facility] [address] [id number] [address] [place] [address] Jan, [facility] [address] [id number] [address] [place] [address] Jan, Pre-diabetes R73.09 ; Chroni c nonintractable headache, unspecified headache type R51 and Vaginal yeast infection B37.3 [facility] [address] [id number] [address] [place] [address] Jan, [facility] [address] [id number] [address] [place] [address] Dec, Herniated nucleus pulposus M 51.9 [facility] [address] [id number] [address] [place] [address] Dec, [facility] [address] [facility] [id number] [address] [place] [address] Nov, [facility] [address] [id number] [address] [place] [address] Nov, [facility] [address] [id number] [address] [place] [address] Nov, [facility] [address] [facility] [id number] [address] [place] [address] Nov, [facility] [address] [facility] [id number] [address] [place] [address] Nov, Right hip pain M25.551 ; Pre -diabetes R73.09 ; Mixed hyperlipidemia E78.2 ; Chronic nonintractable headache, unspecified headache type R51 ; Right foot pain M79.671 and Right hand pain M79.641 [facility] [address] [facility] [id number] [address] [place] [address] Nov, [facility] [address] [facility] [id number] [address] [place] [address] 15 Nov, 2015 Right hip pain M25.551 ; Pre -diabetes R73.09 ; Mixed hyperlipidemia E78.2 and Chronic nonintractable headache, unspecified headache type R51 [facility] [address] [facility] [id number] [address] [place] [address] October, [facility] [address] [place] [id number] [place] [address] October, Right hip pain M25.551 ; Pre -diabetes R73.09 ; Mixed hyperlipidemia E78.2 [address]requent headaches R51 [facility] [address] [place] [address] October, Menorrhagia with regular cyc le N92.0 [facility] [address] [facility] [id number] [address] [place] [address] October, [facility] [address] [place] [id number] [place] [address] October, Menorrhagia with regular cyc le N92.0 [facility] [address] [place] [id number] [address] [place] [address] Sep, Lump of right breast N63 ; M enorrhagia with regular cycle N92.0 and BMI 30.0-30.9,adult Z68.30 [facility] [address] [place] [id number] [address] [place] [address] Sep, [facility] [address] [place] [id number] [address] [place] [address] Aug, [facility] [address] [place] [id number] [place] [address] Aug, Well woman exam Z01.419 ; En [...] Z87.898 and Trichomonas vaginalis (TV) infection A59.01 [facility] [address] [id number] [address] [place] [address] October, Abdominal pain, unspecified site 789.00 ; GERD (gastroesophageal reflux disease) 530.81 and Chest pain 786.50 [place] [address] [id number] [address] [place] [address] Sep, [place] [address] [id number] [address] [place] [address] Sep, [facility] [address] [id number] [address] [place] [address] Jul, [facility] [address] [id number] [address] [place] [address] Jul, [facility] [address] [id number] [address] [place] [address] Jun, [facility] [address] [id number] [address] [place] [address] Jun, [facility] [address] [id number] [address] [place] [address] Jun, [facility] [address] [id number] [address] [place] [address] Jun, [facility] [address] [id number] [address] [place] [address] Jun, [facility] [address] [id number] [address] [place] [address], [place] [address] 14 Jun, 2014 [facility] [address] [id number] [address] [place] [address], [place] [address] 14 Jun, 2014 [facility] [address] [id number] [address] [place] [address], [place] [address] Jun, [facility] [address] [id number] [address] [place] [address], [place] [address] Jun, [facility] [address] [id number] [address] [place] [address], [place] [address] Jun, [facility] [address] [id number] [address] [place] [address], [place] [address] Jun, [facility] [address] [id number] [address] [place] [address], [place] [address] Jun, [facility] [address] [id number] [address] [place] [address], [place] [address] Jun, [facility] [address] [id number] [address] [place] [address], [place] [address] Jun, [facility] [address] [id number] [address] [place] [address], [place] [address] Jun, [facility] [address] [id number] [address] [place] [address], [place] [address] May, [facility] [address] [id number] [address] [place] [address], [place] [address] May, [facility] [address] [id number] [address] [place] [address], [place] [address] 30 Feb, 2014 [facility] [address] [id number] [address] [place] [address], [place] [address] 30 Feb, 2014 [facility] [address] [id number] [address] [place] [address], [place] [address] 29 Feb, 2014 [facility] [address] [id number] [address] [place] [address], [place] [address] 25 Feb, 2014 [facility] [address] [id number] [address] [place] [address], [place] [address] 25 Feb, 2013 [facility] [address] [id number] [address] [place] [address], [place] [address] 17 Feb, 2013 [facility] [address] [id number] [address] [place] [address], [place] [address] 17 Feb, 2013 [facility] [address] [id number] [address] [place] [address], [place] [address] Feb, 2013 [facility] [address] [id number] [address] [place] [address], [place] [address] 11 Feb, 2013 [facility] [address] [id number] [address] [place] [address], [place] [address] 10 Feb, 2013 [facility] [address] [id number] [address] [place] [address], [place] [address] 10 Feb, 2013 [facility] [address] [id number] [address] [place] [address], [place] [address] 10 Feb, 2013 [facility] [address] [id number] [address] [place] [address], [place] [address] 09 Feb, 2014 [facility] [address] [id number] [address] [place] [address], [place] [address] Feb, [facility] [address] [id number] [address] [place] [address], [place] [address] 15 Jan, 2014 [facility] [address] [id number] [address] [place] [address], [place] [address] Jan, [facility] [address] [id number] [address] [place] [address], [place] [address] Dec, [facility] [address] [id number] [address] [place] [address], [place] [address] Dec, [facility] [address] [id number] [address] [place] [address], [place] [address] 09 Dec, 2013 [facility] [address] [id number] [address] [place] [address], [place] [address] Dec, [facility] [address] [id number] [address] [place] [address], [place] [address] Dec, [facility] [address] [id number] [address] [place] [address], [place] [address] Dec, [facility] [address] [id number] [address] [place] [address], [place] [address] Nov, [facility] [address] [id number] [address] [place] [address], [place] [address] Nov, [facility] [address] [id number] [address] [place] [address], [place] [address] Sep, [facility] [address] [id number] [address] [place] [address], [place] [address] May, [facility] [address] [id number] [address] [place] [address], [place] [address] May, [facility] [address] [id number] [address] [place] [address], [place] [address] Nov, [facility] [address] [id number] [address] [place] [address], [place] [address] Sep, [facility] [address] [id number] [address] [place] [address], [place] [address] Aug, [facility] [address] [id number] [address] [place] [address], [place] [address] Jun, [facility] [address] [id number] [address] [place] [address], [place] [address] Jun, [facility] [address] [id number] [address] [place] [address], [place] [address] Jun, [facility] [address] [id number] [address] [place] [address], [place] [address] May, [facility] [address] [id number] [address] [place] [address], [place] [address] May, [facility] [address] [id number] [address] [place] [address] May, [facility] [address] [facility] [id number] [address] [place] [address] May, [facility] [address] [facility] [id number] [address] [place] [address] Apr, [facility] [address] [facility] [id number] [address] [place] [address] Apr, [facility] [address] [facility] [id number] [address] [place] [address] Apr, [facility] [address] [facility] [id number] [address] [place] [address] Apr, IMMUNIZATIONS No Known Immunizations SOCIAL HISTORY [...]
--- OUTSIDE RECORDS SUMMARY | 2019-12-03 22:23 | XMS REPORT ---
Author Author Imani Ramírez Organization [facility] Address [address] [place] [address] Care Team Providers Care Manugrapher Name Role Phone LON Ramírez Unavailable PROBLEMS Type Condition ICD9-CM Code DPO87-UB Code Onset Dates Condition S tatus SNOMED Code Problem Pre-diabetes R73.09 Active 2547589 02 Problem Mixed hyperlipidemia E78.2 Active 020457803 Problem Lumbago with sciatica, left side M54.42 Active 073234024 Problem Lumbago with sciatica, right side M54.41 Active 790799025965251 Problem Other chronic pain G89.29 Active 8 0705287 Problem Allergic rhinitis, unspecified seasonality, unspecifie d trigger J30.9 Active 53771074 Problem Spondylolisthesis of lumbosacral region M43.17 Active 101558127 Problem Current moderate episode of major depressive disorder, unspecified whether recurrent F32.1 Active 39811637 Problem Seasonal allergic rhinitis due to pollen J30.1 Active 00872843 Problem Dysfunctional uterine bleeding 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.8 Active 97613560 Problem Moderate persistent asthma with exacerbation J45.4 1 Active 962403185 Problem Cervical motion tenderness N94.9 Act venice 505807032 Problem Dysmenorrhea N94.6 Active 3114270 00 ALLERGIES No Information ENCOUNTERS Encounter Location Date Diagnosis [address] [address] Feb, Lumbago with sciatica, left side M54.[address] [address] Jan, High risk medications (not anticoagulant s) long-term use Z79.899 ; Lumbago with sciatica, right side M54.41 ; Lumbago with sciatica, left side M54.42 and Dyspepsia R10.[address] [address] Jan, Lumbago with sciatica, left side M54.[address] [address] Dec, Lumbago with sciatica, left side M54.[address] [address] Nov, Allergic rhinitis, unspecified seasonali ty, unspecified trigger J30.[address] [address] Nov, Lumbago with sciatica, left side M54.[address] [address] Nov, Dysfunctional uterine bleeding N93.[address] [address] Nov, [address] [address] Nov, Other chronic pain G89.29 and Low back p ain M54.5 [facility] [address] [facility] [id number] [address] [place] [address] October, [facility] [address] [facility] [id number] [address] [place] [address] October, Lumbago with sciatica, left side M54.42 [facility] [address] [facility] [id number] [address] [place] [address] October, [address] [address] October, [address] [address] October, Lumbago with sciatica, left side M54.42 ; Mixed hyperlipidemia E78.2 ; Pre-diabetes R73.09 ; Lumbago with sciatica, right side M54.41 and Current moderate episode of major depressive disorder, unspecified whether recurrent F32.[address] [address] Sep, Dysuria R30.0 ; Lumbago with sciatica, l eft side M54.42 ; Open wound of finger of left hand, initial encounter S61.209A ; Cervical motion tenderness N94.9 ; Dysmenorrhea N94.6 ; Allergic rhinitis, unspecified seasonality, unspecified trigger J30.9 and Mixed hyperlipidemia E78.[address] [address] Aug, Moderate persistent asthma with exacerba tion J45.41 and Other chronic pain G89.[address] [address] Aug, Moderate persistent asthma with exacerba tion J45.41 ; Mixed hyperlipidemia E78.2 ; Other chronic pain G89.29 ; Major depressive disorder in remission, unspecified whether recurrent F32.5 and Spondylolisthesis of lumbosacral region M43.[address] [place] [id number] Jul, 9 Dental examination Z01.20 and Caries K02.[address] [place] [id number] Jun, 9 Dental examination Z01.20 and Caries K02.[address] [address] Jan, Acute non-recurrent frontal sinusitis J01.10 ; Bronchitis J40 ; Tobacco use Z72.0 and Tobacco abuse counseling Z71.6 [place] [id number] [place] [address] Jan, [place] [id number] [place] [address] Jan, Bronchitis J40 and Viral upp er respiratory tract infection J06.9 [place] [id number] [place] [address] October, Spondylolisthesis of lumbosa cral region M43.17 [place] [id number] [place] [address] October, [place] [address] [id number] [address] [place] [id number] October, Acute suppurative otitis med ia of left ear without spontaneous rupture of tympanic membrane, recurrence not specified H66.002 ; Spondylolisthesis of lumbosacral region M43.17 ; Lumbago with sciatica, left side M54.42 ; Lumbago with sciatica, right side M54.41 ; Other chronic pain G89.29 ; Dysfunctional uterine bleeding N93.8 ; Screening for lipoid disorders Z13.220 and Pre-diabetes R73.09 [facility] [address] [id number] [address] [place] [address] Sep, Anxiety F41.9 [place] [address] [facility] [id number] [address] [place] [address] Aug, [place] [address] [facility] [id number] [address] [place] [phone] Aug, 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 [place] [address] [facility] [id number] [address] [place] [address] Apr, Anxiety F41.9 [place] [address] [facility] [id number] [address] [place] [phone] Feb, Anxiety F41.9 [place] [address] [facility] [id number] [address] [place] [phone] Feb, [facility] [address] [facility] [id number] [address] [place] [id number] 08 Feb, 2017 [facility] [address] [facility] [id number] [address] [place] [phone] Feb, [facility] [address] [facility] [id number] [address] [place] [address] Jan, Anxiety F41.9 [place] [address] [facility] [id number] [address] [place] [phone] Jan, Anxiety F41.9 and Spondyloli sthesis of lumbosacral region M43.17 [facility] [address] [place] [id number] [address] [place] [id number] 17 Dec, 2016 Anxiety F41.9 [facility] [address] [place] [id number] [address] [place] [id number] 14 Nov, 2016 Anxiety F41.9 [facility] [address] [place] [id number] [place] [address] 10 Oct, 2016 Anxiety F41.9 and Seasonal a llergic rhinitis due to pollen J30.1 [facility] [address] [place] [id number] [place] [address] Sep, Anxiety F41.9 [place] [address] [place] [id number] [place] [address] 16 Aug, 2016 Pre-diabetes R73.09 and Anxi ety F41.9 [place] [address] [address] 16 Jul, 2016 [facility] [address] [address] Mar, [facility] [address] [address] 13 Mar, 2016 DUB (dysfunctional uterine b leeding) N93.8 and Menorrhagia with irregular cycle N92.1 [place] [address] [address] Feb, [facility] [address] [address] 08 Feb, 2016 Encounter for dental examina tion Z01.20 [facility] [address] [address] 01 Feb, 2016 Herniated nucleus pulposus M 51.9 [facility] [address] [id number] [address] [place] [address] [id number] Feb, Dental examination Z01.20 [facility] [address] [place] [id number] [address] [place] [id number] 25 Jan, 2016 Dental examination Z01.20 an d Dental caries K02.9 [facility] [address] [id number] [address] [place] [phone] Jan, Encounter for dental examina tion and cleaning without abnormal findings Z01.20 [facility] [address] [id number] [address] [place] [phone] Jan, [facility] [address] [id number] [address] [place] [phone] Jan, [facility] [address] [id number] [address] [place] [address] Jan, Pre-diabetes R73.09 ; Chroni c nonintractable headache, unspecified headache type R51 and Vaginal yeast infection B37.3 [facility] [address] [id number] [address] [place] [id number] Jan, [facility] [address] [id number] [address] [place] [address] Dec, Herniated nucleus pulposus M 51.9 [facility] [address] [id number] [address] [place] [phone] Dec, [facility] [address] [id number] [address] [place] [phone] Nov, [facility] [address] [id number] [address] [place] [phone] Nov, [facility] [address] [id number] [address] [place] [phone] Nov, [facility] [address] [id number] [address] [place] [phone] Nov, [facility] [address] [id number] [address] [place] [address] Nov, Right hip pain M25.551 ; Pre -diabetes R73.09 ; Mixed hyperlipidemia E78.2 ; Chronic nonintractable headache, unspecified headache type R51 ; Right foot pain M79.671 and Right hand pain M79.641 [facility] [address] [facility] [id number] [address] [place] [id number] Nov, [facility] [address] [facility] [id number] [address] [place] [address] Nov, Right hip pain M25.551 ; Pre -diabetes R73.09 ; Mixed hyperlipidemia E78.2 and Chronic nonintractable headache, unspecified headache type R51 [facility] [address] [facility] [id number] [address] [place] [id number] October, [facility] [address] [place] [id number] [place] [address] October, Right hip pain M25.551 ; Pre -diabetes R73.09 ; Mixed hyperlipidemia E78.2 and Frequent headaches R51 [facility] [address] [place] [id number] [address] [place] [address] October, Menorrhagia with regular cyc le N92.0 [facility] [address] [facility] [id number] [address] [place] [phone] October, [facility] [address] [place] [id number] [place] [phone] October, Menorrhagia with regular cyc le N92.0 [facility] [address] [facility] [id number] [address] [place] [phone] Sep, Lump of right breast N63 ; M enorrhagia with regular cycle N92.0 and BMI 30.0-30.9,adult Z68.30 [facility] [address] [facility] [id number] [address] [place] [phone] Sep, [facility] [address] [facility] [id number] [address] [place] [phone] Aug, [facility] [address] [place] [id number] [place] [address] Aug, Well woman exam Z01.419 ; En [...] Z87.898 and Trichomonas vaginalis (TV) infection A59.01 [facility] [address] [id number] [address] [place] [id number] October, Abdominal pain, unspecified site 789.00 ; GERD (gastroesophageal reflux disease) 530.81 and Chest pain 786.50 [place] [address] [id number] [address] [place] [id number] 14 Sep, 2014 [facility] [address] [id number] [address] [place] [phone] Sep, [facility] [address] [id number] [address] [place] [phone] Jul, [facility] [address] [id number] [address] [place] [phone] Jul, [facility] [address] [id number] [address] [place] [phone] Jun, [facility] [address] [id number] [address] [place] [phone] Jun, [facility] [address] [id number] [address] [place] [phone] Jun, [facility] [address] [id number] [address] [place] [phone] Jun, [facility] [address] [id number] [address] [place] [phone] Jun, [facility] [address] [id number] [address] [place] [address], [place] [address] 14 Jun, 2014 [facility] [address] [id number] [address] [place] [address], [place] [address] 14 Jun, 2014 [facility] [address] [id number] [address] [place] [address], [place] [address] Jun, [facility] [address] [id number] [address] [place] [address], [place] [address] Jun, [facility] [address] [id number] [address] [place] [address], [place] [address] Jun, [facility] [address] [id number] [address] [place] [address], [place] [address] Jun, [facility] [address] [id number] [address] [place] [address], [place] [address] Jun, [facility] [address] [id number] [address] [place] [address], [place] [address] Jun, [facility] [address] [id number] [address] [place] [address], [place] [address] Jun, [facility] [address] [id number] [address] [place] [address], [place] [address] Jun, [facility] [address] [id number] [address] [place] [address], [place] [address] May, [facility] [address] [id number] [address] [place] [address], [place] [address] May, [facility] [address] [id number] [address] [place] [address], [place] [address] 30 Feb, 2014 [facility] [address] [id number] [address] [place] [address], [place] [address] 30 Feb, 2014 [facility] [address] [id number] [address] [place] [address], [place] [address] 29 Feb, 2014 [facility] [address] [id number] [address] [place] [address], [place] [address] 25 Feb, 2014 [facility] [address] [id number] [address] [place] [address] 25 Feb, 2013 [facility] [address] [id number] [address] [place] [address] 17 Feb, 2013 [facility] [address] [id number] [address] [place] [address] 17 Feb, 2013 [facility] [address] [id number] [address] [place] [address], [place] [address] 11 Feb, 2013 [facility] [address] [id number] [address] [place] [address], [place] [address] 11 Feb, 2013 [facility] [address] [id number] [address] [place] [address], [place] [address] 10 Feb, 2013 [facility] [address] [id number] [address] [place] [address], [place] [address] 10 Feb, 2013 [facility] [address] [id number] [address] [place] [address], [place] [address] 10 Feb, 2013 [facility] [address] [id number] [address] [place] [address], [place] [address] 09 Feb, 2014 [facility] [address] [id number] [address] [place] [address], [place] [address] 09 Feb, 2014 [facility] [address] [id number] [address] [place] [address], [place] [address] 15 Jan, 2014 [facility] [address] [id number] [address] [place] [address], [place] [address] Jan, [facility] [address] [id number] [address] [place] [address], [place] [address] 14 Dec, 2013 [facility] [address] [id number] [address] [place] [address], [place] [address] 14 Dec, 2013 [facility] [address] [id number] [address] [place] [address], [place] [address] 09 Dec, 2013 [facility] [address] [id number] [address] [place] [address], [place] [address] Dec, [facility] [address] [id number] [address] [place] [address], [place] [address] Dec, [facility] [address] [id number] [address] [place] [address], [place] [address] Dec, [facility] [address] [id number] [address] [place] [address], [place] [address] Nov, [facility] [address] [id number] [address] [place] [address], [place] [address] Nov, [facility] [address] [id number] [address] [place] [address], [place] [address] Sep, [facility] [address] [id number] [address] [place] [address], [place] [address] May, [facility] [address] [id number] [address] [place] [address], [place] [address] May, [facility] [address] [id number] [address] [place] [address], [place] [address] Nov, [facility] [address] [id number] [address] [place] [address], [place] [address] Sep, [facility] [address] [id number] [address] [place] [address], [place] [address] Aug, [facility] [address] [id number] [address] [place] [address], [place] [address] Jun, [facility] [address] [id number] [address] [place] [address], [place] [address] Jun, [facility] [address] [id number] [address] [place] [address], [place] [address] Jun, [facility] [address] [id number] [address] [place] [address], [place] [address] May, [facility] [address] [id number] [address] [place] [address], [place] [address] May, [facility] [address] [id number] [address] [place] [id number] May, [facility] [address] [facility] [id number] [address] [place] [phone] May, [facility] [address] [facility] [id number] [address] [place] [phone] Apr, [facility] [address] [facility] [id number] [address] [place] [id number] Apr, [facility] [address] [facility] [id number] [address] [place] [id number] Apr, [facility] [address] [facility] [id number] [address] [place] [address] Apr, IMMUNIZATIONS No Known Immunizations SOCIAL HISTORY [...]
--- OUTSIDE RECORDS SUMMARY | 2019-12-03 22:24 | XMS REPORT ---
Author Author Imani SCHAEFFER Organization [facility] Address [address] [place] [address] Care Team Providers Care Chief Pilot Name Role Phone AMBER SCHAEFFER Unavailable PROBLEMS Type Condition ICD9-CM Code FKH29-GQ Code Onset Dates Condition S tatus SNOMED Code Problem Pre-diabetes R73.09 Active 4023716 02 Problem Mixed hyperlipidemia E78.2 Active 965178375 Problem Lumbago with sciatica, left side M54.42 Active 863698249 Problem Lumbago with sciatica, right side M54.41 Active 778566362121411 Problem Other chronic pain G89.29 Active 8 2875632 Problem Allergic rhinitis, unspecified seasonality, unspecifie d trigger J30.9 Active 73163993 Problem Spondylolisthesis of lumbosacral region M43.17 Active 595090741 Problem Current moderate episode of major depressive disorder, unspecified whether recurrent F32.1 Active 65137982 Problem Seasonal allergic rhinitis due to pollen J30.1 Active 42902895 Problem Dysfunctional uterine bleeding N93.8 Active 40520496 Problem Moderate persistent asthma with exacerbation J45.4 1 Active 329883614 Problem Cervical motion tenderness N94.9 Act venice 776049227 Problem Dysmenorrhea N94.6 Active 9746567 00 ALLERGIES No Information ENCOUNTERS Encounter Location Date Diagnosis [address] [address] Nov, Allergic rhinitis, unspecified seasonali ty, unspecified trigger J30.[address] [address] Nov, Lumbago with sciatica, left side M54.[address] [address] Nov, Dysfunctional uterine bleeding N93.[address] [address] Nov, [address] [address] Nov, Other chronic pain G89.29 and Low back p ain M54.5 [facility] [address] [id number] [address] [place] [address] October, [facility] [address] [id number] [address] [place] [address] October, Lumbago with sciatica, left side M54.42 [facility] [address] [id number] [address] [place] [address] October, [address] [address] October, [address] [address] October, Lumbago with sciatica, left side M54.42 ; Mixed hyperlipidemia E78.2 ; Pre-diabetes R73.09 ; Lumbago with sciatica, right side M54.41 and Current moderate episode of major depressive disorder, unspecified whether recurrent F32.[address] [address] Sep, Dysuria R30.0 ; Lumbago with sciatica, l eft side M54.42 ; Open wound of finger of left hand, initial encounter S61.209A ; Cervical motion tenderness N94.9 ; Dysmenorrhea N94.6 ; Allergic rhinitis, unspecified seasonality, unspecified trigger J30.9 and Mixed hyperlipidemia E78.[address] [address] Aug, Moderate persistent asthma with exacerba tion J45.41 and Other chronic pain G89.[address] [address] Aug, Moderate persistent asthma with exacerba tion J45.41 ; Mixed hyperlipidemia E78.2 ; Other chronic pain G89.29 ; Major depressive disorder in remission, unspecified whether recurrent F32.5 and Spondylolisthesis of lumbosacral region M43.17 [place] [id number] [facility] [address] [place] [address] Jul, Dental examination Z01.20 and Caries K02.9 [facility] [address] [place] [address] Jun, Dental examination Z01.20 and Caries K02.9 [place] [address] [address] Jan, Acute non-recurrent frontal sinusitis J01.10 ; Bronchitis J40 ; Tobacco use Z72.0 and Tobacco abuse counseling Z71.[address] [address] Jan, [place] [address] [address] Jan, Bronchitis J40 and Viral upp er respiratory tract infection J06.[address] [address] October, Spondylolisthesis of lumbosa cral region M43.17 [place] [address] [address] October, [place] [address] [address] October, Acute suppurative otitis med ia of left ear without spontaneous rupture of tympanic membrane, recurrence not specified H66.002 ; Spondylolisthesis of lumbosacral region M43.17 ; Lumbago with sciatica, left side M54.42 ; Lumbago with sciatica, right side M54.41 ; Other chronic pain G89.29 ; Dysfunctional uterine bleeding N93.8 ; Screening for lipoid disorders Z13.220 and Pre-diabetes R73.09 [place] [address] [place] [id number] [place] [address] Sep, Anxiety F41.[address] [address] Aug, [facility] [address] [place] [id number] [address] [place] [address] Aug, 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 [id number] [address] [place] [address] Apr, Anxiety F41.9 [facility] [address] [place] [id number] [address] [place] [address] Feb, Anxiety F41.9 [facility] [address] [place] [id number] [address] [place] [address] Feb, [facility] [address] [address] 08 Feb, 2017 [facility] [address] [place] [id number] [place] [address] Feb, [facility] [address] [address] Jan, Anxiety F41.9 [place] [address] [address] Jan, Anxiety F41.9 and Spondyloli sthesis of lumbosacral region M43.17 [facility] [id number] [place] [address] Dec, Anxiety F41.9 [facility] [address] [place] [id number] [address] [place] [address] Nov, Anxiety F41.9 [place] [address] [address] October, Anxiety F41.9 and Seasonal a llergic rhinitis due to pollen J30.1 [facility] [address] [place] [id number] [address] [place] [address] Sep, Anxiety F41.9 [facility] [address] [place] [id number] [address] [place] [address] Aug, Pre-diabetes R73.09 and Anxi ety F41.9 [facility] [address] [id number] [address] [place] [address] Jul, [facility] [address] [id number] [address] [place] [address] Mar, [facility] [address] [id number] [address] [place] [address] Mar, DUB (dysfunctional uterine b leeding) N93.8 and Menorrhagia with irregular cycle N92.1 [facility] [address] [id number] [address] [place] [address] Feb, [facility] [address] [id number] [address] [place] [id number] 08 Feb, 2016 Encounter for dental examina tion Z01.20 [facility] [address] [id number] [address] [place] [address] Feb, Herniated nucleus pulposus M 51.9 [facility] [address] [id number] [address] [place] [id number] Feb, Dental examination Z01.20 [facility] [address] [id number] [address] [place] [address] Jan, Dental examination Z01.20 an d Dental caries K02.9 [facility] [address] [id number] [address] [place] [address] Jan, Encounter for dental examina tion and cleaning without abnormal findings Z01.20 [facility] [address] [id number] [address] [place] [address] Jan, [facility] [address] [id number] [address] [place] [address] Jan, [facility] [address] [id number] [address] [place] [address] Jan, Pre-diabetes R73.09 ; Chroni c nonintractable headache, unspecified headache type R51 and Vaginal yeast infection B37.3 [facility] [address] [id number] [address] [place] [address] Jan, [facility] [address] [id number] [address] [place] [address] Dec, Herniated nucleus pulposus M 51.9 [facility] [address] [id number] [address] [place] [address] Dec, [facility] [address] [id number] [address] [place] [address] Nov, [facility] [address] [id number] [address] [place] [address] Nov, [facility] [address] [id number] [address] [place] [address] Nov, [facility] [address] [id number] [address] [place] [address] Nov, [facility] [address] [id number] [address] [place] [address] Nov, Right hip pain M25.551 ; Pre -diabetes R73.09 ; Mixed hyperlipidemia E78.2 ; Chronic nonintractable headache, unspecified headache type R51 ; Right foot pain M79.671 and Right hand pain M79.641 [facility] [address] [id number] [address] [place] [address] Nov, [facility] [address] [id number] [address] [place] [address] Nov, Right hip pain M25.551 ; Pre -diabetes R73.09 ; Mixed hyperlipidemia E78.2 and Chronic nonintractable headache, unspecified headache type R51 [facility] [address] [id number] [address] [place] [address] October, [facility] [address] [id number] [address] [place] [address] October, Right hip pain M25.551 ; Pre -diabetes R73.09 ; Mixed hyperlipidemia E78.2 and Frequent headaches R51 [facility] [id number] [place] [address] October, Menorrhagia with regular cyc le N92.0 [facility] [address] [place] [id number] [address] [place] [address] October, [facility] [address] [address] October, Menorrhagia with regular cyc le N92.0 [facility] [address] [address] Sep, Lump of right breast N63 ; M enorrhagia with regular cycle N92.0 and BMI 30.0-30.9,adult Z68.30 [place] [address] [place] [id number] [address] [place] [address] Sep, [facility] [address] [place] [id number] [address] [place] [address] Aug, [facility] [address] [address] Aug, Well woman exam Z01.419 ; En [...] Trichomonas vaginalis (TV) infection A59.01 [place] [address] [place] [id number] [address] [place] [address] October, Abdominal pain, unspecified site 789.00 ; GERD (gastroesophageal reflux disease) 530.81 and Chest pain 786.50 [facility] [address] [id number] [address] [place] [address], [place] [address] 14 Sep, 2014 [facility] [address] [id number] [address] [place] [address], [place] [address] Sep, [facility] [address] [id number] [address] [place] [address], [place] [address] 13 Jul, 2014 [facility] [address] [id number] [address] [place] [address], [place] [address] Jul, [facility] [address] [id number] [address] [place] [address], [place] [address] Jun, [facility] [address] [id number] [address] [place] [address], [place] [address] Jun, [facility] [address] [id number] [address] [place] [address], [place] [address] Jun, [facility] [address] [id number] [address] [place] [address], [place] [address] 16 Jun, 2014 [facility] [address] [id number] [address] [place] [address], [place] [address] Jun, [facility] [address] [id number] [address] [place] [address], [place] [address] Jun, [facility] [address] [id number] [address] [place] [address] Jun, [facility] [address] [id number] [address] [place] [id number] Jun, [facility] [address] [id number] [address] [place] [address], [place] [address] Jun, [facility] [address] [id number] [address] [place] [address], [place] [address] Jun, [facility] [address] [id number] [address] [place] [id number] Jun, [facility] [address] [id number] [address] [place] [id number] Jun, [facility] [address] [id number] [address] [place] [address], [place] [address] Jun, [facility] [address] [id number] [address] [place] [address], [place] [address] Jun, [facility] [address] [id number] [address] [place] [address], [place] [address] Jun, [facility] [address] [id number] [address] [place] [address], [place] [address] May, [facility] [address] [id number] [address] [place] [address], [place] [address] May, [facility] [address] [id number] [address] [place] [address], [place] [address] 30 Feb, 2014 [facility] [address] [id number] [address] [place] [address], [place] [address] 30 Feb, 2013 [facility] [address] [id number] [address] [place] [address], [place] [address] 29 Feb, 2013 [facility] [address] [id number] [address] [place] [address], [place] [address] 25 Feb, 2013 [facility] [address] [id number] [address] [place] [address], [place] [address] 25 Feb, 2013 [facility] [address] [id number] [address] [place] [address], [place] [address] 17 Feb, 2013 [facility] [address] [id number] [address] [place] [address], [place] [address] 17 Feb, 2013 [facility] [address] [id number] [address] [place] [address], [place] [address] 11 Feb, 2013 [facility] [address] [id number] [address] [place] [address], [place] [address] 11 Feb, 2013 [facility] [address] [id number] [address] [place] [address], [place] [address] 10 Feb, 2013 [facility] [address] [id number] [address] [place] [address], [place] [address] 10 Feb, 2013 [facility] [address] [id number] [address] [place] [address], [place] [address] Feb, [facility] [address] [id number] [address] [place] [address], [place] [address] Feb, [facility] [address] [id number] [address] [place] [address], [place] [address] Feb, [facility] [address] [id number] [address] [place] [address], [place] [address] Jan, [facility] [address] [id number] [address] [place] [address], [place] [address] Jan, [facility] [address] [id number] [address] [place] [address], [place] [address] Dec, [facility] [address] [id number] [address] [place] [address], [place] [address] Dec, [facility] [address] [id number] [address] [place] [address], [place] [address] Dec, [facility] [address] [id number] [address] [place] [address], [place] [address] Dec, [facility] [address] [id number] [address] [place] [address], [place] [address] Dec, [facility] [address] [id number] [address] [place] [address], [place] [address] Dec, [facility] [address] [id number] [address] [place] [address], [place] [address] Nov, [facility] [address] [id number] [address] [place] [address], [place] [address] Nov, [facility] [address] [id number] [address] [place] [address], [place] [address] Sep, [facility] [address] [id number] [address] [place] [address], [place] [address] May, [facility] [address] [id number] [address] [place] [address] May, [facility] [address] [id number] [address] [place] [address] Nov, [facility] [address] [id number] [address] [place] [address] Sep, [facility] [address] [id number] [address] [place] [address] Aug, [facility] [address] [id number] [address] [place] [address] Jun, [facility] [address] [id number] [address] [place] [address] Jun, [facility] [address] [id number] [address] [place] [address] Jun, [facility] [address] [id number] [address] [place] [address] May, [facility] [address] [id number] [address] [place] [address] May, [facility] [address] [id number] [address] [place] [address] May, [facility] [address] [id number] [address] [place] [address] May, [facility] [address] [id number] [address] [place] [address] Apr, [facility] [address] [id number] [address] [place] [address] Apr, [facility] [address] [id number] [address] [place] [address] Apr, [facility] [address] [id number] [address] [place] [address] Apr, IMMUNIZATIONS No Known Immunizations SOCIAL HISTORY Never Assessed REASON FOR VISIT PLAN OF CARE VITAL SIGNS MEDICATIONS No Known Medications RESULTS No Results PROCEDURES Procedure Date Ordered Result Body Site COMPLETE CBC W/AUTO DIFF WBC Jun 27, 2014 VENIPUNCT, ROUTINE* Jun 27, 2014 INSTRUCTIONS MEDICATIONS ADMINISTERED No Known Medications [...]
--- OUTSIDE RECORDS SUMMARY | 2019-12-03 22:24 | XMS REPORT ---
Author Author Imani Watt Doctor Organization [facility] Address Unknown Phone Unavailable Care Team Providers Care Pension Adviser Name Role Phone Migration, Doctor Unavailable Unavailable PROBLEMS Type Condition ICD9-CM Code VKB39-HU Code Onset Dates Condition S tatus SNOMED Code Problem Pre-diabetes R73.09 Active 4485135 02 Problem Mixed hyperlipidemia E78.2 Active 761816293 Problem Lumbago with sciatica, left side M54.42 Active 230494726 Problem Lumbago with sciatica, right side M54.41 Active 285264473733955 Problem Other chronic pain G89.29 Active 8 3731141 Problem Allergic rhinitis, unspecified seasonality, unspecifie d trigger J30.9 Active 08539618 Problem Spondylolisthesis of lumbosacral region M43.17 Active 350446645 Problem Current moderate episode of major depressive disorder, unspecified whether recurrent F32.1 Active 24770728 Problem Seasonal allergic rhinitis due to pollen J30.1 Active 92838423 Problem Dysfunctional uterine bleeding N93.8 Active 56947376 Problem Moderate persistent asthma with exacerbation J45.4 1 Active 361692751 Problem Cervical motion tenderness N94.9 Act venice 146890644 Problem Dysmenorrhea N94.6 Active 8221336 00 ALLERGIES No Information ENCOUNTERS Encounter Location Date Diagnosis [facility] [address] [place] [address] Nov, [facility] [address] [facility] [id number] [address] [place] [address] October, [facility] [address] [facility] [id number] [address] [place] [address] October, Lumbago with sciatica, left side M54.42 [facility] [address] [facility] [id number] [address] [place] [address] October, [address] [address] October, [address] [address] October, Lumbago with sciatica, left side M54.42 ; Mixed hyperlipidemia E78.2 ; Pre-diabetes R73.09 ; Lumbago with sciatica, right side M54.41 and Current moderate episode of major depressive disorder, unspecified whether recurrent F32.[address] [address] Sep, Dysuria R30.0 ; Lumbago with sciatica, l eft side M54.42 ; Open wound of finger of left hand, initial encounter S61.209A ; Cervical motion tenderness N94.9 ; Dysmenorrhea N94.6 ; Allergic rhinitis, unspecified seasonality, unspecified trigger J30.9 and Mixed hyperlipidemia E78.[address] [address] Aug, Moderate persistent asthma with exacerba tion J45.41 and Other chronic pain G89.[address] [address] Aug, Moderate persistent asthma with exacerba tion J45.41 ; Mixed hyperlipidemia E78.2 ; Other chronic pain G89.29 ; Major depressive disorder in remission, unspecified whether recurrent F32.5 and Spondylolisthesis of lumbosacral region M43.17 [facility] [address] [place] [address] Jul, 19 Dental examination Z01.20 and Caries K02.9 [facility] [address] [place] [address] Jun, 19 Dental examination Z01.20 and Caries K02.[address] [place] [address] Jan, Acute non-recurrent frontal sinusitis J01.10 ; Bronchitis J40 ; Tobacco use Z72.0 and Tobacco abuse counseling Z71.6 [place] [id number] [address] [place] [address] Jan, [address] [place] [address] Jan, Bronchitis J40 and Viral upp er respiratory tract infection J06.9 [place] [address] [place] [id number] [address] [place] [address] October, Spondylolisthesis of lumbosa cral region M43.17 [place] [address] [address] October, [place] [address] [address] October, Acute suppurative otitis med ia of left ear without spontaneous rupture of tympanic membrane, recurrence not specified H66.002 ; Spondylolisthesis of lumbosacral region M43.17 ; Lumbago with sciatica, left side M54.42 ; Lumbago with sciatica, right side M54.41 ; Other chronic pain G89.29 ; Dysfunctional uterine bleeding N93.8 ; Screening for lipoid disorders Z13.220 and Pre-diabetes R73.09 [place] [address] [address] Sep, Anxiety F41.9 [place] [address] [address] Aug, [place] [address] [address] Aug, 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 [place] [address] [place] [id number] [address] [place] [address] Apr, Anxiety F41.9 [place] [address] [address] Feb, Anxiety F41.9 [place] [address] [place] [id number] [address] [place] [address] Feb, [place] [address] [address] Feb, [facility] [address] [place] [id number] [address] [place] [address] 06 Feb, 2017 [facility] [address] [address] Jan, Anxiety F41.9 [facility] [address] [address] 16 Jan, 2017 Anxiety F41.9 and Spondyloli sthesis of lumbosacral region M43.17 [facility] [address] [facility] [id number] [address] [place] [address] 17 Dec, 2016 Anxiety F41.9 [facility] [address] [address] 14 Nov, 2016 Anxiety F41.9 [place] [address] [address] October, Anxiety F41.9 and Seasonal a llergic rhinitis due to pollen J30.1 [facility] [address] [place] [id number] [address] [place] [address] Sep, Anxiety F41.9 [place] [address] [address] Aug, Pre-diabetes R73.09 and Anxi ety F41.9 [facility] [address] [place] [id number] [address] [place] [address] Jul, [facility] [address] [place] [id number] [address] [place] [address] Mar, [facility] [address] [address] 13 Mar, 2016 DUB (dysfunctional uterine b leeding) N93.8 and Menorrhagia with irregular cycle N92.1 [facility] [address] [place] [id number] [address] [place] [address] 19 Feb, 2016 [facility] [address] [place] [address] 08 Feb, 2016 Encounter for dental examina tion Z01.20 [facility] [address] [id number] [address] [place] [address] Feb, Herniated nucleus pulposus M 51.9 [facility] [address] [id number] [address] [place] [id number] Feb, Dental examination Z01.20 [facility] [address] [id number] [address] [place] [address] Jan, Dental examination Z01.20 an d Dental caries K02.9 [facility] [address] [id number] [address] [place] [address] Jan, Encounter for dental examina tion and cleaning without abnormal findings Z01.20 [facility] [address] [id number] [address] [place] [address] Jan, [facility] [address] [id number] [address] [place] [address] Jan, [facility] [address] [id number] [address] [place] [address] Jan, Pre-diabetes R73.09 ; Chroni c nonintractable headache, unspecified headache type R51 and Vaginal yeast infection B37.3 [facility] [address] [id number] [address] [place] [address] Jan, [facility] [address] [id number] [address] [place] [address] Dec, Herniated nucleus pulposus M 51.9 [facility] [address] [id number] [address] [place] [address] Dec, [facility] [address] [id number] [address] [place] [address] Nov, [facility] [address] [id number] [address] [place] [address] Nov, [facility] [address] [id number] [address] [place] [address] Nov, [facility] [address] [id number] [address] [place] [address] Nov, [facility] [address] [facility] [id number] [address] [place] [address] Nov, Right hip pain M25.551 ; Pre -diabetes R73.09 ; Mixed hyperlipidemia E78.2 ; Chronic nonintractable headache, unspecified headache type R51 ; Right foot pain M79.671 and Right hand pain M79.641 [facility] [address] [id number] [address] [place] [address] 17 Nov, 2015 [facility] [address] [facility] [id number] [address] [place] [address] 15 Nov, 2015 Right hip pain M25.551 ; Pre -diabetes R73.09 ; Mixed hyperlipidemia E78.2 and Chronic nonintractable headache, unspecified headache type R51 [facility] [address] [id number] [address] [place] [address] October, [facility] [address] [facility] [id number] [address] [place] [address] October, Right hip pain M25.551 ; Pre -diabetes R73.09 ; Mixed hyperlipidemia E78.2 and Frequent headaches R51 [facility] [address] [facility] [id number] [address] [place] [address] October, Menorrhagia with regular cyc le N92.[address] [facility] [address] [facility] [id number] [address] [place] [address] October, [facility] [address] [facility] [id number] [address] [place] [address] October, Menorrhagia with regular cyc le N92.0 [facility] [address] [facility] [id number] [address] [place] [address] Sep, Lump of right breast N63 ; M enorrhagia with regular cycle N92.0 and BMI 30.0-30.9,adult Z68.30 [place] [address] [facility] [id number] [address] [place] [address] Sep, [facility] [address] [facility] [id number] [address] [place] [address] Aug, [place] [address] [place] [id number] [address] [place] [address] Aug, Well woman exam Z01.419 ; En [...] Z87.898 and Trichomonas vaginalis (TV) infection A59.01 [place] [address] [place] [id number] [address] [place] [address] October, Abdominal pain, unspecified site 789.00 ; GERD (gastroesophageal reflux disease) 530.81 and Chest pain 786.50 [place] [address] [place] [id number] [address] [place] [address] Sep, [place] [address] [facility] [id number] [address] [place] [address] Sep, [place] [address] [facility] [id number] [address] [place] [address] Jul, [place] [address] [facility] [id number] [address] [place] [address] Jul, [place] [address] [facility] [id number] [address] [place] [address] Jun, [place] [address] [facility] [id number] [address] [place] [address] Jun, [facility] [address] [id number] [address] [place] [address], [place] [address] Jun, [facility] [address] [id number] [address] [place] [address], [place] [address] Jun, [facility] [address] [id number] [address] [place] [address], [place] [address] Jun, [facility] [address] [id number] [address] [place] [address], [place] [address] Jun, [facility] [address] [id number] [address] [place] [address], [place] [address] Jun, [facility] [address] [id number] [address] [place] [address], [place] [address] Jun, [facility] [address] [id number] [address] [place] [address], [place] [address] Jun, [facility] [address] [id number] [address] [place] [address], [place] [address] Jun, [facility] [address] [id number] [address] [place] [address], [place] [address] Jun, [facility] [address] [id number] [address] [place] [address], [place] [address] Jun, [facility] [address] [id number] [address] [place] [address], [place] [address] Jun, [facility] [address] [id number] [address] [place] [address], [place] [address] Jun, [facility] [address] [id number] [address] [place] [address], [place] [address] Jun, [facility] [address] [id number] [address] [place] [address], [place] [address] May, [facility] [address] [id number] [address] [place] [address], [place] [address] May, [facility] [address] [id number] [facility] [place] [address] 30 Sep, 2013 [facility] [address] [id number] [address] [place] [address], [place] [address] 30 Sep, 2013 [facility] [address] [id number] [facility] [place] [address] 29 Sep, 2013 [facility] [address] [id number] [address] [place] [address], [place] [address] 25 Sep, 2013 [facility] [address] [id number] [address] [place] [address], [place] [address] 25 Feb, 2013 [facility] [address] [id number] [address] [place] [address], [place] [address] 17 Feb, 2013 [facility] [address] [id number] [address] [place] [address], [place] [address] 17 Feb, 2013 [facility] [address] [id number] [address] [place] [address], [place] [address] 11 Feb, 2013 [facility] [address] [id number] [address] [place] [address], [place] [address] 11 Feb, 2013 [facility] [address] [id number] [address] [place] [address], [place] [address] 10 Feb, 2013 [facility] [address] [id number] [address] [place] [address], [place] [address] 10 Feb, 2013 [facility] [address] [id number] [address] [place] [address], [place] [address] 10 Feb, 2013 [facility] [address] [id number] [address] [place] [address], [place] [address] 09 Feb, 2013 [facility] [address] [id number] [address] [place] [address], [place] [address] 09 Feb, 2013 [facility] [address] [id number] [address] [place] [address], [place] [address] 15 Jan, 2014 [facility] [address] [id number] [address] [place] [address], [place] [address] Jan, [facility] [address] [id number] [address] [place] [address], [place] [address] Dec, [facility] [address] [id number] [address] [place] [address], [place] [address] Dec, [facility] [address] [id number] [address] [place] [address], [place] [address] Dec, [facility] [address] [id number] [address] [place] [address], [place] [address] Dec, [facility] [address] [id number] [address] [place] [address], [place] [address] Dec, [facility] [address] [id number] [address] [place] [address], [place] [address] Dec, [facility] [address] [id number] [address] [place] [address], [place] [address] Nov, [facility] [address] [id number] [address] [place] [address], [place] [address] Nov, [facility] [address] [id number] [address] [place] [address], [place] [address] Sep, [facility] [address] [id number] [address] [place] [address], [place] [address] May, [facility] [address] [id number] [address] [place] [address], [place] [address] May, [facility] [address] [id number] [address] [place] [address], [place] [address] Nov, [facility] [address] [id number] [address] [place] [address], [place] [address] Sep, [facility] [address] [id number] [address] [place] [address], [place] [address] Aug, [facility] [address] [id number] [address] [place] [address], [place] [address] Jun, [facility] [address] [id number] [address] [place] [address] Jun, [facility] [address] [id number] [address] [place] [address] Jun, [facility] [address] [id number] [address] [place] [address] May, [facility] [address] [id number] [address] [place] [address] May, [facility] [address] [id number] [address] [place] [address] May, [facility] [address] [id number] [address] [place] [address] May, [facility] [address] [id number] [address] [place] [address] Apr, [facility] [address] [id number] [address] [place] [address] Apr, [facility] [address] [id number] [address] [place] [address] Apr, [facility] [address] [id number] [address] [place] [address] Apr, IMMUNIZATIONS No Known Immunizations SOCIAL HISTORY Never Assessed REASON FOR VISIT [facility] [place] PLAN OF CARE VITAL SIGNS MEDICATIONS Unknown Medications RESULTS No Results PROCEDURES Procedure Date Ordered Result Body Site US EXAM ABDO BACK WALL, COMP Feb 19, 2014 INSTRUCTIONS MEDICATIONS ADMINISTERED No Known [...]
--- OUTSIDE RECORDS SUMMARY | 2019-12-03 22:24 | XMS REPORT ---
Author Author Imani SCHAEFFER Organization [facility] Address [address] [place] [address] Care Team Providers Care Discharge Planner Name Role Phone AMBER SCHAEFFER Unavailable PROBLEMS Type Condition ICD9-CM Code [id number] Code Onset Dates Condition S tatus SNOMED Code Problem Pre-diabetes R73.09 Active 3877398 02 Problem Mixed hyperlipidemia E78.2 Active 218370982 Problem Lumbago with sciatica, left side M54.42 Active 727946278 Problem Lumbago with sciatica, right side M54.41 Active 900625833910231 Problem Other chronic pain G89.29 Active 8 7624069 Problem Allergic rhinitis, unspecified seasonality, unspecifie d trigger J30.9 Active 93583658 Problem Spondylolisthesis of lumbosacral region M43.17 Active 741446351 Problem Current moderate episode of major depressive disorder, unspecified whether recurrent F32.1 Active 38679796 Problem Seasonal allergic rhinitis due to pollen J30.1 Active 37804409 Problem Dysfunctional uterine bleeding N93.8 Active 70400029 Problem Moderate persistent asthma with exacerbation J45.4 1 Active 107636872 Problem Cervical motion tenderness N94.9 Act [place] 418495442 Problem Dysmenorrhea N94.6 Active 5402191 00 ALLERGIES No Information ENCOUNTERS Encounter Location Date Diagnosis [address] [address] Dec, Lumbago with sciatica, left side M54.[address] [address] Nov, Allergic rhinitis, unspecified seasonali ty, unspecified trigger J30.[address] [address] Nov, Lumbago with sciatica, left side M54.[address] [address] Nov, Dysfunctional uterine bleeding N93.[address] [address] Nov, [address] [address] Nov, Other chronic pain G89.29 and Low back p ain M54.5 [place] [address] [address] [facility] [id number] [address] [place] [address] October, [facility] [address] [facility] [id number] [address] [place] [address] October, Lumbago with sciatica, left side M54.42 [place] [address] [address] [facility] [id number] [address] [place] [address] October, [address] [address] October, [address] [address] October, Lumbago with sciatica, left side M54.42 ; Mixed hyperlipidemia E78.2 ; Pre-diabetes R73.09 ; Lumbago with sciatica, right side M54.41 and Current moderate episode of major depressive disorder, unspecified whether recurrent F32.[address] [address] Sep, Dysuria R30.0 ; Lumbago with sciatica, l eft side M54.42 ; Open wound of finger of left hand, initial encounter S61.209A ; Cervical motion tenderness N94.9 ; Dysmenorrhea N94.6 ; Allergic rhinitis, unspecified seasonality, unspecified trigger J30.9 and Mixed hyperlipidemia E78.[address] [address] Aug, Moderate persistent asthma with exacerba tion J45.41 and Other chronic pain G89.[address] [address] Aug, Moderate persistent asthma with exacerba tion J45.41 ; Mixed hyperlipidemia E78.2 ; Other chronic pain G89.29 ; Major depressive disorder in remission, unspecified whether recurrent F32.5 and Spondylolisthesis of lumbosacral region M43.17 [facility] [address] [place] [address] Jul, Dental examination Z01.20 and Caries K02.9 [facility] [address] [place] [address] Jun, Dental examination Z01.20 and Caries K02.[address] [address] Jan, Acute non-recurrent frontal sinusitis J01.10 ; Bronchitis J40 ; Tobacco use Z72.0 and Tobacco abuse counseling Z71.[address] [address] Jan, [address] [address] Jan, Bronchitis J40 and Viral upp er respiratory tract infection J06.[address] [address] October, Spondylolisthesis of lumbosa cral region M43.[address] [address] October, [address] [address] October, Acute suppurative otitis med ia of left ear without spontaneous rupture of tympanic membrane, recurrence not specified H66.002 ; Spondylolisthesis of lumbosacral region M43.17 ; Lumbago with sciatica, left side M54.42 ; Lumbago with sciatica, right side M54.41 ; Other chronic pain G89.29 ; Dysfunctional uterine bleeding N93.8 ; Screening for lipoid disorders Z13.220 and Pre-diabetes R73.09 [place] [id number] [place] [address] Sep, Anxiety F41.9 [facility] [address] [place] [id number] [address] [place] [address] Aug, [facility] [address] [place] [id number] [address] [place] [address] Aug, 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 [id number] [address] [place] [address] Feb, Anxiety F41.9 [facility] [address] [place] [id number] [address] [place] [address] Feb, [facility] [address] [place] [id number] [address] [place] [address] Feb, [facility] [address] [place] [id number] [address] [place] [address] Feb, [facility] [address] [place] [id number] [address] [place] [address] Jan, Anxiety F41.9 [facility] [address] [place] [id number] [address] [place] [address] Jan, Anxiety F41.9 and Spondyloli sthesis of lumbosacral region M43.17 [facility] [address] [place] [id number] [address] [place] [address] Dec, Anxiety F41.9 [facility] [address] [place] [id number] [address] [place] [address] Nov, Anxiety F41.9 [facility] [address] [place] [id number] [address] [place] [address] October, Anxiety F41.9 and Seasonal a llergic rhinitis due to pollen J30.1 [facility] [address] [place] [id number] [address] [place] [address] Sep, Anxiety F41.9 [facility] [address] [id number] [address] [place] [address] Aug, Pre-diabetes R73.09 and Anxi ety F41.9 [facility] [address] [id number] [address] [place] [id number] 16 Jul, 2016 [facility] [address] [id number] [address] [place] [address] Mar, [facility] [address] [id number] [address] [place] [id number] 13 Mar, 2016 DUB (dysfunctional uterine b leeding) N93.8 and Menorrhagia with irregular cycle N92.1 [facility] [address] [id number] [address] [place] [address] Feb, [facility] [address] [id number] [address] [place] [phone] 08 Feb, 2016 Encounter for dental examina tion Z01.20 [facility] [address] [id number] [address] [place] [phone] Feb, Herniated nucleus pulposus M 51.9 [facility] [address] [id number] [address] [place] [id number] Feb, Dental examination Z01.20 [facility] [address] [id number] [address] [place] [address] Jan, Dental examination Z01.20 an d Dental caries K02.9 [facility] [address] [id number] [address] [place] [address] Jan, Encounter for dental examina tion and cleaning without abnormal findings Z01.20 [facility] [address] [id number] [address] [place] [phone] Jan, [facility] [address] [id number] [address] [place] [address] Jan, [facility] [address] [id number] [address] [place] [address] Jan, Pre-diabetes R73.09 ; Chroni c nonintractable headache, unspecified headache type R51 and Vaginal yeast infection B37.3 [facility] [address] [facility] [id number] [address] [place] [address] Jan, [facility] [address] [id number] [address] [place] [address] Dec, Herniated nucleus pulposus M 51.9 [facility] [address] [id number] [address] [place] [phone] Dec, [facility] [address] [facility] [id number] [address] [place] [phone] Nov, [facility] [address] [facility] [id number] [address] [place] [phone] Nov, [facility] [address] [facility] [id number] [address] [place] [id number] Nov, [facility] [address] [facility] [id number] [address] [place] [phone] Nov, [facility] [address] [facility] [id number] [address] [place] [address] Nov, Right hip pain M25.551 ; Pre -diabetes R73.09 ; Mixed hyperlipidemia E78.2 ; Chronic nonintractable headache, unspecified headache type R51 ; Right foot pain M79.671 and Right hand pain M79.641 [facility] [address] [facility] [id number] [address] [place] [phone] Nov, [facility] [address] [facility] [id number] [address] [place] [id number] Nov, Right hip pain M25.551 ; Pre -diabetes R73.09 ; Mixed hyperlipidemia E78.2 and Chronic nonintractable headache, unspecified headache type R51 [facility] [address] [facility] [id number] [address] [place] [address] October, [facility] [address] [facility] [id number] [address] [place] [address] October, Right hip pain M25.551 ; Pre -diabetes R73.09 ; Mixed hyperlipidemia E78.2 and Frequent headaches R51 [facility] [address] [facility] [id number] [address] [place] [address] October, Menorrhagia with regular cyc le N92.0 [facility] [address] [facility] [id number] [address] [place] [phone] October, [facility] [address] [facility] [id number] [address] [place] [address] October, Menorrhagia with regular cyc le N92.0 [place] [address] [address] [facility] [id number] [address] [place] [address] Sep, Lump of right breast N63 ; M enorrhagia with regular cycle N92.0 and BMI 30.0-30.9,adult Z68.30 [place] [address] [address] [facility] [id number] [address] [place] [phone] Sep, [place] [address] [address] Aug, [place] [address] [place] [id number] [address] [place] [address] Aug, Well woman exam Z01.419 ; En [...] Z87.898 and Trichomonas vaginalis (TV) infection A59.01 [place] [address] [place] [id number] [address] [place] [address] October, Abdominal pain, unspecified site 789.00 ; GERD (gastroesophageal reflux disease) 530.81 and Chest pain 786.50 [facility] [address] [id number] [address] [place] [address] Sep, [facility] [address] [id number] [address] [place] [id number] Sep, [facility] [address] [id number] [address] [place] [address] Jul, [facility] [address] [id number] [address] [place] [address] Jul, [facility] [address] [id number] [address] [place] [id number] Jun, [facility] [address] [id number] [address] [place] [phone] Jun, [facility] [address] [id number] [address] [place] [id number] Jun, [facility] [address] [id number] [address] [place] [id number] Jun, [facility] [address] [id number] [address] [place] [id number] Jun, [facility] [address] [id number] [address] [place] [address] Jun, [facility] [address] [id number] [address] [place] [address] Jun, [facility] [address] [id number] [address] [place] [phone] Jun, [facility] [address] [id number] [address] [place] [address] Jun, [facility] [address] [id number] [address] [place] [phone] Jun, [facility] [address] [id number] [address] [place] [address], [place] [address] Jun, [facility] [address] [id number] [address] [place] [address], [place] [address] Jun, [facility] [address] [id number] [address] [place] [address], [place] [address] Jun, [facility] [address] [id number] [address] [place] [address], [place] [address] Jun, [facility] [address] [id number] [address] [place] [address], [place] [address] Jun, [facility] [address] [id number] [address] [place] [address], [place] [address] May, [facility] [address] [id number] [address] [place] [address], [place] [address] May, [facility] [address] [id number] [address] [place] [address], [place] [address] 30 Feb, 2013 [facility] [address] [id number] [address] [place] [address], [place] [address] 30 Feb, 2013 [facility] [address] [id number] [address] [place] [address], [place] [address] 29 Feb, 2013 [facility] [address] [id number] [address] [place] [address], [place] [address] 25 Sep, 2013 [facility] [address] [id number] [address] [place] [address], [place] [address] 25 Sep, 2013 [facility] [address] [id number] [address] [place] [address], [place] [address] 17 Sep, 2013 [facility] [address] [id number] [address] [place] [address], [place] [address] 17 Feb, 2013 [facility] [address] [id number] [address] [place] [address], [place] [address] 11 Feb, 2013 [facility] [address] [id number] [address] [place] [address], [place] [address] 11 Feb, 2013 [facility] [address] [id number] [address] [place] [address], [place] [address] Feb, 2013 [facility] [address] [id number] [address] [place] [address], [place] [address] Feb, [facility] [address] [id number] [address] [place] [address], [place] [address] Feb, [facility] [address] [id number] [address] [place] [address], [place] [address] Feb, [facility] [address] [id number] [address] [place] [address], [place] [address] Feb, [facility] [address] [id number] [address] [place] [address], [place] [address] Jan, [facility] [address] [id number] [address] [place] [address], [place] [address] Jan, [facility] [address] [id number] [address] [place] [address], [place] [address] Dec, [facility] [address] [id number] [address] [place] [address], [place] [address] Dec, [facility] [address] [id number] [address] [place] [address], [place] [address] Dec, [facility] [address] [id number] [address] [place] [address], [place] [address] Dec, [facility] [address] [id number] [address] [place] [address], [place] [address] Dec, [facility] [address] [id number] [address] [place] [address], [place] [address] Dec, [facility] [address] [id number] [address] [place] [address], [place] [address] Nov, [facility] [address] [id number] [address] [place] [address], [place] [address] Nov, [facility] [address] [id number] [address] [place] [phone] Sep, [facility] [address] [id number] [address] [place] [address], [place] [address] May, [facility] [address] [id number] [address] [place] [address], [place] [address] May, [facility] [address] [id number] [address] [place] [address], [place] [address] Nov, [facility] [address] [id number] [address] [place] [address], [place] [address] Sep, [facility] [address] [id number] [address] [place] [address], [place] [address] Aug, [facility] [address] [id number] [address] [place] [address], [place] [address] 16 Jun, 2011 [facility] [address] [id number] [address] [place] [address], [place] [address] Jun, [facility] [address] [id number] [address] [place] [address], [place] [address] Jun, [facility] [address] [id number] [address] [place] [address], [place] [address] May, [facility] [address] [id number] [address] [place] [address], [place] [address] May, [facility] [address] [id number] [address] [place] [address], [place] [address] May, [facility] [address] [id number] [address] [place] [address], [place] [address] May, [facility] [address] [id number] [address] [place] [address], [place] [address] Apr, [facility] [address] [id number] [address] [place] [address], [place] [address] Apr, [facility] [address] [id number] [address] [place] [address], [place] [address] Apr, [facility] [address] [id number] [address] [place] [address] Apr, IMMUNIZATIONS No Known Immunizations SOCIAL HISTORY Never Assessed REASON FOR VISIT PLAN OF CARE VITAL SIGNS MEDICATIONS Unknown Medications RESULTS No Results PROCEDURES Procedure Date Ordered Result Body Site ECHO EXAM OF ABDOMEN Jun 24, 2014 INSTRUCTIONS MEDICATIONS ADMINISTERED No Known Medications [...]
--- OUTSIDE RECORDS SUMMARY | 2019-12-03 22:24 | XMS REPORT ---
Author Author Imani SCHAEFFER Organization [facility] Address [address] [place] [address] Care Team Providers Care Trade [employer] Secretary Name Role Phone AMBER SCHAEFFER Unavailable PROBLEMS Type Condition ICD9-CM Code FDG39-CS Code Onset Dates Condition S tatus SNOMED Code Problem Pre-diabetes R73.09 Active 0399822 02 Problem Mixed hyperlipidemia E78.2 Active 440009093 Problem Lumbago with sciatica, left side M54.42 Active 661295007 Problem Lumbago with sciatica, right side M54.41 Active 583834563694231 Problem Other chronic pain G89.29 Active 8 9479674 Problem Allergic rhinitis, unspecified seasonality, unspecifie d trigger J30.9 Active 33063063 Problem Spondylolisthesis of lumbosacral region M43.17 Active 992789356 Problem Current moderate episode of major depressive disorder, unspecified whether recurrent F32.1 Active 74742287 Problem Seasonal allergic rhinitis due to pollen J30.1 Active 93632929 Problem Dysfunctional uterine bleeding N93.8 Active 55627901 Problem Moderate persistent asthma with exacerbation J45.4 1 Active 126257339 Problem Cervical motion tenderness N94.9 Act [place] 344066864 Problem Dysmenorrhea N94.6 Active 1452560 00 ALLERGIES No Information ENCOUNTERS Encounter Location Date Diagnosis [address] [address] Nov, Allergic rhinitis, unspecified seasonali ty, unspecified trigger J30.[address] [address] Nov, Lumbago with sciatica, left side M54.[address] [address] Nov, Dysfunctional uterine bleeding N93.[address] [address] Nov, [address] [address] Nov, Other chronic pain G89.29 and Low back p ain M54.5 [facility] [address] [id number] [address] [place] [address] October, [facility] [address] [id number] [address] [place] [address] October, Lumbago with sciatica, left side M54.42 [facility] [address] [id number] [address] [place] [address] October, [address] [address] October, [address] [address] October, Lumbago with sciatica, left side M54.42 ; Mixed hyperlipidemia E78.2 ; Pre-diabetes R73.09 ; Lumbago with sciatica, right side M54.41 and Current moderate episode of major depressive disorder, unspecified whether recurrent F32.[address] [address] Sep, Dysuria R30.0 ; Lumbago with sciatica, l eft side M54.42 ; Open wound of finger of left hand, initial encounter S61.209A ; Cervical motion tenderness N94.9 ; Dysmenorrhea N94.6 ; Allergic rhinitis, unspecified seasonality, unspecified trigger J30.9 and Mixed hyperlipidemia E78.[address] [address] Aug, Moderate persistent asthma with exacerba tion J45.41 and Other chronic pain G89.[address] [address] Aug, Moderate persistent asthma with exacerba tion J45.41 ; Mixed hyperlipidemia E78.2 ; Other chronic pain G89.29 ; Major depressive disorder in remission, unspecified whether recurrent F32.5 and Spondylolisthesis of lumbosacral region M43.17 [place] [address] [facility] [address] [place] [address] Jul, Dental examination Z01.20 and Caries K02.9 [facility] [address] [place] [address] Jun, Dental examination Z01.20 and Caries K02.9 [place] [address] [address] Jan, Acute non-recurrent frontal sinusitis J01.10 ; Bronchitis J40 ; Tobacco use Z72.0 and Tobacco abuse counseling Z71.[address] [address] Jan, [place] [address] [address] Jan, Bronchitis J40 and Viral upp er respiratory tract infection J06.[address] [address] October, Spondylolisthesis of lumbosa cral region M43.17 [place] [address] [address] October, [place] [address] [address] October, Acute suppurative otitis med ia of left ear without spontaneous rupture of tympanic membrane, recurrence not specified H66.002 ; Spondylolisthesis of lumbosacral region M43.17 ; Lumbago with sciatica, left side M54.42 ; Lumbago with sciatica, right side M54.41 ; Other chronic pain G89.29 ; Dysfunctional uterine bleeding N93.8 ; Screening for lipoid disorders Z13.220 and Pre-diabetes R73.09 [place] [address] [place] [id number] [address] [place] [address] Sep, Anxiety F41.[address] [address] Aug, [facility] [address] [place] [id number] [address] [place] [address] Aug, 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 [facility] [address] [facility] [id number] [address] [place] [address] Apr, Anxiety F41.9 [facility] [address] [place] [id number] [address] [place] [phone] Feb, Anxiety F41.9 [facility] [address] [place] [id number] [address] [place] [phone] Feb, [facility] [address] [address] 08 Feb, 2017 [facility] [address] [place] [id number] [place] [address] Feb, [facility] [address] [address] Jan, Anxiety F41.9 [place] [address] [address] Jan, Anxiety F41.9 and Spondyloli sthesis of lumbosacral region M43.17 [facility] [id number] [place] [address] Dec, Anxiety F41.9 [facility] [address] [place] [id number] [address] [place] [address] Nov, Anxiety F41.9 [place] [address] [address] October, Anxiety F41.9 and Seasonal a llergic rhinitis due to pollen J30.1 [facility] [address] [place] [id number] [address] [place] [address] Sep, Anxiety F41.9 [facility] [address] [place] [id number] [address] [place] [address] Aug, Pre-diabetes R73.09 and Anxi ety F41.9 [facility] [address] [id number] [address] [place] [phone] Jul, [facility] [address] [id number] [address] [place] [phone] Mar, [facility] [address] [id number] [address] [place] [phone] Mar, DUB (dysfunctional uterine b leeding) N93.8 and Menorrhagia with irregular cycle N92.1 [facility] [address] [id number] [address] [place] [id number] Feb, [facility] [address] [id number] [address] [place] [id number] 08 Feb, 2016 Encounter for dental examina tion Z01.20 [facility] [address] [id number] [address] [place] [phone] Feb, Herniated nucleus pulposus M 51.9 [facility] [address] [id number] [address] [place] [id number] Feb, Dental examination Z01.20 [facility] [address] [id number] [address] [place] [phone] Jan, Dental examination Z01.20 an d Dental caries K02.9 [facility] [address] [id number] [address] [place] [phone] Jan, Encounter for dental examina tion and cleaning without abnormal findings Z01.20 [facility] [address] [id number] [address] [place] [phone] Jan, [facility] [address] [id number] [address] [place] [phone] Jan, [facility] [address] [id number] [address] [place] [phone] Jan, Pre-diabetes R73.09 ; Chroni c nonintractable headache, unspecified headache type R51 and Vaginal yeast infection B37.3 [facility] [address] [id number] [address] [place] [phone] Jan, [facility] [address] [id number] [address] [place] [phone] Dec, Herniated nucleus pulposus M 51.9 [facility] [address] [id number] [address] [place] [phone] Dec, [facility] [address] [id number] [address] [place] [phone] Nov, [facility] [address] [id number] [address] [place] [phone] Nov, [facility] [address] [id number] [address] [place] [id number] Nov, [facility] [address] [id number] [address] [place] [phone] Nov, [facility] [address] [id number] [address] [place] [address] Nov, Right hip pain M25.551 ; Pre -diabetes R73.09 ; Mixed hyperlipidemia E78.2 ; Chronic nonintractable headache, unspecified headache type R51 ; Right foot pain M79.671 and Right hand pain M79.641 [facility] [address] [id number] [address] [place] [address] Nov, [facility] [address] [id number] [address] [place] [id number] Nov, Right hip pain M25.551 ; Pre -diabetes R73.09 ; Mixed hyperlipidemia E78.2 and Chronic nonintractable headache, unspecified headache type R51 [facility] [address] [id number] [address] [place] [id number] October, [facility] [address] [id number] [address] [place] [id number] October, Right hip pain M25.551 ; Pre -diabetes R73.09 ; Mixed hyperlipidemia E78.2 and Frequent headaches R51 [facility] [address] [place] [phone] October, Menorrhagia with regular cyc le N92.0 [facility] [address] [place] [id number] [address] [place] [phone] October, [facility] [address] [address] October, Menorrhagia with regular cyc le N92.0 [facility] [address] [address] Sep, Lump of right breast N63 ; M enorrhagia with regular cycle N92.0 and BMI 30.0-30.9,adult Z68.30 [place] [address] [place] [id number] [address] [place] [phone] Sep, [facility] [address] [place] [id number] [address] [place] [phone] Aug, [facility] [address] [address] Aug, Well woman exam Z01.419 ; En [...] Z87.898 and Trichomonas vaginalis (TV) infection A59.01 [place] [address] [place] [id number] [address] [place] [id number] October, Abdominal pain, unspecified site 789.00 ; GERD (gastroesophageal reflux disease) 530.81 and Chest pain 786.50 [facility] [address] [id number] [address] [place] [address], [place] [address] 14 Sep, 2014 [facility] [address] [id number] [address] [place] [address], [place] [address] Sep, [facility] [address] [id number] [address] [place] [address], [place] [address] 13 Jul, 2014 [facility] [address] [id number] [address] [place] [address], [place] [address] Jul, [facility] [address] [id number] [address] [place] [address], [place] [address] Jun, [facility] [address] [id number] [address] [place] [address], [place] [address] Jun, [facility] [address] [id number] [address] [place] [address], [place] [address] Jun, [facility] [address] [id number] [address] [place] [address], [place] [address] 16 Jun, 2014 [facility] [address] [id number] [address] [place] [address], [place] [address] Jun, [facility] [address] [id number] [address] [place] [address], [place] [phone] Jun, [facility] [address] [id number] [address] [place] [phone] Jun, [facility] [address] [id number] [address] [place] [phone] Jun, [facility] [address] [id number] [address] [place] [address], [place] [address] Jun, [facility] [address] [id number] [address] [place] [address], [place] [address] Jun, [facility] [address] [id number] [address] [place] [phone] Jun, [facility] [address] [id number] [address] [place] [phone] Jun, [facility] [address] [id number] [address] [place] [address], [place] [address] Jun, [facility] [address] [id number] [address] [place] [address], [place] [address] Jun, [facility] [address] [id number] [address] [place] [address], [place] [address] Jun, [facility] [address] [id number] [address] [place] [address], [place] [address] May, [facility] [address] [id number] [address] [place] [address], [place] [address] May, [facility] [address] [id number] [address] [place] [address], [place] [address] 30 Feb, 2014 [facility] [address] [id number] [address] [place] [address], [place] [address] 30 Feb, 2013 [facility] [address] [id number] [address] [place] [address], [place] [address] 29 Feb, 2013 [facility] [address] [id number] [address] [place] [address], [place] [address] 25 Feb, 2013 [facility] [address] [id number] [address] [place] [address], [place] [address] 25 Feb, 2013 [facility] [address] [id number] [address] [place] [address], [place] [address] 17 Feb, 2013 [facility] [address] [id number] [address] [place] [address], [place] [address] 17 Feb, 2013 [facility] [address] [id number] [address] [place] [address], [place] [address] 11 Feb, 2013 [facility] [address] [id number] [address] [place] [address], [place] [address] 11 Feb, 2013 [facility] [address] [id number] [address] [place] [address], [place] [address] 10 Feb, 2013 [facility] [address] [id number] [address] [place] [address], [place] [address] 10 Feb, 2013 [facility] [address] [id number] [address] [place] [address], [place] [address] Feb, [facility] [address] [id number] [address] [place] [address], [place] [address] Feb, [facility] [address] [id number] [address] [place] [address], [place] [address] Feb, [facility] [address] [id number] [address] [place] [address], [place] [address] Jan, [facility] [address] [id number] [address] [place] [address], [place] [address] Jan, [facility] [address] [id number] [address] [place] [address], [place] [address] Dec, [facility] [address] [id number] [address] [place] [address], [place] [address] Dec, [facility] [address] [id number] [address] [place] [address], [place] [address] Dec, [facility] [address] [id number] [address] [place] [address], [place] [address] Dec, [facility] [address] [id number] [address] [place] [address], [place] [address] Dec, [facility] [address] [id number] [address] [place] [address], [place] [address] Dec, [facility] [address] [id number] [address] [place] [address], [place] [address] Nov, [facility] [address] [id number] [address] [place] [address], [place] [address] Nov, [facility] [address] [id number] [address] [place] [address], [place] [address] Sep, [facility] [address] [id number] [address] [place] [address], [place] [address] May, [facility] [address] [id number] [address] [place] [phone] May, [facility] [address] [id number] [address] [place] [phone] Nov, [facility] [address] [id number] [address] [place] [phone] Sep, [facility] [address] [id number] [address] [place] [phone] Aug, [facility] [address] [id number] [address] [place] [phone] Jun, [facility] [address] [id number] [address] [place] [phone] Jun, [facility] [address] [id number] [address] [place] [phone] Jun, [facility] [address] [id number] [address] [place] [phone] May, [facility] [address] [id number] [address] [place] [phone] May, [facility] [address] [id number] [address] [place] [phone] May, [facility] [address] [id number] [address] [place] [phone] May, [facility] [address] [id number] [address] [place] [phone] Apr, [facility] [address] [id number] [address] [place] [phone] Apr, [facility] [address] [id number] [address] [place] [phone] Apr, [facility] [address] [id number] [address] [place] [phone] Apr, IMMUNIZATIONS No Known Immunizations SOCIAL HISTORY Never Assessed REASON FOR VISIT PLAN OF CARE VITAL SIGNS Height 65 in 2014-07-25 Weight 218 lbs 2014-07-25 Temperature 98 degrees Fahrenheit 2014-07-25 Heart Rate 80 bpm 2014-07-25 Respiratory Rate 20 2014-07-25 Blood pressure systolic 122 mmHg 2014-07-25 Blood pressure diastolic 78 mmHg 2014-07-25 MEDICATIONS No Known Medications RESULTS No Results [...]
--- OUTSIDE RECORDS SUMMARY | 2019-12-03 22:24 | XMS REPORT ---
Author Author Alysa Imani Doctor Organization [facility] Address Unknown Phone Unavailable Care Team Providers Care Ward Helper Name Role Phone Migration, Doctor Unavailable Unavailable PROBLEMS Type Condition ICD9-CM Code NJU30-JR Code Onset Dates Condition S tatus SNOMED Code Problem Pre-diabetes R73.09 Active 0746591 02 Problem Mixed hyperlipidemia E78.2 Active 208620439 Problem Lumbago with sciatica, left side M54.42 Active 124934827 Problem Lumbago with sciatica, right side M54.41 Active 491151743733479 Problem Other chronic pain G89.29 Active 8 7962477 Problem Allergic rhinitis, unspecified seasonality, unspecifie d trigger J30.9 Active 11284063 Problem Spondylolisthesis of lumbosacral region M43.17 Active 091019696 Problem Current moderate episode of major depressive disorder, unspecified whether recurrent F32.1 Active 71858385 Problem Seasonal allergic rhinitis due to pollen J30.1 Active 43142446 Problem Dysfunctional uterine bleeding N93.8 Active 95419709 Problem Moderate persistent asthma with exacerbation J45.4 1 Active 484811384 Problem Cervical motion tenderness N94.9 Act [place] 977927918 Problem Dysmenorrhea N94.6 Active 9125223 00 ALLERGIES Substance Reaction Event Type Date Status Augmentin Unknown Drug Allergy Sep, Active ENCOUNTERS Encounter Location Date Diagnosis [address] [address] Nov, Lumbago with sciatica, left side M54.[address] [address] Nov, Dysfunctional uterine bleeding N93.[address] [address] Nov, [address] [address] Nov, Other chronic pain G89.29 and Low back p ain M54.5 [facility] [address] [facility] [address] [id number] [address] [address] October, [facility] [address] [facility] [id number] [place] [address] October, Lumbago with sciatica, left side M54.42 [facility] [address] [facility] [id number] [place] [address] October, [address] [address] October, [address] [address] October, Lumbago with sciatica, left side M54.42 ; Mixed hyperlipidemia E78.2 ; Pre-diabetes R73.09 ; Lumbago with sciatica, right side M54.41 and Current moderate episode of major depressive disorder, unspecified whether recurrent F32.[address] [address] Sep, Dysuria R30.0 ; Lumbago with sciatica, l eft side M54.42 ; Open wound of finger of left hand, initial encounter S61.209A ; Cervical motion tenderness N94.9 ; Dysmenorrhea N94.6 ; Allergic rhinitis, unspecified seasonality, unspecified trigger J30.9 and Mixed hyperlipidemia E78.[address] [address] Aug, Moderate persistent asthma with exacerba tion J45.41 and Other chronic pain G89.[address] [address] Aug, Moderate persistent asthma with exacerba tion J45.41 ; Mixed hyperlipidemia E78.2 ; Other chronic pain G89.29 ; Major depressive disorder in remission, unspecified whether recurrent F32.5 and Spondylolisthesis of lumbosacral region M43.17 [facility] [id number] [place] [address] Jul, Dental examination Z01.20 and Caries K02.9 [facility] [address] [place] [address] Jun, Dental examination Z01.20 and Caries K02.9 [place] [address] [address] Jan, Acute non-recurrent frontal sinusitis J01.10 ; Bronchitis J40 ; Tobacco use Z72.0 and Tobacco abuse counseling Z71.6 [place] [address] [address] Jan, [place] [address] [address] Jan, Bronchitis J40 and Viral upp er respiratory tract infection J06.9 [place] [address] [address] October, Spondylolisthesis of lumbosa cral region M43.[address] [address] October, [place] [address] [address] October, Acute suppurative otitis med ia of left ear without spontaneous rupture of tympanic membrane, recurrence not specified H66.002 ; Spondylolisthesis of lumbosacral region M43.17 ; Lumbago with sciatica, left side M54.42 ; Lumbago with sciatica, right side M54.41 ; Other chronic pain G89.29 ; Dysfunctional uterine bleeding N93.8 ; Screening for lipoid disorders Z13.220 and Pre-diabetes R73.09 [place] [address] [place] [id number] [address] [place] [address] Sep, Anxiety F41.9 [place] [address] [address] Aug, [place] [address] [place] [id number] [address] [place] [address] Aug, 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 [place] [address] [facility] [id number] [place] [id number] 14 Apr, 2017 Anxiety F41.9 [facility] [address] [facility] [id number] [place] [address] 26 Feb, 2017 Anxiety F41.9 [facility] [address] [facility] [id number] [place] [address] 19 Feb, 2017 [facility] [address] [facility] [id number] [place] [address] 08 Feb, 2017 [facility] [address] [facility] [id number] [place] [address] Feb, [facility] [address] [facility] [id number] [place] [address] Jan, Anxiety F41.9 [facility] [address] [place] [id number] [address] [place] [address] Jan, Anxiety F41.9 and Spondyloli sthesis of lumbosacral region M43.17 [facility] [address] [place] [id number] [address] [place] [address] Dec, Anxiety F41.9 [facility] [address] [place] [id number] [address] [place] [address] Nov, Anxiety F41.9 [facility] [address] [place] [id number] [address] [place] [address] October, Anxiety F41.9 and Seasonal a llergic rhinitis due to pollen J30.1 [facility] [address] [facility] [id number] [place] [address] Sep, Anxiety F41.9 [facility] [address] [facility] [id number] [place] [address] Aug, Pre-diabetes R73.09 and Anxi ety F41.9 [facility] [address] [facility] [id number] [place] [address] Jul, [facility] [address] [id number] [address] [place] [address] Mar, [facility] [address] [id number] [address] [place] [id number] 13 Mar, 2016 DUB (dysfunctional uterine b leeding) N93.8 and Menorrhagia with irregular cycle N92.1 [facility] [address] [id number] [address] [place] [address] 19 Feb, 2016 [facility] [address] [id number] [address] [place] [id number] 08 Feb, 2016 Encounter for dental examina tion Z01.20 [facility] [address] [id number] [address] [place] [address] Feb, Herniated nucleus pulposus M 51.9 [facility] [address] [id number] [address] [place] [id number] Feb, Dental examination Z01.20 [facility] [address] [id number] [address] [place] [address] Jan, Dental examination Z01.20 an d Dental caries K02.9 [facility] [address] [id number] [address] [place] [address] Jan, Encounter for dental examina tion and cleaning without abnormal findings Z01.20 [facility] [address] [id number] [address] [place] [address] Jan, [facility] [address] [id number] [address] [place] [address] Jan, [facility] [address] [id number] [address] [place] [address] Jan, Pre-diabetes R73.09 ; Chroni c nonintractable headache, unspecified headache type R51 and Vaginal yeast infection B37.3 [facility] [address] [id number] [address] [place] [id number] Jan, [facility] [address] [id number] [address] [place] [address] Dec, Herniated nucleus pulposus M 51.9 [facility] [address] [id number] [address] [place] [address] Dec, [facility] [address] [id number] [address] [place] [phone] Nov, [facility] [address] [facility] [id number] [place] [address] Nov, [facility] [address] [id number] [address] [place] [address] Nov, [facility] [address] [facility] [id number] [place] [address] Nov, [facility] [address] [facility] [id number] [place] [address] Nov, Right hip pain M25.551 ; Pre -diabetes R73.09 ; Mixed hyperlipidemia E78.2 ; Chronic nonintractable headache, unspecified headache type R51 ; Right foot pain M79.671 and Right hand pain M79.641 [facility] [address] [facility] [id number] [place] [address] Nov, [facility] [address] [facility] [id number] [place] [address] Nov, Right hip pain M25.551 ; Pre -diabetes R73.09 ; Mixed hyperlipidemia E78.2 and Chronic nonintractable headache, unspecified headache type R51 [facility] [address] [id number] [address] [place] [address] October, [facility] [address] [facility] [id number] [place] [address] October, Right hip pain M25.551 ; Pre -diabetes R73.09 ; Mixed hyperlipidemia E78.2 and Frequent headaches R51 [facility] [address] [facility] [id number] [place] [address] October, Menorrhagia with regular cyc le N92.0 [facility] [address] [facility] [id number] [place] [address] October, [facility] [address] [facility] [id number] [place] [address] October, Menorrhagia with regular cyc le N92.0 [facility] [address] [facility] [id number] [place] [address] Sep, Lump of right breast N63 ; M enorrhagia with regular cycle N92.0 and BMI 30.0-30.9,adult Z68.30 [place] [address] [facility] [id number] [place] [address] Sep, [facility] [address] [facility] [id number] [place] [address] Aug, [place] [address] [place] [id number] [address] [place] [address] Aug, Well woman exam Z01.419 ; En [...] Z87.898 and Trichomonas vaginalis (TV) infection A59.01 [place] [address] [facility] [id number] [place] [address] October, Abdominal pain, unspecified site 789.00 ; GERD (gastroesophageal reflux disease) 530.81 and Chest pain 786.50 [facility] [address] [facility] [id number] [place] [id number] Sep, [facility] [address] [place] [id number] [address] [place] [address] Sep, [facility] [address] [id number] [address] [place] [address], [place] [address] Jul, [facility] [address] [id number] [address] [place] [address], [place] [address] Jul, [facility] [address] [id number] [address] [place] [address], [place] [address] Jun, [facility] [address] [id number] [address] [place] [address], [place] [address] Jun, [facility] [address] [id number] [address] [place] [address], [place] [address] Jun, [facility] [address] [id number] [address] [place] [address], [place] [address] Jun, [facility] [address] [id number] [address] [place] [address], [place] [address] Jun, [facility] [address] [id number] [address] [place] [address], [place] [address] Jun, [facility] [address] [id number] [address] [place] [address], [place] [address] Jun, [facility] [address] [id number] [address] [place] [address], [place] [address] Jun, [facility] [address] [id number] [address] [place] [address], [place] [address] Jun, [facility] [address] [id number] [address] [place] [address], [place] [address] Jun, [facility] [address] [id number] [address] [place] [address], [place] [address] Jun, [facility] [address] [id number] [address] [place] [address], [place] [address] Jun, [facility] [address] [id number] [address] [place] [address], [place] [address] Jun, [facility] [address] [id number] [address] [place] [address], [place] [address] Jun, [facility] [address] [id number] [address] [place] [address], [place] [address] Jun, [facility] [address] [id number] [address] [place] [address], [place] [address] May, [facility] [address] [id number] [address] [place] [address], [place] [address] May, [facility] [address] [id number] [address] [place] [address], [place] [address] 30 Feb, 2013 [facility] [address] [id number] [address] [place] [address], [place] [address] 30 Feb, 2013 [facility] [address] [id number] [address] [place] [address], [place] [address] 29 Feb, 2013 [facility] [address] [id number] [address] [place] [address], [place] [address] 25 Feb, 2013 [facility] [address] [id number] [address] [place] [address], [place] [address] 25 Feb, 2013 [facility] [address] [id number] [address] [place] [address], [place] [address] 17 Feb, 2013 [facility] [address] [id number] [address] [place] [address], [place] [address] 17 Feb, 2013 [facility] [address] [id number] [address] [place] [address], [place] [address] 11 Feb, 2013 [facility] [address] [id number] [address] [place] [address], [place] [address] 11 Feb, 2013 [facility] [address] [id number] [address] [place] [address], [place] [address] 10 Feb, 2013 [facility] [address] [id number] [address] [place] [address], [place] [address] 10 Feb, 2013 [facility] [address] [id number] [address] [place] [address], [place] [address] Feb, [facility] [address] [id number] [address] [place] [address], [place] [address] Feb, [facility] [address] [id number] [address] [place] [address], [place] [address] Feb, [facility] [address] [id number] [address] [place] [address], [place] [address] Jan, [facility] [address] [id number] [address] [place] [address], [place] [address] Jan, [facility] [address] [id number] [address] [place] [address], [place] [address] Dec, [facility] [address] [id number] [address] [place] [address], [place] [address] Dec, [facility] [address] [id number] [address] [place] [address], [place] [address] Dec, [facility] [address] [id number] [address] [place] [address], [place] [address] Dec, [facility] [address] [id number] [address] [place] [address], [place] [address] Dec, [facility] [address] [id number] [address] [place] [address], [place] [address] Dec, [facility] [address] [id number] [address] [place] [address], [place] [address] Nov, [facility] [address] [id number] [address] [place] [address], [place] [address] Nov, [facility] [address] [id number] [address] [place] [address], [place] [address] Sep, [facility] [address] [id number] [address] [place] [address], [place] [address] May, [facility] [address] [id number] [address] [place] [address], [place] [address] May, [facility] [address] [id number] [address] [place] [address] 08 Nov, 2011 [facility] [address] [id number] [address] [place] [id number] Sep, [facility] [address] [id number] [address] [place] [address] Aug, [facility] [address] [id number] [address] [place] [address] Jun, [facility] [address] [id number] [address] [place] [phone] Jun, [facility] [address] [id number] [address] [place] [phone] Jun, [facility] [address] [id number] [address] [place] [id number] May, [facility] [address] [id number] [address] [place] [phone] May, [facility] [address] [id number] [address] [place] [phone] May, [facility] [address] [id number] [address] [place] [address] May, [facility] [address] [id number] [address] [place] [id number] Apr, [facility] [address] [id number] [address] [place] [phone] Apr, [facility] [address] [id number] [address] [place] [id number] Apr, [facility] [address] [id number] [address] [place] [id number] Apr, IMMUNIZATIONS No Known Immunizations SOCIAL HISTORY Never Assessed REASON FOR VISIT EMR-[facility] PLAN OF CARE VITAL SIGNS MEDICATIONS Medication Instructions Dosage Frequency Start Date End Date Duration S tat Prilosec 20 mg 1 capsule by Oral route 1 time per day Jun, Active tramadol 50 mg take 1-2 tablet by O ral route every 6 hours as needed PRN pain Jun, Active Augmentin 875-125 mg 1 tablet by Oral route 2 times pe r day for 7 day(s) May, Active RESULTS No Results PROCEDURES No Known [...]
--- OUTSIDE RECORDS SUMMARY | 2019-12-03 22:24 | XMS REPORT ---
Author Author Imani SCHAEFFER Organization [facility] Address [address] [place] [address] Care Team Providers Care Set And Exhibit Designer Name Role Phone AMBER SCHAEFFER Unavailable PROBLEMS Type Condition ICD9-CM Code [id number] Code Onset Dates Condition S tatus SNOMED Code Problem Pre-diabetes R73.09 Active 4320031 02 Problem Mixed hyperlipidemia E78.2 Active 750090423 Problem Lumbago with sciatica, left side M54.42 Active 700166945 Problem Lumbago with sciatica, right side M54.41 Active 081372589608305 Problem Other chronic pain G89.29 Active 8 1633391 Problem Allergic rhinitis, unspecified seasonality, unspecifie d trigger J30.9 Active 85667357 Problem Spondylolisthesis of lumbosacral region M43.17 Active 464944932 Problem Current moderate episode of major depressive disorder, unspecified whether recurrent F32.1 Active 93219257 Problem Seasonal allergic rhinitis due to pollen J30.1 Active 92217122 Problem Dysfunctional uterine bleeding N93.8 Active 32404549 Problem Moderate persistent asthma with exacerbation J45.4 1 Active 152205967 Problem Cervical motion tenderness N94.9 Act [place] 472485979 Problem Dysmenorrhea N94.6 Active 8568833 00 ALLERGIES No Information ENCOUNTERS Encounter Location Date Diagnosis [address] [address] Nov, Allergic rhinitis, unspecified seasonali ty, unspecified trigger J30.[address] [address] Nov, Lumbago with sciatica, left side M54.[address] [address] Nov, Dysfunctional uterine bleeding N93.[address] [address] Nov, [address] [address] Nov, Other chronic pain G89.29 and Low back p ain M54.5 [facility] [address] [id number] [address] [place] [address] October, [facility] [address] [id number] [address] [place] [address] October, Lumbago with sciatica, left side M54.42 [facility] [address] [id number] [address] [place] [address] October, [address] [address] October, [address] [address] October, Lumbago with sciatica, left side M54.42 ; Mixed hyperlipidemia E78.2 ; Pre-diabetes R73.09 ; Lumbago with sciatica, right side M54.41 and Current moderate episode of major depressive disorder, unspecified whether recurrent F32.[address] [address] Sep, Dysuria R30.0 ; Lumbago with sciatica, l eft side M54.42 ; Open wound of finger of left hand, initial encounter S61.209A ; Cervical motion tenderness N94.9 ; Dysmenorrhea N94.6 ; Allergic rhinitis, unspecified seasonality, unspecified trigger J30.9 and Mixed hyperlipidemia E78.[address] [address] Aug, Moderate persistent asthma with exacerba tion J45.41 and Other chronic pain G89.[address] [address] Aug, Moderate persistent asthma with exacerba tion J45.41 ; Mixed hyperlipidemia E78.2 ; Other chronic pain G89.29 ; Major depressive disorder in remission, unspecified whether recurrent F32.5 and Spondylolisthesis of lumbosacral region M43.17 [place] [address] [place] [address] [place] [address] Jul, Dental examination Z01.20 and Caries K02.9 [facility] [address] [place] [address] Jun, Dental examination Z01.20 and Caries K02.9 [place] [address] [address] Jan, Acute non-recurrent frontal sinusitis J01.10 ; Bronchitis J40 ; Tobacco use Z72.0 and Tobacco abuse counseling Z71.[address] [address] Jan, [place] [address] [address] Jan, Bronchitis J40 and Viral upp er respiratory tract infection J06.[address] [address] October, Spondylolisthesis of lumbosa cral region M43.17 [place] [address] [address] October, [place] [address] [address] October, Acute suppurative otitis med ia of left ear without spontaneous rupture of tympanic membrane, recurrence not specified H66.002 ; Spondylolisthesis of lumbosacral region M43.17 ; Lumbago with sciatica, left side M54.42 ; Lumbago with sciatica, right side M54.41 ; Other chronic pain G89.29 ; Dysfunctional uterine bleeding N93.8 ; Screening for lipoid disorders Z13.220 and Pre-diabetes R73.09 [place] [address] [place] [id number] [place] [address] Sep, Anxiety F41.[address] [address] Aug, [facility] [address] [place] [id number] [address] [place] [address] Aug, 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 [facility] [address] [facility] [id number] [address] [place] [address] Apr, Anxiety F41.9 [facility] [address] [place] [id number] [address] [place] [address] Feb, Anxiety F41.9 [facility] [address] [place] [id number] [address] [place] [id number] Feb, [facility] [address] [address] 08 Feb, 2017 [facility] [address] [place] [id number] [place] [address] Feb, [facility] [address] [address] Jan, Anxiety F41.9 [place] [address] [address] Jan, Anxiety F41.9 and Spondyloli sthesis of lumbosacral region M43.17 [facility] [id number] [place] [address] Dec, Anxiety F41.9 [facility] [address] [place] [id number] [place] [address] Nov, Anxiety F41.9 [place] [address] [address] October, Anxiety F41.9 and Seasonal a llergic rhinitis due to pollen J30.1 [facility] [address] [place] [id number] [address] [place] [address] Sep, Anxiety F41.9 [facility] [address] [place] [id number] [address] [place] [address] Aug, Pre-diabetes R73.09 and Anxi ety F41.9 [facility] [address] [id number] [address] [place] [id number] Jul, [facility] [address] [id number] [address] [place] [phone] Mar, [facility] [address] [id number] [address] [place] [address] Mar, DUB (dysfunctional uterine b leeding) N93.8 and Menorrhagia with irregular cycle N92.1 [facility] [address] [id number] [address] [place] [address] Feb, [facility] [address] [id number] [address] [place] [address] 08 Feb, 2016 Encounter for dental examina tion Z01.20 [facility] [address] [id number] [address] [place] [address] Feb, Herniated nucleus pulposus M 51.9 [facility] [address] [id number] [address] [place] [id number] Feb, Dental examination Z01.20 [facility] [address] [id number] [address] [place] [id number] Jan, Dental examination Z01.20 an d Dental caries K02.9 [facility] [address] [id number] [address] [place] [id number] Jan, Encounter for dental examina tion and cleaning without abnormal findings Z01.20 [facility] [address] [id number] [address] [place] [id number] Jan, [facility] [address] [id number] [address] [place] [id number] Jan, [facility] [address] [id number] [address] [place] [id number] Jan, Pre-diabetes R73.09 ; Chroni c nonintractable headache, unspecified headache type R51 and Vaginal yeast infection B37.3 [facility] [address] [id number] [address] [place] [phone] Jan, [facility] [address] [id number] [address] [place] [phone] Dec, Herniated nucleus pulposus M 51.9 [facility] [address] [id number] [address] [place] [phone] Dec, [facility] [address] [id number] [address] [place] [address] Nov, [facility] [address] [id number] [address] [place] [phone] Nov, [facility] [address] [id number] [address] [place] [phone] Nov, [facility] [address] [id number] [address] [place] [address] Nov, [facility] [address] [id number] [address] [place] [address] Nov, Right hip pain M25.551 ; Pre -diabetes R73.09 ; Mixed hyperlipidemia E78.2 ; Chronic nonintractable headache, unspecified headache type R51 ; Right foot pain M79.671 and Right hand pain M79.641 [facility] [address] [id number] [address] [place] [address] Nov, [facility] [address] [id number] [address] [place] [address] Nov, Right hip pain M25.551 ; Pre -diabetes R73.09 ; Mixed hyperlipidemia E78.2 and Chronic nonintractable headache, unspecified headache type R51 [facility] [address] [id number] [address] [place] [address] October, [facility] [address] [id number] [address] [place] [address] October, Right hip pain M25.551 ; Pre -diabetes R73.09 ; Mixed hyperlipidemia E78.2 and Frequent headaches R51 [facility] [id number] [place] [address] October, Menorrhagia with regular cyc le N92.0 [facility] [address] [place] [id number] [address] [place] [phone] October, [facility] [address] [address] October, Menorrhagia with regular cyc le N92.0 [facility] [address] [address] Sep, Lump of right breast N63 ; M enorrhagia with regular cycle N92.0 and BMI 30.0-30.9,adult Z68.30 [place] [address] [place] [id number] [place] [phone] Sep, [facility] [address] [place] [id number] [address] [place] [id number] Aug, [facility] [address] [address] Aug, Well woman exam Z01.419 ; En [...] Z87.898 and Trichomonas vaginalis (TV) infection A59.01 [place] [address] [place] [id number] [address] [place] [id number] October, Abdominal pain, unspecified site 789.00 ; GERD (gastroesophageal reflux disease) 530.81 and Chest pain 786.50 [facility] [address] [id number] [address] [place] [address], [place] [address] 14 Sep, 2014 [facility] [address] [id number] [address] [place] [address], [place] [address] Sep, [facility] [address] [id number] [address] [place] [address], [place] [id number] 13 Jul, 2014 [facility] [address] [id number] [address] [place] [address], [place] [address] Jul, [facility] [address] [id number] [address] [place] [address], [place] [address] Jun, [facility] [address] [id number] [address] [place] [address], [place] [id number] Jun, [facility] [address] [id number] [address] [place] [address], [place] [address] Jun, [facility] [address] [id number] [address] [place] [address], [place] [id number] 16 Jun, 2014 [facility] [address] [id number] [address] [place] [address], [place] [address] Jun, [facility] [address] [id number] [address] [place] [address], [place] [address] Jun, [facility] [address] [id number] [address] [place] [phone] Jun, [facility] [address] [id number] [address] [place] [phone] Jun, [facility] [address] [id number] [address] [place] [address], [place] [address] Jun, [facility] [address] [id number] [address] [place] [address], [place] [address] Jun, [facility] [address] [id number] [address] [place] [phone] Jun, [facility] [address] [id number] [address] [place] [phone] Jun, [facility] [address] [id number] [address] [place] [address], [place] [address] Jun, [facility] [address] [id number] [address] [place] [address], [place] [address] Jun, [facility] [address] [id number] [address] [place] [address], [place] [address] Jun, [facility] [address] [id number] [address] [place] [address], [place] [address] May, [facility] [address] [id number] [address] [place] [address], [place] [address] May, [facility] [address] [id number] [address] [place] [address], [place] [address] 30 Feb, 2014 [facility] [address] [id number] [address] [place] [address], [place] [address] 30 Feb, 2013 [facility] [address] [id number] [address] [place] [address], [place] [address] 29 Feb, 2013 [facility] [address] [id number] [address] [place] [address], [place] [address] 25 Feb, 2013 [facility] [address] [id number] [address] [place] [address], [place] [id number] 25 Feb, 2013 [facility] [address] [id number] [address] [place] [address], [place] [address] 17 Feb, 2013 [facility] [address] [id number] [address] [place] [address], [place] [id number] 17 Feb, 2013 [facility] [address] [id number] [address] [place] [address], [place] [id number] 11 Feb, 2013 [facility] [address] [id number] [address] [place] [address], [place] [address] 11 Feb, 2013 [facility] [address] [id number] [address] [place] [address], [place] [address] 10 Feb, 2013 [facility] [address] [id number] [address] [place] [address], [place] [address] 10 Feb, 2013 [facility] [address] [id number] [address] [place] [address], [place] [address] Feb, [facility] [address] [id number] [address] [place] [address], [place] [address] Feb, [facility] [address] [id number] [address] [place] [address], [place] [address] Feb, [facility] [address] [id number] [address] [place] [address], [place] [address] Jan, [facility] [address] [id number] [address] [place] [address], [place] [address] Jan, [facility] [address] [id number] [address] [place] [address], [place] [address] Dec, [facility] [address] [id number] [address] [place] [address], [place] [address] Dec, [facility] [address] [id number] [address] [place] [address], [place] [address] Dec, [facility] [address] [id number] [address] [place] [address], [place] [address] Dec, [facility] [address] [id number] [address] [place] [address], [place] [address] Dec, [facility] [address] [id number] [address] [place] [address], [place] [address] Dec, [facility] [address] [id number] [address] [place] [address], [place] [address] Nov, [facility] [address] [id number] [address] [place] [address], [place] [address] Nov, [facility] [address] [id number] [address] [place] [address], [place] [address] Sep, [facility] [address] [id number] [address] [place] [address], [place] [address] May, [facility] [address] [id number] [address] [place] [phone] May, [facility] [address] [id number] [address] [place] [id number] Nov, [facility] [address] [id number] [address] [place] [phone] Sep, [facility] [address] [id number] [address] [place] [phone] Aug, [facility] [address] [id number] [address] [place] [phone] Jun, [facility] [address] [id number] [address] [place] [phone] Jun, [facility] [address] [id number] [address] [place] [id number] Jun, [facility] [address] [id number] [address] [place] [phone] May, [facility] [address] [id number] [address] [place] [phone] May, [facility] [address] [id number] [address] [place] [phone] May, [facility] [address] [id number] [address] [place] [phone] May, [facility] [address] [id number] [address] [place] [id number] Apr, [facility] [address] [id number] [address] [place] [phone] Apr, [facility] [address] [id number] [address] [place] [id number] Apr, [facility] [address] [id number] [address] [place] [id number] Apr, IMMUNIZATIONS No Known Immunizations SOCIAL HISTORY [...]
--- OUTSIDE RECORDS SUMMARY | 2019-12-03 22:24 | XMS REPORT ---
Author Author Imani SCHAEFFER Organization [facility] Address [address] [place] [address] Care Team Providers Care Marking Devices Assembler Name Role Phone AMBER SCHAEFFER Unavailable PROBLEMS Type Condition ICD9-CM Code [id number] Code Onset Dates Condition S tatus SNOMED Code Problem Pre-diabetes R73.09 Active 3313803 02 Problem Mixed hyperlipidemia E78.2 Active 818889265 Problem Lumbago with sciatica, left side M54.42 Active 925947980 Problem Lumbago with sciatica, right side M54.41 Active [id number] Problem Other chronic pain G89.29 Active 8 4490658 Problem Allergic rhinitis, unspecified seasonality, unspecifie d trigger J30.9 Active 19771219 Problem Spondylolisthesis of lumbosacral region M43.17 Active 767859706 Problem Current moderate episode of major depressive disorder, unspecified whether recurrent F32.1 Active 28710873 Problem Seasonal allergic rhinitis due to pollen J30.1 Active 76095882 Problem Dysfunctional uterine bleeding N93.8 Active 26105340 Problem Moderate persistent asthma with exacerbation J45.4 1 Active 120414461 Problem Cervical motion tenderness N94.9 Act venice 297602517 Problem Dysmenorrhea N94.6 Active 8062492 00 ALLERGIES No Information ENCOUNTERS Encounter Location Date Diagnosis [address] [address] Dec, Lumbago with sciatica, left side M54.[address] [address] Nov, Allergic rhinitis, unspecified seasonali ty, unspecified trigger J30.[address] [address] Nov, Lumbago with sciatica, left side M54.[address] [address] Nov, Dysfunctional uterine bleeding N93.[address] [address] Nov, [address] [address] Nov, Other chronic pain G89.29 and Low back p ain M54.5 [place] [address] [address] [facility] [id number] [address] [place] [address] October, [facility] [address] [facility] [id number] [address] [place] [address] October, Lumbago with sciatica, left side M54.42 [place] [address] [address] [facility] [id number] [address] [place] [address] October, [address] [address] October, [address] [address] October, Lumbago with sciatica, left side M54.42 ; Mixed hyperlipidemia E78.2 ; Pre-diabetes R73.09 ; Lumbago with sciatica, right side M54.41 and Current moderate episode of major depressive disorder, unspecified whether recurrent F32.[address] [address] Sep, Dysuria R30.0 ; Lumbago with sciatica, l eft side M54.42 ; Open wound of finger of left hand, initial encounter S61.209A ; Cervical motion tenderness N94.9 ; Dysmenorrhea N94.6 ; Allergic rhinitis, unspecified seasonality, unspecified trigger J30.9 and Mixed hyperlipidemia E78.[address] [address] Aug, Moderate persistent asthma with exacerba tion J45.41 and Other chronic pain G89.[address] [address] Aug, Moderate persistent asthma with exacerba tion J45.41 ; Mixed hyperlipidemia E78.2 ; Other chronic pain G89.29 ; Major depressive disorder in remission, unspecified whether recurrent F32.5 and Spondylolisthesis of lumbosacral region M43.17 [facility] [address] [place] [address] Jul, Dental examination Z01.20 and Caries K02.9 [facility] [address] [place] [address] Jun, Dental examination Z01.20 and Caries K02.[address] [address] Jan, Acute non-recurrent frontal sinusitis J01.10 ; Bronchitis J40 ; Tobacco use Z72.0 and Tobacco abuse counseling Z71.[address] [address] Jan, [address] [address] Jan, Bronchitis J40 and Viral upp er respiratory tract infection J06.[address] [address] October, Spondylolisthesis of lumbosa cral region M43.[address] [address] October, [address] [address] October, Acute suppurative otitis med ia of left ear without spontaneous rupture of tympanic membrane, recurrence not specified H66.002 ; Spondylolisthesis of lumbosacral region M43.17 ; Lumbago with sciatica, left side M54.42 ; Lumbago with sciatica, right side M54.41 ; Other chronic pain G89.29 ; Dysfunctional uterine bleeding N93.8 ; Screening for lipoid disorders Z13.220 and Pre-diabetes R73.09 [place] [id number] [address] [place] [address] Sep, Anxiety F41.9 [facility] [address] [place] [id number] [address] [place] [address] Aug, [facility] [address] [place] [id number] [address] [place] [address] Aug, 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 [facility] [address] [place] [id number] [address] [place] [address] Apr, Anxiety F41.9 [facility] [address] [facility] [id number] [address] [place] [address] Feb, Anxiety F41.9 [facility] [address] [place] [id number] [address] [place] [address] Feb, [facility] [address] [place] [id number] [address] [place] [address] Feb, [facility] [address] [place] [id number] [address] [place] [address] Feb, [facility] [address] [place] [id number] [address] [place] [address] Jan, Anxiety F41.9 [facility] [address] [place] [id number] [address] [place] [address] Jan, Anxiety F41.9 and Spondyloli sthesis of lumbosacral region M43.17 [facility] [address] [place] [id number] [address] [place] [address] Dec, Anxiety F41.9 [facility] [address] [place] [id number] [address] [place] [address] Nov, Anxiety F41.9 [facility] [address] [place] [id number] [address] [place] [address] October, Anxiety F41.9 and Seasonal a llergic rhinitis due to pollen J30.1 [facility] [address] [place] [id number] [address] [place] [address] Sep, Anxiety F41.9 [facility] [address] [id number] [address] [place] [address] Aug, Pre-diabetes R73.09 and Anxi ety F41.9 [facility] [address] [id number] [address] [place] [address] 16 Jul, 2016 [facility] [address] [id number] [address] [place] [address] Mar, [facility] [address] [id number] [address] [place] [address] 13 Mar, 2016 DUB (dysfunctional uterine b leeding) N93.8 and Menorrhagia with irregular cycle N92.1 [facility] [address] [id number] [address] [place] [address] Feb, [facility] [address] [id number] [address] [place] [address] 08 Feb, 2016 Encounter for dental examina tion Z01.20 [facility] [address] [id number] [address] [place] [address] Feb, Herniated nucleus pulposus M 51.9 [facility] [address] [id number] [address] [place] [id number] Feb, Dental examination Z01.20 [facility] [address] [id number] [address] [place] [address] Jan, Dental examination Z01.20 an d Dental caries K02.9 [facility] [address] [id number] [address] [place] [address] Jan, Encounter for dental examina tion and cleaning without abnormal findings Z01.20 [facility] [address] [id number] [address] [place] [address] Jan, [facility] [address] [id number] [address] [place] [address] Jan, [facility] [address] [id number] [address] [place] [address] Jan, Pre-diabetes R73.09 ; Chroni c nonintractable headache, unspecified headache type R51 and Vaginal yeast infection B37.3 [facility] [address] [facility] [id number] [address] [place] [address] Jan, [facility] [address] [id number] [address] [place] [address] Dec, Herniated nucleus pulposus M 51.9 [facility] [address] [id number] [address] [place] [address] Dec, [facility] [address] [facility] [id number] [address] [place] [address] Nov, [facility] [address] [facility] [id number] [address] [place] [address] Nov, [facility] [address] [facility] [id number] [address] [place] [address] Nov, [facility] [address] [facility] [id number] [address] [place] [address] Nov, [facility] [address] [facility] [id number] [address] [place] [address] Nov, Right hip pain M25.551 ; Pre -diabetes R73.09 ; Mixed hyperlipidemia E78.2 ; Chronic nonintractable headache, unspecified headache type R51 ; Right foot pain M79.671 and Right hand pain M79.641 [facility] [address] [facility] [id number] [address] [place] [address] Nov, [facility] [address] [facility] [id number] [address] [place] [address] Nov, Right hip pain M25.551 ; Pre -diabetes R73.09 ; Mixed hyperlipidemia E78.2 and Chronic nonintractable headache, unspecified headache type R51 [facility] [address] [facility] [id number] [address] [place] [address] October, [facility] [address] [facility] [id number] [address] [place] [address] October, Right hip pain M25.551 ; Pre -diabetes R73.09 ; Mixed hyperlipidemia E78.2 and Frequent headaches R51 [facility] [address] [facility] [id number] [address] [place] [address] October, Menorrhagia with regular cyc le N92.0 [facility] [address] [facility] [id number] [address] [place] [address] October, [facility] [address] [facility] [id number] [address] [place] [address] October, Menorrhagia with regular cyc le N92.0 [place] [address] [address] [facility] [id number] [address] [place] [address] Sep, Lump of right breast N63 ; M enorrhagia with regular cycle N92.0 and BMI 30.0-30.9,adult Z68.30 [place] [address] [address] [facility] [id number] [address] [place] [address] Sep, [place] [address] [address] Aug, [place] [address] [place] [id number] [address] [place] [address] Aug, Well woman exam Z01.419 ; En [...] Z87.898 and Trichomonas vaginalis (TV) infection A59.01 [place] [address] [place] [id number] [address] [place] [address] October, Abdominal pain, unspecified site 789.00 ; GERD (gastroesophageal reflux disease) 530.81 and Chest pain 786.50 [facility] [address] [id number] [address] [place] [address] Sep, [facility] [address] [id number] [address] [place] [address] Sep, [facility] [address] [id number] [address] [place] [phone] Jul, [facility] [address] [id number] [address] [place] [address] Jul, [facility] [address] [id number] [address] [place] [address] Jun, [facility] [address] [id number] [address] [place] [address] Jun, [facility] [address] [id number] [address] [place] [address] Jun, [facility] [address] [id number] [address] [place] [address] Jun, [facility] [address] [id number] [address] [place] [address] Jun, [facility] [address] [id number] [address] [place] [address] Jun, [facility] [address] [id number] [address] [place] [address] Jun, [facility] [address] [id number] [address] [place] [address] Jun, [facility] [address] [id number] [address] [place] [address] Jun, [facility] [address] [id number] [address] [place] [address] Jun, [facility] [address] [id number] [address] [place] [address], [place] [address] Jun, [facility] [address] [id number] [address] [place] [address], [place] [address] Jun, [facility] [address] [id number] [address] [place] [address], [place] [address] Jun, [facility] [address] [id number] [address] [place] [address], [place] [address] Jun, [facility] [address] [id number] [address] [place] [address], [place] [address] Jun, [facility] [address] [id number] [address] [place] [address], [place] [address] May, [facility] [address] [id number] [address] [place] [address], [place] [address] May, [facility] [address] [id number] [address] [place] [address], [place] [address] 30 Feb, 2013 [facility] [address] [id number] [address] [place] [address], [place] [address] 30 Feb, 2013 [facility] [address] [id number] [address] [place] [address], [place] [address] 29 Feb, 2013 [facility] [address] [id number] [address] [place] [address], [place] [address] 25 Sep, 2013 [facility] [address] [id number] [address] [place] [address], [place] [address] 25 Sep, 2013 [facility] [address] [id number] [address] [place] [address], [place] [address] 17 Sep, 2013 [facility] [address] [id number] [address] [place] [address], [place] [address] 17 Feb, 2013 [facility] [address] [id number] [address] [place] [address], [place] [address] 11 Feb, 2013 [facility] [address] [id number] [address] [place] [address], [place] [address] 11 Feb, 2013 [facility] [address] [id number] [address] [place] [address], [place] [address] Feb, 2013 [facility] [address] [id number] [address] [place] [address], [place] [address] Feb, [facility] [address] [id number] [address] [place] [address], [place] [address] Feb, [facility] [address] [id number] [address] [place] [address], [place] [address] Feb, [facility] [address] [id number] [address] [place] [address], [place] [address] Feb, [facility] [address] [id number] [address] [place] [address], [place] [address] Jan, [facility] [address] [id number] [address] [place] [address], [place] [address] Jan, [facility] [address] [id number] [address] [place] [address], [place] [address] Dec, [facility] [address] [id number] [address] [place] [address], [place] [address] Dec, [facility] [address] [id number] [address] [place] [address], [place] [address] Dec, [facility] [address] [id number] [address] [place] [address], [place] [address] Dec, [facility] [address] [id number] [address] [place] [address], [place] [address] Dec, [facility] [address] [id number] [address] [place] [address], [place] [address] Dec, [facility] [address] [id number] [address] [place] [address], [place] [address] Nov, [facility] [address] [id number] [address] [place] [address], [place] [address] Nov, [facility] [address] [id number] [address] [place] [phone] Sep, [facility] [address] [id number] [address] [place] [address], [place] [address] May, [facility] [address] [id number] [address] [place] [address], [place] [address] May, [facility] [address] [id number] [address] [place] [address], [place] [address] Nov, [facility] [address] [id number] [address] [place] [address], [place] [address] Sep, [facility] [address] [id number] [address] [place] [address], [place] [address] Aug, [facility] [address] [id number] [address] [place] [address], [place] [address] 16 Jun, 2011 [facility] [address] [id number] [address] [place] [address], [place] [address] Jun, [facility] [address] [id number] [address] [place] [address], [place] [address] Jun, [facility] [address] [id number] [address] [place] [address], [place] [address] May, [facility] [address] [id number] [address] [place] [address], [place] [address] May, [facility] [address] [id number] [address] [place] [address], [place] [address] May, [facility] [address] [id number] [address] [place] [address], [place] [address] May, [facility] [address] [id number] [address] [place] [address], [place] [address] Apr, [facility] [address] [id number] [address] [place] [address], [place] [address] Apr, [facility] [address] [id number] [address] [place] [address], [place] [address] Apr, [facility] [address] [id number] [address] [place] [address] Apr, IMMUNIZATIONS No Known Immunizations SOCIAL HISTORY [...]
--- OUTSIDE RECORDS SUMMARY | 2019-12-03 22:25 | XMS REPORT ---
Author Author Imani Watt Doctor Organization [facility] Address Unknown Phone Unavailable Care Team Providers Care Liner Replacer Name Role Phone Migration, Doctor Unavailable Unavailable PROBLEMS Type Condition ICD9-CM Code LCV23-IG Code Onset Dates Condition S tatus SNOMED Code Problem Spondylolisthesis of lumbosacral region M43.17 Active 734018763 Problem Lumbago with sciatica, left side M54.42 Active 279439823 Problem Lumbago with sciatica, right side M54.41 Active 069741017498617 Problem Mixed hyperlipidemia E78.2 Active 239914219 Problem Cervical motion tenderness N94.9 Act venice 372548531 Problem Seasonal allergic rhinitis due to pollen J30.1 Active 38893449 Problem Dysmenorrhea N94.6 Active 8038310 00 Problem Pre-diabetes R73.09 Active 5222839 02 Problem Other chronic pain G89.29 Active 8 1304181 Problem Dysfunctional uterine bleeding N93.8 Active 54113502 Problem Moderate persistent asthma with exacerbation J45.4 1 Active 265362143 Problem Allergic rhinitis, unspecified seasonality, unspecifie d trigger J30.9 Active 15134531 ALLERGIES No Information ENCOUNTERS Encounter Location Date Diagnosis [address] [address] Sep, Dysuria R30.0 ; Lumbago with sciatica, l eft side M54.42 ; Open wound of finger of left hand, initial encounter S61.209A ; Cervical motion tenderness N94.9 ; Dysmenorrhea N94.6 ; Allergic rhinitis, unspecified seasonality, unspecified trigger J30.9 and Mixed hyperlipidemia E78.[address] [address] Aug, Moderate persistent asthma with exacerba tion J45.41 and Other chronic pain G89.[address] [address] Aug, Moderate persistent asthma with exacerba tion J45.41 ; Mixed hyperlipidemia E78.2 ; Other chronic pain G89.29 ; Major depressive disorder in remission, unspecified whether recurrent F32.5 and Spondylolisthesis of lumbosacral region M43.17 [facility] [address] [place] [address] Jul, Dental examination Z01.20 and Caries K02.9 [facility] [address] [place] [address] Jun, Dental examination Z01.20 and Caries K02.[address] [address] Jan, Acute non-recurrent frontal sinusitis J01.10 ; Bronchitis J40 ; Tobacco use Z72.0 and Tobacco abuse counseling Z71.[address] [address] Jan, [address] [address] Jan, Bronchitis J40 and Viral upp er respiratory tract infection J06.[address] [address] October, Spondylolisthesis of lumbosa cral region M43.[address] [address] October, [address] [address] October, Acute suppurative otitis med ia of left ear without spontaneous rupture of tympanic membrane, recurrence not specified H66.002 ; Spondylolisthesis of lumbosacral region M43.17 ; Lumbago with sciatica, left side M54.42 ; Lumbago with sciatica, right side M54.41 ; Other chronic pain G89.29 ; Dysfunctional uterine bleeding N93.8 ; Screening for lipoid disorders Z13.220 and Pre-diabetes R73.[address] [place] [address] Sep, Anxiety F41.9 [facility] [address] [id number] [address] [place] [address] Aug, [facility] [address] [place] [id number] [address] [place] [address] Aug, 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 [facility] [address] [id number] [address] [place] [address] Apr, Anxiety F41.9 [facility] [address] [place] [place] [id number] [address] [place] [address] Feb, Anxiety F41.9 [facility] [address] [place] [place] [id number] [place] [address] Feb, [facility] [address] [address] Feb, [facility] [address] [place] [id number] [address] [place] [address] Feb, [facility] [address] [address] Jan, Anxiety F41.9 [facility] [address] [place] [id number] [place] [address] Jan, Anxiety F41.9 and Spondyloli sthesis of lumbosacral region M43.17 [facility] [address] [place] [id number] [address] [place] [address] Dec, Anxiety F41.9 [facility] [address] [place] [id number] [address] [place] [address] Nov, Anxiety F41.9 [facility] [address] [address] October, Anxiety F41.9 and Seasonal a llergic rhinitis due to pollen J30.1 [facility] [address] [place] [id number] [address] [place] [address] Sep, Anxiety F41.9 [facility] [address] [id number] [address] [place] [address] Aug, Pre-diabetes R73.09 and Anxi ety F41.9 [facility] [address] [id number] [address] [place] [id number] 16 Jul, 2016 [facility] [address] [id number] [address] [place] [address] Mar, [facility] [address] [id number] [address] [place] [address] Mar, DUB (dysfunctional uterine b leeding) N93.8 and Menorrhagia with irregular cycle N92.1 [place] [address] [id number] [address] [place] [address] Feb, [facility] [address] [id number] [address] [place] [address] 08 Feb, 2016 Encounter for dental examina tion Z01.20 [facility] [address] [id number] [address] [place] [address] Feb, Herniated nucleus pulposus M 51.9 [facility] [address] [id number] [address] [place] [id number] Feb, Dental examination Z01.20 [facility] [address] [id number] [address] [place] [address] Jan, Dental examination Z01.20 an d Dental caries K02.9 [facility] [address] [id number] [address] [place] [address] Jan, Encounter for dental examina tion and cleaning without abnormal findings Z01.20 [facility] [address] [id number] [address] [place] [address] Jan, [facility] [address] [id number] [address] [place] [address] Jan, [place] [address] [id number] [address] [place] [address] Jan, Pre-diabetes R73.09 ; Chroni c nonintractable headache, unspecified headache type R51 and Vaginal yeast infection B37.3 [facility] [address] [id number] [address] [place] [address] Jan, [facility] [address] [id number] [address] [place] [address] Dec, Herniated nucleus pulposus M 51.9 [facility] [address] [id number] [address] [place] [address] Dec, [facility] [address] [id number] [address] [place] [address] Nov, [facility] [address] [id number] [address] [place] [address] Nov, [facility] [address] [id number] [address] [place] [phone] Nov, [facility] [address] [id number] [address] [place] [address] Nov, [facility] [address] [id number] [address] [place] [address] Nov, Right hip pain M25.551 ; Pre -diabetes R73.09 ; Mixed hyperlipidemia E78.2 ; Chronic nonintractable headache, unspecified headache type R51 ; Right foot pain M79.671 and Right hand pain M79.641 [facility] [address] [id number] [address] [place] [address] Nov, [facility] [address] [id number] [address] [place] [address] Nov, Right hip pain M25.551 ; Pre -diabetes R73.09 ; Mixed hyperlipidemia E78.2 and Chronic nonintractable headache, unspecified headache type R51 [facility] [address] [id number] [address] [place] [address] October, [facility] [address] [facility] [id number] [address] [place] [address] October, Right hip pain M25.551 ; Pre -diabetes R73.09 ; Mixed hyperlipidemia E78.2 and Frequent headaches R51 [facility] [address] [facility] [id number] [address] [place] [address] October, Menorrhagia with regular cyc le N92.0 [facility] [address] [facility] [id number] [address] [place] [address] October, [facility] [address] [facility] [id number] [address] [place] [phone] October, Menorrhagia with regular cyc le N92.0 [facility] [address] [place] [id number] [address] [place] [address] Sep, Lump of right breast N63 ; M enorrhagia with regular cycle N92.0 and BMI 30.0-30.9,adult Z68.30 [place] [address] [facility] [id number] [address] [place] [address] Sep, [place] [address] [place] [id number] [address] [place] [address] Aug, [facility] [address] [facility] [id number] [address] [place] [address] Aug, Well woman exam Z01.419 ; En [...] Z87.898 and Trichomonas vaginalis (TV) infection A59.01 [place] [address] [place] [place] [id number] [address] [place] [address] October, Abdominal pain, unspecified site 789.00 ; GERD (gastroesophageal reflux disease) 530.81 and Chest pain 786.50 [facility] [address] [id number] [address] [place] [id number] 14 Sep, 2014 [facility] [address] [id number] [address] [place] [phone] Sep, [facility] [address] [id number] [address] [place] [id number] Jul, [facility] [address] [id number] [address] [place] [phone] Jul, [facility] [address] [id number] [address] [place] [phone] Jun, [facility] [address] [id number] [address] [place] [phone] Jun, [facility] [address] [id number] [address] [place] [phone] Jun, [facility] [address] [id number] [address] [place] [phone] Jun, [facility] [address] [id number] [address] [place] [phone] Jun, [facility] [address] [id number] [address] [place] [phone] Jun, [facility] [address] [id number] [address] [place] [phone] Jun, [facility] [address] [id number] [address] [place] [phone] Jun, [facility] [address] [id number] [address] [place] [phone] Jun, [facility] [address] [id number] [address] [place] [phone] Jun, [facility] [address] [id number] [address] [place] [address], [place] [address] Jun, [facility] [address] [id number] [address] [place] [address], [place] [address] Jun, [facility] [address] [id number] [address] [place] [address], [place] [address] Jun, [facility] [address] [id number] [address] [place] [address], [place] [address] Jun, [facility] [address] [id number] [address] [place] [address], [place] [address] Jun, [facility] [address] [id number] [address] [place] [address], [place] [address] May, [facility] [address] [id number] [address] [place] [address], [place] [address] May, [facility] [address] [id number] [address] [place] [address], [place] [address] 30 Feb, 2013 [facility] [address] [id number] [address] [place] [address], [place] [address] 30 Feb, 2014 [facility] [address] [id number] [address] [place] [address], [place] [address] 29 Feb, 2013 [facility] [address] [id number] [address] [place] [address], [place] [address] 25 Feb, 2013 [facility] [address] [id number] [address] [place] [address], [place] [address] 25 Feb, 2013 [facility] [address] [id number] [address] [place] [address], [place] [address] 17 Feb, 2013 [facility] [address] [id number] [address] [place] [address], [place] [address] 17 Feb, 2013 [facility] [address] [id number] [address] [place] [address], [place] [address] 11 Feb, 2013 [facility] [address] [id number] [address] [place] [address], [place] [address] 11 Feb, 2014 [facility] [address] [id number] [facility] [place] [address] 10 Feb, 2014 [facility] [address] [id number] [address] [place] [address], [place] [address] Feb, [facility] [address] [id number] [address] [place] [address], [place] [address] Feb, [facility] [address] [id number] [address] [place] [address], [place] [address] Feb, [facility] [address] [id number] [address] [place] [address], [place] [address] Feb, [facility] [address] [id number] [address] [place] [address], [place] [address] Jan, [facility] [address] [id number] [address] [place] [address], [place] [address] Jan, [facility] [address] [id number] [address] [place] [address], [place] [address] Dec, [facility] [address] [id number] [address] [place] [address], [place] [address] Dec, [facility] [address] [id number] [address] [place] [address], [place] [address] Dec, [facility] [address] [id number] [address] [place] [address], [place] [address] Dec, [facility] [address] [id number] [address] [place] [address], [place] [address] Dec, [facility] [address] [id number] [address] [place] [address], [place] [address] Dec, [facility] [address] [id number] [address] [place] [address], [place] [address] Nov, [facility] [address] [id number] [address] [place] [address], [place] [address] Nov, [facility] [address] [id number] [address] [place] [address], [place] [address] 05 Sep, 2012 [facility] [address] [id number] [address] [place] [address], [place] [address] May, [facility] [address] [id number] [address] [place] [address], [place] [address] May, [facility] [address] [id number] [address] [place] [address], [place] [address] Nov, [facility] [address] [id number] [address] [place] [address], [place] [address] Sep, [facility] [address] [id number] [address] [place] [address], [place] [address] Aug, [facility] [address] [id number] [address] [place] [address], [place] [address] Jun, [facility] [address] [id number] [address] [place] [address], [place] [address] Jun, [facility] [address] [id number] [address] [place] [address], [place] [address] Jun, [facility] [address] [id number] [address] [place] [address], [place] [address] May, [facility] [address] [id number] [address] [place] [address], [place] [address] May, [facility] [address] [id number] [address] [place] [address], [place] [address] May, [facility] [address] [id number] [address] [place] [address], [place] [address] May, [facility] [address] [id number] [address] [place] [address], [place] [address] Apr, [facility] [address] [id number] [address] [place] [address], [place] [address] Apr, [facility] [address] [id number] [address] [place] [address], [place] [address] Apr, [facility] [address] [facility] [id number] [address] [place] [address] Apr, IMMUNIZATIONS No Known Immunizations SOCIAL HISTORY Never Assessed REASON FOR VISIT EMR-[facility] PLAN OF CARE VITAL SIGNS MEDICATIONS Unknown [...]
--- OUTSIDE RECORDS SUMMARY | 2019-12-03 22:25 | XMS REPORT ---
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 Name Role Phone Migration, Doctor Unavailable Unavailable PROBLEMS Type Condition ICD9-CM Code [id number] Code Onset Dates Condition S tatus SNOMED Code Problem Pre-diabetes R73.09 Active 2858818 02 Problem Mixed hyperlipidemia E78.2 Active 003425105 Problem Lumbago with sciatica, left side M54.42 Active 737799988 Problem Lumbago with sciatica, right side M54.41 Active 541849042786761 Problem Other chronic pain G89.29 Active 8 7302493 Problem Allergic rhinitis, unspecified seasonality, unspecifie d trigger J30.9 Active 90345964 Problem Spondylolisthesis of lumbosacral region M43.17 Active 080461724 Problem Current moderate episode of major depressive disorder, unspecified whether recurrent F32.1 Active 80935447 Problem Seasonal allergic rhinitis due to pollen J30.1 Active 33183083 Problem Dysfunctional uterine bleeding 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.8 Active 89565358 Problem Moderate persistent asthma with exacerbation J45.4 1 Active 488094093 Problem Cervical motion tenderness N94.9 Act venice 567192080 Problem Dysmenorrhea N94.6 Active 0753374 00 ALLERGIES No Information ENCOUNTERS Encounter Location Date Diagnosis [facility] [place] [address] [place] [address] Nov, [facility] [address] [facility] [id number] [address] [place] [address] October, [facility] [address] [facility] [id number] [address] [place] [address] October, Lumbago with sciatica, left side M54.42 [facility] [address] [facility] [id number] [address] [place] [address] October, [address] [address] October, [address] [address] October, Lumbago with sciatica, left side M54.42 ; Mixed hyperlipidemia E78.2 ; Pre-diabetes R73.09 ; Lumbago with sciatica, right side M54.41 and Current moderate episode of major depressive disorder, unspecified whether recurrent F32.[address] [address] Sep, Dysuria R30.0 ; Lumbago with sciatica, l eft side M54.42 ; Open wound of finger of left hand, initial encounter S61.209A ; Cervical motion tenderness N94.9 ; Dysmenorrhea N94.6 ; Allergic rhinitis, unspecified seasonality, unspecified trigger J30.9 and Mixed hyperlipidemia E78.[address] [address] Aug, Moderate persistent asthma with exacerba tion J45.41 and Other chronic pain G89.[address] [address] Aug, Moderate persistent asthma with exacerba tion J45.41 ; Mixed hyperlipidemia E78.2 ; Other chronic pain G89.29 ; Major depressive disorder in remission, unspecified whether recurrent F32.5 and Spondylolisthesis of lumbosacral region M43.17 [facility] [address] [place] [address] Jul, 19 Dental examination Z01.20 and Caries K02.9 [facility] [address] [place] [address] Jun, 19 Dental examination Z01.20 and Caries K02.[address] [place] [address] Jan, Acute non-recurrent frontal sinusitis J01.10 ; Bronchitis J40 ; Tobacco use Z72.0 and Tobacco abuse counseling Z71.6 [place] [id number] [address] [place] [address] Jan, [address] [place] [address] Jan, Bronchitis J40 and Viral upp er respiratory tract infection J06.9 [place] [address] [place] [id number] [address] [place] [address] October, Spondylolisthesis of lumbosa cral region M43.17 [place] [address] [address] October, [place] [address] [address] October, Acute suppurative otitis med ia of left ear without spontaneous rupture of tympanic membrane, recurrence not specified H66.002 ; Spondylolisthesis of lumbosacral region M43.17 ; Lumbago with sciatica, left side M54.42 ; Lumbago with sciatica, right side M54.41 ; Other chronic pain G89.29 ; Dysfunctional uterine bleeding N93.8 ; Screening for lipoid disorders Z13.220 and Pre-diabetes R73.09 [place] [address] [address] Sep, Anxiety F41.9 [place] [address] [address] Aug, [place] [address] [address] Aug, 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 [place] [address] [place] [id number] [address] [place] [address] Apr, Anxiety F41.9 [place] [address] [address] Feb, Anxiety F41.9 [place] [address] [place] [id number] [address] [place] [address] Feb, [place] [address] [address] Feb, [facility] [address] [place] [id number] [address] [place] [address] 06 Feb, 2017 [facility] [address] [address] Jan, Anxiety F41.9 [facility] [address] [address] 16 Jan, 2017 Anxiety F41.9 and Spondyloli sthesis of lumbosacral region M43.17 [facility] [address] [facility] [id number] [address] [place] [address] 17 Dec, 2016 Anxiety F41.9 [facility] [address] [address] 14 Nov, 2016 Anxiety F41.9 [place] [address] [address] October, Anxiety F41.9 and Seasonal a llergic rhinitis due to pollen J30.1 [facility] [address] [place] [id number] [address] [place] [address] Sep, Anxiety F41.9 [place] [address] [address] Aug, Pre-diabetes R73.09 and Anxi ety F41.9 [facility] [address] [place] [id number] [address] [place] [address] Jul, [facility] [address] [place] [id number] [address] [place] [address] Mar, [facility] [address] [address] 13 Mar, 2016 DUB (dysfunctional uterine b leeding) N93.8 and Menorrhagia with irregular cycle N92.1 [facility] [address] [place] [id number] [address] [place] [address] 19 Feb, 2016 [facility] [address] [place] [address] 08 Feb, 2016 Encounter for dental examina tion Z01.20 [facility] [address] [id number] [address] [place] [address] Feb, Herniated nucleus pulposus M 51.9 [facility] [address] [id number] [address] [place] [id number] Feb, Dental examination Z01.20 [facility] [address] [id number] [address] [place] [address] Jan, Dental examination Z01.20 an d Dental caries K02.9 [facility] [address] [id number] [address] [place] [address] Jan, Encounter for dental examina tion and cleaning without abnormal findings Z01.20 [facility] [address] [id number] [address] [place] [address] Jan, [facility] [address] [id number] [address] [place] [address] Jan, [facility] [address] [id number] [address] [place] [address] Jan, Pre-diabetes R73.09 ; Chroni c nonintractable headache, unspecified headache type R51 and Vaginal yeast infection B37.3 [facility] [address] [id number] [address] [place] [address] Jan, [facility] [address] [id number] [address] [place] [address] Dec, Herniated nucleus pulposus M 51.9 [facility] [address] [id number] [address] [place] [address] Dec, [facility] [address] [id number] [address] [place] [address] Nov, [facility] [address] [id number] [address] [place] [address] Nov, [facility] [address] [id number] [address] [place] [address] Nov, [facility] [address] [id number] [address] [place] [address] Nov, [facility] [address] [facility] [id number] [address] [place] [address] Nov, Right hip pain M25.551 ; Pre -diabetes R73.09 ; Mixed hyperlipidemia E78.2 ; Chronic nonintractable headache, unspecified headache type R51 ; Right foot pain M79.671 and Right hand pain M79.641 [facility] [address] [id number] [address] [place] [address] 17 Nov, 2015 [facility] [address] [facility] [id number] [address] [place] [address] 15 Nov, 2015 Right hip pain M25.551 ; Pre -diabetes R73.09 ; Mixed hyperlipidemia E78.2 and Chronic nonintractable headache, unspecified headache type R51 [facility] [address] [id number] [address] [place] [address] October, [facility] [address] [facility] [id number] [address] [place] [address] October, Right hip pain M25.551 ; Pre -diabetes R73.09 ; Mixed hyperlipidemia E78.2 and Frequent headaches R51 [facility] [address] [facility] [id number] [address] [place] [address] October, Menorrhagia with regular cyc le N92.0 [facility] [address] [facility] [id number] [address] [place] [address] October, [facility] [address] [facility] [id number] [address] [place] [address] October, Menorrhagia with regular cyc le N92.0 [facility] [address] [facility] [id number] [address] [place] [address] Sep, Lump of right breast N63 ; M enorrhagia with regular cycle N92.0 and BMI 30.0-30.9,adult Z68.30 [place] [address] [facility] [id number] [address] [place] [address] Sep, [facility] [address] [facility] [id number] [address] [place] [address] Aug, [place] [address] [place] [id number] [address] [place] [address] Aug, Well woman exam Z01.419 ; En [...] Trichomonas vaginalis (TV) infection A59.01 [place] [address] [place] [id number] [address] [place] [address] October, Abdominal pain, unspecified site 789.00 ; GERD (gastroesophageal reflux disease) 530.81 and Chest pain 786.50 [place] [address] [place] [id number] [address] [place] [address] Sep, [place] [address] [facility] [id number] [address] [place] [address] Sep, [place] [address] [facility] [id number] [address] [place] [address] Jul, [place] [address] [facility] [id number] [address] [place] [address] Jul, [place] [address] [facility] [id number] [address] [place] [address] Jun, [place] [address] [facility] [id number] [address] [place] [address] Jun, [facility] [address] [id number] [address] [place] [address], [place] [address] Jun, [facility] [address] [id number] [address] [place] [address], [place] [address] Jun, [facility] [address] [id number] [address] [place] [address], [place] [address] Jun, [facility] [address] [id number] [address] [place] [address], [place] [address] Jun, [facility] [address] [id number] [address] [place] [address], [place] [address] Jun, [facility] [address] [id number] [address] [place] [address], [place] [address] Jun, [facility] [address] [id number] [address] [place] [address], [place] [address] Jun, [facility] [address] [id number] [address] [place] [address], [place] [address] Jun, [facility] [address] [id number] [address] [place] [address], [place] [address] Jun, [facility] [address] [id number] [address] [place] [address], [place] [address] Jun, [facility] [address] [id number] [address] [place] [address], [place] [address] Jun, [facility] [address] [id number] [address] [place] [address], [place] [address] Jun, [facility] [address] [id number] [address] [place] [address], [place] [address] Jun, [facility] [address] [id number] [address] [place] [address], [place] [address] May, [facility] [address] [id number] [address] [place] [address], [place] [address] May, [facility] [address] [id number] [facility] [place] [address] 30 Sep, 2013 [facility] [address] [id number] [address] [place] [address], [place] [address] 30 Sep, 2013 [facility] [address] [id number] [facility] [place] [address] 29 Sep, 2013 [facility] [address] [id number] [address] [place] [address], [place] [address] 25 Sep, 2013 [facility] [address] [id number] [address] [place] [address], [place] [address] 25 Feb, 2013 [facility] [address] [id number] [address] [place] [address], [place] [address] 17 Feb, 2013 [facility] [address] [id number] [address] [place] [address], [place] [address] 17 Feb, 2013 [facility] [address] [id number] [address] [place] [address], [place] [address] 11 Feb, 2013 [facility] [address] [id number] [address] [place] [address], [place] [address] 11 Feb, 2013 [facility] [address] [id number] [address] [place] [address], [place] [address] 10 Feb, 2013 [facility] [address] [id number] [address] [place] [address], [place] [address] 10 Feb, 2013 [facility] [address] [id number] [address] [place] [address], [place] [address] 10 Feb, 2013 [facility] [address] [id number] [address] [place] [address], [place] [address] 09 Feb, 2013 [facility] [address] [id number] [address] [place] [address], [place] [address] 09 Feb, 2013 [facility] [address] [id number] [address] [place] [address], [place] [address] 15 Jan, 2014 [facility] [address] [id number] [address] [place] [address], [place] [address] Jan, [facility] [address] [id number] [address] [place] [address], [place] [address] Dec, [facility] [address] [id number] [address] [place] [address], [place] [address] Dec, [facility] [address] [id number] [address] [place] [address], [place] [address] Dec, [facility] [address] [id number] [address] [place] [address], [place] [address] Dec, [facility] [address] [id number] [address] [place] [address], [place] [address] Dec, [facility] [address] [id number] [address] [place] [address], [place] [address] Dec, [facility] [address] [id number] [address] [place] [address], [place] [address] Nov, [facility] [address] [id number] [address] [place] [address], [place] [address] Nov, [facility] [address] [id number] [address] [place] [address], [place] [address] Sep, [facility] [address] [id number] [address] [place] [address], [place] [address] May, [facility] [address] [id number] [address] [place] [address], [place] [address] May, [facility] [address] [id number] [address] [place] [address], [place] [address] Nov, [facility] [address] [id number] [address] [place] [address], [place] [address] Sep, [facility] [address] [id number] [address] [place] [address], [place] [address] Aug, [facility] [address] [id number] [address] [place] [address], [place] [address] Jun, [facility] [address] [id number] [address] [place] [address] Jun, [facility] [address] [id number] [address] [place] [address] Jun, [facility] [address] [id number] [address] [place] [address] May, [facility] [address] [id number] [address] [place] [address] May, [facility] [address] [id number] [address] [place] [address] May, [facility] [address] [id number] [address] [place] [address] May, [facility] [address] [id number] [address] [place] [address] Apr, [facility] [address] [id number] [address] [place] [address] Apr, [facility] [address] [id number] [address] [place] [address] Apr, [facility] [address] [id number] [address] [place] [address] Apr, IMMUNIZATIONS No Known Immunizations SOCIAL HISTORY Never Assessed REASON FOR VISIT [facility] PLAN OF CARE VITAL SIGNS [...]
--- OUTSIDE RECORDS SUMMARY | 2019-12-03 22:25 | XMS REPORT ---
Author Author Imani Watt Doctor Organization [facility] Address Unknown Phone Unavailable Care Team Providers Care Product Sales Representative Name Role Phone Migration, Doctor Unavailable Unavailable PROBLEMS Type Condition ICD9-CM Code [id number] Code Onset Dates Condition S tatus SNOMED Code Problem Pre-diabetes R73.09 Active 8486971 02 Problem Mixed hyperlipidemia E78.2 Active 293323291 Problem Seasonal allergic rhinitis due to pollen J30.1 Active 49506065 Problem Dysfunctional uterine bleeding N93.8 Active 73809498 Problem Moderate persistent asthma with exacerbation J45.4 1 Active 600971013 Problem Spondylolisthesis of lumbosacral region M43.17 Active 307632605 Problem Lumbago with sciatica, left side M54.42 Active 892595644 Problem Lumbago with sciatica, right side M54.41 Active [id number] Problem Other chronic pain G89.29 Active 8 [id number] ALLERGIES No Information ENCOUNTERS Encounter Location Date Diagnosis [address] [address] Sep, [address] [address] Aug, Moderate persistent asthma with exacerba tion J45.41 and Other chronic pain G89.[address] [address] Aug, Moderate persistent asthma with exacerba tion J45.41 ; Mixed hyperlipidemia E78.2 ; Other chronic pain G89.29 ; Major depressive disorder in remission, unspecified whether recurrent F32.5 and Spondylolisthesis of lumbosacral region M43.17 [facility] [address] [facility] [place] [address] Jul, Dental examination Z01.20 and Caries K02.9 [facility] [address] [place] [address] Jun, Dental examination Z01.20 and Caries K02.9 [place] [address] [address] Jan, Acute non-recurrent frontal sinusitis J01.10 ; Bronchitis J40 ; Tobacco use Z72.0 and Tobacco abuse counseling Z71.6 [place] [address] [address] Jan, [place] [address] [address] Jan, Bronchitis J40 and Viral upp er respiratory tract infection J06.9 [place] [address] [address] October, Spondylolisthesis of lumbosa cral region M43.17 [place] [address] [address] October, [address] [address] October, Acute suppurative otitis med ia of left ear without spontaneous rupture of tympanic membrane, recurrence not specified H66.002 ; Spondylolisthesis of lumbosacral region M43.17 ; Lumbago with sciatica, left side M54.42 ; Lumbago with sciatica, right side M54.41 ; Other chronic pain G89.29 ; Dysfunctional uterine bleeding N93.8 ; Screening for lipoid disorders Z13.220 and Pre-diabetes R73.09 [place] [address] [address] Sep, Anxiety F41.9 [place] [address] [address] Aug, [place] [address] [address] Aug, 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 [place] [address] [address] Apr, Anxiety F41.9 [facility] [place] [address] [facility] [id number] [address] [place] [address] 26 Feb, 2017 Anxiety F41.9 [facility] [place] [address] [facility] [id number] [address] [place] [address] 19 Feb, 2017 [facility] [place] [address] [place] [id number] [address] [place] [address] 08 Feb, 2017 [facility] [place] [address] [place] [id number] [address] [place] [address] Feb, [facility] [place] [address] [place] [id number] [address] [place] [address] Jan, Anxiety F41.9 [facility] [place] [address] [place] [id number] [place] [address] Jan, Anxiety F41.9 and Spondyloli sthesis of lumbosacral region M43.17 [facility] [place] [address] [place] [id number] [address] [place] [address] Dec, Anxiety F41.9 [facility] [place] [address] [place] [id number] [address] [place] [address] Nov, Anxiety F41.9 [facility] [place] [address] [place] [id number] [address] [place] [address] October, Anxiety F41.9 and Seasonal a llergic rhinitis due to pollen J30.1 [facility] [place] [address] [place] [id number] [address] [place] [address] Sep, Anxiety F41.9 [facility] [place] [address] [place] [id number] [address] [place] [address] Aug, Pre-diabetes R73.09 and Anxi ety F41.9 [facility] [place] [address] [facility] [id number] [address] [place] [address] 16 Jul, 2016 [facility] [place] [address] [place] [id number] [address] [place] [address] Mar, [facility] [place] [address] [id number] [address] [place] [address] 13 Mar, 2016 DUB (dysfunctional uterine b leeding) N93.8 and Menorrhagia with irregular cycle N92.1 [facility] [place] [address] [id number] [address] [place] [address] Feb, [facility] [place] [address] [id number] [address] [place] [phone] 08 Feb, 2016 Encounter for dental examina tion Z01.20 [facility] [place] [address] [id number] [address] [place] [address] Feb, Herniated nucleus pulposus M 51.9 [facility] [address] [id number] [address] [place] [id number] Feb, Dental examination Z01.20 [facility] [place] [address] [id number] [address] [place] [address] Jan, Dental examination Z01.20 an d Dental caries K02.9 [facility] [place] [address] [id number] [address] [place] [address] Jan, Encounter for dental examina tion and cleaning without abnormal findings Z01.20 [facility] [place] [address] [id number] [address] [place] [address] Jan, [facility] [place] [address] [id number] [address] [place] [address] Jan, [facility] [place] [address] [id number] [address] [place] [address] Jan, Pre-diabetes R73.09 ; Chroni c nonintractable headache, unspecified headache type R51 and Vaginal yeast infection B37.3 [facility] [place] [address] [id number] [address] [place] [address] Jan, [facility] [place] [address] [id number] [address] [place] [address] Dec, Herniated nucleus pulposus M 51.9 [facility] [place] [address] [facility] [id number] [address] [place] [address] Dec, [facility] [place] [address] [facility] [id number] [address] [place] [address] Nov, [facility] [place] [address] [facility] [id number] [address] [place] [address] Nov, [facility] [place] [address] [facility] [id number] [address] [place] [phone] Nov, [facility] [place] [address] [facility] [id number] [address] [place] [address] Nov, [facility] [place] [address] [facility] [id number] [address] [place] [address] Nov, Right hip pain M25.551 ; Pre -diabetes R73.09 ; Mixed hyperlipidemia E78.2 ; Chronic nonintractable headache, unspecified headache type R51 ; Right foot pain M79.671 and Right hand pain M79.641 [facility] [place] [address] [facility] [id number] [address] [place] [address] Nov, [facility] [place] [address] [facility] [id number] [address] [place] [address] Nov, Right hip pain M25.551 ; Pre -diabetes R73.09 ; Mixed hyperlipidemia E78.2 and Chronic nonintractable headache, unspecified headache type R51 [facility] [place] [address] [facility] [id number] [address] [place] [phone] October, [facility] [place] [address] [facility] [id number] [address] [place] [address] October, Right hip pain M25.551 ; Pre -diabetes R73.09 ; Mixed hyperlipidemia E78.2 and Frequent headaches R51 [facility] [place] [address] [facility] [id number] [address] [place] [phone] October, Menorrhagia with regular cyc le N92.0 [facility] [address] [facility] [id number] [address] [place] [phone] October, [facility] [place] [address] [facility] [id number] [address] [place] [address] October, Menorrhagia with regular cyc le N92.0 [facility] [place] [address] [facility] [id number] [address] [place] [address] Sep, Lump of right breast N63 ; M enorrhagia with regular cycle N92.0 and BMI 30.0-30.9,adult Z68.30 [place] [address] [place] [id number] [address] [place] [address] Sep, [place] [address] [place] [id number] [address] [place] [address] Aug, [place] [address] [place] [id number] [address] [place] [address] Aug, Well woman exam Z01.419 ; En [...] Trichomonas vaginalis (TV) infection A59.01 [place] [address] [place] [id number] [address] [place] [address] October, Abdominal pain, unspecified site 789.00 ; GERD (gastroesophageal reflux disease) 530.81 and Chest pain 786.50 [place] [address] [place] [id number] [address] [place] [id number] Sep, [place] [address] [place] [id number] [address] [place] [address] Sep, [place] [address] [id number] [address] [place] [address], [place] [address] 13 Jul, 2014 [facility] [address] [id number] [address] [place] [address], [place] [address] Jul, [facility] [address] [id number] [address] [place] [address], [place] [address] Jun, [facility] [address] [id number] [address] [place] [address], [place] [address] Jun, [facility] [address] [id number] [address] [place] [address], [place] [address] Jun, [facility] [address] [id number] [address] [place] [address], [place] [address] Jun, [facility] [address] [id number] [address] [place] [address], [place] [address] Jun, [facility] [address] [id number] [address] [place] [address], [place] [address] Jun, [facility] [address] [id number] [address] [place] [address], [place] [address] Jun, [facility] [address] [id number] [address] [place] [address], [place] [address] Jun, [facility] [address] [id number] [address] [place] [address], [place] [address] Jun, [facility] [address] [id number] [address] [place] [address], [place] [address] Jun, [facility] [address] [id number] [address] [place] [address], [place] [address] Jun, [facility] [address] [id number] [address] [place] [address], [place] [address] Jun, [facility] [address] [id number] [address] [place] [address], [place] [address] Jun, [facility] [address] [id number] [address] [place] [address], [place] [address] Jun, [facility] [address] [id number] [address] [place] [address], [place] [address] Jun, [facility] [address] [id number] [address] [place] [address], [place] [address] May, [facility] [address] [id number] [address] [place] [address], [place] [address] May, [facility] [address] [id number] [address] [place] [address], [place] [address] 30 Feb, 2013 [facility] [address] [id number] [address] [place] [address], [place] [address] 30 Feb, 2013 [facility] [address] [id number] [address] [place] [address], [place] [address] 29 Feb, 2013 [facility] [address] [id number] [address] [place] [address], [place] [address] 25 Feb, 2013 [facility] [address] [id number] [address] [place] [address], [place] [address] 25 Feb, 2013 [facility] [address] [id number] [address] [place] [address], [place] [address] 17 Feb, 2013 [facility] [address] [id number] [address] [place] [address], [place] [address] 17 Feb, 2013 [facility] [address] [id number] [address] [place] [address], [place] [address] 11 Feb, 2013 [facility] [address] [id number] [address] [place] [address], [place] [address] 11 Feb, 2013 [facility] [address] [id number] [address] [place] [address], [place] [address] 10 Feb, 2013 [facility] [address] [id number] [address] [place] [address], [place] [address] 10 Feb, 2013 [facility] [address] [id number] [address] [place] [address], [place] [address] 10 Feb, 2013 [facility] [address] [id number] [address] [place] [address], [place] [address] Feb, [facility] [address] [id number] [address] [place] [address], [place] [address] Feb, [facility] [address] [id number] [address] [place] [address], [place] [address] Jan, [facility] [address] [id number] [address] [place] [address], [place] [address] Jan, [facility] [address] [id number] [address] [place] [address], [place] [address] Dec, [facility] [address] [id number] [address] [place] [address], [place] [address] Dec, [facility] [address] [id number] [address] [place] [address], [place] [address] Dec, [facility] [address] [id number] [address] [place] [address], [place] [address] Dec, [facility] [address] [id number] [address] [place] [address], [place] [address] Dec, [facility] [address] [id number] [address] [place] [address], [place] [address] Dec, [facility] [address] [id number] [address] [place] [address], [place] [address] Nov, [facility] [address] [id number] [address] [place] [address], [place] [address] Nov, [facility] [address] [id number] [address] [place] [address], [place] [address] Sep, [facility] [address] [id number] [address] [place] [address], [place] [address] May, [facility] [address] [id number] [address] [place] [address], [place] [address] May, [facility] [address] [id number] [address] [place] [address], [place] [address] Nov, [facility] [address] [id number] [address] [place] [address] Sep, [facility] [place] [address] [id number] [address] [place] [address] Aug, [facility] [place] [address] [id number] [address] [place] [address] Jun, [facility] [place] [address] [id number] [address] [place] [address] Jun, [facility] [place] [address] [id number] [address] [place] [address] Jun, [facility] [place] [address] [id number] [address] [place] [address] May, [facility] [place] [address] [id number] [address] [place] [address] May, [facility] [place] [address] [id number] [address] [place] [address] May, [facility] [place] [address] [id number] [address] [place] [address] May, [facility] [place] [address] [id number] [address] [place] [address] Apr, [facility] [place] [address] [id number] [address] [place] [address] Apr, [facility] [place] [address] [id number] [address] [place] [address] Apr, [facility] [place] [address] [id number] [address] [place] [phone] Apr, IMMUNIZATIONS No Known Immunizations SOCIAL HISTORY Never Assessed REASON FOR VISIT [facility] [place] PLAN OF CARE VITAL [...]
--- OUTSIDE RECORDS SUMMARY | 2019-12-03 22:25 | XMS REPORT ---
Author Author Imani Watt Doctor Organization [facility] Address Unknown Phone Unavailable Care Team Providers Care Diet Kitchen Cook Name Role Phone Migration, Doctor Unavailable Unavailable PROBLEMS Type Condition ICD9-CM Code [id number] Code Onset Dates Condition S tatus SNOMED Code Problem Spondylolisthesis of lumbosacral region M43.17 Active 677480882 Problem Lumbago with sciatica, left side M54.42 Active 938213710 Problem Lumbago with sciatica, right side M54.41 Active 287402104123046 Problem Mixed hyperlipidemia E78.2 Active 422021082 Problem Cervical motion tenderness N94.9 Act venice 303854216 Problem Seasonal allergic rhinitis due to pollen J30.1 Active 11196566 Problem Dysmenorrhea N94.6 Active 9839894 00 Problem Pre-diabetes R73.09 Active 9209642 02 Problem Other chronic pain G89.29 Active 8 2031809 Problem Dysfunctional uterine bleeding N93.8 Active 37634631 Problem Moderate persistent asthma with exacerbation J45.4 1 Active 314019230 Problem Allergic rhinitis, unspecified seasonality, unspecifie d trigger J30.9 Active 49912760 ALLERGIES No Information ENCOUNTERS Encounter Location Date Diagnosis [address] [address] Sep, Dysuria R30.0 ; Lumbago with sciatica, l eft side M54.42 ; Open wound of finger of left hand, initial encounter S61.209A ; Cervical motion tenderness N94.9 ; Dysmenorrhea N94.6 ; Allergic rhinitis, unspecified seasonality, unspecified trigger J30.9 and Mixed hyperlipidemia E78.[address] [address] Aug, Moderate persistent asthma with exacerba tion J45.41 and Other chronic pain G89.[address] [address] Aug, Moderate persistent asthma with exacerba tion J45.41 ; Mixed hyperlipidemia E78.2 ; Other chronic pain G89.29 ; Major depressive disorder in remission, unspecified whether recurrent F32.5 and Spondylolisthesis of lumbosacral region M43.17 [facility] [address] [place] [address] Jul, Dental examination Z01.20 and Caries K02.9 [facility] [address] [place] [address] Jun, Dental examination Z01.20 and Caries K02.[address] [address] Jan, Acute non-recurrent frontal sinusitis J01.10 ; Bronchitis J40 ; Tobacco use Z72.0 and Tobacco abuse counseling Z71.[address] [address] Jan, [address] [address] Jan, Bronchitis J40 and Viral upp er respiratory tract infection J06.[address] [address] October, Spondylolisthesis of lumbosa cral region M43.[address] [address] October, [address] [address] October, Acute suppurative otitis med ia of left ear without spontaneous rupture of tympanic membrane, recurrence not specified H66.002 ; Spondylolisthesis of lumbosacral region M43.17 ; Lumbago with sciatica, left side M54.42 ; Lumbago with sciatica, right side M54.41 ; Other chronic pain G89.29 ; Dysfunctional uterine bleeding N93.8 ; Screening for lipoid disorders Z13.220 and Pre-diabetes R73.[address] [place] [address] Sep, Anxiety F41.9 [facility] [address] [id number] [address] [place] [address] Aug, [facility] [address] [place] [id number] [address] [place] [address] Aug, 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 [facility] [address] [id number] [address] [place] [address] Apr, Anxiety F41.9 [facility] [address] [id number] [address] [place] [address] Feb, Anxiety F41.9 [facility] [address] [id number] [place] [address] Feb, [facility] [address] [address] Feb, [facility] [address] [place] [id number] [address] [place] [address] Feb, [facility] [address] [address] Jan, Anxiety F41.9 [facility] [id number] [place] [address] Jan, Anxiety F41.9 and Spondyloli sthesis of lumbosacral region M43.17 [facility] [address] [id number] [address] [place] [address] Dec, Anxiety F41.9 [facility] [address] [id number] [address] [place] [address] Nov, Anxiety F41.9 [facility] [address] [address] October, Anxiety F41.9 and Seasonal a llergic rhinitis due to pollen J30.1 [facility] [address] [id number] [address] [place] [address] Sep, Anxiety F41.9 [facility] [address] [id number] [address] [place] [address] Aug, Pre-diabetes R73.09 and Anxi ety F41.9 [facility] [address] [id number] [address] [place] [address] 16 Jul, 2016 [facility] [address] [id number] [address] [place] [address] Mar, [facility] [address] [id number] [address] [place] [address] Mar, DUB (dysfunctional uterine b leeding) N93.8 and Menorrhagia with irregular cycle N92.1 [place] [address] [id number] [address] [place] [address] Feb, [facility] [address] [id number] [address] [place] [address] 08 Feb, 2016 Encounter for dental examina tion Z01.20 [facility] [address] [id number] [address] [place] [address] Feb, Herniated nucleus pulposus M 51.9 [facility] [address] [id number] [address] [place] [id number] Feb, Dental examination Z01.20 [facility] [address] [id number] [address] [place] [address] Jan, Dental examination Z01.20 an d Dental caries K02.9 [facility] [address] [id number] [address] [place] [address] Jan, Encounter for dental examina tion and cleaning without abnormal findings Z01.20 [facility] [address] [id number] [address] [place] [address] Jan, [facility] [address] [id number] [address] [place] [address] Jan, [place] [address] [id number] [address] [place] [address] Jan, Pre-diabetes R73.09 ; Chroni c nonintractable headache, unspecified headache type R51 and Vaginal yeast infection B37.3 [facility] [address] [id number] [address] [place] [address] Jan, [facility] [address] [id number] [address] [place] [address] Dec, Herniated nucleus pulposus M 51.9 [facility] [address] [id number] [address] [place] [address] Dec, [facility] [address] [id number] [address] [place] [address] Nov, [facility] [address] [id number] [address] [place] [address] Nov, [facility] [address] [id number] [address] [place] [address] Nov, [facility] [address] [id number] [address] [place] [address] Nov, [facility] [address] [id number] [address] [place] [address] Nov, Right hip pain M25.551 ; Pre -diabetes R73.09 ; Mixed hyperlipidemia E78.2 ; Chronic nonintractable headache, unspecified headache type R51 ; Right foot pain M79.671 and Right hand pain M79.641 [facility] [address] [id number] [address] [place] [address] Nov, [facility] [address] [id number] [address] [place] [address] Nov, Right hip pain M25.551 ; Pre -diabetes R73.09 ; Mixed hyperlipidemia E78.2 and Chronic nonintractable headache, unspecified headache type R51 [facility] [address] [id number] [address] [place] [address] October, [facility] [address] [facility] [id number] [address] [place] [address] October, Right hip pain M25.551 ; Pre -diabetes R73.09 ; Mixed hyperlipidemia E78.2 and Frequent headaches R51 [facility] [address] [facility] [id number] [address] [place] [address] October, Menorrhagia with regular cyc le N92.0 [facility] [address] [facility] [id number] [address] [place] [address] October, [facility] [address] [facility] [id number] [address] [place] [address] October, Menorrhagia with regular cyc le N92.0 [facility] [address] [place] [id number] [address] [place] [address] Sep, Lump of right breast N63 ; M enorrhagia with regular cycle N92.0 and BMI 30.0-30.9,adult Z68.30 [place] [address] [facility] [id number] [address] [place] [address] Sep, [place] [address] [place] [id number] [address] [place] [address] Aug, [facility] [address] [facility] [id number] [address] [place] [address] Aug, Well woman exam Z01.419 ; En [...] Z87.898 and Trichomonas vaginalis (TV) infection A59.01 [place] [address] [place] [id number] [address] [place] [address] October, Abdominal pain, unspecified site 789.00 ; GERD (gastroesophageal reflux disease) 530.81 and Chest pain 786.50 [facility] [address] [id number] [address] [place] [address] 14 Sep, 2014 [facility] [address] [id number] [address] [place] [address] Sep, [facility] [address] [id number] [address] [place] [address] Jul, [facility] [address] [id number] [address] [place] [address] Jul, [facility] [address] [id number] [address] [place] [address] Jun, [facility] [address] [id number] [address] [place] [address] Jun, [facility] [address] [id number] [address] [place] [address] Jun, [facility] [address] [id number] [address] [place] [address] Jun, [facility] [address] [id number] [address] [place] [address] Jun, [facility] [address] [id number] [address] [place] [address] Jun, [facility] [address] [id number] [address] [place] [address] Jun, [facility] [address] [id number] [address] [place] [address] Jun, [facility] [address] [id number] [address] [place] [address] Jun, [facility] [address] [id number] [address] [place] [address] Jun, [facility] [address] [id number] [address] [place] [address], [place] [address] Jun, [facility] [address] [id number] [address] [place] [address], [place] [address] Jun, [facility] [address] [id number] [address] [place] [address], [place] [address] Jun, [facility] [address] [id number] [address] [place] [address], [place] [address] Jun, [facility] [address] [id number] [address] [place] [address], [place] [address] Jun, [facility] [address] [id number] [address] [place] [address], [place] [address] May, [facility] [address] [id number] [address] [place] [address], [place] [address] May, [facility] [address] [id number] [address] [place] [address], [place] [address] 30 Feb, 2013 [facility] [address] [id number] [address] [place] [address], [place] [address] 30 Feb, 2014 [facility] [address] [id number] [address] [place] [address], [place] [address] 29 Feb, 2013 [facility] [address] [id number] [address] [place] [address], [place] [address] 25 Feb, 2013 [facility] [address] [id number] [address] [place] [address], [place] [address] 25 Feb, 2013 [facility] [address] [id number] [address] [place] [address], [place] [address] 17 Feb, 2013 [facility] [address] [id number] [address] [place] [address], [place] [address] 17 Feb, 2013 [facility] [address] [id number] [address] [place] [address], [place] [address] 11 Feb, 2013 [facility] [address] [id number] [address] [place] [address], [place] [address] 11 Feb, 2014 [facility] [address] [id number] [facility] [place] [address] 10 Feb, 2014 [facility] [address] [id number] [address] [place] [address], [place] [address] Feb, [facility] [address] [id number] [address] [place] [address], [place] [address] Feb, [facility] [address] [id number] [address] [place] [address], [place] [address] Feb, [facility] [address] [id number] [address] [place] [address], [place] [address] Feb, [facility] [address] [id number] [address] [place] [address], [place] [address] Jan, [facility] [address] [id number] [address] [place] [address], [place] [address] Jan, [facility] [address] [id number] [address] [place] [address], [place] [address] Dec, [facility] [address] [id number] [address] [place] [address], [place] [address] Dec, [facility] [address] [id number] [address] [place] [address], [place] [address] Dec, [facility] [address] [id number] [address] [place] [address], [place] [address] Dec, [facility] [address] [id number] [address] [place] [address], [place] [address] Dec, [facility] [address] [id number] [address] [place] [address], [place] [address] Dec, [facility] [address] [id number] [address] [place] [address], [place] [address] Nov, [facility] [address] [id number] [address] [place] [address], [place] [address] Nov, [facility] [address] [id number] [address] [place] [address], [place] [address] 05 Sep, 2012 [facility] [address] [id number] [address] [place] [address], [place] [address] May, [facility] [address] [id number] [address] [place] [address], [place] [address] May, [facility] [address] [id number] [address] [place] [address], [place] [address] Nov, [facility] [address] [id number] [address] [place] [address], [place] [address] Sep, [facility] [address] [id number] [address] [place] [address], [place] [address] Aug, [facility] [address] [id number] [address] [place] [address], [place] [address] Jun, [facility] [address] [id number] [address] [place] [address], [place] [address] Jun, [facility] [address] [id number] [address] [place] [address], [place] [address] Jun, [facility] [address] [id number] [address] [place] [address], [place] [address] May, [facility] [address] [id number] [address] [place] [address], [place] [address] May, [facility] [address] [id number] [address] [place] [address], [place] [address] May, [facility] [address] [id number] [address] [place] [address], [place] [address] May, [facility] [address] [id number] [address] [place] [address], [place] [address] Apr, [facility] [address] [id number] [address] [place] [address], [place] [address] Apr, [facility] [address] [id number] [address] [place] [address], [place] [address] Apr, [facility] [address] [facility] [id number] [address] [place] [address] Apr, IMMUNIZATIONS No Known Immunizations SOCIAL HISTORY Never Assessed REASON FOR VISIT EMR-[facility] [place]AN OF CARE VITAL SIGNS MEDICATIONS Unknown [...]
--- OUTSIDE RECORDS SUMMARY | 2019-12-03 22:27 | XMS REPORT | Continuity of Care Document ---
Demographics Preferred Language Unknown Marital Status Unknown Congregational Affiliation Unknown Race Unknown Ethnic Group Unknown Author Organization Unknown Address Unknown Phone Unavailable Allergies Active Description Code Type Severity Reaction Onset Reported/Identified Relationship to Patient Clinical Status Yes Augmentin Drug Allergy N/A N/A 06/17/2014 Yes No Allergy Information Available [id number] Drug Allergy Unknown N/A 015 Yes amoxicillin [id number] Drug Aller gy Unknown N/A 08/31/2018 Medications There is no data. Problems Date Dx Coded Attending Type Code Diagnosis Diagnosed By 04/12/2011 DIONY MEDEL MD 382.9 Unspecified Otitis Media 04/12/2011 DIONY MEDEL MD 461.9 Sinusitis Acute 04/12/2011 DIONY MEDEL MD 620.2 OTHER AND UNSPECIFIED OVARIAN CYST 04/12/2011 DIONY MEDEL MD 787.02 Nausea Alone 04/12/2011 DIONY MEDEL MD 789.00 Abdominal Pain Unspecified Site 04/12/2011 SAMIR REGULATORY ANALYST, MANNY R 382.9 Unspecified Otitis Media 04/12/2011 SAMIR REGULATORY ANALYST, MANNY R 461.9 Sinusitis Acute 04/12/2011 SAMIR MURILLO MANNY R 620.2 OTHER AND UNSPECIFIED OVARIAN CYST 04/12/2011 SAMIR REGULATORY ANALYST, MANNY R 787.02 Nausea Alone 04/12/2011 SAMIR ELIN, MANNY R 789.00 Abdominal Pain Unspecified Site 04/12/2011 SAMIR REGULATORY ANALYST, MANNY R 382.9 Unspecified Otitis Media 04/12/2011 SAMIR REGULATORY ANALYST, MANNY R 461.9 Sinusitis Acute 04/12/2011 SAMIR ELIN MANNY R 620.2 OTHER AND UNSPECIFIED OVARIAN CYST 04/12/2011 SAMIR REGULATORY ANALYST, MANNY R 787.02 Nausea Alone 04/12/2011 SAMIR ELIN, MANNY R 789.00 Abdominal Pain Unspecified Site 04/12/2011 GUILLERMO REGULATORY ANALYST, LON A 38 2.9 Unspecified Otitis Media 04/12/2011 GUILLERMOChaitanya MURILLO LON A 46 1.9 Sinusitis Acute 04/12/2011 GUILLERMO REGULATORY ANALYST, LON A 62 0.2 OTHER AND UNSPECIFIED OVARIAN CYST 04/12/2011 GUILLERMO REGULATORY ANALYST, LON A 787.02 Nausea Alone 04/12/2011 GUILLERMO REGULATORY ANALYST, LON A 789.00 Abdominal Pain Unspecified Site [...] UNSPECIFIED OVARIAN CYST 04/12/2011 AMBER SCHAEFFER MD 787.0 2 Nausea Alone 04/12/2011 AMBER SCHAEFFER MD 789.0 0 Abdominal Pain Unspecified Site 04/12/2011 AMBER SCHAEFFER MD 382.9 Unspecified Otitis Media 04/12/2011 AMBER SCHAEFFER MD 461.9 Sinusitis Acute 04/12/2011 AMBER SCHAEFFER MD 620.2 OTHER AND UNSPECIFIED OVARIAN CYST 04/12/2011 AMBER SCHAEFFER MD 787.0 2 Nausea Alone 04/12/2011 AMBER SCHAEFFER MD 789.0 0 Abdominal Pain Unspecified Site 04/12/2011 SAMIR REGULATORY ANALYST, MANNY R 382.9 Unspecified Otitis Media 04/12/2011 SAMIR REGULATORY ANALYST, MANNY R 461.9 Sinusitis Acute 04/12/2011 SAMIR REGULATORY ANALYST, MANNY R 620.2 OTHER AND UNSPECIFIED OVARIAN CYST 04/12/2011 SAMIR REGULATORY ANALYST, MANNY R 787.02 Nausea Alone 04/12/2011 SAMIR REGULATORY ANALYST, MANNY R 789.00 Abdominal Pain Unspecified Site 04/20/2011 GIANFRANCO GIBSON, DIONY 296.90 MOOD DISORDER 04/20/2011 GIANFRANCO GIBSON, DIONY 625.0 Dyspareunia 04/20/2011 GIANFRANCO GIBSON, DIONY 799.81 DECREASED LIBIDO 04/20/2011 DIONY MEDEL MD V76.2 CERVICAL CANCER SCREENING (PAP SMEAR) 04/20/2011 SAMIR REGULATORY ANALYST, MANNY R 296.90 MOOD DISORDER 04/20/2011 SAMIR REGULATORY ANALYST, MANNY R 625.0 Dyspareunia 04/20/2011 SAMIR REGULATORY ANALYST, MANNY R 799.81 DECREASED LIBIDO 04/20/2011 SAMIR REGULATORY ANALYST, MANNY R V76.2 CERVICAL CANCER SCREENING (PAP SMEAR) 04/20/2011 SAMIR REGULATORY ANALYST, MANNY R 296.90 MOOD DISORDER 04/20/2011 SAMIR REGULATORY ANALYST, MANNY R 625.0 Dyspareunia 04/20/2011 SAMIR REGULATORY ANALYST, MANNY R 799.81 DECREASED LIBIDO 04/20/2011 SAMIR REGULATORY ANALYST, MANNY R V76.2 CERVICAL CANCER SCREENING (PAP SMEAR) 04/20/2011 GUILLERMO REGULATORY ANALYST, LON A 296.90 MOOD DISORDER 04/20/2011 GUILLERMO REGULATORY ANALYST, LON A 62 5.0 Dyspareunia 04/20/2011 GUILLERMO REGULATORY ANALYST, LON A 799.81 DECREASED LIBIDO 04/20/2011 GUILLERMO REGULATORY ANALYST, LON A V7 6.2 CERVICAL CANCER SCREENING (PAP SMEAR) 04/20/2011 RUBI DO, SURI K 296.90 MOOD DISORDER 04/20/2011 RUBI DO SURI K 625.0 Dyspareunia 04/20/2011 RUBI DO, SURI K 799.81 DECREASED LIBIDO 04/20/2011 RUBI DO SURI K V76.2 CERVICAL CANCER SCREENING (PAP SMEAR) 04/20/2011 AMBER SCHAEFFER MD 296.9 0 MOOD DISORDER 04/20/2011 AMBER SCHAEFFER MD 625.0 Dyspareunia 04/20/2011 AMBER SCHAEFFER MD 799.8 1 DECREASED LIBIDO 04/20/2011 AMBER SCHAEFFER MD V76.2 CERVICAL CANCER SCREENING (PAP SMEAR) 04/20/2011 AMBER SCHAEFFER MD 296.9 0 MOOD DISORDER 04/20/2011 AMBER SCHAEFFER MD 625.0 Dyspareunia 04/20/2011 AMBER SCHAEFFER MD 799.8 1 DECREASED LIBIDO 04/20/2011 AMBER SCHAEFFER MD V76.2 CERVICAL CANCER SCREENING (PAP SMEAR) 04/20/2011 MANNY DAWSON APRN 296.90 MOOD DISORDER 04/20/2011 MANNY DAWSON APRN 625.0 Dyspareunia 04/20/2011 MANNY DAWSON APRN 799.81 DECREASED LIBIDO 04/20/2011 MANNY DAWSON APRN [...] OF OTHER MEDICATIONS 05/24/2011 AMBER SCHAEFFER MD V58.6 9 LONG-TERM (CURRENT) USE OF OTHER MEDICATIONS 05/24/2011 AMBER SCHAEFFER MD V58.6 9 LONG-TERM (CURRENT) USE OF OTHER MEDICATIONS 05/24/2011 MANNY DAWSON APRN V58.69 LONG-TERM (CURRENT) USE OF OTHER MEDICATIONS 12/04/2013 MANNY DAWSON APRN 724.2 LUMBAGO 12/04/2013 MANNY DAWSON APRN 724.2 LUMBAGO 12/04/2013 LON LI APRN 72 4.2 LUMBAGO 12/04/2013 SURI RUBI DO 724.2 LUMBAGO 12/04/2013 AMBER SCHAEFFER MD 724.2 LUMBAGO 12/04/2013 AMBER SCHAEFFER MD 724.2 LUMBAGO 12/04/2013 MANNY DAWSON APRN 724.2 LUMBAGO 02/06/2014 MANNY DAWSON APRN Ot 724.2 LUMBAGO 02/06/2014 MANNY DAWSON APRN Ot V57.1 PHYSICAL THERAPY NEC 02/18/2014 MANNY DAWSON APRN 599.70 HEMATURIA 02/18/2014 MANNY DAWSON APRN [facility] MEDICAL RECORDS 02/18/2014 LON LI APRN 599.70 HEMATURIA 02/18/2014 LON LI APRN [facility] MEDICAL RECORDS 02/18/2014 SURI RUBI DO 599.70 HEMATURIA 02/18/2014 SURI RUBI DO [facility] MEDICAL RECORDS 02/18/2014 AMBER SCHAEFFER MD 599.7 0 HEMATURIA 02/18/2014 AMBER SCHAEFFER MD C MEDICAL RECORDS 02/18/2014 AMBER SCHAEFFER MD 599.7 0 HEMATURIA 02/18/2014 AMBER SCHAEFFER MD C MEDICAL RECORDS 02/18/2014 MANNY DAWSON APRN 599.70 HEMATURIA 02/18/2014 SAMIR MURILLO MANNY R [facility] MEDICAL RECORDS 03/06/2014 GUILLERMOLON Tavares APRN 62 5.3 DYSMENORRHEA 03/06/2014 GUILLERMOLON Tavares APRN V65.42 COUNSELING - SMOKING CESSATION 03/06/2014 LON LI APRN V72.31 VETERINARY VIRUS SERUM INSPECTOR EXAM, ROUTINE 03/06/2014 LON LI APRN V73.81 HPV SCREENING 03/06/2014 GUILLERMOLON Tavares APRN V76.10 BREAST CANCER SCREENING 03/06/2014 SURI RUBI DO 625.3 DYSMENORRHEA 03/06/2014 SURI RUBI DO V65.42 COUNSELING - SMOKING CESSATION 03/06/2014 SURI RUBI DO V72.31 VETERINARY VIRUS SERUM INSPECTOR EXAM, ROUTINE 03/06/2014 SURI RUBI DO V73.81 HPV SCREENING 03/06/2014 SURI RUBI DO V76.10 BREAST CANCER SCREENING 03/06/2014 AMBER SCHAEFFER MD 625.3 DYSMENORRHEA 03/06/2014 AMBER SCHAEFFER MD V65.4 2 COUNSELING - SMOKING CESSATION 03/06/2014 AMBER SCHAEFFER MD V72.3 1 VETERINARY VIRUS SERUM INSPECTOR EXAM, ROUTINE 03/06/2014 AMBER SCHAEFFER MD V73.8 1 HPV SCREENING 03/06/2014 AMBER SCHAEFFER MD V76.1 0 BREAST CANCER SCREENING 03/06/2014 AMBER SCHAEFFER MD 625.3 DYSMENORRHEA 03/06/2014 AMEBR SCHAEFFER MD V65.4 2 COUNSELING - SMOKING CESSATION 03/06/2014 AMBER SCHAEFFER MD V72.3 1 VETERINARY VIRUS SERUM INSPECTOR EXAM, ROUTINE 03/06/2014 AMBER SCHAEFFER MD V73.8 1 HPV SCREENING 03/06/2014 AMBER SCHAEFFER MD V76.1 0 BREAST CANCER SCREENING 03/06/2014 SAMIR MURILLO, MANNY R 625.3 DYSMENORRHEA 03/06/2014 SAMIR MURILLO, MANNY Lewis V65.42 COUNSELING - SMOKING CESSATION 03/06/2014 SAMIR MURILLO, MANNY Lewis V72.31 VETERINARY VIRUS SERUM INSPECTOR EXAM, ROUTINE 03/06/2014 SAMIR MURILLO, MANNY Lewis V73.81 HPV SCREENING 03/06/2014 SAMIR MURILLO, MANNY Lewis V76.10 BREAST CANCER SCREENING 06/02/2014 RUBI DOSURI 461.9 SINUSITIS ACUTE 06/02/2014 RUBI DOSURI K 564.00 UNSPECIFIED CONSTIPATION 06/02/2014 AMBER SCHAEFFER MD 461.9 SINUSITIS ACUTE 06/02/2014 AMBER SCHAEFFER MD 564.0 0 UNSPECIFIED CONSTIPATION 06/02/2014 AMBER SCHAEFFER MD 461.9 SINUSITIS ACUTE 06/02/2014 AMBER SCHAEFFER MD 564.0 0 UNSPECIFIED CONSTIPATION 06/02/2014 MANNY DAWSON APRN 461.9 SINUSITIS ACUTE 06/02/2014 MANNY DAWSON APRN 564.00 UNSPECIFIED CONSTIPATION 06/17/2014 AMBER SCHAEFFER MD 789.0 0 ABDOMINAL PAIN UNSPECIFIED SITE 06/17/2014 AMBER SCHAEFFER MD 789.0 0 ABDOMINAL PAIN UNSPECIFIED SITE 06/17/2014 MANNY DAWSON APRN 789.00 ABDOMINAL PAIN UNSPECIFIED SITE 06/20/2014 Ot 625.9 06/20/2014 MANNY DAWSON R REGULATORY ANALYST Ot 789.09 06/20/2014 MANNY DAWSON APRN Ot 790.99 06/23/2014 Ot 625.9 06/23/2014 MANNY DAWSON APRN Ot 789.09 06/23/2014 MANNY DAWSON APRN Ot 790.99 09/17/2014 MANNY DAWSON APRN 530.81 GERD 11/10/2014 Ot 625.9 11/10/2014 MANNY DAWSON APRN Ot 789.09 11/10/2014 MANNY DAWSON APRN Ot 790.99 11/10/2014 MAKSIM GIBSON, AMBER Guillen Ot 789.09 11/10/2014 MAKSIM GIBSON, AMBER Guillen Ot 787.02 11/10/2014 MAKSIM GIBSON, AMBER F Ot 789.01 11/12/2014 Ot 625.9 11/12/2014 MANNY DAWSON R REGULATORY ANALYST Ot 789.09 11/12/2014 SAMIR, MANNY R REGULATORY ANALYST Ot 790.99 11/12/2014 MAKSIM GIBSON, AMBER F Ot 789.09 11/12/2014 MAKSIM GIBSON, AMBER F Ot 787.02 11/12/2014 MAKSIM GIBSON, AMBER Guillen Ot 789.01 12/02/2014 Ot 625.9 12/02/2014 MANNY DAWSON R REGULATORY ANALYST Ot 789.09 12/02/2014 SAMIR, MANNY R REGULATORY ANALYST Ot 790.99 12/02/2014 MAKSIM GIBSON, AMBER Guillen Ot 789.09 12/02/2014 MAKSIM GIBSON, AMBER Guillen Ot 787.02 12/02/2014 MAKSIM GIBSON, AMBER Guillen Ot 789.01 12/02/2014 NAREN HORVATH DO Ot V72. 84 12/02/2014 NAREN HORVATH DO Ot 530. 81 ESOPHAGEAL REFLUX 12/02/2014 NAREN HORVATH DO Ot 531. 90 STOMACH ULCER NOS 12/02/2014 NAREN HORVATH DO Ot 553. 3 DIAPHRAGMATIC HERNIA 01/06/2015 Ot 625.9 01/06/2015 MANNY DAWSON REGULATORY ANALYST Ot 789.09 01/06/2015 MANNY DAWSON R REGULATORY ANALYST Ot 790.99 01/06/2015 MAKSIM GIBSON, AMBER Guillen Ot 789.09 01/06/2015 MAKSIM GIBSON, AMBER Guillen Ot 787.02 01/06/2015 MAKSIM GIBSON, AMBER Guillen Ot 789.01 01/06/2015 NAREN HORVATH DO Ot V72. 84 01/06/2015 MAKSIM GIBSON, AMBER Guillen Ot 789.09 01/06/2015 MAKSIM GIBSON, AMBER Guillen Ot 787.02 01/06/2015 MAKSIM GIBSON, AMBER Guillen Ot 789.01 01/06/2015 ALLISON DAWSONINA R REGULATORY ANALYST Ot 789.09 01/06/2015 MANNY DAWSON REGULATORY ANALYST Ot 790.99 01/09/2015 MANNY DAWSON R REGULATORY ANALYST Ot 789.09 01/09/2015 MANNY DAWSON R REGULATORY ANALYST Ot 790.99 01/09/2015 MAKSIM GIBSON, AMBER Guillen Ot 789.09 01/09/2015 MAKSIM GIBSON, AMBER Guillen Ot 787.02 01/09/2015 MABER SCHAEFFER MD Ot 789.01 10/09/2015 LANI GIBSON, JYOTSNA Tavares Ot N63 UNSPECIFIED LUMP IN BREAST 01/21/2016 ODETTE REYES EGG CASER Ot M47.896 OTHER SPONDYLOSIS, LUMBAR REGION 01/21/2016 ODETTE REYES EGG CASER Ot M51. 86 OTHER INTERVERTEBRAL DISC DISORDERS, LUM 01/26/2016 ODETTE REYES EGG CASER Ot M47.896 OTHER SPONDYLOSIS, LUMBAR REGION 01/26/2016 ODETTE REYES EGG CASER Ot M51. 86 OTHER INTERVERTEBRAL DISC DISORDERS, LUM 03/31/2016 MADBELLE Berry EGG CASER Ot N92 .1 EXCESSIVE AND FREQUENT MENSTRUATION WITH 03/31/2016 MADALISON BerryA L EGG CASER Ot N93 .8 OTHER SPECIFIED ABNORMAL UTERINE AND VAG 08/31/2018 KAIDEN GIBSON, YENY Gudino Ot G43.9 09 MIGRAINE, UNSP, NOT INTRACTABLE, WITHOUT 08/31/2018 KAIDEN GIBSON, YENY Gudino Ot R42 DIZZINESS AND GIDDINESS 08/31/2018 KAIDEN GIBSON, YENY Gudino Ot Z88.0 ALLERGY STATUS TO PENICILLIN 09/01/2018 MANNY DAWSON REGULATORY ANALYST Ot 789.09 ABDOMINAL PAIN, OTHER SPECIFIED SITE 09/01/2018 MANNY DAWSON REGULATORY ANALYST Ot 790.99 BLOOD EXAM - OTH NONSPECIFIC FINDINGS 09/01/2018 AMBER SCHAEFFER MD Ot 789.09 ABDOMINAL PAIN, OTHER SPECIFIED SITE 09/01/2018 MAKSIM GIBSON, AMBER Guillen Ot 787.02 NAUSEA ALONE 09/01/2018 AMBER SCHAEFFER MD Ot 789.01 ABDOMINAL PAIN, RIGHT UPPER QUADRANT 09/01/2018 NAREN HORVATH DO Ot V72. 84 EXAM PRE-OPERATIVE NOS 09/01/2018 LANI GIBSON, JYOTSNA Tavares Ot N63 UNSPECIFIED LUMP IN BREAST 09/01/2018 ODETTE REYES EGG CASER Ot M47.896 OTHER SPONDYLOSIS, LUMBAR REGION 09/01/2018 ODETTE REYES EGG CASER Ot M51. 86 OTHER INTERVERTEBRAL DISC DISORDERS, LUM 09/01/2018 KAUSHAL JAFFENYLaney Berry EGG CASER Ot N92 .1 EXCESSIVE AND FREQUENT MENSTRUATION WITH 09/01/2018 BELLE JAFFE EGG CASER Ot N93 .8 OTHER SPECIFIED ABNORMAL UTERINE AND VAG 03/04/2019 RANGEL WINSTON MD Ot F17.210 NICOTINE DEPENDENCE, CIGARETTES, UNCOMPL 03/04/2019 RANGEL WINSTON MD Ot F32. 9 MAJOR DEPRESSIVE DISORDER, SINGLE EPISOD 03/04/2019 RANGEL WINSTON MD Ot F41. 9 ANXIETY DISORDER, UNSPECIFIED 03/04/2019 RANGEL WINSTON MD Ot J45.909 UNSPECIFIED ASTHMA, UNCOMPLICATED 03/04/2019 RANGEL WINSTON MD Ot K21. 9 GASTRO-ESOPHAGEAL REFLUX DISEASE WITHOUT 03/04/2019 RANGEL WINSTON MD Ot M54. 5 LOW BACK PAIN 03/04/2019 RANGEL WINSTON MD Ot S33.5XXA SPRAIN OF LIGAMENTS OF LUMBAR SPINE, INI 03/04/2019 RANGEL WINSTON MD Ot X50.0XXA OVEREXERTION FROM STRENUOUS MOVEMENT OR 03/04/2019 RANGEL WINSTON MD Ot Y92. [address] 03/04/2019 RANGEL WINSTON MD Ot Y99. 0 CIVILIAN ACTIVITY DONE FOR INCOME OR PAY 03/04/2019 RANGEL WINSTON MD Ot Z88. 0 ALLERGY STATUS TO PENICILLIN 03/04/2019 RANGEL WINSTON MD Ot Z90. 89 ACQUIRED ABSENCE OF OTHER ORGANS 03/04/2019 RANGEL WINSTON MD Ot Z98. 51 TUBAL LIGATION STATUS 03/04/2019 MANNY DAWSON APRN Ot 789.09 ABDOMINAL PAIN, OTHER SPECIFIED SITE 03/04/2019 MANNY DAWSON APRN Ot 790.99 BLOOD EXAM - OT NONSPECIFIC FINDINGS 03/04/2019 AMBER SCHAEFFER MD Ot 789.09 ABDOMINAL PAIN, OTHER SPECIFIED SITE 03/04/2019 AMBER SCHAEFFER MD Ot 787.02 NAUSEA ALONE 03/04/2019 AMBER SCHAEFFER MD Ot 789.01 ABDOMINAL PAIN, RIGHT UPPER QUADRANT 03/04/2019 NAREN HORVATH DO Ot V72. 84 EXAM PRE-OPERATIVE NOS 03/04/2019 LANI GIBSON, JYOTSNA Tavares Ot N63 UNSPECIFIED LUMP IN BREAST 03/04/2019 ODETTE REYES EGG CASER Ot M47.896 OTHER SPONDYLOSIS, LUMBAR REGION 03/04/2019 ODETTE REYES EGG CASER Ot M51. 86 OTHER INTERVERTEBRAL DISC DISORDERS, LUM 03/04/2019 MADLBELLE EGG CASER Ot N92 .1 EXCESSIVE AND FREQUENT MENSTRUATION WITH 03/04/2019 MADLALISONA Jamla EGG CASER Ot N93 .8 OTHER SPECIFIED ABNORMAL UTERINE AND VAG 03/06/2019 RANGEL WINSTON MD Ot F17.210 NICOTINE DEPENDENCE, CIGARETTES, UNCOMPL 03/06/2019 RANGEL WINSTON MD Ot F32. 9 MAJOR DEPRESSIVE DISORDER, SINGLE EPISOD 03/06/2019 RANGEL WINSTON MD Ot F41. 9 ANXIETY DISORDER, UNSPECIFIED 03/06/2019 RANGEL WINSTON MD Ot J45.909 UNSPECIFIED ASTHMA, UNCOMPLICATED 03/06/2019 RANGEL WINSTON MD Ot K21. 9 GASTRO-ESOPHAGEAL REFLUX DISEASE WITHOUT 03/06/2019 RANGEL WINSTNO MD Ot M54. 5 LOW BACK PAIN 03/06/2019 RANGEL WINSTON MD Ot S33.5XXA SPRAIN OF LIGAMENTS OF LUMBAR SPINE, INI 03/06/2019 RANGEL WINSTON MD Ot X50.0XXA OVEREXERTION FROM STRENUOUS MOVEMENT OR 03/06/2019 RANGEL WINSTON MD Ot Y92. [address] 03/06/2019 RANGEL WINSTON MD Ot Y99. 0 CIVILIAN ACTIVITY DONE FOR INCOME OR PAY 03/06/2019 RANGEL WINSTON MD Ot Z88. 0 ALLERGY STATUS TO PENICILLIN 03/06/2019 RANGEL WINSTON MD Ot Z90. 89 ACQUIRED ABSENCE OF OTHER ORGANS 03/06/2019 RANGEL WINSTON MD Ot Z98. 51 TUBAL LIGATION STATUS 03/06/2019 MANNY DAWSON REGULATORY ANALYST Ot 789.09 ABDOMINAL PAIN, OTHER SPECIFIED SITE 03/06/2019 MANNY DAWSON REGULATORY ANALYST Ot 790.99 BLOOD EXAM - [facility] NONSPECIFIC FINDINGS 03/06/2019 MAKSIM GIBSON, AMBER Guillen Ot 789.09 ABDOMINAL PAIN, OTHER SPECIFIED SITE 03/06/2019 MAKSIM GIBSON, AMBER Guillen Ot 787.02 NAUSEA ALONE 03/06/2019 AMBER SCHAEFFER MD Ot 789.01 ABDOMINAL PAIN, RIGHT UPPER QUADRANT 03/06/2019 NAREN HORVATH DO Ot V72. 84 EXAM PRE-OPERATIVE NOS 03/06/2019 LANI GIBSON, JYOTSNA Tavares Ot N63 UNSPECIFIED LUMP IN BREAST 03/06/2019 ODETTE REYES EGG CASER Ot M47.896 OTHER SPONDYLOSIS, LUMBAR REGION 03/06/2019 ODETTE REYES EGG CASER Ot M51. 86 OTHER INTERVERTEBRAL DISC DISORDERS, LUM 03/06/2019 BELLE JAFFE EGG CASER Ot N92 .1 EXCESSIVE AND FREQUENT MENSTRUATION WITH 03/06/2019 BELLE JAFFE EGG CASER Ot N93 .8 OTHER SPECIFIED ABNORMAL UTERINE AND VAG 03/10/2019 RANGEL WINSTON MD Ot F17.210 NICOTINE DEPENDENCE, CIGARETTES, UNCOMPL 03/10/2019 RANGEL WINSTON MD Ot F32. 9 MAJOR DEPRESSIVE DISORDER, SINGLE EPISOD 03/10/2019 RANGEL WINSTON MD Ot F41. 9 ANXIETY DISORDER, UNSPECIFIED 03/10/2019 RANGEL WINSTON MD Ot J45.909 UNSPECIFIED ASTHMA, UNCOMPLICATED 03/10/2019 RANGEL WINSTON MD Ot K21. 9 GASTRO-ESOPHAGEAL REFLUX DISEASE WITHOUT 03/10/2019 RANGEL WINSTON MD Ot M54. 5 LOW BACK PAIN 03/10/2019 RANGEL WINSTON MD Ot S33.5XXA SPRAIN OF LIGAMENTS OF LUMBAR SPINE, INI 03/10/2019 RANGEL WINSTON MD Ot X50.0XXA OVEREXERTION FROM STRENUOUS MOVEMENT OR 03/10/2019 RANGEL WINSTON MD Ot Y92. [address] 03/10/2019 RANGEL WINSTON MD Ot Y99. 0 CIVILIAN ACTIVITY DONE FOR INCOME OR PAY 03/10/2019 RANGEL WINSTON MD Ot Z88. 0 ALLERGY STATUS TO PENICILLIN 03/10/2019 RANGEL WINSTON MD Ot Z90. 89 ACQUIRED ABSENCE OF OTHER ORGANS 03/10/2019 CATRACHITO GIBSON, RANGEL Núñez Ot Z98. 51 TUBAL LIGATION STATUS Procedures Code Description [place] [address] XRAY LUMBAR SPINE 2 OR 3 VIEWS 12/04/2013 59177 [employer] 12/04/2013 Physical P hysical Therapy 12/04/2013 60302 ROUT INE VENIPUNCTURE 02/18/2014 18492 US R ENAL ULTRASOUND, COMP 02/18/2014 85710 UA W / CULTURE IF INDICATED 02/18/2014 21407 CBC 02/19/2014 [id number] GF R CALC (RESULT ONLY) 02/19/2014 73688 CMP 02/19/2014 Q0091 PAP SMEAR OBTAIN SMEAR 03/06/2014 22776 PAP SMEAR 03/10/2014 17199 ROUT INE VENIPUNCTURE 06/17/[address] A BDOMEN & PELVIS W/ & W/O CONTRAST 06/17/2014 13084 US G ALLBLADDER ULTRASOUND 06/17/2014 91809 UA L REFUGIO DIP 06/17/2014 55866 CBC 06/17/2014 [id number] GF R CALC (RESULT ONLY) 06/17/2014 58287 CMP 06/17/2014 61352 H PY SHAHRAM (IN-HOUSE) 09/17/2014 Results Test Result Range Genital Culture, Routine - 03/24/16 12:1 5 Genital Culture, Routine Note LIPID PANEL - 09/26/18 12:59 CHOLESTEROL, TOTAL 235 mg/dL <200 HDL CHOLESTEROL 36 mg/dL >50 TRIGLYCERIDES 175 mg/dL <150 LDL-CHOLESTEROL 167 mg/dL (calc) NRG CHOL/HDLC RATIO 6.5 (calc) <5.0 NON HDL CHOLESTEROL 199 mg/dL (calc) <13 0 [facility] - 09/26/18 12:59 GLUCOSE 89 mg/dL 65-99 UREA NITROGEN (BUN) 15 mg/dL 7-25 CREATININE 0.92 mg/dL 0.50-1.10 eGFR NON-AFR. MONGOLIAN 78 mL/min/1.73m2 > OR = 60 eGFR 91 mL/min/1.73m2 > OR = 60 BUN/CREATININE RATIO NOT APPLICABLE (calc) 6-22 SODIUM 139 mmol/L 135-146 POTASSIUM 4.4 mmol/L 3.5-5.3 CHLORIDE 105 mmol/L 98-110 CARBON DIOXIDE 27 mmol/L 20-32 CALCIUM 9.4 mg/dL 8.6-10.2 PROTEIN, TOTAL 6.8 g/dL 6.1-8.1 ALBUMIN 4.2 g/dL 3.6-5.1 GLOBULIN 2.6 g/dL (calc) 1.9-3.7 ALBUMIN/GLOBULIN RATIO 1.6 (calc) 1.0-2. 5 BILIRUBIN, TOTAL 0.6 mg/dL 0.2-1.2 ALKALINE PHOSPHATASE 66 U/L 33-115 AST 14 U/L 10-30 ALT 16 U/L 6-29 A1C - 09/26/18 12:59 HEMOGLOBIN A1c 5.4 % of total Hgb <5.7 GC/CHLAMYDIA (SWAB OR URINE)-RAPID - 13:38 CHLAMYDIA TRACHOMATIS RNA, TMA NOT DETECTED NOT DETECTED NEISSERIA GONORRHOEAE RNA, TMA NOT DETECTED NOT DETECTED COMMENT NRG PDM - 09 PANEL (PROFILE 1) - 02/06/19 13 :54 Prescribed Drug 1 Tramadol NRG Creatinine 117.8 mg/dL > or = 20.0 pH 7.06 4.5 - 9.0 Oxidant NEGATIVE mcg/mL <200 Amphetamines NEGATIVE ng/mL <500 medMATCH Amphetamines CONSISTENT NRG Benzodiazepines NEGATIVE ng/mL <100 medMATCH Benzodiazepines CONSISTENT NRG Marijuana Metabolite NEGATIVE ng/mL <20 medMATCH Marijuana Metab CONSISTENT NRG Cocaine Metabolite NEGATIVE ng/mL <150 medMATCH Cocaine Metab CONSISTENT NRG Opiates NEGATIVE ng/mL <100 medMATCH Opiates CONSISTENT NRG Oxycodone NEGATIVE ng/mL <100 medMATCH Oxycodone CONSISTENT NRG COMMENT NRG Barbiturates NEGATIVE ng/mL <300 medMATCH Barbiturates CONSISTENT NRG Methadone Metabolite NEGATIVE ng/mL <100 medMATCH Methadone Metab CONSISTENT NRG Phencyclidine NEGATIVE ng/mL <25 medMATCH Phencyclidine CONSISTENT NRG PDM - TRAMADOL - 11/20/19 10:09 COMMENT NRG Desmethyltramadol 146 ng/mL <100 medMATCH Desmethyltram CONSISTENT NRG Tramadol 197 ng/mL <100 medMATCH Tramadol CONSISTENT NRG Prescribed Drug 2 Tramadol NRG A1C - 11/20/19 10:09 HEMOGLOBIN A1c 5.7 % of total Hgb <5.7 Encounters ACCT No. Visit Date/Time Discharge Status Pt. Type Provider Facility Loc./Unit Complaint [id number] 03/27/2016 13:05:00 Document Registration [id number] 09/17/2014 13:45:00 09/17/2014 23:59: 59 CLS Outpatient MANNY DAWSON APRN [id number] 06/27/2014 09:45:00 06/27/2014 23:59: 59 CLS Outpatient AMBER SCHAEFFER MD [id number] 06/17/2014 09:54:00 06/17/2014 23:59: 59 CLS Outpatient AMBER SCHAEFFER MD [id number] 06/02/2014 17:39:00 06/02/2014 23:59: 59 CLS Outpatient SURI RUBI DO [id number] 03/06/2014 14:05:00 03/06/2014 23:59: 59 CLS Outpatient GUILLERMO MURILLO LON A [id number] 02/18/2014 15:25:00 02/18/2014 23:59: 59 CLS Outpatient MANNY DAWSON APRN [id number] 12/04/2013 14:18:00 12/04/2013 23:59: 59 CLS Outpatient MANNY DAWSON APRN [id number] 05/24/2011 09:24:00 05/24/2011 23:59: 59 CLS Outpatient GIANFRANCO GIBSON, DIONY [id number] 07/09/2019 13:40:00 07/09/2019 23:59: 59 CLS Outpatient RACHEL FITCH [facility] [id number] 11/20/2019 09:20:00 Document Registration [id number] 02/06/2019 13:00:00 Document Registration [id number] 09/26/2018 11:20:00 Document Registration [id number] 03/04/2019 17:28:00 18:40:00 DIS Outpatient CATRACHITO GIBSON, RANGEL Núñez [facility] ER FS BACK INJ, LIGHT HEADED [id number] 08/31/2018 19:39:00 23:57:00 DIS Emergency KAIDEN GIBSON, YENY Gudino [facility] ER FS LIGHT HEADED, BODY HAMLET G NUMB, MIGRAINE [id number] 03/29/2016 12:06:00 23:59:59 CLS Outpatient BELLE JAFFE [facility] RAD N93.8,N92.1 [id number] 01/20/2016 10:56:00 016 23:59:59 CLS Outpatient ODETTE REYES EGG CASER [facility] RAD HERNIATED NUCLEUS PULOS US [id number] 10/08/2015 10:32:00 016 23:59:59 CLS Outpatient JYOTSNA GARIBAY MD [facility] RAD LUMP RT BREAST [id number] 12/02/2014 14:36:00 16:35:00 DIS Outpatient NAREN HORVATH DO [facility] SDC REFLUX [id number] 11/27/2014 06:04:00 23:59:59 CLS Outpatient NAREN HORVATH DO [facility] PREOP REFLUX [id number] 06/27/2014 08:58:00 23:59:59 CLS Outpatient AMBER SCHAEFFER MD [facility] RAD RUQ PAIN,NAUSEA [id number] 06/23/2014 13:37:00 015 23:59:59 CLS Outpatient AMBER SCHAEFFER MD [facility] RAD RT SIDED ABD PAIN [id number] 02/24/2014 15:35:00 014 23:59:59 CLS Outpatient MANNY DAWSON APRN [facility] RAD ELEVATED BUN/CREATINE, HEMATURIA,FLANK PAIN [id number] 02/06/2014 13:00:00 014 14:04:00 DIS Outpatient MANNY DAWSON APRN [facility] REHAB LUMBAGO [id number] 04/25/2011 10:05:00 Document Registration
== END 2019-12-03 21:29 | disposition home or self-care (01) ==
LOC: EDUNIT# 20:43 → ER FS 20:45
DX: R19.7 Diarrhea, unspecified (principal); K21.9 Gastro-esophageal reflux disease without esophagitis; G89.29 Other chronic pain; M54.9 Dorsalgia, unspecified; F41.9 Anxiety disorder, unspecified; F32.9 Major depressive disorder, single episode, unspecified; Z88.0 Allergy status to penicillin; Z79.1 Long term (current) use of non-steroidal anti-inflammatories (NSAID)
CPT/HCPCS: 74019; 81000; 87088

== ENCOUNTER → 2020-04-16 | Outpatient (CLI) | payer SELFPAY ==
[~2020-04-16] MED LIST changes: +DICY20TA10 PO
--- NOTE | 2020-04-16 12:20 | Diagnostic Imaging Report ---
INDICATION: Left shoulder pain AP, oblique, and transscapular views left shoulder are obtained. No fracture or acute bony abnormality is seen. Glenohumeral joint and AC joint appear unremarkable. IMPRESSION: Negative left shoulder. Dictated by: Dictated on workstation # [id number]
== END ==
LOC: RAD FS 11:19
PROVIDERS: ATTEND Nurse Practitioner Family
DX: M25.512 Pain in left shoulder (principal)
CPT/HCPCS: 73030

== ENCOUNTER → 2020-05-11 | Outpatient (CLI) | payer SELFPAY ==
--- NOTE | 2020-05-11 14:02 | Diagnostic Imaging Report ---
INDICATION: Elbow pain. COMPARISON: None available. TECHNIQUE: Three radiographs of the left elbow are dated 05/11/2020. FINDINGS: No acute fracture or dislocation. No destructive osseous process. No elbow joint effusion. No suspicious radiopaque foreign body. IMPRESSION: No acute osseous abnormality. Dictated by: Dictated on workstation # [id number]
== END ==
LOC: RAD FS 10:44
PROVIDERS: ATTEND Nurse Practitioner Family
DX: M25.522 Pain in left elbow (principal)
CPT/HCPCS: 73080